=== PATIENT | female | born 1945 | race Caucasian/White ===

== ENCOUNTER → 2017-02-28 | Outpatient (CLI) | payer MEDICARE, SELFPAY | PROVIDERS: Visit Provider Surgery | DX: C50.911 Malignant neoplasm of unspecified site of right female breast (principal) ==

== ENCOUNTER 2018-01-27 09:50 | Outpatient (CLI) | payer MEDICARE, SELFPAY ==
[2018-01-27 10:29] VITALS: BP 128/69; PULSE 71; RESP 18; TEMP 36.7; O2SAT 97
[2018-01-27 10:45] VITALS: BP 141/78; PULSE 68; RESP 18; TEMP 36.6; O2SAT 96
== END 2018-01-27 10:45 | disposition home or self-care (01) ==
LOC: INF 10:04
PROVIDERS: Family Provider Nurse Practitioner; PCP Nurse Practitioner; Visit Provider Nurse Practitioner
DX: M81.0 Age-related osteoporosis without current pathological fracture (principal); C50.911 Malignant neoplasm of unspecified site of right female breast
CPT/HCPCS: 96372; J0897

== ENCOUNTER → 2018-03-24 08:22 | Outpatient (CLI) | payer MEDICARE, SELFPAY ==
--- NOTE | 2018-03-24 08:29 | MM_ITS ---
MM Dig screening mamm BI w/CAD CAD Screening COMPARISON: Digital mammograms 03/24/2017 and 03/21/2016 INDICATION: There is been previous lumpectomy right breast with follow-up radiation therapy. There is a history of breast cancer patient maternal grandmother and maternal aunts. TECHNIQUE: Standard CC and MLO images were obtained. R2 CAD reviewed. FINDINGS: The postlumpectomy scarring is again noted upper outer quadrant right breast with mild focal skin thickening consistent with previous radiation therapy. There is a surgical clip associated with the scar. There are few scattered benign-appearing calcifications in each breast. There is no new or suspicious lesion and there are no suspicious microcalcifications. IMPRESSION: Fibrofatty parenchyma with stable post lumpectomy scarring right breast BI-RADS Category: 2 Benign Finding(s) RECOMMENDED FOLLOW-UP: 1YR - 1 YEAR FOLLOW-UP (A letter has been sent to the patient regarding results of the study.)
== END ==
PROVIDERS: Family Provider Nurse Practitioner; PCP Nurse Practitioner; Visit Provider Surgery
DX: Z12.31 Encounter for screening mammogram for malignant neoplasm of breast (principal)
CPT/HCPCS: 77067

== ENCOUNTER → 2018-04-01 11:46 | Outpatient (CLI) | payer MEDICARE, SELFPAY ==
[2018-04-01 12:08] LABS: Basophils % 0.5 % (0.1-2.0); Eosinophils # 0.1 K/mm3 (0.0-0.4); Eosinophils % 2.4 % (0.1-12.0); Hematocrit 42.7 % (37.0-47.0); Hemoglobin 13.7 g/dL (12.2-16.2); Lymphocytes # 1.6 K/mm3 (0.7-4.5); Mean Corpuscular Hemoglobin 28.9 pg (27.0-31.2); Mean Corpuscular Volume 90.2 fl (81-99); Mean Platelet Volume 7.9 fl (7.4-10.4); Monocytes # 0.3 K/mm3 (0.1-1.0); Monocytes % 5.1 % (1.7-9.3); Neutrophils % 60.2 % (37.0-80.0); Platelet Count 266 K/mm3 (142-424); Red Blood Count 4.73 M/mm3 (4.20-5.40)
[2018-04-01 13:15] LABS: Alanine Aminotransferase 37 U/L (12-78); Albumin Level 3.8 gm/dL (3.4-5.0); Albumin/Globulin Ratio 1.4 (1.1-1.8); Alkaline Phosphatase 41 U/L (46-116); Anion Gap 13.1 mEq/L (5-15); Aspartate Amino Transferase 29 U/L (15-37); Bilirubin,Total 0.4 mg/dL (0.2-1.0); Blood Urea Nitrogen 16 mg/dL (7-18); Calcium 10.7 mg/dL (8.5-10.1); Carbon Dioxide 27 mmol/L (21.0-32.0); Chloride 110 mmol/L (98-107); Estimated Glomerular Filt Rate 55 ml/min (>60); GFR (African American) 66 ML/MIN (>60); Globulin 2.8 gm/dl (1.3-3.2); Glucose 89 mg/dL (74-106); Potassium 5.1 mmoL/L (3.5-5.1); Sodium 145 mmol/L (136-145); Total Protein,Serum 6.6 gm/dL (6.4-8.2)
== END ==
PROVIDERS: Visit Provider Nurse Practitioner
DX: C50.911 Malignant neoplasm of unspecified site of right female breast (principal); M81.0 Age-related osteoporosis without current pathological fracture
CPT/HCPCS: 36415; 80053; 85025

== ENCOUNTER → 2018-09-30 12:43 | Outpatient (CLI) | payer MEDICARE, SELFPAY ==
--- NOTE | 2018-09-30 12:46 | XR_ITS ---
XR DEXA axial skeleton HISTORY: ITS.REASON: breast cancer ORDERING PHYSICIAN: Maria Ines Smith PATIENT AGE: 73 years COMPARISON: 07/03/2017 FINDINGS: The BMD measured at the Right femoral neck is 0.614 g/cm squared with a T score of -3.1. This is considered Osteoporotic according to the World Health Organization criteria. Fracture risk is High. Treatment is advised. L1 L4 density has a T score of -0.3 and has increased by 12%. The main density of the hips has increased by 4%. IMPRESSION: Osteoporosis without fracture risk. Suggest treatment. Recommend follow-up exam in year
== END ==
PROVIDERS: PCP Family Medicine; Visit Provider Nurse Practitioner
DX: C50.919 Malignant neoplasm of unspecified site of unspecified female breast (principal); Z78.0 Asymptomatic menopausal state
CPT/HCPCS: 77080

== ENCOUNTER → 2018-10-07 12:23 | Outpatient (CLI) | payer MEDICARE, SELFPAY ==
[2018-10-07 12:32] VITALS: BMI 32.4
[2018-10-07 12:43] VITALS: BP 160/83; PULSE 74; RESP 18; TEMP 36.5; O2SAT 98
[2018-10-07 12:50] LABS: Basophils % 0.5 % (0.1-2.0); Eosinophils # 0.1 K/mm3 (0.0-0.4); Eosinophils % 1.7 % (0.1-12.0); Hematocrit 41.8 % (37.0-47.0); Hemoglobin 13.6 g/dL (12.2-16.2); Lymphocytes # 1.4 K/mm3 (0.7-4.5); Lymphocytes % 32.8 % (10-50); Mean Corpuscular HGB Conc 32.6 g/dL (31.8-35.4); Mean Corpuscular Hemoglobin 29.6 pg (27.0-31.2); Mean Corpuscular Volume 90.7 fl (81-99); Mean Platelet Volume 7.3 fl (7.4-10.4); Monocytes # 0.2 K/mm3 (0.1-1.0); Monocytes % 5.4 % (1.7-9.3); Neutrophils # 2.6 K/mm3 (1.8-7.8); Neutrophils % 59.6 % (37.0-80.0); Platelet Count 258 K/mm3 (142-424); Red Blood Count 4.61 M/mm3 (4.20-5.40); Red Cell Distribution Width 13.2 % (11.5-17.5); White Blood Count 4.4 K/mm3 (4.8-10.8)
[2018-10-07 13:08] LABS: Alanine Aminotransferase 26 U/L (12-78); Albumin Level 3.6 gm/dL (3.4-5.0); Albumin/Globulin Ratio 1.1 (1.1-1.8); Alkaline Phosphatase 52 U/L (46-116); Anion Gap 15.3 mEq/L (5-15); Aspartate Amino Transferase 18 U/L (15-37); Bilirubin,Total 0.4 mg/dL (0.2-1.0); Blood Urea Nitrogen 13 mg/dL (7-18); Calcium 10.2 mg/dL (8.5-10.1); Carbon Dioxide 25 mmol/L (21.0-32.0); Chloride 107 mmol/L (98-107); Creatinine Clearance Estimated 51 mL/min (50-200); Creatinine,Serum 1.18 mg/dL (0.55-1.02); Estimated Glomerular Filt Rate 45 ml/min (>60); GFR (African American) 54 ML/MIN (>60); Globulin 3.2 gm/dl (1.3-3.2); Glucose 100 mg/dL (74-106); Potassium 4.3 mmoL/L (3.5-5.1); Sodium 143 mmol/L (136-145); Total Protein,Serum 6.8 gm/dL (6.4-8.2)
== END ==
PROVIDERS: Visit Provider Nurse Practitioner
DX: C50.911 Malignant neoplasm of unspecified site of right female breast (principal); M81.0 Age-related osteoporosis without current pathological fracture
CPT/HCPCS: 80053; 85025; 96372; J0897

== ENCOUNTER → 2019-03-29 09:47 | Outpatient (CLI) | payer MEDICARE, SELFPAY ==
--- NOTE | 2019-03-29 09:48 | MM_ITS ---
MM Dig screening mamm BI w/CAD CAD Screening COMPARISON: Digital mammograms with CAD 03/24/2018 and 03/21/2016 INDICATION: There is been previous lumpectomy right breast with follow-up radiation therapy. There is a history of breast cancer patient maternal grandmother and maternal aunts TECHNIQUE: Standard CC and MLO images were obtained. R2 CAD reviewed. FINDINGS: The right breast is a small in the left breast and there is mild uniform skin thickening of the right breast. Again noted is the postlumpectomy site upper outer quadrant showing postlumpectomy scarring along with surgical clips. This area is stable. Moderate fiber glandular densities are seen in both breast. There are few benign-appearing microcalcifications in each breast. There is no new or suspicious lesion in either breast and there are no suspicious microcalcifications. IMPRESSION: Stable post lumpectomy changes right breast with no suspicious lesion seen BI-RADS Category: 2 Benign Finding(s) RECOMMENDED FOLLOW-UP: 1YR - 1 YEAR FOLLOW-UP (A letter has been sent to the patient regarding results of the study.)
== END ==
PROVIDERS: PCP Family Medicine; Visit Provider Nurse Practitioner
DX: Z12.31 Encounter for screening mammogram for malignant neoplasm of breast (principal)
CPT/HCPCS: 77067

== ENCOUNTER 2019-04-14 10:25 | Outpatient (CLI) | payer MEDICARE, SELFPAY ==
[2019-04-14 10:36] VITALS: BMI 32.2
[2019-04-14 10:45] VITALS: BP 141/75; PULSE 60; RESP 18; O2SAT 96
[2019-04-14 11:00] LABS: Basophils % 0.3 % (0.1-2.0); Eosinophils # 0.1 K/mm3 (0.0-0.4); Eosinophils % 2.9 % (0.1-12.0); Hematocrit 40.7 % (37.0-47.0); Hemoglobin 13.1 g/dL (12.2-16.2); Lymphocytes # 1.6 K/mm3 (0.7-4.5); Lymphocytes % 34.4 % (10-50); Mean Corpuscular HGB Conc 32.2 g/dL (31.8-35.4); Mean Corpuscular Hemoglobin 29.9 pg (27.0-31.2); Mean Corpuscular Volume 92.9 fl (81-99); Mean Platelet Volume 7.9 fl (7.4-10.4); Monocytes # 0.3 K/mm3 (0.1-1.0); Monocytes % 6.2 % (1.7-9.3); Neutrophils # 2.6 K/mm3 (1.8-7.8); Neutrophils % 56.1 % (37.0-80.0); Platelet Count 252 K/mm3 (142-424); Red Blood Count 4.37 M/mm3 (4.20-5.40); Red Cell Distribution Width 13.1 % (11.5-17.5); White Blood Count 4.5 K/mm3 (4.8-10.8)
[2019-04-14 11:11] LABS: Alanine Aminotransferase 28 U/L (12-78); Albumin Level 3.4 gm/dL (3.4-5.0); Albumin/Globulin Ratio 1.1 (1.1-1.8); Alkaline Phosphatase 41 U/L (46-116); Anion Gap 15.8 mEq/L (5-15); Aspartate Amino Transferase 25 U/L (15-37); Bilirubin,Total 0.4 mg/dL (0.2-1.0); Blood Urea Nitrogen 17 mg/dL (7-18); Calcium 9.3 mg/dL (8.5-10.1); Carbon Dioxide 25 mmol/L (21.0-32.0); Chloride 108 mmol/L (98-107); Creatinine Clearance Estimated 52 mL/min (50-200); Creatinine,Serum 1.16 mg/dL (0.55-1.02); Estimated Glomerular Filt Rate 46 ml/min (>60); GFR (African American) 56 ML/MIN (>60); Globulin 3.1 gm/dl (1.3-3.2); Glucose 103 mg/dL (74-106); Potassium 4.8 mmoL/L (3.5-5.1); Sodium 144 mmol/L (136-145); Total Protein,Serum 6.5 gm/dL (6.4-8.2)
== END 2019-04-14 10:55 | disposition home or self-care (01) ==
LOC: INF 10:28
PROVIDERS: Visit Provider Nurse Practitioner
DX: C50.911 Malignant neoplasm of unspecified site of right female breast (principal); M81.0 Age-related osteoporosis without current pathological fracture
CPT/HCPCS: 80053; 85025; 96372; J0897

== ENCOUNTER → 2019-10-11 13:36 | Outpatient (CLI) | payer MEDICARE, SELFPAY ==
--- NOTE | 2019-10-11 13:36 | XR_ITS ---
PROCEDURE: XR DEXA AXIAL SKELETON CLINICAL INDICATION: OSTEOPOROSIS COMPARISON: No exams were available for comparison FINDINGS: Lumbar spine (L1 through L4), BMD 0.981, T-score -0.6 Left hip (neck), BMD 0.529, T-score -2.9 Left hip (Total), BMD 0.638, T-score -2.5 IMPRESSION: Osteoporosis. It should also be noted there is false elevation of the bone density measurement in the mid and lower lumbar spine related to chronic intervertebral osteochondrosis. Dictated by: Jaspreet Jarrell 10/11/2019 18:45 Electronically signed by Jaspreet Jarrell in [place] 10/11/2019 18:45
== END ==
PROVIDERS: PCP Family Medicine; Visit Provider Nurse Practitioner
DX: M81.0 Age-related osteoporosis without current pathological fracture (principal)
CPT/HCPCS: 77080

== ENCOUNTER 2019-10-18 10:54 | Outpatient (CLI) | payer MEDICARE, SELFPAY ==
[2019-10-18 11:01] VITALS: BMI 33.4
[2019-10-18 11:36] LABS: Basophils % 0.4 % (0.1-2.0); Eosinophils # 0.1 K/mm3 (0.0-0.4); Eosinophils % 3.6 % (0.1-12.0); Hematocrit 38.7 % (37.0-47.0); Lymphocytes % 28.7 % (10-50); Mean Corpuscular Hemoglobin 28.5 pg (27.0-31.2); Mean Platelet Volume 7.6 fl (7.4-10.4); Monocytes # 0.2 K/mm3 (0.1-1.0); Monocytes % 5.6 % (1.7-9.3); Neutrophils # 2.2 K/mm3 (1.8-7.8); Neutrophils % 61.7 % (37.0-80.0); Platelet Count 269 K/mm3 (142-424); Red Blood Count 4.21 M/mm3 (4.20-5.40); Red Cell Distribution Width 13.7 % (11.5-17.5); White Blood Count 3.6 K/mm3 (4.8-10.8)
[2019-10-18 11:40] VITALS: BP 142/75; PULSE 71; RESP 18; O2SAT 97
[2019-10-18 11:42] LABS: Alanine Aminotransferase 22 U/L (12-78); Anion Gap 13.6 mEq/L (5-15); Aspartate Amino Transferase 20 U/L (15-37); Bilirubin,Total 0.3 mg/dL (0.2-1.0); Blood Urea Nitrogen 16 mg/dL (7-18); Calcium 9.2 mg/dL (8.5-10.1); Carbon Dioxide 25 mmol/L (21.0-32.0); Chloride 110 mmol/L (98-107); Creatinine Clearance Estimated 61 mL/min (50-200); Creatinine,Serum 0.99 mg/dL (0.55-1.02); Estimated Glomerular Filt Rate 55 ml/min (>60); GFR (African American) 67 ML/MIN (>60); Glucose 159 mg/dL (74-106); Potassium 4.6 mmoL/L (3.5-5.1); Sodium 144 mmol/L (136-145)
[2019-10-18 12:01] LABS: Alkaline Phosphatase 40 U/L (46-116)
== END 2019-10-18 12:03 | disposition home or self-care (01) ==
LOC: INF 10:54
PROVIDERS: Visit Provider Internal Medicine Medical Oncology
DX: C50.911 Malignant neoplasm of unspecified site of right female breast (principal); M81.0 Age-related osteoporosis without current pathological fracture
CPT/HCPCS: 80053; 85025; 96372; J0897

== ENCOUNTER 2019-12-28 09:00 | Outpatient (RCR) | payer MEDICARE, SELFPAY ==
--- NOTE | 2019-10-18 15:19 | HMH.PTOPWND ---
Rehab Outpt Wound Evaluation Rehab OP Wound Evaluation Start: 10/18/19 14:59 Freq: Status: Active Protocol: Document 10/18/19 15:12 PHOANGELA (Rec: 10/18/19 15:18 PHORNE [id number]) Electronically Signed By Christos Barnes, PT 10/18/19 15:12 Subjective/History History History Pt is 74 yowf who presents with increased right UE edema x 5 yrs S/P right breast cancer with lumpectomy and axillary LN disection. She has had good success with lymphedema treatment in the past and and reports this episode of increased edema began several mos ago. She reports only mild discomfort in the right UE and minimal intermittent numbness. She has PMH of HL, HTN, osteoporosis, CCY. Subjective Subjective She reports 1/10 pain in the right axillary region today and minimal tenderness to palpation. Lymphedema Eval Classification of Lymphedema Secondary Lymphedema Yes Stemmer's sign Stemmer's Sign no Stage of Lymphedema Lymphedema stages Stage II (Pitting edema, increased fibrosis w/ decreased pitting) Skin Changes Dry Skin Yes Skin Folds Yes Other Changes Yes Pain Scale Pain Scale (0-10) 1 Radiation Therapy Has received radiation therapy yes Chemo Therapy Has received chemo therapy yes Affected Extremities Areas Affected by Lymphedema/Edema Right Upper Extremity,Right Breast,Right Axilla Manual Lymphatic Drainage Treatment Area MLD Treatment Area Right Upper Extremity,Right Breast,Right Axilla Wound Problems/Impairments Impairments Problems/Impairmments Palpation Tenderness,Impaired Range of Motion,Impaired Lifting,Increased Edema, Lymphedema Present,Subjective C/O Pain,Impaired Self Care/ Self Management Prognosis Rehab Potential Good Clinical Impression Consistent with Diagnosis Yes Short Term Goals Number of Weeks 4 Decreased Palpation Tenderness Yes: to min Decrease Lymphedema Yes Decrease Subjective C/O Pain
--- NOTE | 2019-11-18 08:52 | HMH.RHREAS ---
Rehab Reassessment Rehab OP Re-assessment Start: 11/18/19 08:45 Freq: Status: Active Protocol: Document 11/18/19 08:45 GUILLERMINA (Rec: 11/18/19 08:52 GUILLERMINA [id number]) Electronically Signed By Christos Barnes, PT 11/18/19 08:45 Rehab Re-assessment Subjective Subjective Pt reports she feels better in the R UE and is feeling better in her clothes, not as tight. Objective Objective Notes Circumferential measurements: R UE total is -16.4 cm since initial eval. Assessment Progress Assessment Progressing as Expected Assessment Notes Less significant fibrotic edema throughout the upper R arm, less stiffness in the sub -axiallry edema ridge noted as well. She has also improved with Ther-ex, but is taking a 2 wk break while she adjusts to a new HTN medication. Patient goals met ST,2,3,4,5 Goals Not Met LT,2,3,4,5,6 Revised Goals none Plan Plan Continue per initial POC. Frequency of Therapy 2 x/wk Duration of therapy 8 wks Time and Billing Re-Eval Time 15 Re-Eval Billing Units 1 PHYSICIAN CERTIFICATION: I certify the specified therapy services for Loulou Luong are required, authorized, and reviewed every 30 days.
== END 2019-12-28 09:05 | disposition home or self-care (01) ==
LOC: PT 09:00
PROVIDERS: Visit Provider Internal Medicine Medical Oncology
DX: Z85.3 Personal history of malignant neoplasm of breast (principal)
CPT/HCPCS: 97110; 97140; 97162; 97164; 97760

== ENCOUNTER → 2020-04-03 08:19 | Outpatient (CLI) | payer MEDICARE, SELFPAY ==
--- NOTE | 2020-04-03 08:25 | MM_ITS ---
PROCEDURE: MM DIG SCREENING MAMM BI W/CAD Digital Breast Tomosynthesis Included CLINICAL INDICATION: SCREENING There is a history of lumpectomy right breast for malignancy. Patient is currently on tamoxifen. The right breast was difficult to position for the MLO view secondary to lymphedema in the right arm. COMPARISON: BONE3 BONE DENSITOMETRY(HIP:LT SPINE from 07/03/2017 [facility] MM Dig screening mamm BI w/CAD from 03/24/2018 DIG MAMM-SCREEN BRANDEN from 03/29/2019 TECHNIQUE: Standard CC and MLO images and 3D Tomosynthesis was obtained. R2 CAD reviewed. FINDINGS: There is moderate postlumpectomy scarring upper outer quadrant right breast. There is a surgical clip near the postsurgical scar upper outer quadrant right breast. There are couple of benign-appearing microcalcifications in each breast. There has been slight interval reduction in the lumpectomy scar right breast compared to the previous studies. The scarring in the right axillary region is stable unchanged. There are fatty replaced nodes left axilla. There is no new or suspicious lesion and no suspicious microcalcifications. IMPRESSION: Stable exam with no suspicious lesions seen BI-RAD Category: 2 Benign Finding(s) FOLLOW-UP: 1YR 1 Year Follow-up (A letter has been sent to the patient regarding results of the study.) Dictated by: Dr. Wayne Bruce MD 04/05/2020 10:[address] Wayne Bruce MD in [place] 04/05/2020 10:55
== END ==
PROVIDERS: PCP Family Medicine; Visit Provider Surgery
DX: Z12.31 Encounter for screening mammogram for malignant neoplasm of breast (principal)
CPT/HCPCS: 77063; 77067

== ENCOUNTER 2020-05-05 09:49 | Outpatient (CLI) | payer MEDICARE, SELFPAY ==
[2020-05-05 09:52] VITALS: BMI 33.4
[2020-05-05 10:01] VITALS: BP 142/85; PULSE 73; RESP 18; TEMP 36.7; O2SAT 98
[2020-05-05 10:22] LABS: Basophils % 0.3 % (0.1-2.0); Eosinophils # 0.1 K/mm3 (0.0-0.4); Eosinophils % 2.2 % (0.1-12.0); Hematocrit 39.1 % (37.0-47.0); Hemoglobin 13.4 g/dL (12.2-16.2); Lymphocytes # 1.5 K/mm3 (0.7-4.5); Lymphocytes % 25.3 % (10-50); Mean Corpuscular HGB Conc 34.2 g/dL (31.8-35.4); Mean Corpuscular Hemoglobin 31.2 pg (27.0-31.2); Mean Corpuscular Volume 91.2 fl (81-99); Mean Platelet Volume 7.8 fl (7.4-10.4); Monocytes # 0.3 K/mm3 (0.1-1.0); Monocytes % 4.2 % (1.7-9.3); Neutrophils # 4.1 K/mm3 (1.8-7.8); Neutrophils % 68.1 % (37.0-80.0); Platelet Count 280 K/mm3 (142-424); Red Blood Count 4.28 M/mm3 (4.20-5.40); Red Cell Distribution Width 13.2 % (11.5-17.5)
[2020-05-05 10:26] LABS: Chloride 106 mmol/L (98-107); Potassium 4.4 mmoL/L (3.5-5.1); Sodium 142 mmol/L (136-145)
[2020-05-05 10:29] LABS: Alanine Aminotransferase 19 U/L (12-78); Albumin/Globulin Ratio 1.5 (1.1-1.8); Alkaline Phosphatase 68 U/L (38-126); Anion Gap 14.4 mEq/L (5-15); Aspartate Amino Transferase 36 U/L (14-36); Bilirubin,Total 0.5 mg/dl (0.2-1.3); Blood Urea Nitrogen 16 mg/dl (7-17); Carbon Dioxide 26 mmol/L (22.0-30.0); Creatinine Clearance Estimated 56 mL/min (50-200); Estimated Glomerular Filt Rate 49 ml/min (>60); GFR (African American) 59 ML/MIN (>60); Globulin 2.7 g/dL (1.3-3.2); Total Protein,Serum 6.7 g/dl (6.3-8.2)
[2020-05-05 10:30] LABS: Calcium 10.1 mg/dl (8.4-10.2); Glucose 108 mg/dl (74-100)
== END 2020-05-05 10:30 | disposition home or self-care (01) ==
LOC: INF 09:49
PROVIDERS: Visit Provider Internal Medicine Medical Oncology
DX: C50.919 Malignant neoplasm of unspecified site of unspecified female breast (principal); M81.0 Age-related osteoporosis without current pathological fracture
CPT/HCPCS: 36415; 80053; 85025; 96372; J0897

== ENCOUNTER → 2020-06-07 10:45 | Outpatient (CLI) | payer MEDICARE, SELFPAY ==
--- NOTE | 2020-06-07 10:50 | XR_ITS ---
PROCEDURE: XR SHOULDER LT MIN 2V CLINICAL INDICATION: LT SHOULDER PAIN COMPARISON: No exams were available for comparison FINDINGS: There are severe osteoarthritic changes of the glenohumeral joint and moderate osteoarthritic change of the acromioclavicular joint. There is a lucency through the mid aspect of the scapular spine consistent with a nondisplaced fracture. IMPRESSION: Osteoarthritic changes with nondisplaced fracture through the mid aspect of the scapular spine Dictated by: Pramod Polo MD 06/07/2020 11:53 Pramod Polo MD in [place] 06/07/2020 11:53
== END ==
PROVIDERS: PCP Family Medicine; Visit Provider Nurse Practitioner
DX: M25.512 Pain in left shoulder (principal)
CPT/HCPCS: 73030

== ENCOUNTER → 2020-06-20 08:33 | Outpatient (CLI) | payer MEDICARE, SELFPAY ==
--- NOTE | 2020-06-20 08:35 | MR_ITS ---
PROCEDURE: MR SHOULDER LT WO CON CLINICAL INDICATION: SHOULDER PAIN, LEFT PT C/O LEFT SHOULDER PAIN WITH NO KNOWN INJURY. PT STATES HER MD SENT HER FOR AN X-RAY THAT SHOWED A FX. PRIOR X-RAY DONE 06/07/20. PT DOES HAVE HX OF OSTEOPOROSIS SECONDARY TO MED USE., History of breast cancer COMPARISON: NM BTBB NUC BONE SCAN-WHOLE BODY-TBB from 04/04/[address] CHEST W/ CONTRAST from 04/05/2016 CR XR SHOULDER LT MIN 2V from 06/07/2020 TECHNIQUE: Routine multiplanar multi echo sequences are performed without gadolinium enhancement. FINDINGS: There are hypertrophic changes of the acromioclavicular joint. There is thickening of the supraspinatus tendon distally consistent with tendinopathy/tendinosis with suspected partial tear of the distal and posterior aspect of the supraspinatus tendon. There is also increased T2 signal with thinning of the infraspinatus tendon distally consistent with tendinopathy/tendinosis with partial tear suspected. A full-thickness nor a complete tear is identified. The subscapularis and teres minor tendons are intact. Moderate osteoarthritic changes are present involving the glenohumeral joint. The glenoid labrum is diminished in keeping with the severe osteoarthritis. No obvious labral tear is are evident. The bicipital tendon is in place. There is a small shoulder joint effusion There is a soft tissue mass which appears to be epicentered in the supraspinatus muscle. The mass is incompletely imaged and measures at least 5.4 cm longitudinal, 3.7 cm cephalad caudad, and 3 cm in AP dimension. The mass extends into the body of the scapula with a pathologic fracture within the scapular spine. The mass is incompletely imaged. There is increased T2 signal involving the a chromium at its junction with the scapular spine consistent with neoplastic involvement. The lesion also appears to extend into the scapula at the subglenoid region. IMPRESSION: 1. Soft tissue mass of the supraspinatus muscle with also involvement of the scapula with pathologic fracture of the base of the scapular spine and base of the acromion consistent with neoplasm either primary or metastatic. Suggest chest CT for better lesion characterization and extent. Previous study suggest a history of breast cancer. Metastatic lesion is considered. 2. Tendinopathy/tendinosis of both supraspinatus and infraspinatus tendons with partial tears with severe osteoarthritis of the glenohumeral joint Dictated by: Pramod Polo MD 06/22/2020 08:49 Pramod Polo MD in [place] 06/22/2020 08:49
== END ==
PROVIDERS: PCP Family Medicine; Visit Provider Nurse Practitioner
DX: M25.512 Pain in left shoulder (principal)
CPT/HCPCS: 73221

== ENCOUNTER → 2020-07-27 08:09 | Outpatient (CLI) | payer MEDICARE, SELFPAY ==
[2020-07-27 08:43] LABS: Basophils % 0.3 % (0.1-2.0); Eosinophils # 0.2 K/mm3 (0.0-0.4); Eosinophils % 3.1 % (0.1-12.0); Hematocrit 40.6 % (37.0-47.0); Hemoglobin 12.9 g/dL (12.2-16.2); Lymphocytes # 1.5 K/mm3 (0.7-4.5); Lymphocytes % 27.6 % (10-50); Mean Corpuscular HGB Conc 31.8 g/dL (31.8-35.4); Mean Corpuscular Hemoglobin 29.6 pg (27.0-31.2); Mean Corpuscular Volume 92.9 fl (81-99); Mean Platelet Volume 7.3 fl (7.4-10.4); Monocytes # 0.3 K/mm3 (0.1-1.0); Monocytes % 4.8 % (1.7-9.3); Neutrophils # 3.6 K/mm3 (1.8-7.8); Neutrophils % 64.2 % (37.0-80.0); Platelet Count 292 K/mm3 (142-424); Red Blood Count 4.37 M/mm3 (4.20-5.40); Red Cell Distribution Width 13.5 % (11.5-17.5); White Blood Count 5.6 K/mm3 (4.8-10.8)
[2020-07-27 08:54] LABS: Prothrombin Time 10.9 seconds (9.4-11.8)
[2020-07-27 08:55] LABS: Activated Partial Thrombo Time 30.9 seconds (23.6-34.0); INR 0.98 (0.9-1.1)
--- NOTE | 2020-07-27 09:39 | CT_ITS ---
PROCEDURE: CT BIOPSY GUIDED NEEDLE CLINICAL HISTORY: LEFT SCAPULA MASS LEFT SCAPULAR SUPRACLAVICULAR AREA AMASS BIOSPY COMPARISON: No exams were available for comparison TECHNIQUE: Following obtaining informed consent and time-out procedure under aseptic conditions and local anesthesia with 1 percent buffered lidocaine, the left scapular mass was localized with standard CT technique. An 18 gauge introducer needle was inserted along the periphery of the mass. Through this needle a 19 gauge biopsy needle was then inserted. Four core biopsies were obtained followed by aspiration with the introducer needle. The patient tolerated the procedure well without evidence of immediate complication and left radiology suite in stable condition. The pathologist was present and did confirm the tissue. FINDINGS: Left scapular mass with pathologic fracture of the left scapula. The mass has soft tissue component with bony destruction. Pathology: Pending. IMPRESSION: Uneventful CT-guided biopsy of the left scapular mass with tissue confirmation by the pathologist. Dictated by: Pramod Polo MD 07/28/2020 15:03 Pramod Polo MD in [place] 07/28/2020 15:03
== END ==
PROVIDERS: PCP Family Medicine; Visit Provider Internal Medicine Medical Oncology
DX: R22.32 Localized swelling, mass and lump, left upper limb (principal); Z85.3 Personal history of malignant neoplasm of breast; Z51.81 Encounter for therapeutic drug level monitoring
CPT/HCPCS: 10009; 36415; 77012; 85025; 85610; 85730; 88172; 88173; 88305; 88342; 88360

== ENCOUNTER → 2020-08-03 15:39 | Outpatient (CLI) | payer MEDICARE, SELFPAY ==
[2020-08-03 16:11] LABS: Basophils % 0.8 % (0.1-2.0); Eosinophils # 0.2 K/mm3 (0.0-0.4); Eosinophils % 3.3 % (0.1-12.0); Hematocrit 41.2 % (37.0-47.0); Hemoglobin 12.8 g/dL (12.2-16.2); Lymphocytes # 1.6 K/mm3 (0.7-4.5); Lymphocytes % 32.9 % (10-50); Mean Corpuscular Hemoglobin 29.1 pg (27.0-31.2); Mean Corpuscular Volume 93.7 fl (81-99); Mean Platelet Volume 13.4 fl (7.4-10.4); Monocytes # 0.3 K/mm3 (0.1-1.0); Monocytes % 5.6 % (1.7-9.3); Neutrophils # 2.8 K/mm3 (1.8-7.8); Neutrophils % 57.3 % (37.0-80.0); Platelet Count 350 K/mm3 (142-424); Red Blood Count 4.39 M/mm3 (4.20-5.40); Red Cell Distribution Width 14.8 % (11.5-17.5); White Blood Count 4.8 K/mm3 (4.8-10.8)
[2020-08-03 17:05] LABS: Alanine Aminotransferase 23 U/L (12-78); Albumin Level 3.9 g/dl (3.5-5.0); Albumin/Globulin Ratio 1.6 (1.1-1.8); Alkaline Phosphatase 71 U/L (38-126); Anion Gap 12.2 mEq/L (5-15); Aspartate Amino Transferase 35 U/L (14-36); Bilirubin,Total 0.3 mg/dl (0.2-1.3); Blood Urea Nitrogen 15 mg/dl (7-17); Calcium 10.3 mg/dl (8.4-10.2); Carbon Dioxide 25 mmol/L (22.0-30.0); Chloride 109 mmol/L (98-107); Estimated Glomerular Filt Rate 54 ml/min (>60); GFR (African American) 66 ML/MIN (>60); Globulin 2.4 g/dL (1.3-3.2); Glucose 103 mg/dl (74-100); Potassium 4.2 mmoL/L (3.5-5.1); Sodium 142 mmol/L (136-145); Total Protein,Serum 6.3 g/dl (6.3-8.2)
[2020-08-03 17:22] LABS: T4 (Thyroxine) 9.4 ug/dl (5.53-11.0)
[2020-08-03 17:35] LABS: Thyroid Stimulating Hormone 2.87 uIU/mL (0.465-4.68)
== END ==
PROVIDERS: Visit Provider Internal Medicine Medical Oncology
DX: C50.911 Malignant neoplasm of unspecified site of right female breast (principal); Z79.899 Other long term (current) drug therapy
CPT/HCPCS: 36415; 80053; 84436; 84443; 85025

== ENCOUNTER → 2020-08-04 09:59 | Outpatient (CLI) | payer MEDICARE, SELFPAY ==
--- NOTE | 2020-08-04 | MR_ITS ---
PROCEDURE: MR HEAD/BRAIN WO/W CON CLINICAL INDICATION: HX BREAST CA, metastatic breast cancer PT STATES HX BREAST CA AND DENIES BRAIN RELATED SYMPTOMS. COMPARISON: No exams were available for comparison TECHNIQUE: Routine multiplanar multi echo sequences are performed without and with gadolinium enhancement. FINDINGS: No midline shift, mass effect, intracranial hemorrhage, or hydrocephalus is evident. The cerebellopontine angle, cerebellum, and brainstem have an unremarkable appearance. No enhancing lesions are identified. No evidence of acute infarction with no restricted diffusion apparent. The pituitary, optic chiasm, corpus callosum, and craniocervical junction have an unremarkable appearance. There are scattered T2 white matter hyperintensities which may be due to ischemic gliotic change from microvascular disease/normal aging process. There is some fluid signal in the right mastoid sinus. No paranasal sinus air-fluid levels. IMPRESSION: 1. No convincing evidence of intracranial metastatic disease. 2. Scattered T2 white matter hyperintensities suggesting ischemic gliotic change from microvascular disease. Dictated by: Pramod Polo MD 08/05/2020 10:26 Pramod Polo MD in [place] 08/05/2020 10:26
== END ==
PROVIDERS: PCP Family Medicine; Visit Provider Internal Medicine Medical Oncology
DX: C50.911 Malignant neoplasm of unspecified site of right female breast (principal)
CPT/HCPCS: 70553; A9576

== ENCOUNTER 2020-08-10 13:14 | Outpatient (CLI) | payer MEDICARE, SELFPAY ==
[2020-08-10 13:20] VITALS: BP 122/78; PULSE 68; RESP 20; TEMP 36.9; O2SAT 95
--- NOTE | 2020-08-10 13:20 | PC.NURSE ---
GAVE BOTH INJECTIONS IN RIGHT BUTTOCKS
== END 2020-08-10 13:50 | disposition home or self-care (01) ==
PROVIDERS: Visit Provider Internal Medicine Medical Oncology
DX: Z51.11 Encounter for antineoplastic chemotherapy (principal); C50.911 Malignant neoplasm of unspecified site of right female breast
CPT/HCPCS: 96402; J9395

== ENCOUNTER → 2020-08-23 13:21 | Outpatient (CLI) | payer MEDICARE, SELFPAY ==
[2020-08-23 14:12] LABS: Basophils % 0.4 % (0.1-2.0); Eosinophils # 0.1 K/mm3 (0.0-0.4); Eosinophils % 2.7 % (0.1-12.0); Hematocrit 38.3 % (37.0-47.0); Hemoglobin 12.1 g/dL (12.2-16.2); Lymphocytes # 1.7 K/mm3 (0.7-4.5); Lymphocytes % 49.7 % (10-50); Mean Corpuscular HGB Conc 31.5 g/dL (31.8-35.4); Mean Corpuscular Hemoglobin 29.1 pg (27.0-31.2); Mean Corpuscular Volume 92.3 fl (81-99); Mean Platelet Volume 7.2 fl (7.4-10.4); Monocytes # 0.1 K/mm3 (0.1-1.0); Neutrophils # 1.5 K/mm3 (1.8-7.8); Neutrophils % 45.1 % (37.0-80.0); Platelet Count 206 K/mm3 (142-424); Red Blood Count 4.15 M/mm3 (4.20-5.40); Red Cell Distribution Width 13.9 % (11.5-17.5); White Blood Count 3.4 K/mm3 (4.8-10.8)
[2020-08-23 14:34] LABS: Chloride 107 mmol/L (98-107); Potassium 4.6 mmoL/L (3.5-5.1); Sodium 142 mmol/L (136-145)
[2020-08-23 14:37] LABS: Alanine Aminotransferase 34 U/L (12-78); Albumin Level 4.3 g/dl (3.5-5.0); Alkaline Phosphatase 49 U/L (38-126); Anion Gap 15.6 mEq/L (5-15); Aspartate Amino Transferase 43 U/L (14-36); Bilirubin,Total 0.3 mg/dl (0.2-1.3); Blood Urea Nitrogen 19 mg/dl (7-17); Carbon Dioxide 24 mmol/L (22.0-30.0); Estimated Glomerular Filt Rate 44 ml/min (>60); GFR (African American) 53 ML/MIN (>60); Globulin 2.2 g/dL (1.3-3.2); Total Protein,Serum 6.5 g/dl (6.3-8.2)
[2020-08-23 14:38] LABS: Glucose 93 mg/dl (74-100)
[2020-08-23 14:55] LABS: T4 (Thyroxine) 12.2 ug/dl (5.53-11.0)
[2020-08-23 15:09] LABS: Thyroid Stimulating Hormone 4.31 uIU/mL (0.465-4.68)
== END ==
PROVIDERS: Visit Provider Internal Medicine Medical Oncology
DX: C50.911 Malignant neoplasm of unspecified site of right female breast (principal); Z79.899 Other long term (current) drug therapy
CPT/HCPCS: 36415; 80053; 84436; 84443; 85025

== ENCOUNTER 2020-08-24 10:17 | Outpatient (CLI) | payer MEDICARE, SELFPAY ==
[2020-08-24 10:34] VITALS: BP 129/79; PULSE 68; RESP 18; TEMP 36.3; O2SAT 98
== END 2020-08-24 10:34 | disposition home or self-care (01) ==
LOC: INF 10:17
PROVIDERS: Visit Provider Internal Medicine Medical Oncology
DX: Z51.11 Encounter for antineoplastic chemotherapy (principal); C50.911 Malignant neoplasm of unspecified site of right female breast; Z17.0 Estrogen receptor positive status [ER+]
CPT/HCPCS: 96402; J9395

== ENCOUNTER → 2020-09-06 11:16 | Outpatient (CLI) | payer MEDICARE, SELFPAY ==
[2020-09-06 12:12] LABS: Basophils % 1.1 % (0.1-2.0); Eosinophils % 1.2 % (0.1-12.0); Hematocrit 38.4 % (37.0-47.0); Hemoglobin 12.9 g/dL (12.2-16.2); Lymphocytes # 1.4 K/mm3 (0.7-4.5); Lymphocytes % 59.2 % (10-50); Mean Corpuscular HGB Conc 33.5 g/dL (31.8-35.4); Mean Corpuscular Hemoglobin 31.2 pg (27.0-31.2); Mean Corpuscular Volume 93.2 fl (81-99); Mean Platelet Volume 7.9 fl (7.4-10.4); Monocytes # 0.2 K/mm3 (0.1-1.0); Monocytes % 7.8 % (1.7-9.3); Neutrophils # 0.8 K/mm3 (1.8-7.8); Neutrophils % 30.7 % (37.0-80.0); Platelet Count 228 K/mm3 (142-424); Red Blood Count 4.12 M/mm3 (4.20-5.40); White Blood Count 2.4 K/mm3 (4.8-10.8)
[2020-09-06 12:32] LABS: MANUAL DIFFERENTIAL MANUAL DIFFERENTIAL (MANUAL DIFF)
[2020-09-06 13:53] LABS: Chloride 107 mmol/L (98-107); Potassium 4.6 mmoL/L (3.5-5.1); Sodium 141 mmol/L (136-145)
[2020-09-06 13:56] LABS: Alanine Aminotransferase 35 U/L (12-78); Albumin/Globulin Ratio 1.8 (1.1-1.8); Alkaline Phosphatase 47 U/L (38-126); Anion Gap 10.6 mEq/L (5-15); Aspartate Amino Transferase 35 U/L (14-36); Bilirubin,Total 0.5 mg/dl (0.2-1.3); Blood Urea Nitrogen 15 mg/dl (7-17); Calcium 10.1 mg/dl (8.4-10.2); Carbon Dioxide 28 mmol/L (22.0-30.0); Estimated Glomerular Filt Rate 49 ml/min (>60); GFR (African American) 59 ML/MIN (>60); Globulin 2.2 g/dL (1.3-3.2); Glucose 149 mg/dl (74-100); Total Protein,Serum 6.2 g/dl (6.3-8.2)
[2020-09-06 14:15] LABS: Lymphocytes % 63 % (10-50); Monocytes % 13 % (2-9); Neutrophils % 24 % (42-76); Platelet Estimate Normal; RBC Morphology Normal; Total Cells Counted 100
== END ==
PROVIDERS: Visit Provider Internal Medicine Medical Oncology
DX: C50.911 Malignant neoplasm of unspecified site of right female breast (principal)
CPT/HCPCS: 36415; 80053; 85007; 85025

== ENCOUNTER 2020-09-07 11:35 | Outpatient (CLI) | payer MEDICARE, SELFPAY ==
[2020-09-07 11:55] VITALS: BP 166/84; PULSE 73; RESP 18; TEMP 36.7; O2SAT 99
== END 2020-09-07 12:10 | disposition home or self-care (01) ==
LOC: INF 11:47
PROVIDERS: Visit Provider Internal Medicine Medical Oncology
DX: Z51.11 Encounter for antineoplastic chemotherapy (principal); C50.911 Malignant neoplasm of unspecified site of right female breast; Z17.0 Estrogen receptor positive status [ER+]
CPT/HCPCS: 96402; J9395

== ENCOUNTER 2020-09-20 11:02 | Outpatient (CLI) | payer MEDICARE, SELFPAY ==
[2020-09-20 11:03] VITALS: BMI 34.2
[2020-09-20 11:30] VITALS: BP 158/71; PULSE 70; RESP 18; TEMP 36.4; O2SAT 99
[2020-09-20 11:32] LABS: Chloride 107 mmol/L (98-107); Potassium 4.7 mmoL/L (3.5-5.1); Sodium 140 mmol/L (136-145)
[2020-09-20 11:33] LABS: Basophils # 0.1 K/mm3 (0-0.2); Basophils % 1.7 % (0.1-2.0); Eosinophils # 0.1 K/mm3 (0.0-0.4); Eosinophils % 1.9 % (0.1-12.0); Hematocrit 39.4 % (37.0-47.0); Hemoglobin 12.8 g/dL (12.2-16.2); Lymphocytes # 1.6 K/mm3 (0.7-4.5); Lymphocytes % 44.1 % (10-50); Mean Corpuscular HGB Conc 32.5 g/dL (31.8-35.4); Mean Corpuscular Hemoglobin 30.5 pg (27.0-31.2); Monocytes # 0.1 K/mm3 (0.1-1.0); Monocytes % 2.1 % (1.7-9.3); Neutrophils # 1.8 K/mm3 (1.8-7.8); Neutrophils % 50.3 % (37.0-80.0); Platelet Count 407 K/mm3 (142-424); Red Blood Count 4.19 M/mm3 (4.20-5.40); Red Cell Distribution Width 17.3 % (11.5-17.5); White Blood Count 3.6 K/mm3 (4.8-10.8)
[2020-09-20 11:34] LABS: Alanine Aminotransferase 23 U/L (12-78); Blood Urea Nitrogen 16 mg/dl (7-17); Creatinine Clearance Estimated 48 mL/min (50-200); Estimated Glomerular Filt Rate 40 ml/min (>60); GFR (African American) 48 ML/MIN (>60)
[2020-09-20 11:35] LABS: Albumin Level 4.3 g/dl (3.5-5.0); Albumin/Globulin Ratio 1.7 (1.1-1.8); Alkaline Phosphatase 49 U/L (38-126); Anion Gap 9.7 mEq/L (5-15); Aspartate Amino Transferase 32 U/L (14-36); Bilirubin,Total 0.5 mg/dl (0.2-1.3); Carbon Dioxide 28 mmol/L (22.0-30.0); Globulin 2.5 g/dL (1.3-3.2); Glucose 99 mg/dl (74-100); Total Protein,Serum 6.8 g/dl (6.3-8.2)
== END 2020-09-20 11:30 | disposition home or self-care (01) ==
LOC: INF 11:02
PROVIDERS: Visit Provider Internal Medicine Medical Oncology
DX: Z51.11 Encounter for antineoplastic chemotherapy (principal); C50.919 Malignant neoplasm of unspecified site of unspecified female breast; Z17.0 Estrogen receptor positive status [ER+]
CPT/HCPCS: 80053; 85025; 96402; J9395

== ENCOUNTER 2020-10-18 10:35 | Outpatient (CLI) | payer MEDICARE, SELFPAY ==
[2020-10-18 11:05] VITALS: BP 151/67; PULSE 71; RESP 18; TEMP 36.7; O2SAT 98
== END 2020-10-18 11:05 | disposition home or self-care (01) ==
LOC: INF 10:40
PROVIDERS: Visit Provider Internal Medicine Medical Oncology
DX: C50.911 Malignant neoplasm of unspecified site of right female breast (principal); Z51.11 Encounter for antineoplastic chemotherapy; Z17.0 Estrogen receptor positive status [ER+]
CPT/HCPCS: 96402; J9395

== ENCOUNTER → 2020-10-30 08:01 | Outpatient (CLI) | payer MEDICARE, SELFPAY ==
[2020-10-30 08:17] LABS: Eosinophils % 0.9 % (0.1-12.0); Hematocrit 37.9 % (37.0-47.0); Hemoglobin 12.5 g/dL (12.2-16.2); Lymphocytes # 1.3 K/mm3 (0.7-4.5); Lymphocytes % 47.4 % (10-50); Mean Corpuscular Hemoglobin 33.2 pg (27.0-31.2); Mean Corpuscular Volume 100.6 fl (81-99); Mean Platelet Volume 8.1 fl (7.4-10.4); Monocytes # 0.1 K/mm3 (0.1-1.0); Monocytes % 3.3 % (1.7-9.3); Neutrophils # 1.3 K/mm3 (1.8-7.8); Neutrophils % 47.4 % (37.0-80.0); Platelet Count 207 K/mm3 (142-424); Red Blood Count 3.77 M/mm3 (4.20-5.40); Red Cell Distribution Width 19.1 % (11.5-17.5); White Blood Count 2.7 K/mm3 (4.8-10.8)
[2020-10-30 08:33] LABS: Alanine Aminotransferase 26 U/L (12-78); Albumin Level 4.3 g/dl (3.5-5.0); Albumin/Globulin Ratio 1.5 (1.1-1.8); Alkaline Phosphatase 50 U/L (38-126); Anion Gap 13.2 mEq/L (5-15); Aspartate Amino Transferase 33 U/L (14-36); Bilirubin,Total 0.5 mg/dl (0.2-1.3); Blood Urea Nitrogen 19 mg/dl (7-17); Calcium 10.2 mg/dl (8.4-10.2); Carbon Dioxide 26 mmol/L (22.0-30.0); Chloride 104 mmol/L (98-107); Estimated Glomerular Filt Rate 40 ml/min (>60); GFR (African American) 48 ML/MIN (>60); Globulin 2.9 g/dL (1.3-3.2); Glucose 129 mg/dl (74-100); Potassium 4.2 mmoL/L (3.5-5.1); Sodium 139 mmol/L (136-145); Total Protein,Serum 7.2 g/dl (6.3-8.2)
--- NOTE | 2020-10-30 09:26 | CT_ITS ---
PROCEDURE: CT ABDOMEN PELVIS W CON CLINICAL INDICATION: Follow-up metastatic disease COMPARISON: CT ABDPELW CT ABD PELVIS W/ CONTRAST from 04/05/2016 CT,PT PET CT Skull Base to Midthigh from 07/13/2020 TECHNIQUE: IV Contrast: 75ML Isovue 370 Oral Contrast None Axial images obtained with sagittal and coronal reformats. All CT scans at the facility use one or more dose reduction, viz: automated exposure control, ma/kV adjustment per patient size (including targeted exams where dose is matched to indication, i.e. head), or iterative reconstruction technique. FINDINGS: There is a subtle 4 mm hypodensity in the right hepatic lobe laterally image 32 series 5 nonspecific too small to categorize. There is mild fatty liver replacement. There has been a prior cholecystectomy. The spleen, adrenal glands have an unremarkable appearance. There is a small hiatal hernia. A 5 mm nonobstructing stone is present in the lower pole of the right kidney. No ureteral calculi. No intestinal obstruction or free air. Unremarkable appendix. Colonic diverticulosis is noted in the sigmoid colon. No evidence of diverticulitis. Blastic lesions are present at T11 and L1. IMPRESSION: No convincing evidence of intra-abdominal metastasis. There is a 4 mm hypodensity of the right hepatic lobe which is nonspecific. Blastic foci of T11 and L1. Dictated by: Pramod Polo MD 10/31/2020 15:30 Pramod Polo MD in [place] 10/31/2020 15:30
--- NOTE | 2020-10-30 09:45 | CT_ITS ---
PROCEDURE: CT CHEST W CON CLINCAL INDICATION: Breast cancer, evaluate for metastatic disease COMPARISON: CT CHW CT CHEST W/ CONTRAST from 04/05/2016 CT,PT PET CT Skull Base to Midthigh from 07/13/[address] BIOPSY GUIDED NEEDLE from 07/27/2020 TECHNIQUE: IV Contrast: 75ml Isovue 370 Axial images obtained with sagittal and coronal reformats. All CT scans at the facility use one or more dose reduction, viz: automated exposure control, ma/kV adjustment per patient size (including targeted exams where dose is matched to indication, i.e. head), or iterative reconstruction technique. FINDINGS: HEART AND MEDIASTINAL STRUCTURES: No mediastinal or hilar mass or adenopathy is evident. There is a small hiatal hernia. LUNGS AND PLEURAL SPACES: Nodular pleural thickening in the right midlung laterally is once again noted but appears somewhat smaller compared to the PET CT of 07/13/2020. A 6 mm nodular opacity is present in the right lung base medially. There is some mild scarring in the right apex. 3 mm noncalcified nodules present in the left upper lobe unchanged. There is some nodular pleural based soft tissue thickening in the left upper hemithorax posteriorly. This area appears slightly more prominent measuring approximately 2 cm transverse. There is a 5 mm noncalcified nodule in the left upper lobe anteriorly slightly smaller previously measuring 7 mm. 5 mm nodules present along the left major fissure and is slightly smaller previously measuring nearly 8 mm. An additional 4 mm nodules present just lateral to this area slightly smaller. 5 mm nodules present in the lingula and may be slightly smaller. There is a pleural-based area of nodularity in the left lower lobe posteriorly slightly more prominent compared appeared to the previous exam. BONY STRUCTURES: Destructive lesion of the scapula is once again noted. The bony destruction appears somewhat less severe with some developing osteosclerosis possibly related to radiation treatment. Please correlate clinically. A loose body is present in the subscapular region. 5 cm soft tissue mass in the scapular areas not significantly changed. A sclerotic lesion is present at the T11 vertebral body not significantly changed. ADDITIONAL FINDINGS: Postsurgical changes of the right breast IMPRESSION: The pleural-based nodular lesions in the right upper lobe laterally have shown improvement as have multiple pulmonary nodules have shown improvement. Nodularity noted in the pleural region posteriorly on the left is slightly more prominent. Destructive lesion of the left scapula once again noted with some improvement in the bony lytic process with increase in sclerosis with no change in the soft tissue mass. Dictated by: Pramod Polo MD 10/31/2020 15:21 Pramod Polo MD in [place] 10/31/2020 15:21
== END ==
PROVIDERS: PCP Family Medicine; Visit Provider Internal Medicine Medical Oncology
DX: C50.911 Malignant neoplasm of unspecified site of right female breast (principal); Z17.0 Estrogen receptor positive status [ER+]; Z03.89 Encounter for observation for other suspected diseases and conditions ruled out
CPT/HCPCS: 36415; 71260; 74177; 80053; 85025; Q9967

== ENCOUNTER 2020-11-16 14:20 | Outpatient (CLI) | payer MEDICARE, SELFPAY ==
[2020-11-16 14:40] VITALS: BP 162/69; PULSE 77; RESP 18; TEMP 36
== END 2020-11-16 14:55 | disposition home or self-care (01) ==
LOC: INF 14:24
PROVIDERS: Visit Provider Internal Medicine Medical Oncology
DX: Z51.11 Encounter for antineoplastic chemotherapy (principal); C50.911 Malignant neoplasm of unspecified site of right female breast
CPT/HCPCS: 96402; J9395

== ENCOUNTER 2020-12-15 10:59 | Outpatient (CLI) | payer MEDICARE, SELFPAY ==
[2020-12-15 09:13] LABS: Basophils % 1.3 % (0.1-2.0); Hematocrit 37.8 % (37.0-47.0); Lymphocytes # 1.2 K/mm3 (0.7-4.5); Lymphocytes % 41.3 % (10-50); Mean Corpuscular HGB Conc 31.6 g/dL (31.8-35.4); Mean Corpuscular Hemoglobin 34.8 pg (27.0-31.2); Mean Corpuscular Volume 110.1 fl (81-99); Mean Platelet Volume 8.2 fl (7.4-10.4); Monocytes # 0.1 K/mm3 (0.1-1.0); Monocytes % 1.7 % (1.7-9.3); Neutrophils # 1.6 K/mm3 (1.8-7.8); Neutrophils % 54.7 % (37.0-80.0); Platelet Count 331 K/mm3 (142-424); Red Blood Count 3.44 M/mm3 (4.20-5.40); Red Cell Distribution Width 16.6 % (11.5-17.5); White Blood Count 2.9 K/mm3 (4.8-10.8)
[2020-12-15 10:14] LABS: Chloride 110 mmol/L (98-107); Potassium 4.2 mmoL/L (3.5-5.1); Sodium 142 mmol/L (136-145)
[2020-12-15 10:16] LABS: Alanine Aminotransferase 23 U/L (12-78); Aspartate Amino Transferase 30 U/L (14-36); Blood Urea Nitrogen 16 mg/dl (7-17); Estimated Glomerular Filt Rate 40 ml/min (>60); GFR (African American) 48 ML/MIN (>60)
[2020-12-15 10:17] LABS: Albumin Level 4.3 g/dl (3.5-5.0); Albumin/Globulin Ratio 1.8 (1.1-1.8); Alkaline Phosphatase 56 U/L (38-126); Anion Gap 12.2 mEq/L (5-15); Bilirubin,Total 0.6 mg/dl (0.2-1.3); Calcium 9.7 mg/dl (8.4-10.2); Carbon Dioxide 24 mmol/L (22.0-30.0); Globulin 2.4 g/dL (1.3-3.2); Glucose 121 mg/dl (74-100); Total Protein,Serum 6.7 g/dl (6.3-8.2)
[2020-12-15 11:08] VITALS: BP 124/70; PULSE 64; RESP 20; TEMP 36.7; O2SAT 98
== END 2020-12-15 11:42 | disposition home or self-care (01) ==
LOC: INF 10:59
PROVIDERS: Visit Provider Internal Medicine Medical Oncology
DX: Z51.11 Encounter for antineoplastic chemotherapy (principal); C50.911 Malignant neoplasm of unspecified site of right female breast; M81.0 Age-related osteoporosis without current pathological fracture
CPT/HCPCS: 36415; 80053; 85025; 96372; 96402; J0897; J9395

== ENCOUNTER 2021-01-12 10:58 | Outpatient (CLI) | payer MEDICARE, SELFPAY ==
[2021-01-12 10:08] LABS: Alanine Aminotransferase 18 U/L (12-78); Albumin/Globulin Ratio 1.8 (1.1-1.8); Alkaline Phosphatase 51 U/L (38-126); Anion Gap 12.5 mEq/L (5-15); Aspartate Amino Transferase 26 U/L (14-36); Bilirubin,Total 0.5 mg/dl (0.2-1.3); Blood Urea Nitrogen 14 mg/dl (7-17); Calcium 9.5 mg/dl (8.4-10.2); Carbon Dioxide 23 mmol/L (22.0-30.0); Chloride 111 mmol/L (98-107); Estimated Glomerular Filt Rate 49 ml/min (>60); GFR (African American) 59 ML/MIN (>60); Globulin 2.2 g/dL (1.3-3.2); Glucose 119 mg/dl (74-100); Potassium 4.5 mmoL/L (3.5-5.1); Sodium 142 mmol/L (136-145); Total Protein,Serum 6.2 g/dl (6.3-8.2)
[2021-01-12 10:13] LABS: Basophils % 0.8 % (0.1-2.0); Eosinophils % 1.3 % (0.1-12.0); Hematocrit 35.8 % (37.0-47.0); Hemoglobin 11.9 g/dL (12.2-16.2); Lymphocytes # 0.9 K/mm3 (0.7-4.5); Lymphocytes % 37.4 % (10-50); Mean Corpuscular HGB Conc 33.1 g/dL (31.8-35.4); Mean Corpuscular Hemoglobin 35.5 pg (27.0-31.2); Mean Corpuscular Volume 107.2 fl (81-99); Monocytes # 0.1 K/mm3 (0.1-1.0); Monocytes % 2.3 % (1.7-9.3); Neutrophils # 1.5 K/mm3 (1.8-7.8); Neutrophils % 58.2 % (37.0-80.0); Platelet Count 259 K/mm3 (142-424); Red Blood Count 3.34 M/mm3 (4.20-5.40); Red Cell Distribution Width 15.4 % (11.5-17.5); White Blood Count 2.5 K/mm3 (4.8-10.8)
[2021-01-12 11:09] VITALS: BP 144/80; PULSE 71; RESP 18; TEMP 36.2; O2SAT 98
== END 2021-01-12 11:32 | disposition home or self-care (01) ==
LOC: INF 10:58
PROVIDERS: Visit Provider Internal Medicine Medical Oncology
DX: Z51.11 Encounter for antineoplastic chemotherapy (principal); C50.919 Malignant neoplasm of unspecified site of unspecified female breast
CPT/HCPCS: 36415; 80053; 85025; 96402; J9395

== ENCOUNTER → 2021-01-31 13:30 | Outpatient (CLI) | payer MEDICARE, SELFPAY ==
[2021-01-31 14:27] LABS: Basophils % 1.7 % (0.1-2.0); Hematocrit 35.5 % (37.0-47.0); Hemoglobin 11.6 g/dL (12.2-16.2); Lymphocytes # 1.1 K/mm3 (0.7-4.5); Lymphocytes % 49.2 % (10-50); Mean Corpuscular HGB Conc 32.7 g/dL (31.8-35.4); Mean Corpuscular Hemoglobin 34.9 pg (27.0-31.2); Mean Corpuscular Volume 106.8 fl (81-99); Mean Platelet Volume 8.4 fl (7.4-10.4); Monocytes # 0.2 K/mm3 (0.1-1.0); Monocytes % 8.8 % (1.7-9.3); Neutrophils # 0.8 K/mm3 (1.8-7.8); Neutrophils % 39.3 % (37.0-80.0); Platelet Count 184 K/mm3 (142-424); Red Blood Count 3.32 M/mm3 (4.20-5.40); Red Cell Distribution Width 15.6 % (11.5-17.5); White Blood Count 2.1 K/mm3 (4.8-10.8)
[2021-01-31 16:36] LABS: Alanine Aminotransferase 21 U/L (12-78); Albumin Level 4.1 g/dl (3.5-5.0); Albumin/Globulin Ratio 1.9 (1.1-1.8); Alkaline Phosphatase 58 U/L (38-126); Anion Gap 14.5 mEq/L (5-15); Aspartate Amino Transferase 28 U/L (14-36); Bilirubin,Total 0.4 mg/dl (0.2-1.3); Blood Urea Nitrogen 14 mg/dl (7-17); Calcium 9.6 mg/dl (8.4-10.2); Carbon Dioxide 22 mmol/L (22.0-30.0); Chloride 111 mmol/L (98-107); Estimated Glomerular Filt Rate 54 ml/min (>60); GFR (African American) 66 ML/MIN (>60); Globulin 2.2 g/dL (1.3-3.2); Glucose 107 mg/dl (74-100); Potassium 4.5 mmoL/L (3.5-5.1); Sodium 143 mmol/L (136-145); Total Protein,Serum 6.3 g/dl (6.3-8.2)
== END ==
PROVIDERS: Visit Provider Internal Medicine Medical Oncology
DX: C50.911 Malignant neoplasm of unspecified site of right female breast (principal)
CPT/HCPCS: 36415; 80053; 85025

== ENCOUNTER → 2021-02-01 08:53 | Outpatient (CLI) | payer MEDICARE, SELFPAY ==
--- NOTE | 2021-02-01 08:58 | CT_ITS ---
PROCEDURE: CT CHEST W CON CLINCAL INDICATION: HX OF BREAST CA Follow up COMPARISON: CT CHW CT CHEST W/ CONTRAST from 04/05/[address] BIOPSY GUIDED NEEDLE from 07/27/[address] CHEST W CON from 10/30/2020 TECHNIQUE: IV Contrast: 75ml Isovue 370 Axial images obtained with sagittal and coronal reformats. All CT scans at the facility use one or more dose reduction, viz: automated exposure control, ma/kV adjustment per patient size (including targeted exams where dose is matched to indication, i.e. head), or iterative reconstruction technique. FINDINGS: HEART AND MEDIASTINAL STRUCTURES: No mediastinal or hilar mass or adenopathy. There is a question of a small thrombus within a superior segmental branch of the right lower lobe pulmonary artery. This however is questionable and is very small and is of questionable clinical significance. No other evidence of embolus. Follow-up may confirm. LUNGS AND PLEURAL SPACES: There are scattered areas of scarring. Pleural thickening is present in the right upper lobe laterally and appears slightly improved. Subpleural area of nodularity right lower lobe unchanged. Small nodular opacity of the lingula at 5 mm and may be slightly smaller. 5 mm nodule in the inferior lingula unchanged. Minimal atelectatic change left lower lobe. Pleural thickening noted in the left posterior hemithorax superiorly. BONY STRUCTURES: Destructive lesion of the left scapula once again noted with muscular infiltration. The soft tissue component appears somewhat smaller. Mixed sclerotic and lytic lesion involves nearly the entire scapula with some sparing of the medial border and inferior border not significantly changed. Sclerotic lesion of T11 is unchanged UPPER ABDOMEN: Unremarkable. ADDITIONAL FINDINGS: No other significant abnormalities. IMPRESSION: 1. There is some improvement in the pleural thickening in the right upper lobe laterally. Small lingular nodule appears slightly smaller. Other pleural and parenchymal nodules do not appear significantly changed.. 2. No change in the mixed lytic and sclerotic lesion of the scapula. The soft tissue component appears slightly smaller. 3. There is a small filling defect within the superior segmental branch of the right lower lobe pulmonary artery suggesting a tiny thrombus. This is equivocal. Follow-up may confirm stability. Dictated by: Pramod Polo MD 02/02/2021 15:43 Pramod Polo MD in [place] 02/02/2021 15:43
--- NOTE | 2021-02-01 08:58 | CT_ITS ---
PROCEDURE: CT ABDOMEN PELVIS W CON CLINICAL INDICATION: HX OF BREAST CA Follow up Prior on pacs COMPARISON: CT ABDPELW CT ABD PELVIS W/ CONTRAST from 04/05/2016 CT,PT PET CT Skull Base to Midthigh from 07/13/[address] CHEST W CON from 10/30/[address] ABDOMEN PELVIS W CON from 10/30/[address] CHEST W CON from 02/01/2021 TECHNIQUE: IV Contrast: 75ML Isovue 370 Oral Contrast None Axial images obtained with sagittal and coronal reformats. All CT scans at the facility use one or more dose reduction, viz: automated exposure control, ma/kV adjustment per patient size (including targeted exams where dose is matched to indication, i.e. head), or iterative reconstruction technique. FINDINGS: There are postsurgical changes of the right breast. Five mm hypodensity is present involving the right hepatic lobe laterally which is slightly more prominent but could be related to the slice orientation.. There has been a prior cholecystectomy. Spleen, adrenal glands, and pancreas have an unremarkable appearance. There is a 4 mm stone in the lower pole of the right kidney. The kidneys have an otherwise unremarkable appearance. No retroperitoneal or abdominal adenopathy. No evidence of appendicitis or diverticulitis. No intestinal obstruction or free air. Sclerotic lesions are present involving L1 and T12 IMPRESSION: 1. No change blastic lesions of T11 and L1. 2. Small hypodensity right hepatic lobe which appears slightly more prominent compared to the previous exam measuring approximately 5 mm. The difference however could be related to slice orientation artifact. Continued follow-up is suggested. Dictated by: Pramod Polo MD 02/02/2021 16:10 Pramod Polo MD in [facility] 02/02/2021 16:10
== END ==
PROVIDERS: PCP Family Medicine; Visit Provider Internal Medicine Medical Oncology
DX: C50.911 Malignant neoplasm of unspecified site of right female breast (principal); Z03.89 Encounter for observation for other suspected diseases and conditions ruled out; Z17.0 Estrogen receptor positive status [ER+]
CPT/HCPCS: 71260; 74177; Q9967

== ENCOUNTER 2021-02-08 11:04 | Outpatient (CLI) | payer MEDICARE, SELFPAY ==
[2021-02-08 11:16] VITALS: BP 143/76; PULSE 76; RESP 18; TEMP 36.3; O2SAT 98
== END 2021-02-08 11:16 | disposition home or self-care (01) ==
LOC: INF 11:04
PROVIDERS: Visit Provider Internal Medicine Medical Oncology
DX: Z51.11 Encounter for antineoplastic chemotherapy (principal); C50.911 Malignant neoplasm of unspecified site of right female breast; Z17.0 Estrogen receptor positive status [ER+]
CPT/HCPCS: 96402; J9395

== ENCOUNTER 2021-03-08 09:48 | Outpatient (CLI) | payer MEDICARE, SELFPAY ==
[2021-03-08 10:13] LABS: Chloride 109 mmol/L (98-107); Sodium 142 mmol/L (136-145)
[2021-03-08 10:15] LABS: Blood Urea Nitrogen 15 mg/dl (7-17); Eosinophils # 0.1 K/mm3 (0.0-0.4); Eosinophils % 2.8 % (0.1-12.0); Estimated Glomerular Filt Rate 49 ml/min (>60); GFR (African American) 59 ML/MIN (>60); Hematocrit 35.8 % (37.0-47.0); Lymphocytes # 0.9 K/mm3 (0.7-4.5); Lymphocytes % 37.4 % (10-50); Mean Corpuscular HGB Conc 33.5 g/dL (31.8-35.4); Mean Corpuscular Hemoglobin 35.9 pg (27.0-31.2); Mean Corpuscular Volume 107.3 fl (81-99); Mean Platelet Volume 8.4 fl (7.4-10.4); Monocytes # 0.1 K/mm3 (0.1-1.0); Monocytes % 2.6 % (1.7-9.3); Neutrophils # 1.3 K/mm3 (1.8-7.8); Neutrophils % 56.3 % (37.0-80.0); Platelet Count 271 K/mm3 (142-424); Red Blood Count 3.34 M/mm3 (4.20-5.40); Red Cell Distribution Width 14.5 % (11.5-17.5); White Blood Count 2.3 K/mm3 (4.8-10.8)
[2021-03-08 10:16] LABS: Alanine Aminotransferase 35 U/L (12-78); Albumin/Globulin Ratio 1.7 (1.1-1.8); Alkaline Phosphatase 51 U/L (38-126); Aspartate Amino Transferase 37 U/L (14-36); Bilirubin,Total 0.6 mg/dl (0.2-1.3); Calcium 9.6 mg/dl (8.4-10.2); Carbon Dioxide 23 mmol/L (22.0-30.0); Globulin 2.4 g/dL (1.3-3.2); Glucose 129 mg/dl (74-100); Total Protein,Serum 6.4 g/dl (6.3-8.2)
[2021-03-08 11:40] VITALS: BP 125/61; PULSE 68; RESP 18; O2SAT 97
== END 2021-03-08 11:55 | disposition home or self-care (01) ==
LOC: INF 09:48
PROVIDERS: Visit Provider Internal Medicine Medical Oncology
DX: Z51.11 Encounter for antineoplastic chemotherapy (principal); C50.911 Malignant neoplasm of unspecified site of right female breast
CPT/HCPCS: 36415; 80053; 85025; 96402; J9395

== ENCOUNTER → 2021-04-05 11:24 | Outpatient (CLI) | payer MEDICARE, SELFPAY ==
[2021-04-05 11:41] LABS: Basophils % 1.7 % (0.1-2.0); Eosinophils % 1.2 % (0.1-12.0); Hematocrit 36.5 % (37.0-47.0); Hemoglobin 11.6 g/dL (12.2-16.2); Lymphocytes % 43.2 % (10-50); Mean Corpuscular HGB Conc 31.8 g/dL (31.8-35.4); Mean Corpuscular Hemoglobin 34.7 pg (27.0-31.2); Mean Corpuscular Volume 109.3 fl (81-99); Mean Platelet Volume 7.1 fl (7.4-10.4); Monocytes # 0.1 K/mm3 (0.1-1.0); Monocytes % 2.2 % (1.7-9.3); Neutrophils # 1.2 K/mm3 (1.8-7.8); Neutrophils % 51.6 % (37.0-80.0); Platelet Count 313 K/mm3 (142-424); Red Blood Count 3.34 M/mm3 (4.20-5.40); Red Cell Distribution Width 14.5 % (11.5-17.5); White Blood Count 2.2 K/mm3 (4.8-10.8)
[2021-04-05 12:34] LABS: Carbon Dioxide 24 mmol/L (22.0-30.0)
[2021-04-05 12:47] LABS: Chloride 112 mmol/L (98-107)
[2021-04-05 12:48] LABS: Anion Gap 14.1 mEq/L (5-15); Potassium 5.1 mmoL/L (3.5-5.1); Sodium 145 mmol/L (136-145)
[2021-04-05 12:50] LABS: Alanine Aminotransferase 19 U/L (12-78); Aspartate Amino Transferase 28 U/L (14-36); Blood Urea Nitrogen 17 mg/dl (7-17); Estimated Glomerular Filt Rate 44 ml/min (>60); GFR (African American) 53 ML/MIN (>60)
[2021-04-05 12:51] LABS: Albumin Level 4.2 g/dl (3.5-5.0); Albumin/Globulin Ratio 1.9 (1.1-1.8); Alkaline Phosphatase 47 U/L (38-126); Bilirubin,Total 0.5 mg/dl (0.2-1.3); Calcium 9.6 mg/dl (8.4-10.2); Globulin 2.2 g/dL (1.3-3.2); Glucose 94 mg/dl (74-100); Total Protein,Serum 6.4 g/dl (6.3-8.2)
== END ==
PROVIDERS: Visit Provider Internal Medicine Medical Oncology
DX: C50.911 Malignant neoplasm of unspecified site of right female breast (principal); Z17.0 Estrogen receptor positive status [ER+]
CPT/HCPCS: 36415; 80053; 85025

== ENCOUNTER 2021-04-06 08:37 | Outpatient (CLI) | payer MEDICARE, SELFPAY ==
--- NOTE | 2021-04-06 08:41 | MM_ITS ---
PROCEDURE: MM DIG SCREENING MAMM BI W/CAD Digital Breast Tomosynthesis Included CLINICAL INDICATION: HX OF BREAST CANCER,SCREENING COMPARISON: [facility] MM Dig screening mamm BI w/CAD from 03/24/2018 MG DIG MAMM-SCREEN BRANDEN from 03/29/2019 MG MM DIG SCREENING MAMM BI W/CAD from 04/03/2020 TECHNIQUE: Standard CC and MLO images and 3D Tomosynthesis was obtained. R2 CAD reviewed. FINDINGS: Breast parenchyma is heterogeneously dense which may lower the sensitivity of mammography. Postop ectomy scar formation in the upper outer quadrant of the right breast again noted. No new dominant mass. No suspicious type microcalcifications. Scattered benign-appearing calcifications again noted bilaterally. IMPRESSION: Benign bilateral digital screening mammograms. BI-RAD Category: 2 Benign Finding FOLLOW-UP: 1 YR 1 Year Follow-up (A letter has been sent to the patient regarding results of the study.) Dictated by: Juan Antonio Romero MD 04/06/2021 12:45 Juan Antonio Romero MD in [facility] 04/06/2021 12:45
[2021-04-06 10:30] VITALS: BP 135/78; PULSE 61; RESP 18; TEMP 36.3; O2SAT 99
== END 2021-04-06 10:45 | disposition home or self-care (01) ==
PROVIDERS: PCP Family Medicine; Visit Provider Surgery
DX: Z12.31 Encounter for screening mammogram for malignant neoplasm of breast (principal); Z85.3 Personal history of malignant neoplasm of breast
CPT/HCPCS: 77063; 77067; 96402; J9395

== ENCOUNTER → 2021-04-25 12:17 | Outpatient (CLI) | payer MEDICARE, SELFPAY ==
[2021-04-25 12:50] LABS: Basophils % 0.9 % (0.1-2.0); Eosinophils % 1.8 % (0.1-12.0); Hematocrit 33.7 % (37.0-47.0); Hemoglobin 11.6 g/dL (12.2-16.2); Lymphocytes # 0.9 K/mm3 (0.7-4.5); Lymphocytes % 53.9 % (10-50); Mean Corpuscular HGB Conc 34.5 g/dL (31.8-35.4); Mean Corpuscular Hemoglobin 36.4 pg (27.0-31.2); Mean Corpuscular Volume 105.5 fl (81-99); Mean Platelet Volume 9.2 fl (7.4-10.4); Monocytes # 0.2 K/mm3 (0.1-1.0); Monocytes % 8.4 % (1.7-9.3); Neutrophils # 0.6 K/mm3 (1.8-7.8); Platelet Count 170 K/mm3 (142-424); Red Blood Count 3.19 M/mm3 (4.20-5.40); Red Cell Distribution Width 16.1 % (11.5-17.5)
[2021-04-25 12:57] LABS: MANUAL DIFFERENTIAL MANUAL DIFFERENTIAL (MANUAL DIFF)
[2021-04-25 13:37] LABS: Anion Gap 11.3 mEq/L (5-15); Blood Urea Nitrogen 13 mg/dl (7-17); Calcium 9.3 mg/dl (8.4-10.2); Carbon Dioxide 26 mmol/L (22.0-30.0); Chloride 110 mmol/L (98-107); Estimated Glomerular Filt Rate 54 ml/min (>60); GFR (African American) 66 ML/MIN (>60); Glucose 96 mg/dl (74-100); Potassium 4.3 mmoL/L (3.5-5.1); Sodium 143 mmol/L (136-145)
[2021-04-25 13:56] LABS: White Blood Count 1.9 K/mm3 (4.8-10.8)
[2021-04-25 14:18] LABS: Eosinophils % 2 % (0-3); Lymphocytes % 47 % (10-50); Monocytes % 7 % (2-9); Neutrophils % 41 % (42-76); Platelet Estimate Normal; Total Cells Counted 100
[2021-04-25 14:19] LABS: Anisocytosis 1+; Hypochromasia 1+; Macrocytosis 2+
== END ==
PROVIDERS: Visit Provider Internal Medicine Medical Oncology
DX: C50.911 Malignant neoplasm of unspecified site of right female breast (principal); Z17.0 Estrogen receptor positive status [ER+]
CPT/HCPCS: 36415; 80048; 85007; 85025

== ENCOUNTER → 2021-04-26 08:37 | Outpatient (CLI) | payer MEDICARE, SELFPAY ==
--- NOTE | 2021-04-26 08:40 | CT_ITS ---
PROCEDURE: CT CHEST W CON CLINCAL INDICATION: BREAST CA Follow-up breast cancer Currently receiving chemo injection/pill COMPARISON: CT CT CHEST W CON from 02/01/2021 TECHNIQUE: IV Contrast: 75ml Isovue 370 Axial images obtained with sagittal and coronal reformats. All CT scans at the facility use one or more dose reduction, viz: automated exposure control, ma/kV adjustment per patient size (including targeted exams where dose is matched to indication, i.e. head), or iterative reconstruction technique. FINDINGS: HEART AND MEDIASTINAL STRUCTURES: No mediastinal or hilar mass. No adenopathy. No evidence of aortic aneurysm or dissection. No obvious pulmonary embolus. LUNGS AND PLEURAL SPACES: Continued improvement in the pleural thickening in the right upper lobe. No new nodules apparent.. No change small lingular nodules. BONY STRUCTURES: Mixed lytic and blastic lesion of T11 once again noted not significantly changed. The mixed blastic and lytic lesion of the scapula on the left does not appear significantly changed. There is a calcific focus measuring 12 mm lateral to the base of the coracoid process and could represent an old fracture. UPPER ABDOMEN: Please see abdomen report ADDITIONAL FINDINGS: Postsurgical changes of the right breast with increased density in the surgical bed which may represent scarring and does not appear significantly changed IMPRESSION: Continued improvement in the pleural thickening in the right upper lung lobe laterally.. No change small lingular nodules. No change in the mixed lytic and sclerotic lesion of the scapula and in the lytic/sclerotic lesion of T11 Dictated by: Pramod Polo MD 04/27/2021 08:36 Pramod Polo MD in [facility] 04/27/2021 08:36
--- NOTE | 2021-04-26 08:40 | CT_ITS ---
PROCEDURE: CT ABDOMEN PELVIS W CON CLINICAL INDICATION: BREAST CA Follow-up breast cancer COMPARISON: CT CT ABDOMEN PELVIS W CON from 02/01/2021 TECHNIQUE: IV Contrast: 75ML Isovue 370 Oral Contrast None Axial images obtained with sagittal and coronal reformats. All CT scans at the facility use one or more dose reduction, viz: automated exposure control, ma/kV adjustment per patient size (including targeted exams where dose is matched to indication, i.e. head), or iterative reconstruction technique. FINDINGS: LOWER THORAX: Please see chest CT report from the same day ABDOMEN & PELVIS: Previously noted vague hypodensity in the right hepatic lobe unchanged to somewhat less apparent. No new hepatic lesions evident. Prior cholecystectomy. The spleen, adrenal glands, and pancreas have an unremarkable appearance. 4 mm stone lower pole right kidney. No hydronephrosis or hydroureter. No ureteral calculi. Unremarkable appendix. No intestinal obstruction or free air. There is colonic diverticulosis but no evidence of diverticulitis. No pelvic mass or abnormal fluid collection of the pelvis. No acute bony anomaly. Blastic changes are once again noted involving L2 superiorly and T12 not significantly changed. IMPRESSION: Overall stable CT appearance of the abdomen and pelvis. No change blastic lesions of T11 and L1. Small hypodensity of the right hepatic lobe is somewhat less apparent. No new lesions apparent. Dictated by: Pramod Polo MD 04/26/2021 15:31 Pramod Polo MD in [facility] 04/26/2021 15:31
== END ==
PROVIDERS: PCP Family Medicine; Visit Provider Internal Medicine Medical Oncology
DX: C50.911 Malignant neoplasm of unspecified site of right female breast (principal); Z17.0 Estrogen receptor positive status [ER+]
CPT/HCPCS: 71260; 74177; Q9967

== ENCOUNTER 2021-05-03 11:35 | Outpatient (CLI) | payer MEDICARE, SELFPAY ==
[2021-05-03 11:51] VITALS: BP 145/68; PULSE 68; RESP 20; TEMP 36.5; O2SAT 99
== END 2021-05-03 11:51 | disposition home or self-care (01) ==
LOC: INF 11:57
PROVIDERS: Visit Provider Internal Medicine Medical Oncology
DX: C50.911 Malignant neoplasm of unspecified site of right female breast (principal); Z17.0 Estrogen receptor positive status [ER+]
CPT/HCPCS: 96402; J9395

== ENCOUNTER → 2021-05-31 13:23 | Outpatient (CLI) | payer MEDICARE, SELFPAY ==
[2021-05-31 13:50] LABS: Basophils % 1.6 % (0.1-2.0); Eosinophils % 1.1 % (0.1-12.0); Hematocrit 37.2 % (37.0-47.0); Hemoglobin 12.5 g/dL (12.2-16.2); Lymphocytes # 1.1 K/mm3 (0.7-4.5); Lymphocytes % 41.3 % (10-50); Mean Corpuscular HGB Conc 33.6 g/dL (31.8-35.4); Mean Corpuscular Hemoglobin 35.5 pg (27.0-31.2); Mean Corpuscular Volume 105.9 fl (81-99); Mean Platelet Volume 8.7 fl (7.4-10.4); Monocytes # 0.1 K/mm3 (0.1-1.0); Monocytes % 2.5 % (1.7-9.3); Neutrophils # 1.5 K/mm3 (1.8-7.8); Neutrophils % 53.5 % (37.0-80.0); Platelet Count 293 K/mm3 (142-424); Red Blood Count 3.52 M/mm3 (4.20-5.40); Red Cell Distribution Width 15.2 % (11.5-17.5); White Blood Count 2.7 K/mm3 (4.8-10.8)
[2021-05-31 14:21] LABS: Anion Gap 14.2 mEq/L (5-15); Blood Urea Nitrogen 14 mg/dl (7-17); Calcium 9.7 mg/dl (8.4-10.2); Carbon Dioxide 25 mmol/L (22.0-30.0); Chloride 108 mmol/L (98-107); Estimated Glomerular Filt Rate 44 ml/min (>60); GFR (African American) 53 ML/MIN (>60); Glucose 99 mg/dl (74-100); Potassium 5.2 mmoL/L (3.5-5.1); Sodium 142 mmol/L (136-145)
[2021-05-31 14:58] LABS: Alanine Aminotransferase 18 U/L (12-78); Albumin Level 4.2 g/dl (3.5-5.0); Albumin/Globulin Ratio 1.9 (1.1-1.8); Alkaline Phosphatase 51 U/L (38-126); Aspartate Amino Transferase 26 U/L (14-36); Bilirubin,Total 0.6 mg/dl (0.2-1.3); Globulin 2.2 g/dL (1.3-3.2); Total Protein,Serum 6.4 g/dl (6.3-8.2)
== END ==
PROVIDERS: Visit Provider Internal Medicine Medical Oncology
DX: C50.911 Malignant neoplasm of unspecified site of right female breast (principal)
CPT/HCPCS: 36415; 80053; 85025

== ENCOUNTER 2021-06-01 10:26 | Outpatient (CLI) | payer MEDICARE, SELFPAY ==
[2021-06-01 10:55] VITALS: BP 129/70; PULSE 68; RESP 18; TEMP 36.9; O2SAT 97
== END 2021-06-01 11:10 | disposition home or self-care (01) ==
LOC: INF 10:26
PROVIDERS: Visit Provider Internal Medicine Medical Oncology
DX: C50.911 Malignant neoplasm of unspecified site of right female breast (principal); M81.0 Age-related osteoporosis without current pathological fracture
CPT/HCPCS: 96402; J9395

== ENCOUNTER → 2021-06-27 10:47 | Outpatient (CLI) | payer MEDICARE, SELFPAY ==
[2021-06-27 11:37] LABS: Basophils % 1.6 % (0.1-2.0); Eosinophils % 1.3 % (0.1-12.0); Hematocrit 36.8 % (37.0-47.0); Lymphocytes # 0.9 K/mm3 (0.7-4.5); Lymphocytes % 40.1 % (10-50); Mean Corpuscular HGB Conc 32.6 g/dL (31.8-35.4); Mean Corpuscular Hemoglobin 36.5 pg (27.0-31.2); Mean Corpuscular Volume 112.2 fl (81-99); Mean Platelet Volume 8.7 fl (7.4-10.4); Monocytes # 0.1 K/mm3 (0.1-1.0); Monocytes % 3.1 % (1.7-9.3); Neutrophils # 1.2 K/mm3 (1.8-7.8); Neutrophils % 53.9 % (37.0-80.0); Platelet Count 323 K/mm3 (142-424); Red Blood Count 3.28 M/mm3 (4.20-5.40); Red Cell Distribution Width 15.3 % (11.5-17.5); White Blood Count 2.3 K/mm3 (4.8-10.8)
[2021-06-27 16:43] LABS: Chloride 107 mmol/L (98-107); Sodium 141 mmol/L (136-145)
[2021-06-27 16:44] LABS: Potassium 4.5 mmoL/L (3.5-5.1)
[2021-06-27 16:46] LABS: Alanine Aminotransferase 20 U/L (12-78); Albumin Level 3.7 g/dl (3.5-5.0); Albumin/Globulin Ratio 1.7 (1.1-1.8); Alkaline Phosphatase 52 U/L (38-126); Anion Gap 13.5 mEq/L (5-15); Aspartate Amino Transferase 32 U/L (14-36); Bilirubin,Total 0.3 mg/dl (0.2-1.3); Blood Urea Nitrogen 15 mg/dl (7-17); Carbon Dioxide 25 mmol/L (22.0-30.0); Estimated Glomerular Filt Rate 48 ml/min (>60); GFR (African American) 59 ML/MIN (>60); Globulin 2.2 g/dL (1.3-3.2); Total Protein,Serum 5.9 g/dl (6.3-8.2)
[2021-06-27 16:47] LABS: Calcium 9.6 mg/dl (8.4-10.2); Glucose 100 mg/dl (74-100)
== END ==
PROVIDERS: Visit Provider Internal Medicine Medical Oncology
DX: C50.811 Malignant neoplasm of overlapping sites of right female breast (principal); Z17.0 Estrogen receptor positive status [ER+]
CPT/HCPCS: 36415; 80053; 85025

== ENCOUNTER 2021-06-28 10:28 | Outpatient (CLI) | payer MEDICARE, SELFPAY ==
[2021-06-28 10:40] VITALS: BP 153/80; PULSE 70; RESP 18; TEMP 36.4; O2SAT 98
== END 2021-06-28 11:00 | disposition home or self-care (01) ==
LOC: INF 10:30
PROVIDERS: PCP Family Medicine; Visit Provider Internal Medicine Medical Oncology
DX: Z51.11 Encounter for antineoplastic chemotherapy (principal); C50.911 Malignant neoplasm of unspecified site of right female breast; M81.0 Age-related osteoporosis without current pathological fracture
CPT/HCPCS: 96372; 96402; J0897; J9395

== ENCOUNTER → 2021-07-21 09:57 | Outpatient (CLI) | payer MEDICARE, SELFPAY ==
[2021-07-21 10:18] LABS: Basophils % 1.3 % (0.1-2.0); Eosinophils % 1.2 % (0.1-12.0); Hemoglobin 11.7 g/dL (12.2-16.2); Lymphocytes % 50.3 % (10-50); Mean Corpuscular HGB Conc 33.3 g/dL (31.8-35.4); Mean Corpuscular Hemoglobin 36.8 pg (27.0-31.2); Mean Corpuscular Volume 110.3 fl (81-99); Mean Platelet Volume 8.6 fl (7.4-10.4); Monocytes # 0.2 K/mm3 (0.1-1.0); Neutrophils # 0.8 K/mm3 (1.8-7.8); Neutrophils % 37.3 % (37.0-80.0); Platelet Count 237 K/mm3 (142-424); Red Blood Count 3.17 M/mm3 (4.20-5.40); Red Cell Distribution Width 15.8 % (11.5-17.5); White Blood Count 2.1 K/mm3 (4.8-10.8)
[2021-07-21 10:20] LABS: MANUAL DIFFERENTIAL MANUAL DIFFERENTIAL (MANUAL DIFF)
[2021-07-21 11:16] LABS: Chloride 111 mmol/L (98-107)
[2021-07-21 11:17] LABS: Potassium 4.5 mmoL/L (3.5-5.1); Sodium 142 mmol/L (136-145)
[2021-07-21 11:19] LABS: Alanine Aminotransferase 23 U/L (12-78); Aspartate Amino Transferase 30 U/L (14-36); Blood Urea Nitrogen 11 mg/dl (7-17); Estimated Glomerular Filt Rate 48 ml/min (>60); GFR (African American) 59 ML/MIN (>60)
[2021-07-21 11:20] LABS: Albumin Level 3.8 g/dl (3.5-5.0); Albumin/Globulin Ratio 1.7 (1.1-1.8); Alkaline Phosphatase 54 U/L (38-126); Anion Gap 11.5 mEq/L (5-15); Bilirubin,Total 0.3 mg/dl (0.2-1.3); Calcium 9.4 mg/dl (8.4-10.2); Carbon Dioxide 24 mmol/L (22.0-30.0); Globulin 2.2 g/dL (1.3-3.2); Glucose 124 mg/dl (74-100)
[2021-07-21 11:44] LABS: Eosinophils % 1 % (0-3); Lymphocytes % 60 % (10-50); Monocytes % 6 % (2-9); Neutrophils % 33 % (42-76); Platelet Estimate Normal; RBC Morphology Normal; Total Cells Counted 100
== END ==
PROVIDERS: Visit Provider Internal Medicine Medical Oncology
DX: C50.911 Malignant neoplasm of unspecified site of right female breast (principal)
CPT/HCPCS: 36415; 80053; 85007; 85025

== ENCOUNTER → 2021-07-23 08:41 | Outpatient (CLI) | payer MEDICARE, SELFPAY ==
--- NOTE | 2021-07-23 08:44 | CT_ITS ---
PROCEDURE: CT ABDOMEN PELVIS W CON CLINICAL INDICATION: BREAST CA COMPARISON: CT CT ABDOMEN PELVIS W CON from 02/01/[address] ABDOMEN PELVIS W CON from 04/26/[address] CHEST W CON from 07/23/2021 TECHNIQUE: IV Contrast: 75ML Isovue 370 Oral Contrast None Axial images obtained with sagittal and coronal reformats. All CT scans at the facility use one or more dose reduction, viz: automated exposure control, ma/kV adjustment per patient size (including targeted exams where dose is matched to indication, i.e. head), or iterative reconstruction technique. FINDINGS: The liver, spleen, adrenal glands, and pancreas have an unremarkable appearance. 5 mm stone is present in the lower portion of the right kidney. No renal mass. Left kidney has an unremarkable appearance. No ureteral calculi. Prior cholecystectomy. Previously noted hypodensity in the right hepatic lobe is not identified on today's exam. No intestinal obstruction or free air. There is a small hiatal hernia. Unremarkable appendix. Colonic diverticulosis. No evidence of diverticulitis. No pelvic mass or abnormal fluid collection. Blastic lesion of T11 and L1 unchanged. IMPRESSION: Stable CT appearance of the abdomen and pelvis. No change in the blastic lesions of T11 and L1 Previously noted hypodensity of the right hepatic lobe not identified on today's exam. Right nephrolithiasis Dictated by: Pramod Polo MD 07/24/2021 08:58 Pramod Polo MD in [facility] 07/24/2021 08:58
--- NOTE | 2021-07-23 08:44 | CT_ITS ---
PROCEDURE: CT CHEST W CON CLINCAL INDICATION: BREAST CA COMPARISON: CT CT CHEST W CON from 04/26/2021 TECHNIQUE: IV Contrast: 75ml Isovue 370 Axial images obtained with sagittal and coronal reformats. All CT scans at the facility use one or more dose reduction, viz: automated exposure control, ma/kV adjustment per patient size (including targeted exams where dose is matched to indication, i.e. head), or iterative reconstruction technique. FINDINGS: HEART AND MEDIASTINAL STRUCTURES: No mediastinal or hilar mass. Mild cardiomegaly. Coronary artery calcifications are present. There is mild prominence of the right pulmonary artery at 2.5 cm and minimal prominence of the left pulmonary artery at 2.2 cm. Main pulmonary artery measures approximately 1.9 cm. No central pulmonary embolus. LUNGS AND PLEURAL SPACES: Patchy area of ground-glass density noted in the right upper lobe posteriorly and in the right lower lobe superior segment. There remains some mild pleural thickening in the right lateral hemithorax overall not significantly changed. Small lingular nodule at approximately 4 mm not significantly changed. BONY STRUCTURES: Mixed lytic and blastic lesion of the scapula on the left does not appear significantly changed. Also the mixed lytic and blastic lesion of T11 is unchanged. No new lesions apparent. The previously described calcific density at the base of the coracoid process on the left is once again noted and may actually represent a loose body versus an old fracture. UPPER ABDOMEN: See abdomen report. ADDITIONAL FINDINGS: Postsurgical changes of the right breast. No axillary adenopathy.. IMPRESSION: 1. Patchy areas of infiltrate in the right upper and right lower lobe. 2. No change in the sclerotic lesion of the left scapula and T11. 3. Old fracture versus loose body at the lateral base of the left coracoid process. This measures 13 by 9 mm. 4. No change mild pleural thickening in the right lateral hemithorax Dictated by: Pramod Polo MD 07/24/2021 08:50 Pramod Polo MD in [facility] 07/24/2021 08:50
== END ==
PROVIDERS: PCP Family Medicine; Visit Provider Internal Medicine Medical Oncology
DX: C50.911 Malignant neoplasm of unspecified site of right female breast (principal); Z17.0 Estrogen receptor positive status [ER+]
CPT/HCPCS: 71260; 74177; Q9967

== ENCOUNTER 2021-07-26 09:56 | Outpatient (CLI) | payer MEDICARE, SELFPAY ==
[2021-07-26 10:20] VITALS: BP 155/67; PULSE 61; RESP 18; TEMP 36.5; O2SAT 97
== END 2021-07-26 10:35 | disposition home or self-care (01) ==
LOC: INF 09:58
PROVIDERS: PCP Family Medicine; Visit Provider Internal Medicine Medical Oncology
DX: Z51.11 Encounter for antineoplastic chemotherapy (principal); C50.911 Malignant neoplasm of unspecified site of right female breast; Z17.0 Estrogen receptor positive status [ER+]
CPT/HCPCS: 96402; J9395

== ENCOUNTER → 2021-08-22 13:50 | Outpatient (CLI) | payer MEDICARE, SELFPAY ==
[2021-08-22 14:15] LABS: Basophils % 1.9 % (0.1-2.0); Eosinophils % 1.9 % (0.1-12.0); Hematocrit 36.6 % (37.0-47.0); Lymphocytes # 0.9 K/mm3 (0.7-4.5); Lymphocytes % 41.6 % (10-50); Mean Corpuscular HGB Conc 32.8 g/dL (31.8-35.4); Mean Corpuscular Hemoglobin 36.4 pg (27.0-31.2); Mean Corpuscular Volume 110.7 fl (81-99); Mean Platelet Volume 7.5 fl (7.4-10.4); Monocytes % 1.3 % (1.7-9.3); Neutrophils # 1.2 K/mm3 (1.8-7.8); Neutrophils % 53.3 % (37.0-80.0); Platelet Count 280 K/mm3 (142-424); Red Blood Count 3.31 M/mm3 (4.20-5.40); Red Cell Distribution Width 14.8 % (11.5-17.5); White Blood Count 2.2 K/mm3 (4.8-10.8)
[2021-08-22 14:53] LABS: Chloride 109 mmol/L (98-107); Sodium 140 mmol/L (136-145)
[2021-08-22 14:54] LABS: Potassium 4.2 mmoL/L (3.5-5.1)
[2021-08-22 14:56] LABS: Alanine Aminotransferase 16 U/L (12-78); Albumin Level 3.6 g/dl (3.5-5.0); Albumin/Globulin Ratio 1.6 (1.1-1.8); Alkaline Phosphatase 51 U/L (38-126); Anion Gap 10.2 mEq/L (5-15); Aspartate Amino Transferase 23 U/L (14-36); Bilirubin,Total 0.4 mg/dl (0.2-1.3); Blood Urea Nitrogen 12 mg/dl (7-17); Carbon Dioxide 25 mmol/L (22.0-30.0); Estimated Glomerular Filt Rate 48 ml/min (>60); GFR (African American) 59 ML/MIN (>60); Globulin 2.2 g/dL (1.3-3.2); Total Protein,Serum 5.8 g/dl (6.3-8.2)
[2021-08-22 14:57] LABS: Calcium 9.3 mg/dl (8.4-10.2); Glucose 175 mg/dl (74-100)
== END ==
PROVIDERS: Visit Provider Internal Medicine Medical Oncology
DX: C50.911 Malignant neoplasm of unspecified site of right female breast (principal)
CPT/HCPCS: 36415; 80053; 85025

== ENCOUNTER 2021-08-23 11:08 | Outpatient (CLI) | payer MEDICARE, SELFPAY ==
[2021-08-23 11:32] VITALS: BP 142/78; PULSE 66; RESP 18; TEMP 36.1; O2SAT 97
== END 2021-08-23 11:32 | disposition home or self-care (01) ==
LOC: INF 11:08
PROVIDERS: PCP Family Medicine; Visit Provider Internal Medicine Medical Oncology
DX: C50.911 Malignant neoplasm of unspecified site of right female breast (principal)
CPT/HCPCS: 96402; J9395

== ENCOUNTER → 2021-09-19 13:40 | Outpatient (CLI) | payer MEDICARE, SELFPAY ==
[2021-09-19 14:31] LABS: Basophils # 0.1 K/mm3 (0-0.2); Basophils % 1.9 % (0.1-2.0); Eosinophils % 1.3 % (0.1-12.0); Hematocrit 36.6 % (37.0-47.0); Hemoglobin 12.6 g/dL (12.2-16.2); Lymphocytes # 1.2 K/mm3 (0.7-4.5); Lymphocytes % 48.5 % (10-50); Mean Corpuscular HGB Conc 34.5 g/dL (31.8-35.4); Mean Corpuscular Hemoglobin 36.8 pg (27.0-31.2); Mean Corpuscular Volume 106.4 fl (81-99); Mean Platelet Volume 8.9 fl (7.4-10.4); Monocytes # 0.1 K/mm3 (0.1-1.0); Monocytes % 3.1 % (1.7-9.3); Neutrophils # 1.1 K/mm3 (1.8-7.8); Neutrophils % 45.2 % (37.0-80.0); Platelet Count 313 K/mm3 (142-424); Red Blood Count 3.44 M/mm3 (4.20-5.40); Red Cell Distribution Width 14.8 % (11.5-17.5); White Blood Count 2.5 K/mm3 (4.8-10.8)
[2021-09-19 15:19] LABS: Alanine Aminotransferase 12 U/L (12-78); Albumin Level 4.2 g/dl (3.5-5.0); Albumin/Globulin Ratio 1.8 (1.1-1.8); Alkaline Phosphatase 40 U/L (38-126); Anion Gap 11.8 mEq/L (5-15); Aspartate Amino Transferase 29 U/L (14-36); Bilirubin,Total 0.3 mg/dl (0.2-1.3); Blood Urea Nitrogen 17 mg/dl (7-17); Calcium 10.2 mg/dl (8.4-10.2); Carbon Dioxide 25 mmol/L (22.0-30.0); Chloride 109 mmol/L (98-107); Estimated Glomerular Filt Rate 40 ml/min (>60); GFR (African American) 48 ML/MIN (>60); Globulin 2.4 g/dL (1.3-3.2); Glucose 90 mg/dl (74-100); Potassium 4.8 mmoL/L (3.5-5.1); Sodium 141 mmol/L (136-145); Total Protein,Serum 6.6 g/dl (6.3-8.2)
== END ==
PROVIDERS: Visit Provider Internal Medicine Medical Oncology
DX: C50.911 Malignant neoplasm of unspecified site of right female breast (principal)
CPT/HCPCS: 36415; 80053; 85025

== ENCOUNTER 2021-09-20 12:04 | Outpatient (CLI) | payer MEDICARE, SELFPAY ==
[2021-09-20 12:15] VITALS: BP 117/75; PULSE 93; RESP 18; TEMP 36.4; O2SAT 98
== END 2021-09-20 12:40 | disposition home or self-care (01) ==
LOC: INF 12:07
PROVIDERS: PCP Family Medicine; Visit Provider Internal Medicine Medical Oncology
DX: C50.919 Malignant neoplasm of unspecified site of unspecified female breast (principal)
CPT/HCPCS: 96402; J9395

== ENCOUNTER → 2021-10-05 15:01 | Outpatient (CLI) | payer MEDICARE, SELFPAY ==
[2021-10-05 15:30] LABS: Basophils % 1.2 % (0.1-2.0); Eosinophils % 1.5 % (0.1-12.0); Hematocrit 35.7 % (37.0-47.0); Hemoglobin 12.5 g/dL (12.2-16.2); Lymphocytes # 1.1 K/mm3 (0.7-4.5); Lymphocytes % 52.7 % (10-50); Mean Corpuscular HGB Conc 34.9 g/dL (31.8-35.4); Mean Corpuscular Hemoglobin 36.8 pg (27.0-31.2); Mean Corpuscular Volume 105.3 fl (81-99); Mean Platelet Volume 8.9 fl (7.4-10.4); Monocytes # 0.1 K/mm3 (0.1-1.0); Neutrophils # 0.9 K/mm3 (1.8-7.8); Neutrophils % 40.6 % (37.0-80.0); Platelet Count 155 K/mm3 (142-424); Red Blood Count 3.39 M/mm3 (4.20-5.40); White Blood Count 2.1 K/mm3 (4.8-10.8)
[2021-10-05 15:32] LABS: MANUAL DIFFERENTIAL MANUAL DIFFERENTIAL (MANUAL DIFF)
[2021-10-05 16:26] LABS: Alanine Aminotransferase 22 U/L (12-78); Albumin Level 4.2 g/dl (3.5-5.0); Albumin/Globulin Ratio 1.8 (1.1-1.8); Alkaline Phosphatase 42 U/L (38-126); Anion Gap 13.3 mEq/L (5-15); Aspartate Amino Transferase 31 U/L (14-36); Bilirubin,Total 0.3 mg/dl (0.2-1.3); Blood Urea Nitrogen 14 mg/dl (7-17); Calcium 9.9 mg/dl (8.4-10.2); Carbon Dioxide 26 mmol/L (22.0-30.0); Chloride 104 mmol/L (98-107); Estimated Glomerular Filt Rate 48 ml/min (>60); GFR (African American) 59 ML/MIN (>60); Globulin 2.4 g/dL (1.3-3.2); Glucose 98 mg/dl (74-100); Potassium 4.3 mmoL/L (3.5-5.1); Sodium 139 mmol/L (136-145); Total Protein,Serum 6.6 g/dl (6.3-8.2)
[2021-10-05 18:17] LABS: Eosinophils % 1 % (0-3); Lymphocytes % 55 % (10-50); Macrocytosis 1+; Monocytes % 5 % (2-9); Neutrophils % 39 % (42-76); Platelet Estimate Normal; Total Cells Counted 100
== END ==
PROVIDERS: Visit Provider Internal Medicine Medical Oncology
DX: C50.911 Malignant neoplasm of unspecified site of right female breast (principal); Z17.0 Estrogen receptor positive status [ER+]
CPT/HCPCS: 36415; 80053; 85007; 85025

== ENCOUNTER → 2021-10-08 08:44 | Outpatient (CLI) | payer MEDICARE, SELFPAY ==
--- NOTE | 2021-10-08 08:49 | CT_ITS ---
PROCEDURE: CT ABDOMEN PELVIS W CON CLINICAL INDICATION: BREAST CA COMPARISON: CT CT ABDOMEN PELVIS W CON from 07/23/2021 TECHNIQUE: IV Contrast: 75ML Isovue 370 Oral Contrast None Axial images obtained with sagittal and coronal reformats. All CT scans at the facility use one or more dose reduction, viz: automated exposure control, ma/kV adjustment per patient size (including targeted exams where dose is matched to indication, i.e. head), or iterative reconstruction technique. FINDINGS: LOWER THORAX: Please see chest CT report from the same day ABDOMEN & PELVIS: The liver, spleen, adrenal glands, pancreas, and left kidney has an unremarkable appearance. Nonobstructing 5 mm stone is present in the lower pole of the right kidney. No intestinal obstruction or free air. Unremarkable appendix. There are few colonic diverticula but no evidence of diverticulitis. No abdominal or pelvic mass. Blastic lesions are once again noted involving T11 and L1 which are not significantly changed. IMPRESSION: No change with no acute finding. Stable blastic lesions of T11 and L1 Dictated by: Pramod Polo MD 10/09/2021 14:08 Pramod Polo MD in [facility] 10/09/2021 14:08
--- NOTE | 2021-10-08 08:49 | CT_ITS ---
PROCEDURE: CT CHEST W CON CLINCAL INDICATION: BREAST CA Metastatic breast cancer COMPARISON: CT CT CHEST W CON from 07/23/2021 TECHNIQUE: IV Contrast: 75ml Isovue 370 Axial images obtained with sagittal and coronal reformats. All CT scans at the facility use one or more dose reduction, viz: automated exposure control, ma/kV adjustment per patient size (including targeted exams where dose is matched to indication, i.e. head), or iterative reconstruction technique. FINDINGS: HEART AND MEDIASTINAL STRUCTURES: No mediastinal or hilar mass or adenopathy. LUNGS AND PLEURAL SPACES: Scattered areas of scarring. No suspicious nodules.. Old granulomatous disease. No change in the small 4 mm lingular nodule. Pleural thickening in the right lateral hemithorax not significantly changed BONY STRUCTURES: Diffuse sclerotic lesion involvement of the left scapula once again noted not significantly changed. Fracture versus loose body noted involving the base of the coracoid process laterally. No change in the sclerotic lesion of the T11 vertebral body. No new lesions apparent. UPPER ABDOMEN: Please see abdomen CT performed on the same day ADDITIONAL FINDINGS: No other significant abnormalities. IMPRESSION: Stable appearance of the chest. No change in the sclerotic lesions of the left scapula and T11. Dictated by: Pramod Polo MD 10/09/2021 13:23 Pramod Polo MD in [facility] 10/09/2021 13:23
== END ==
PROVIDERS: PCP Family Medicine; Visit Provider Internal Medicine Medical Oncology
DX: C50.911 Malignant neoplasm of unspecified site of right female breast (principal)
CPT/HCPCS: 71260; 74177; Q9967

== ENCOUNTER 2021-10-25 11:27 | Outpatient (CLI) | payer MEDICARE, SELFPAY ==
[2021-10-25 11:52] VITALS: BP 158/75; PULSE 66; RESP 18; TEMP 36.2; O2SAT 98
== END 2021-10-25 11:52 | disposition home or self-care (01) ==
LOC: INF 11:28
PROVIDERS: PCP Family Medicine; Visit Provider Internal Medicine Medical Oncology
DX: C50.911 Malignant neoplasm of unspecified site of right female breast (principal)
CPT/HCPCS: 96402; J9395

== ENCOUNTER → 2021-11-21 14:56 | Outpatient (CLI) | payer MEDICARE, SELFPAY ==
[2021-11-21 16:14] LABS: Basophils % 1.4 % (0.1-2.0); Eosinophils # 0.1 K/mm3 (0.0-0.4); Eosinophils % 2.3 % (0.1-12.0); Hemoglobin 12.1 g/dL (12.2-16.2); Lymphocytes # 1.1 K/mm3 (0.7-4.5); Lymphocytes % 51.5 % (10-50); Mean Corpuscular HGB Conc 31.8 g/dL (31.8-35.4); Mean Corpuscular Hemoglobin 36.6 pg (27.0-31.2); Mean Corpuscular Volume 115.1 fl (81-99); Mean Platelet Volume 7.8 fl (7.4-10.4); Monocytes # 0.1 K/mm3 (0.1-1.0); Monocytes % 2.9 % (1.7-9.3); Neutrophils # 0.9 K/mm3 (1.8-7.8); Platelet Count 249 K/mm3 (142-424); White Blood Count 2.1 K/mm3 (4.8-10.8)
[2021-11-21 16:21] LABS: MANUAL DIFFERENTIAL MANUAL DIFFERENTIAL (MANUAL DIFF)
[2021-11-21 17:07] LABS: Alanine Aminotransferase 21 U/L (12-78); Albumin Level 4.2 g/dl (3.5-5.0); Albumin/Globulin Ratio 1.9 (1.1-1.8); Alkaline Phosphatase 40 U/L (38-126); Anion Gap 12.4 mEq/L (5-15); Aspartate Amino Transferase 32 U/L (14-36); Bilirubin,Total 0.5 mg/dl (0.2-1.3); Blood Urea Nitrogen 15 mg/dl (7-17); Calcium 9.7 mg/dl (8.4-10.2); Carbon Dioxide 24 mmol/L (22.0-30.0); Chloride 109 mmol/L (98-107); Estimated Glomerular Filt Rate 44 ml/min (>60); GFR (African American) 53 ML/MIN (>60); Globulin 2.2 g/dL (1.3-3.2); Glucose 84 mg/dl (74-100); Potassium 4.4 mmoL/L (3.5-5.1); Sodium 141 mmol/L (136-145); Total Protein,Serum 6.4 g/dl (6.3-8.2)
[2021-11-21 19:18] LABS: Eosinophils % 1 % (0-3); Lymphocytes % 51 % (10-50); Monocytes % 4 % (2-9); Neutrophils % 44 % (42-76); Platelet Estimate Normal; Total Cells Counted 100
[2021-11-21 19:19] LABS: Hypochromasia 1+; Macrocytosis 2+
== END ==
PROVIDERS: PCP Family Medicine; Visit Provider Internal Medicine Medical Oncology
DX: C50.911 Malignant neoplasm of unspecified site of right female breast (principal)
CPT/HCPCS: 36415; 80053; 85007; 85025

== ENCOUNTER 2021-11-29 15:21 | Outpatient (CLI) | payer MEDICARE, SELFPAY ==
[2021-11-29 15:30] VITALS: BP 142/72; PULSE 88; RESP 18; TEMP 36.4; O2SAT 98
== END 2021-11-29 15:48 | disposition home or self-care (01) ==
LOC: INF 15:23
PROVIDERS: PCP Family Medicine; Visit Provider Internal Medicine Medical Oncology
DX: Z85.3 Personal history of malignant neoplasm of breast (principal)
CPT/HCPCS: 96402; J9395

== ENCOUNTER → 2021-12-26 15:05 | Outpatient (CLI) | payer MEDICARE, SELFPAY ==
[2021-12-26 16:11] LABS: Basophils % 1.9 % (0.1-2.0); Eosinophils % 1.4 % (0.1-12.0); Hematocrit 37.7 % (37.0-47.0); Lymphocytes % 48.6 % (10-50); Mean Corpuscular HGB Conc 31.9 g/dL (31.8-35.4); Mean Corpuscular Hemoglobin 36.4 pg (27.0-31.2); Mean Corpuscular Volume 114.2 fl (81-99); Mean Platelet Volume 8.6 fl (7.4-10.4); Monocytes # 0.1 K/mm3 (0.1-1.0); Monocytes % 4.6 % (1.7-9.3); Neutrophils # 0.9 K/mm3 (1.8-7.8); Neutrophils % 43.5 % (37.0-80.0); Platelet Count 169 K/mm3 (142-424)
[2021-12-26 16:20] LABS: Alanine Aminotransferase 24 U/L (12-78); Albumin Level 4.3 g/dl (3.5-5.0); Albumin/Globulin Ratio 2.2 (1.1-1.8); Alkaline Phosphatase 39 U/L (38-126); Anion Gap 12.2 mEq/L (5-15); Aspartate Amino Transferase 26 U/L (14-36); Bilirubin,Total 0.3 mg/dl (0.2-1.3); Blood Urea Nitrogen 16 mg/dl (7-17); Calcium 9.5 mg/dl (8.4-10.2); Carbon Dioxide 25 mmol/L (22.0-30.0); Chloride 108 mmol/L (98-107); Estimated Glomerular Filt Rate 44 ml/min (>60); GFR (African American) 53 ML/MIN (>60); Glucose 101 mg/dl (74-100); Potassium 3.2 mmoL/L (3.5-5.1); Sodium 142 mmol/L (136-145); Total Protein,Serum 6.3 g/dl (6.3-8.2)
== END ==
PROVIDERS: Visit Provider Internal Medicine Medical Oncology
DX: C50.911 Malignant neoplasm of unspecified site of right female breast (principal)
CPT/HCPCS: 36415; 80053; 85025

== ENCOUNTER 2021-12-27 13:58 | Outpatient (CLI) | payer MEDICARE, SELFPAY ==
[2021-12-27 14:25] VITALS: BP 146/60; PULSE 66; RESP 20; TEMP 36.3; O2SAT 99
== END 2021-12-27 14:52 | disposition home or self-care (01) ==
LOC: INF 13:59
PROVIDERS: PCP Family Medicine; Visit Provider Internal Medicine Medical Oncology
DX: Z51.11 Encounter for antineoplastic chemotherapy (principal); C50.911 Malignant neoplasm of unspecified site of right female breast; Z17.0 Estrogen receptor positive status [ER+]; M81.0 Age-related osteoporosis without current pathological fracture
CPT/HCPCS: 96372; 96402; J0897; J9395

== ENCOUNTER 2022-01-24 13:10 | Outpatient (CLI) | payer MEDICARE, SELFPAY ==
[2022-01-24 13:16] VITALS: BMI 34.5
[2022-01-24 13:33] LABS: Basophils % 0.6 % (0.1-2.0); Eosinophils % 1.7 % (0.1-12.0); Hematocrit 32.6 % (37.0-47.0); Hemoglobin 11.5 g/dL (12.2-16.2); Lymphocytes # 1.2 K/mm3 (0.7-4.5); Lymphocytes % 58.1 % (10-50); Mean Corpuscular HGB Conc 35.3 g/dL (31.8-35.4); Mean Corpuscular Hemoglobin 37.1 pg (27.0-31.2); Mean Corpuscular Volume 105.1 fl (81-99); Mean Platelet Volume 8.1 fl (7.4-10.4); Monocytes # 0.1 K/mm3 (0.1-1.0); Monocytes % 3.5 % (1.7-9.3); Neutrophils # 0.8 K/mm3 (1.8-7.8); Neutrophils % 36.1 % (37.0-80.0); Platelet Count 136 K/mm3 (142-424); Red Blood Count 3.11 M/mm3 (4.20-5.40); Red Cell Distribution Width 14.8 % (11.5-17.5); White Blood Count 2.1 K/mm3 (4.8-10.8)
[2022-01-24 13:34] LABS: MANUAL DIFFERENTIAL MANUAL DIFFERENTIAL (MANUAL DIFF)
[2022-01-24 13:38] LABS: Chloride 109 mmol/L (98-107); Potassium 3.9 mmoL/L (3.5-5.1); Sodium 139 mmol/L (136-145)
[2022-01-24 13:41] LABS: Alanine Aminotransferase 24 U/L (12-78); Albumin Level 3.8 g/dl (3.5-5.0); Albumin/Globulin Ratio 1.7 (1.1-1.8); Alkaline Phosphatase 38 U/L (38-126); Anion Gap 10.9 mEq/L (5-15); Aspartate Amino Transferase 30 U/L (14-36); Bilirubin,Total 0.5 mg/dl (0.2-1.3); Blood Urea Nitrogen 19 mg/dl (7-17); Calcium 8.9 mg/dl (8.4-10.2); Carbon Dioxide 23 mmol/L (22.0-30.0); Creatinine Clearance Estimated 47 mL/min (50-200); Estimated Glomerular Filt Rate 40 ml/min (>60); GFR (African American) 48 ML/MIN (>60); Globulin 2.3 g/dL (1.3-3.2); Glucose 81 mg/dl (74-100); Total Protein,Serum 6.1 g/dl (6.3-8.2)
[2022-01-24 14:02] LABS: Lymphocytes % 56 % (10-50); Monocytes % 8 % (2-9); Neutrophils % 36 % (42-76); Total Cells Counted 25
[2022-01-24 14:03] LABS: Macrocytosis 1+; Platelet Estimate Normal
[2022-01-24 14:35] VITALS: BP 132/59; PULSE 63; RESP 16; TEMP 36.1; O2SAT 97
== END 2022-01-24 14:45 | disposition home or self-care (01) ==
LOC: INF 13:11
PROVIDERS: PCP Family Medicine; Visit Provider Internal Medicine Medical Oncology
DX: Z51.11 Encounter for antineoplastic chemotherapy (principal); C50.911 Malignant neoplasm of unspecified site of right female breast
CPT/HCPCS: 36415; 80053; 85007; 85025; 96402; J9395

== ENCOUNTER → 2022-02-11 12:16 | Outpatient (CLI) | payer MEDICARE, SELFPAY ==
[2022-02-11 13:03] LABS: Basophils % 1.7 % (0.1-2.0); Eosinophils # 0.1 K/mm3 (0.0-0.4); Eosinophils % 3.4 % (0.1-12.0); Hematocrit 35.6 % (37.0-47.0); Hemoglobin 11.9 g/dL (12.2-16.2); Lymphocytes # 0.6 K/mm3 (0.7-4.5); Lymphocytes % 36.9 % (10-50); Mean Corpuscular HGB Conc 33.5 g/dL (31.8-35.4); Mean Corpuscular Hemoglobin 36.3 pg (27.0-31.2); Mean Corpuscular Volume 108.3 fl (81-99); Mean Platelet Volume 7.1 fl (7.4-10.4); Monocytes # 0.1 K/mm3 (0.1-1.0); Platelet Count 278 K/mm3 (142-424); Red Blood Count 3.28 M/mm3 (4.20-5.40); Red Cell Distribution Width 14.4 % (11.5-17.5); White Blood Count 1.7 K/mm3 (4.8-10.8)
[2022-02-11 13:43] LABS: Chloride 110 mmol/L (98-107); Sodium 141 mmol/L (136-145)
[2022-02-11 13:44] LABS: Potassium 4.1 mmoL/L (3.5-5.1)
[2022-02-11 13:46] LABS: Alanine Aminotransferase 27 U/L (12-78); Albumin/Globulin Ratio 1.9 (1.1-1.8); Alkaline Phosphatase 44 U/L (38-126); Anion Gap 11.1 mEq/L (5-15); Aspartate Amino Transferase 35 U/L (14-36); Bilirubin,Total 0.4 mg/dl (0.2-1.3); Blood Urea Nitrogen 14 mg/dl (7-17); Carbon Dioxide 24 mmol/L (22.0-30.0); Estimated Glomerular Filt Rate 48 ml/min (>60); GFR (African American) 59 ML/MIN (>60); Globulin 2.1 g/dL (1.3-3.2); Total Protein,Serum 6.1 g/dl (6.3-8.2)
[2022-02-11 13:47] LABS: Glucose 100 mg/dl (74-100)
== END ==
PROVIDERS: PCP Family Medicine; Visit Provider Internal Medicine Medical Oncology
DX: C50.911 Malignant neoplasm of unspecified site of right female breast (principal)
CPT/HCPCS: 36415; 80053; 85025

== ENCOUNTER → 2022-02-14 07:46 | Outpatient (CLI) | payer MEDICARE, SELFPAY ==
--- NOTE | 2022-02-14 | CT_ITS ---
FINAL REPORT TECHNIQUE: Axial images were obtained from the lung bases through the pubic symphysis before and after the administration of intravenous contrast. Oral contrast was administered. This study was performed with techniques to keep radiation doses as low as reasonably achievable (ALARA). Individualized dose reduction techniques using automated exposure control or adjustment of mA and/or kV according to the patient's size were employed. CLINICAL HISTORY: BREAST CANCER COMPARISON: October 08, 2021 FINDINGS: Precontrast images demonstrate a nonobstructing stone in the lower pole the right kidney measuring 5 mm. Abdomen: There is a small sliding-type hiatal hernia. The liver parenchyma is homogeneous. There is mild hepatomegaly. The gallbladder is absent. The spleen, pancreas and adrenal glands are unremarkable. The kidneys enhance normally. There is no mass or adenopathy identified. There is no evidence of bowel obstruction. Pelvis: The uterus is present. There may be a 1.8 cm fibroid in the right myometrium. The appendix is normal. The urinary bladder is unremarkable. There is diverticulosis of the sigmoid colon. There is a sclerotic vertebrae at T12. There is a smaller focus in L2. IMPRESSION: Sclerotic vertebrae at T12 with smaller focus of sclerosis in L2, stable from prior. Could be due to metastasis or old trauma. Correlation with PET scan or bone scan may be of value. Nonobstructing lower pole right renal stone. Reviewed, Interpreted and Dictated by Gene Zhang MD Transcribed by Vignesh Kelley Authenticated by Gene Zhang MD on 02/14/2022 04:56:56 PM [facility]
--- NOTE | 2022-02-14 07:54 | CT_ITS ---
FINAL REPORT CLINICAL HISTORY: BREAST CANCER FINDINGS: Before and after the administration of intravenous contrast, axial images through the chest were performed by computed tomography. This study was performed with techniques to keep radiation doses as low as reasonably achievable, (ALARA). Individualized dose reduction techniques using automated exposure control or adjustment of mA and/or kV according to the patient's size were employed. There is no axillary adenopathy. There are calcified subcarinal and left hilar lymph nodes. There are surgical clips in the right axilla. There is a density in the posterior right breast measuring 2.5 x 1.7 cm. This favors post treatment change and is best seen on images 27-29 of series 8. The heart size is normal. There is no pericardial or pleural effusion. No suspicious infiltrate or nodule identified. There are prominent hypertrophic changes of degenerative disc disease in the midthoracic spine. IMPRESSION: Density in the posterior right breast favoring post treatment change. Reviewed, Interpreted and Dictated by Gene Zhang MD Transcribed by Vignesh Kelley Authenticated by Gene Zhang MD on 02/14/2022 01:27:[address] [facility]
== END ==
PROVIDERS: PCP Family Medicine; Visit Provider Internal Medicine Medical Oncology
DX: C50.911 Malignant neoplasm of unspecified site of right female breast (principal); Z03.89 Encounter for observation for other suspected diseases and conditions ruled out
CPT/HCPCS: 71270; 74178; Q9967

== ENCOUNTER → 2022-02-21 13:47 | Outpatient (CLI) | payer MEDICARE, SELFPAY ==
[2022-02-21 14:10] VITALS: BP 123/79; PULSE 63; RESP 18; O2SAT 99
== END ==
PROVIDERS: PCP Family Medicine; Visit Provider Internal Medicine Medical Oncology
DX: C50.911 Malignant neoplasm of unspecified site of right female breast (principal)
CPT/HCPCS: 96402; J9395

== ENCOUNTER 2022-02-28 16:00 | Outpatient (RCR) | payer MEDICARE, SELFPAY ==
--- NOTE | 2021-08-01 10:10 | HMH.PTOPWND ---
Rehab Outpt Wound Evaluation Rehab OP Wound Evaluation Start: 08/01/21 09:02 Freq: Status: Active Protocol: Document 08/01/21 10:02 GUILLERMINA (Rec: 08/01/21 10:10 GUILLERMINA [id number]) Electronically Signed By Christos Barnes, PT 08/01/21 10:02 Subjective/History History History Pt is 76 yowf who presents with worsening lymphedema of the R UE for several months, with hx of R UE lymphedema x 3 -4 yrs overall. She originally was diagnosed with R breast cancer in 2013 with R lumpectomy and ALN dissection with total of 12 LN removed. She underwent Lymphedema treatment at this clinic with good results previously, but has recently had further helth problems. 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 She is continuing to undergo treatment for these mets, but her condition has improved to this point. She reports no current c/o edema in the L UE. Subjective Subjective Currently no c/o pain, but she does reports intermittent sharp pain in the upper R arm and intermittent tingling/ numbness in the R hand. Palpation tenderness in the R axilla and upper arm at this time 1/4. 2+ pitting and fibrotic edema noted in the R forearm. Lymphedema Eval Classification of Lymphedema Secondary Lymphedema Yes Stemmer's sign Stemmer's Sign yes Stage of Lymphedema Lymphedema stages Stage II (Pitting edema, increased fibrosis w/ decreased pitting) Skin Changes Dry Skin Yes Skin Folds Yes Redness Yes Other Changes Yes Radiation Therapy Has received radiation therapy yes Chemo Therapy Has received chemo therapy yes Affected Extremities Areas Affected by Lymphedema/Edema Right Upper Extremity,Abdomen, Right Breast,Right Axilla Manual Lymphatic Drainage Treatm
--- NOTE | 2021-08-29 11:02 | HMH.RHREAS ---
Rehab Reassessment Rehab OP Re-assessment Start: 08/29/21 10:59 Freq: Status: Active Protocol: Document 08/29/21 10:59 GUILLERMINA (Rec: 08/29/21 11:02 GUILLERMINA [id number]) Electronically Signed By Christos Barnes, PT 08/29/21 10:59 Rehab Re-assessment Subjective Subjective Pt reports less c/o discomfort and she feels she is improving. Objective Objective Notes Circumferential measurements: R UE total is 262.1 cm. Less Fibrotic edema noted throughout R forearm. Assessment Progress Assessment Progressing as Expected Assessment Notes Pt has shown overall decrease in R UE edema during treatment . Improved ability to perform all ADLs with significant reduction in discomfort. Patient goals met ST,2,3,4 Goals Not Met LT,2,3,4,5,6 Revised Goals none Plan Plan Continue per initial POC. Frequency of Therapy 2 x/wk Duration of therapy 8 wks Time and Billing Re-Eval Time 15 Re-Eval Billing Units 0 PHYSICIAN CERTIFICATION: I certify the specified therapy services for Loulou Luong are required, authorized, and reviewed every 30 days.
--- NOTE | 2021-09-26 15:27 | HMH.RHREAS ---
Rehab Reassessment Rehab OP Re-assessment Start: 08/29/21 10:59 Freq: Status: Active Protocol: Document 09/26/21 15:25 GUILLERMINA (Rec: 09/26/21 15:27 PHOANGELA [id number]) Electronically Signed By Christos Barnes, PT 09/26/21 15:25 Rehab Re-assessment Subjective Subjective Pt reports no c/o pain in the R arm, but some soreness in the R upper trap. Objective Objective Notes Circumferential measurements: R UE -14.3 cm total since initial eval. Assessment Progress Assessment Progressing as Expected Assessment Notes Much softer tissue quality throughout the R UE with decreasing edema. Pt has new UE compression garment that she feels is more comfortable and compliance with compression has increased. Patient goals met ST,2,3,4 Goals Not Met LT,2,3,4,5,6 Revised Goals none Plan Plan Continue per initial POC. Frequency of Therapy 2 x/wk Duration of therapy 8 wks Time and Billing Re-Eval Time 15 Re-Eval Billing Units 0 PHYSICIAN CERTIFICATION: I certify the specified therapy services for Loulou Luong are required, authorized, and reviewed every 30 days.
--- NOTE | 2021-10-24 10:45 | HMH.RHREAS ---
Rehab Reassessment Rehab OP Re-assessment Start: 08/29/21 10:59 Freq: Status: Active Protocol: Document 10/24/21 10:35 GUILLERMINA (Rec: 10/24/21 10:45 GUILLERMINA [id number]) Electronically Signed By Christos Barnes, PT 10/24/21 10:35 Rehab Re-assessment Subjective Subjective Pt reports she has been sore along the lateral side of the R forearm over the past few days and feels she has more edema in the R UE. Objective Objective Notes R UE with increased palpable edema throughout, mildly fibrotic. 1+ pitting edema noted along the lateral R forearm and dorsal R hand. Stemmer's sign + on R hand this date. Assessment Progress Assessment Progressing as Expected Assessment Notes Continues to have fluctuating edema throughout the R UE. This is likely due to multiple factors with the pt recently having a cold, exacerbations of HTN, and increased salty foods over the holiday season. Pt has had a significant change in status with increased edema over the past 2-3 weeks. Will continue to perform MLD/CDT and increase compression wear as able. Patient goals met ST,2,3,4 Goals Not Met LT,2,3,4,5,6 Revised Goals none Plan Plan Continue per initial POC. Possible modifications to compression therapy as needed to reduce pitting. Frequency of Therapy 2 x/wk Duration of therapy 8 wks Time and Billing Re-Eval Time 15 Re-Eval Billing Units 1 PHYSICIAN CERTIFICATION: I certify the specified therapy services for Loulou Luong are required, authorized, and reviewed every 30 days.
--- NOTE | 2021-11-19 14:40 | HMH.RHREAS ---
Rehab Reassessment Rehab OP Re-assessment Start: 08/29/21 10:59 Freq: Status: Active Protocol: Document 11/19/21 14:36 GUILLERMINA (Rec: 11/19/21 14:40 GUILLERMINA [id number]) Electronically Signed By Christos Barnes, PT 11/19/21 14:36 Rehab Re-assessment Subjective Subjective Pt reports no soreness in the R UE this date. Objective Objective Notes R UE with palpable edema throughout, mildly fibrotic, mostly on posterior aspect of the R UE this date. Stemmer's sign + on R hand this date. Assessment Progress Assessment Progressing as Expected Assessment Notes Improved pitting edema in the R UE, continued fibrotic edema noted throughout the R UE. Significant difference in edema overall, R shld remains more fibrotic and stiff to palpation. Pt tolerating different compression sleeve well. Patient goals met ST,2,3,4 Goals Not Met LT,2,3,4,5,6 Revised Goals none Plan Plan Continue per initial POC. Possible modifications to compression therapy as needed to reduce pitting. Frequency of Therapy 2 x/wk Duration of therapy 8 wks Time and Billing Re-Eval Time 15 Re-Eval Billing Units 1 PHYSICIAN CERTIFICATION: I certify the specified therapy services for Loulou Luong are required, authorized, and reviewed every 30 days.
--- NOTE | 2022-01-15 15:23 | HMH.RHREAS ---
Rehab Reassessment Rehab OP Re-assessment Start: 08/29/21 10:59 Freq: Status: Active Protocol: Document 01/15/22 15:21 GUILLERMINA (Rec: 01/15/22 15:23 GUILLERMINA [id number]) Electronically Signed By Christos Barnes, PT 01/15/22 15:21 Rehab Re-assessment Subjective Subjective Pt with reports of less heaviness in R UE, but mild pain intermittently in R posterior forearm at night. Objective Objective Notes Circumferential measurements: R UE -7.9 cm since last reassessment. Assessment Progress Assessment Progressing as Expected Assessment Notes Continues to show moderate fibrotic edema in the R UE, worse in the forearm with minimal pitting noted posteriorly. She has less pain and tenderness overall. Steadily decreasing edema. Patient goals met ST,2,3,4 Goals Not Met LT,2,3,4,5,6 Revised Goals none Plan Plan Continue per initial POC. Possible modifications to compression therapy as needed to reduce pitting. Frequency of Therapy 2 x/wk Duration of therapy 8 wks Time and Billing Re-Eval Time 15 Re-Eval Billing Units 1 PHYSICIAN CERTIFICATION: I certify the specified therapy services for Loulou Luong are required, authorized, and reviewed every 30 days.
--- NOTE | 2022-02-13 13:59 | HMH.RHREAS ---
Rehab Reassessment Rehab OP Re-assessment Start: 08/29/21 10:59 Freq: Status: Active Protocol: Document 02/13/22 13:54 GUILLERMINA (Rec: 02/13/22 13:59 GUILLERMINA [id number]) Electronically Signed By Christos Barnes, PT 02/13/22 13:54 Rehab Re-assessment Subjective Subjective Pt reports R UE feels a little more heavy than it did previously. Objective Objective Notes R UE with increased circumferential measurements over the last 2-3 visits with unknown etiology. Pitting edema noted in medial forearm and medial upper arm slightly proximal to the elbow. Assessment Progress Assessment Slower Than Expected Assessment Notes Pt had been showing steady decrease in overall R UE limb volume, but has now shown increased edema recently. Significant change in pitting edema ntoed as well. No increased pain noted. Patient goals met ST,2,3,4 Goals Not Met LT,2,3,4,5,6 Revised Goals none Plan Plan Continue per initial POC. May benefit from Lymphoscintigraphy to map lymphatic flow out of the R UE . Frequency of Therapy 2 x/wk Duration of therapy 8 wks Time and Billing Re-Eval Time 14 Re-Eval Billing Units 1 PHYSICIAN CERTIFICATION: I certify the specified therapy services for Loulou Luong are required, authorized, and reviewed every 30 days.
== END 2022-02-28 16:05 | disposition home or self-care (01) ==
LOC: PT 16:00
PROVIDERS: PCP Family Medicine; Visit Provider Internal Medicine Medical Oncology
DX: I89.0 Lymphedema, not elsewhere classified (principal); C50.911 Malignant neoplasm of unspecified site of right female breast
CPT/HCPCS: 97110; 97140; 97162; 97164

== ENCOUNTER → 2022-03-27 14:12 | Outpatient (CLI) | payer MEDICARE, SELFPAY ==
[2022-03-27 15:07] LABS: Basophils # 0.1 K/mm3 (0-0.2); Basophils % 2.6 % (0.1-2.0); Eosinophils % 0.9 % (0.1-12.0); Hemoglobin 12.8 g/dL (12.2-16.2); Lymphocytes # 1.3 K/mm3 (0.7-4.5); Lymphocytes % 49.5 % (10-50); Mean Corpuscular HGB Conc 33.7 g/dL (31.8-35.4); Mean Corpuscular Hemoglobin 37.6 pg (27.0-31.2); Mean Corpuscular Volume 111.6 fl (81-99); Mean Platelet Volume 8.3 fl (7.4-10.4); Monocytes # 0.3 K/mm3 (0.1-1.0); Monocytes % 12.1 % (1.7-9.3); Neutrophils # 0.9 K/mm3 (1.8-7.8); Neutrophils % 34.9 % (37.0-80.0); Platelet Count 197 K/mm3 (142-424); Red Blood Count 3.41 M/mm3 (4.20-5.40); Red Cell Distribution Width 15.6 % (11.5-17.5); White Blood Count 2.6 K/mm3 (4.8-10.8)
[2022-03-27 15:28] LABS: Chloride 107 mmol/L (98-107); Potassium 4.4 mmoL/L (3.5-5.1); Sodium 139 mmol/L (136-145)
[2022-03-27 15:30] LABS: Alanine Aminotransferase 30 U/L (12-78); Aspartate Amino Transferase 37 U/L (14-36); Blood Urea Nitrogen 14 mg/dl (7-17); Estimated Glomerular Filt Rate 54 ml/min (>60); GFR (African American) 65 ML/MIN (>60)
[2022-03-27 15:31] LABS: Albumin Level 4.3 g/dl (3.5-5.0); Alkaline Phosphatase 50 U/L (38-126); Anion Gap 12.4 mEq/L (5-15); Bilirubin,Total 0.4 mg/dl (0.2-1.3); Calcium 10.3 mg/dl (8.4-10.2); Carbon Dioxide 24 mmol/L (22.0-30.0); Globulin 2.2 g/dL (1.3-3.2); Glucose 109 mg/dl (74-100); Total Protein,Serum 6.5 g/dl (6.3-8.2)
== END ==
PROVIDERS: PCP Family Medicine; Visit Provider Internal Medicine Medical Oncology
DX: C50.911 Malignant neoplasm of unspecified site of right female breast (principal); Z17.0 Estrogen receptor positive status [ER+]
CPT/HCPCS: 36415; 80053; 85025

== ENCOUNTER 2022-03-28 13:26 | Outpatient (CLI) | payer MEDICARE, SELFPAY ==
[2022-03-28 13:40] VITALS: BP 149/74; PULSE 68; RESP 18; TEMP 36.7; O2SAT 98
== END 2022-03-28 13:50 | disposition home or self-care (01) ==
LOC: INF 13:27
PROVIDERS: PCP Family Medicine; Visit Provider Internal Medicine Medical Oncology
DX: C50.911 Malignant neoplasm of unspecified site of right female breast
CPT/HCPCS: 96402; J9395

== ENCOUNTER → 2022-04-08 10:36 | Outpatient (CLI) | payer MEDICARE, SELFPAY ==
--- NOTE | 2022-04-08 10:37 | MM_ITS ---
PROCEDURE INFORMATION: Exam: MG Bilateral Screening 3D Mammography Exam date and time: 04/08/2022 10:51 AM Age: 76 years old Clinical indication: Screening examination. Personal history of right breast cancer the the the the the the TECHNIQUE: Imaging protocol: Bilateral Screening tomosynthesis and 2D mammography including computer-aided detection (CAD) when performed. COMPARISON: 1. MG MM DIG SCREENING MAMM BI W/CAD 04/06/2021 8:52 AM 2. MG MM DIG SCREENING MAMM BI W/CAD 04/03/2020 8:35 AM FINDINGS: MAMMOGRAPHY: Breast composition: There are scattered areas of fibroglandular density. Mass: None. Architectural distortion: Stable post operative architectural distortion in the right lateral breast due to prior lumpectomy for carcinoma. Calcifications: No suspicious calcifications. Asymmetric density: None. Skin thickening: None. Axillary adenopathy: None. IMPRESSION: No mammographic evidence of malignancy. Annual screening is recommended unless otherwise clinically indicated. ASSESSMENT: BI-RADS Category 2: Benign
== END ==
PROVIDERS: PCP Family Medicine; Visit Provider Surgery
DX: Z12.31 Encounter for screening mammogram for malignant neoplasm of breast (principal)
CPT/HCPCS: 77063; 77067

== ENCOUNTER → 2022-04-24 12:29 | Outpatient (CLI) | payer MEDICARE, SELFPAY ==
[2022-04-24 13:01] LABS: Basophils # 0.1 K/mm3 (0-0.2); Basophils % 2.4 % (0.1-2.0); Hematocrit 36.8 % (37.0-47.0); Hemoglobin 11.4 g/dL (12.2-16.2); Lymphocytes # 0.9 K/mm3 (0.7-4.5); Lymphocytes % 46.8 % (10-50); Mean Corpuscular HGB Conc 30.9 g/dL (31.8-35.4); Mean Corpuscular Hemoglobin 35.1 pg (27.0-31.2); Mean Corpuscular Volume 113.6 fl (81-99); Mean Platelet Volume 9.1 fl (7.4-10.4); Monocytes # 0.2 K/mm3 (0.1-1.0); Monocytes % 9.8 % (1.7-9.3); Neutrophils # 0.8 K/mm3 (1.8-7.8); Platelet Count 167 K/mm3 (142-424); Red Blood Count 3.24 M/mm3 (4.20-5.40); Red Cell Distribution Width 15.2 % (11.5-17.5); White Blood Count 1.9 K/mm3 (4.8-10.8)
[2022-04-24 14:55] LABS: Alanine Aminotransferase 25 U/L (12-78); Albumin Level 3.6 g/dl (3.5-5.0); Albumin/Globulin Ratio 1.6 (1.1-1.8); Alkaline Phosphatase 54 U/L (38-126); Anion Gap 10.2 mEq/L (5-15); Aspartate Amino Transferase 31 U/L (14-36); Blood Urea Nitrogen 13 mg/dl (7-17); Calcium 9.2 mg/dl (8.4-10.2); Carbon Dioxide 27 mmol/L (22.0-30.0); Chloride 106 mmol/L (98-107); Estimated Glomerular Filt Rate 54 ml/min (>60); GFR (African American) 65 ML/MIN (>60); Globulin 2.2 g/dL (1.3-3.2); Glucose 94 mg/dl (74-100); Potassium 4.2 mmoL/L (3.5-5.1); Sodium 139 mmol/L (136-145); Total Protein,Serum 5.8 g/dl (6.3-8.2)
[2022-04-24 15:01] LABS: Bilirubin,Total 0.1 mg/dl (0.2-1.3)
== END ==
PROVIDERS: PCP Family Medicine; Visit Provider Internal Medicine Medical Oncology
DX: C50.911 Malignant neoplasm of unspecified site of right female breast (principal)
CPT/HCPCS: 36415; 80053; 85025

== ENCOUNTER 2022-04-25 14:54 | Outpatient (CLI) | payer MEDICARE, SELFPAY ==
[2022-04-25 15:26] VITALS: BP 123/70; PULSE 69; RESP 18; TEMP 36.7; O2SAT 98
== END 2022-04-25 15:39 | disposition home or self-care (01) ==
PROVIDERS: PCP Family Medicine; Visit Provider Internal Medicine Medical Oncology
DX: Z51.11 Encounter for antineoplastic chemotherapy (principal); C50.911 Malignant neoplasm of unspecified site of right female breast
CPT/HCPCS: 96402; J9395

== ENCOUNTER 2022-05-27 08:27 | Outpatient (CLI) | payer MEDICARE, SELFPAY ==
[2022-05-27 08:36] VITALS: BMI 32.2
[2022-05-27 08:50] LABS: Basophils % 0.5 % (0.1-2.0); Eosinophils % 0.9 % (0.1-12.0); Hematocrit 36.1 % (37.0-47.0); Hemoglobin 11.6 g/dL (12.2-16.2); Lymphocytes # 0.7 K/mm3 (0.7-4.5); Mean Corpuscular HGB Conc 32.1 g/dL (31.8-35.4); Mean Corpuscular Hemoglobin 36.5 pg (27.0-31.2); Mean Corpuscular Volume 113.7 fl (81-99); Mean Platelet Volume 9.2 fl (7.4-10.4); Monocytes # 0.1 K/mm3 (0.1-1.0); Monocytes % 9.3 % (1.7-9.3); Neutrophils # 0.6 K/mm3 (1.8-7.8); Neutrophils % 41.2 % (37.0-80.0); Platelet Count 143 K/mm3 (142-424); Red Blood Count 3.17 M/mm3 (4.20-5.40); Red Cell Distribution Width 15.2 % (11.5-17.5); White Blood Count 1.4 K/mm3 (4.8-10.8)
[2022-05-27 09:00] LABS: Alanine Aminotransferase 29 U/L (12-78); Albumin Level 3.8 g/dl (3.5-5.0); Albumin/Globulin Ratio 1.7 (1.1-1.8); Alkaline Phosphatase 56 U/L (38-126); Anion Gap 9.7 mEq/L (5-15); Aspartate Amino Transferase 32 U/L (14-36); Blood Urea Nitrogen 11 mg/dl (7-17); Calcium 9.2 mg/dl (8.4-10.2); Carbon Dioxide 27 mmol/L (22.0-30.0); Chloride 108 mmol/L (98-107); Creatinine Clearance Estimated 51 mL/min (50-200); Estimated Glomerular Filt Rate 48 ml/min (>60); GFR (African American) 58 ML/MIN (>60); Globulin 2.3 g/dL (1.3-3.2); Glucose 113 mg/dl (74-100); Potassium 3.7 mmoL/L (3.5-5.1); Sodium 141 mmol/L (136-145); Total Protein,Serum 6.1 g/dl (6.3-8.2)
[2022-05-27 09:02] LABS: Bilirubin,Total 0.1 mg/dl (0.2-1.3)
--- NOTE | 2022-05-27 09:04 | CT_ITS ---
FINAL REPORT TECHNIQUE: After the administration of intravenous contrast, axial images were obtained through the abdomen and pelvis by computed tomography. This study was performed with technique to keep radiation doses as low as reasonably achievable, (ALARA). Individualized dose reduction techniques using automated exposure control or adjustment of the MA and/or KV according to the patient's size were employed. CLINICAL HISTORY: BREAST CANCER COMPARISON: 02/14/2022 FINDINGS: Abdomen: Patient is status post cholecystectomy. There is mild biliary ductal dilatation which is likely due to post cholecystectomy change. The liver is normal in size and attenuation. The spleen is unremarkable. The adrenals are normal. The pancreas is unremarkable. The kidneys enhance appropriately. Again seen is a small, nonobstructing right renal stone. The aorta is normal in caliber. The moderate vascular calcifications are noted. There is a small hiatal hernia. There is no free fluid or adenopathy. Pelvis: The appendix is normal. The urinary bladder is unremarkable. There is no free fluid or adenopathy. There is a stable sclerotic focus in the L1 vertebral body. IMPRESSION: No acute intra-abdominal process. Reviewed, Interpreted and Dictated by Lane Momin III, MD Transcribed by Nayana Cesar Authenticated and [facility]
--- NOTE | 2022-05-27 09:04 | CT_ITS ---
FINAL REPORT CLINICAL HISTORY: BREAST CANCER COMPARISON: 02/14/2022 FINDINGS: Axial CT images of the chest were obtained with contrast. Coronal reformatted images were also obtained. This study was performed with techniques to keep radiation doses as low as reasonably achievable, (ALARA). Individualized dose reduction techniques using automated exposure control or adjustment of mA and/or KV according to the patient's size were employed. There is no evidence of mediastinal or hilar mass or adenopathy. There are postoperative changes to the right breast and axilla. Focus of soft tissue in the right breast measuring 2.6 cm is stable and favored to represent post treatment change. There is a calcified granuloma in the left lower lobe. A 4 mm lingular nodule is stable. There is mild pulmonary scarring. On lung window images, no new pulmonary mass or dominant pulmonary nodule is identified. No localized pulmonary inflammatory process is identified. Stable sclerotic masses are seen involving the left scapula, T11 and left humeral head. IMPRESSION: No mass or localized inflammatory process. No new pulmonary mass or nodule. Reviewed, Interpreted and Dictated by Lane Momin III, MD Transcribed by Nayana Cesar Authenticated and [facility]
== END 2022-05-27 08:42 | disposition home or self-care (01) ==
PROVIDERS: PCP Family Medicine; Visit Provider Internal Medicine Medical Oncology
DX: C50.911 Malignant neoplasm of unspecified site of right female breast (principal); Z03.89 Encounter for observation for other suspected diseases and conditions ruled out
CPT/HCPCS: 71260; 74177; 80053; 85025; Q9967

== ENCOUNTER 2022-05-30 13:35 | Outpatient (CLI) | payer MEDICARE, SELFPAY ==
[2022-05-30 13:47] VITALS: BP 141/74; PULSE 66; RESP 20; TEMP 36.6; O2SAT 98
== END 2022-05-30 13:47 | disposition home or self-care (01) ==
LOC: INF 13:36
PROVIDERS: PCP Family Medicine; Visit Provider Internal Medicine Medical Oncology
DX: C50.911 Malignant neoplasm of unspecified site of right female breast (principal)
CPT/HCPCS: 96402; J9395

== ENCOUNTER 2022-07-04 12:06 | Outpatient (CLI) | payer MEDICARE, SELFPAY ==
[2022-07-04 12:11] VITALS: BMI 34.3
[2022-07-04 12:29] LABS: Basophils % 1.2 % (0.1-2.0); Eosinophils % 1.5 % (0.1-12.0); Hematocrit 35.8 % (37.0-47.0); Hemoglobin 11.9 g/dL (12.2-16.2); Lymphocytes # 0.9 K/mm3 (0.7-4.5); Lymphocytes % 43.6 % (10-50); Mean Corpuscular HGB Conc 33.1 g/dL (31.8-35.4); Mean Corpuscular Volume 108.7 fl (81-99); Mean Platelet Volume 8.9 fl (7.4-10.4); Monocytes # 0.1 K/mm3 (0.1-1.0); Monocytes % 4.4 % (1.7-9.3); Neutrophils % 49.3 % (37.0-80.0); Platelet Count 169 K/mm3 (142-424); Red Blood Count 3.29 M/mm3 (4.20-5.40); Red Cell Distribution Width 15.6 % (11.5-17.5); White Blood Count 2.1 K/mm3 (4.8-10.8)
[2022-07-04 12:39] LABS: Chloride 109 mmol/L (98-107); Potassium 3.8 mmoL/L (3.5-5.1); Sodium 141 mmol/L (136-145)
[2022-07-04 12:42] LABS: Alanine Aminotransferase 28 U/L (12-78); Albumin Level 4.1 g/dl (3.5-5.0); Albumin/Globulin Ratio 1.6 (1.1-1.8); Alkaline Phosphatase 62 U/L (38-126); Anion Gap 9.8 mEq/L (5-15); Aspartate Amino Transferase 42 U/L (14-36); Bilirubin,Total 0.2 mg/dl (0.2-1.3); Blood Urea Nitrogen 11 mg/dl (7-17); Carbon Dioxide 26 mmol/L (22.0-30.0); Creatinine Clearance Estimated 60 mL/min (50-200); Estimated Glomerular Filt Rate 54 ml/min (>60); GFR (African American) 65 ML/MIN (>60); Globulin 2.5 g/dL (1.3-3.2); Total Protein,Serum 6.6 g/dl (6.3-8.2)
[2022-07-04 12:43] LABS: Calcium 8.9 mg/dl (8.4-10.2); Glucose 102 mg/dl (74-100)
--- NOTE | 2022-07-04 13:45 | PC.NURSE ---
1215-BLOOD DRAWN FROM LEFT AC USING BUTTERFLY NEEDLE TO CHECK LABS PRIOR TO DR POTTER APPT. PT TO RETURN AFTER APPT FOR FASLODEX AND PROLIA INJECTIONS.
[2022-07-04 13:50] VITALS: BP 145/75; PULSE 75; RESP 18; TEMP 36.3; O2SAT 98
[2022-07-04 14:00] VITALS: BP 143/73; PULSE 81; RESP 18; O2SAT 98
== END 2022-07-04 14:00 | disposition home or self-care (01) ==
LOC: INF 12:07
PROVIDERS: PCP Family Medicine; Visit Provider Internal Medicine Medical Oncology
DX: Z51.11 Encounter for antineoplastic chemotherapy (principal); C50.911 Malignant neoplasm of unspecified site of right female breast; Z17.0 Estrogen receptor positive status [ER+]; M81.0 Age-related osteoporosis without current pathological fracture
CPT/HCPCS: 80053; 85025; 96372; 96402; J0897; J9395

== ENCOUNTER 2022-08-01 12:16 | Outpatient (CLI) | payer MEDICARE, SELFPAY ==
[2022-08-01 12:23] VITALS: BMI 34.2
--- NOTE | 2022-08-01 12:39 | PC.NURSE ---
1235-BLOOD DRAWN FROM LEFT AC USING BUTTERFLY NEEDLE TO CHECK LABS PRIOR TO DR POTTER APPT.
[2022-08-01 12:42] LABS: Basophils % 1.8 % (0.1-2.0); Eosinophils % 1.7 % (0.1-12.0); Hematocrit 35.1 % (37.0-47.0); Hemoglobin 11.8 g/dL (12.2-16.2); Lymphocytes # 0.6 K/mm3 (0.7-4.5); Lymphocytes % 40.9 % (10-50); Mean Corpuscular HGB Conc 33.6 g/dL (31.8-35.4); Mean Corpuscular Hemoglobin 36.3 pg (27.0-31.2); Mean Corpuscular Volume 108.2 fl (81-99); Monocytes # 0.1 K/mm3 (0.1-1.0); Monocytes % 3.5 % (1.7-9.3); Neutrophils # 0.8 K/mm3 (1.8-7.8); Platelet Count 148 K/mm3 (142-424); Red Blood Count 3.24 M/mm3 (4.20-5.40); Red Cell Distribution Width 16.1 % (11.5-17.5); White Blood Count 1.5 K/mm3 (4.8-10.8)
[2022-08-01 12:50] LABS: Blood Urea Nitrogen 11 mg/dl (7-17); Creatinine Clearance Estimated 55 mL/min (50-200); Estimated Glomerular Filt Rate 48 ml/min (>60); GFR (African American) 58 ML/MIN (>60)
[2022-08-01 12:51] LABS: Alanine Aminotransferase 32 U/L (12-78); Alkaline Phosphatase 57 U/L (38-126); Aspartate Amino Transferase 41 U/L (14-36); Bilirubin,Total < 0.1 mg/dl (0.2-1.3); Carbon Dioxide 26 mmol/L (22.0-30.0); Chloride 108 mmol/L (98-107); Sodium 142 mmol/L (136-145)
[2022-08-01 12:54] LABS: Albumin Level 3.9 g/dl (3.5-5.0); Albumin/Globulin Ratio 1.7 (1.1-1.8); Calcium 8.8 mg/dl (8.4-10.2); Globulin 2.3 g/dL (1.3-3.2); Glucose 175 mg/dl (74-100); Total Protein,Serum 6.2 g/dl (6.3-8.2)
[2022-08-01 13:30] VITALS: BP 140/68; PULSE 68; RESP 18; TEMP 36.7; O2SAT 97
== END 2022-08-01 13:50 | disposition home or self-care (01) ==
LOC: INF 12:17
PROVIDERS: PCP Family Medicine; Visit Provider Internal Medicine Medical Oncology
DX: Z51.11 Encounter for antineoplastic chemotherapy (principal); C50.911 Malignant neoplasm of unspecified site of right female breast
CPT/HCPCS: 36415; 80053; 85025; 96372; 96402; J9395

== ENCOUNTER 2022-08-20 09:24 | Outpatient (CLI) | payer MEDICARE, SELFPAY ==
[2022-08-20 09:30] VITALS: BMI 33.5
--- NOTE | 2022-08-20 09:43 | CT_ITS ---
FINAL REPORT TECHNIQUE: Axial images through the chest was performed with and without contrast. Sagittal and coronal reformatted images were obtained and reviewed. This study was performed with techniques to keep radiation doses as low as reasonably achievable (ALARA). Individualized dose reduction techniques using automated exposure control or adjustment of mA and/or kV according to the patient's size were employed. CLINICAL HISTORY: HX OF BREAST CANCER COMPARISON: 05/27/2022 FINDINGS: There is no mediastinal or hilar mass. There is a small hiatal hernia. Postoperative changes are seen in the right axilla. There is a stable focus of soft tissue in the superolateral right breast, favor post treatment change. There is a calcified granuloma in the left lower lobe. There is a sclerotic mass in the left scapula and T11 vertebral body consistent with sclerotic bony metastatic disease. IMPRESSION: Findings consistent with bony metastatic disease. No change from previous. Reviewed, Interpreted and Dictated by Lane Momin III, MD Transcribed by Ju Lopez Authenticated and [facility]
--- NOTE | 2022-08-20 09:43 | CT_ITS ---
FINAL REPORT TECHNIQUE: Pre-and postcontrast axial CT images of the abdomen and pelvis were obtained. Coronal reformatted images were also obtained and reviewed.This study was performed with techniques to keep radiation doses as low as reasonably achievable (ALARA). Individualized dose reduction techniques using automated exposure control or adjustment of mA and/or kV according to the patient''''s size were employed. CLINICAL HISTORY: HX BREAST CANCER COMPARISON: 05/27/2022 FINDINGS: CT OF THE ABDOMEN AND PELVIS WITH AND WITHOUT CONTRAST Abdomen:The heart is normal in size. The liver is normal. The patient is status post cholecystectomy. The spleen is unremarkable. No adrenal mass is present. The pancreas has an unremarkable appearance. There is a small nonobstructing stone in the lower pole of the right kidney, stable. There is no hydronephrosis. There is moderate vascular calcification. The aorta is normal in caliber. There is no free fluid or adenopathy. Pelvis: The appendix normal. The urinary bladder is unremarkable. No inflammatory process is seen. There is no evidence of mass or adenopathy. There is no evidence of bowel obstruction. There is a stable sclerotic area in the L1 vertebral body consistent with bony metastatic disease. IMPRESSION: No evidence of acute intra-abdominal process. Stable bony metastatic disease. Reviewed, Interpreted and Dictated by Lane Momin III, MD Transcribed by Ju Lopez Authenticated and . [facility]
[2022-08-20 09:45] LABS: Basophils % 1.4 % (0.1-2.0); Eosinophils % 2.4 % (0.1-12.0); Hematocrit 34.9 % (37.0-47.0); Lymphocytes # 0.6 K/mm3 (0.7-4.5); Mean Corpuscular HGB Conc 34.3 g/dL (31.8-35.4); Mean Corpuscular Hemoglobin 36.5 pg (27.0-31.2); Mean Corpuscular Volume 106.4 fl (81-99); Monocytes # 0.1 K/mm3 (0.1-1.0); Monocytes % 4.2 % (1.7-9.3); Neutrophils # 1.1 K/mm3 (1.8-7.8); Platelet Count 209 K/mm3 (142-424); Red Blood Count 3.28 M/mm3 (4.20-5.40); Red Cell Distribution Width 15.9 % (11.5-17.5); White Blood Count 1.8 K/mm3 (4.8-10.8)
[2022-08-20 09:56] LABS: Alanine Aminotransferase 35 U/L (12-78); Albumin Level 4.2 g/dl (3.5-5.0); Albumin/Globulin Ratio 1.7 (1.1-1.8); Alkaline Phosphatase 58 U/L (38-126); Aspartate Amino Transferase 54 U/L (14-36); Bilirubin,Total 0.4 mg/dl (0.2-1.3); Blood Urea Nitrogen 9 mg/dl (7-17); Carbon Dioxide 26 mmol/L (22.0-30.0); Chloride 104 mmol/L (98-107); Creatinine Clearance Estimated 54 mL/min (50-200); Estimated Glomerular Filt Rate 48 ml/min (>60); GFR (African American) 58 ML/MIN (>60); Globulin 2.5 g/dL (1.3-3.2); Glucose 106 mg/dl (74-100); Sodium 140 mmol/L (136-145); Total Protein,Serum 6.7 g/dl (6.3-8.2)
[2022-08-20 09:59] LABS: Anion Gap 14.1 mEq/L (5-15); Potassium 4.1 mmoL/L (3.5-5.1)
== END 2022-08-20 09:45 | disposition home or self-care (01) ==
LOC: RAD 09:25 → INF 09:27
PROVIDERS: PCP Family Medicine; Visit Provider Internal Medicine Medical Oncology
DX: C50.911 Malignant neoplasm of unspecified site of right female breast (principal); Z03.89 Encounter for observation for other suspected diseases and conditions ruled out
CPT/HCPCS: 36415; 71270; 74178; 80053; 85025; Q9967

== ENCOUNTER → 2022-08-20 10:27 | Outpatient (POV) | payer MEDICARE, SELFPAY | PROVIDERS: Visit Provider Dermatology | DX: Z00.00 Encounter for general adult medical examination without abnormal findings (principal) ==

== ENCOUNTER 2022-08-26 10:55 | Outpatient (CLI) | payer MEDICARE, SELFPAY ==
[2022-08-26 12:18] VITALS: BP 141/67; PULSE 71; RESP 18; TEMP 36.4; O2SAT 100
== END 2022-08-26 12:50 | disposition home or self-care (01) ==
LOC: INF 10:57
PROVIDERS: PCP Family Medicine; Visit Provider Internal Medicine Medical Oncology
DX: C50.911 Malignant neoplasm of unspecified site of right female breast (principal); Z17.0 Estrogen receptor positive status [ER+]
CPT/HCPCS: 96372; 96402; J9395

== ENCOUNTER → 2022-09-24 13:31 | Outpatient (POV) | payer MEDICARE, SELFPAY | PROVIDERS: Visit Provider Dermatology | DX: Z00.00 Encounter for general adult medical examination without abnormal findings (principal) ==

== ENCOUNTER 2022-10-03 13:23 | Outpatient (CLI) | payer MEDICARE, SELFPAY ==
[2022-10-03 13:31] VITALS: BMI 33.7
--- NOTE | 2022-10-03 13:34 | PC.NURSE ---
1334-collected labs via peripheral stick;pt to oncology appointment and to return for treatment
[2022-10-03 13:47] LABS: Chloride 108 mmol/L (98-107)
[2022-10-03 13:48] LABS: Potassium 3.9 mmoL/L (3.5-5.1); Sodium 140 mmol/L (136-145)
[2022-10-03 13:50] LABS: Alanine Aminotransferase 25 U/L (12-78); Alkaline Phosphatase 54 U/L (38-126); Aspartate Amino Transferase 32 U/L (14-36); Blood Urea Nitrogen 13 mg/dl (7-17); Creatinine Clearance Estimated 49 mL/min (50-200); Estimated Glomerular Filt Rate 44 ml/min (>60); GFR (African American) 53 ML/MIN (>60)
[2022-10-03 13:51] LABS: Albumin Level 3.7 g/dl (3.5-5.0); Albumin/Globulin Ratio 1.7 (1.1-1.8); Anion Gap 10.9 mEq/L (5-15); Calcium 9.2 mg/dl (8.4-10.2); Carbon Dioxide 25 mmol/L (22.0-30.0); Globulin 2.2 g/dL (1.3-3.2); Glucose 95 mg/dl (74-100); Total Protein,Serum 5.9 g/dl (6.3-8.2)
[2022-10-03 13:53] LABS: Bilirubin,Total 0.1 mg/dl (0.2-1.3)
[2022-10-03 14:10] LABS: Basophils % 1.5 % (0.1-2.0); Eosinophils % 1.4 % (0.1-12.0); Hemoglobin 11.5 g/dL (12.2-16.2); Mean Corpuscular HGB Conc 33.8 g/dL (31.8-35.4); Mean Corpuscular Hemoglobin 36.2 pg (27.0-31.2); Mean Corpuscular Volume 106.9 fl (81-99); Mean Platelet Volume 8.6 fl (7.4-10.4); Monocytes # 0.2 K/mm3 (0.1-1.0); Monocytes % 10.4 % (1.7-9.3); Neutrophils # 0.9 K/mm3 (1.8-7.8); Neutrophils % 41.7 % (37.0-80.0); Platelet Count 185 K/mm3 (142-424); Red Blood Count 3.18 M/mm3 (4.20-5.40); Red Cell Distribution Width 16.3 % (11.5-17.5); White Blood Count 2.2 K/mm3 (4.8-10.8)
[2022-10-03 14:41] VITALS: BP 160/63; PULSE 67; RESP 18; TEMP 36.4; O2SAT 97
== END 2022-10-03 14:41 | disposition home or self-care (01) ==
PROVIDERS: PCP Family Medicine; Visit Provider Internal Medicine Medical Oncology
DX: C50.911 Malignant neoplasm of unspecified site of right female breast (principal); Z17.0 Estrogen receptor positive status [ER+]
CPT/HCPCS: 80053; 85025; 96372; 96402; J9395

== ENCOUNTER 2022-11-01 12:32 | Outpatient (CLI) | payer MEDICARE, SELFPAY ==
[2022-11-01 12:38] VITALS: BMI 34.5
--- NOTE | 2022-11-01 12:42 | PC.NURSE ---
1247-collected labs via peripheral stick; pt to oncology appointment; will return for injection
[2022-11-01 12:54] LABS: Basophils % 1.6 % (0.1-2.0); Eosinophils % 0.8 % (0.1-12.0); Hematocrit 36.2 % (37.0-47.0); Hemoglobin 11.7 g/dL (12.2-16.2); Lymphocytes # 1.1 K/mm3 (0.7-4.5); Lymphocytes % 41.6 % (10-50); Mean Corpuscular HGB Conc 32.3 g/dL (31.8-35.4); Mean Corpuscular Hemoglobin 37.2 pg (27.0-31.2); Mean Platelet Volume 8.3 fl (7.4-10.4); Monocytes # 0.2 K/mm3 (0.1-1.0); Monocytes % 6.3 % (1.7-9.3); Neutrophils # 1.3 K/mm3 (1.8-7.8); Neutrophils % 49.6 % (37.0-80.0); Platelet Count 216 K/mm3 (142-424); Red Blood Count 3.15 M/mm3 (4.20-5.40); Red Cell Distribution Width 15.6 % (11.5-17.5); White Blood Count 2.6 K/mm3 (4.8-10.8)
[2022-11-01 13:09] LABS: Alanine Aminotransferase 23 U/L (12-78); Albumin Level 3.9 g/dl (3.5-5.0); Albumin/Globulin Ratio 1.7 (1.1-1.8); Alkaline Phosphatase 48 U/L (38-126); Aspartate Amino Transferase 29 U/L (14-36); Bilirubin,Total 0.4 mg/dl (0.2-1.3); Blood Urea Nitrogen 15 mg/dl (7-17); Calcium 8.9 mg/dl (8.4-10.2); Carbon Dioxide 27 mmol/L (22.0-30.0); Chloride 108 mmol/L (98-107); Creatinine Clearance Estimated 47 mL/min (50-200); Estimated Glomerular Filt Rate 40 ml/min (>60); GFR (African American) 48 ML/MIN (>60); Globulin 2.3 g/dL (1.3-3.2); Glucose 88 mg/dl (74-100); Sodium 140 mmol/L (136-145); Total Protein,Serum 6.2 g/dl (6.3-8.2)
[2022-11-01 13:51] VITALS: BP 134/64; PULSE 68; RESP 18; O2SAT 99
== END 2022-11-01 13:51 | disposition home or self-care (01) ==
LOC: INF 12:34
PROVIDERS: PCP Family Medicine; Visit Provider Internal Medicine Medical Oncology
DX: Z51.11 Encounter for antineoplastic chemotherapy (principal); C50.911 Malignant neoplasm of unspecified site of right female breast; Z17.0 Estrogen receptor positive status [ER+]
CPT/HCPCS: 80053; 85025; 96372; 96402; J9395

== ENCOUNTER 2022-11-18 07:20 | Outpatient (CLI) | payer MEDICARE, SELFPAY ==
[2022-11-18 08:11] VITALS: BMI 34.2
--- NOTE | 2022-11-18 08:16 | CT_ITS ---
FINAL REPORT TECHNIQUE: After the administration of intravenous contrast, axial images through the chest were performed by computed tomography.This study was performed with techniques to keep radiation doses as low as reasonably achievable, (ALARA). Individualized dose reduction techniques using automated exposure control or adjustment of mA and/or kV according to the patient''s size were employed. CLINICAL HISTORY: BREAST CANCER COMPARISON: August 2022 FINDINGS: There are postoperative changes in the right breast and right axillary region. There is no axillary adenopathy. There is no hilar or mediastinal adenopathy. The heart size is normal. There is no pericardial or pleural effusion. Images through the lungs demonstrate mild scarring. There are nonspecific patchy ground-glass opacities that may represent edema or alveolitis. There are sclerotic masses in the left scapula and T11, stable from prior. There is significant degenerative change in the shoulders and spine. IMPRESSION: Bony metastatic disease, stable. Nonspecific patchy ground-glass opacities may represent edema or alveolitis. Reviewed, Interpreted and Dictated by Lane Momin III, MD Transcribed by Vignesh Kelley Authenticated and [facility]
--- NOTE | 2022-11-18 08:16 | CT_ITS ---
FINAL REPORT CLINICAL HISTORY: BREAST CANCER COMPARISON: August 2022 FINDINGS: CT OF THE ABDOMEN AND PELVIS WITH CONTRAST Axial CT images of the abdomen and pelvis were obtained after the administration of oral and iv contrast. Coronal reformatted images were also obtained and reviewed.This study was performed with techniques to keep radiation doses as low as reasonably achievable (ALARA). Individualized dose reduction techniques using automated exposure control or adjustment of mA and/or kV according to the patient's size were employed. Abdomen: The heart is normal in size. The liver has an unremarkable appearance, without evidence of mass or biliary ductal dilatation. There is evidence of cholecystectomy. The spleen is unremarkable. No adrenal mass is present. The pancreas has an unremarkable appearance. There is a 3 mm nonobstructing stone in the lower pole the right kidney. The aorta is normal in caliber. There is no free fluid or adenopathy. Pelvis: The appendix is normal. The urinary bladder is unremarkable. No inflammatory process is seen. There is a stable sclerotic focus in L1. There is diverticulosis of the sigmoid colon. There is no evidence of bowel obstruction. IMPRESSION: Bony metastatic disease, stable. Nonobstructing lower pole right renal stone. Reviewed, Interpreted and Dictated by Lane Momin III, MD Transcribed by Vignesh Kelley Authenticated and [facility]
[2022-11-18 08:20] LABS: Basophils % 1.4 % (0.1-2.0); Eosinophils % 1.8 % (0.1-12.0); Hematocrit 33.4 % (37.0-47.0); Hemoglobin 11.4 g/dL (12.2-16.2); Lymphocytes # 0.6 K/mm3 (0.7-4.5); Mean Corpuscular HGB Conc 34.2 g/dL (31.8-35.4); Mean Corpuscular Hemoglobin 37.2 pg (27.0-31.2); Mean Corpuscular Volume 108.9 fl (81-99); Mean Platelet Volume 8.8 fl (7.4-10.4); Monocytes % 2.3 % (1.7-9.3); Neutrophils # 0.9 K/mm3 (1.8-7.8); Neutrophils % 56.5 % (37.0-80.0); Platelet Count 124 K/mm3 (142-424); Red Blood Count 3.07 M/mm3 (4.20-5.40); Red Cell Distribution Width 15.3 % (11.5-17.5); White Blood Count 1.6 K/mm3 (4.8-10.8)
[2022-11-18 08:22] LABS: Chloride 109 mmol/L (98-107); Sodium 140 mmol/L (136-145)
[2022-11-18 08:25] LABS: Alanine Aminotransferase 23 U/L (12-78); Albumin Level 3.9 g/dl (3.5-5.0); Albumin/Globulin Ratio 1.6 (1.1-1.8); Alkaline Phosphatase 51 U/L (38-126); Aspartate Amino Transferase 28 U/L (14-36); Bilirubin,Total 0.4 mg/dl (0.2-1.3); Blood Urea Nitrogen 14 mg/dl (7-17); Carbon Dioxide 26 mmol/L (22.0-30.0); Creatinine Clearance Estimated 43 mL/min (50-200); Estimated Glomerular Filt Rate 37 ml/min (>60); GFR (African American) 44 ML/MIN (>60); Globulin 2.5 g/dL (1.3-3.2); Total Protein,Serum 6.4 g/dl (6.3-8.2)
[2022-11-18 08:26] LABS: Glucose 113 mg/dl (74-100)
== END 2022-11-18 08:10 | disposition home or self-care (01) ==
LOC: INF 07:23
PROVIDERS: PCP Family Medicine; Visit Provider Internal Medicine Medical Oncology
DX: C50.911 Malignant neoplasm of unspecified site of right female breast (principal); Z17.0 Estrogen receptor positive status [ER+]; Z03.89 Encounter for observation for other suspected diseases and conditions ruled out
CPT/HCPCS: 36415; 71260; 74177; 80053; 85025; Q9967

== ENCOUNTER 2022-11-28 13:12 | Outpatient (CLI) | payer MEDICARE, SELFPAY ==
[2022-11-28 13:35] VITALS: BP 144/74; PULSE 83; RESP 18; TEMP 36.7; O2SAT 97
== END 2022-11-28 13:35 | disposition home or self-care (01) ==
LOC: INF 13:13
PROVIDERS: PCP Family Medicine; Visit Provider Internal Medicine Medical Oncology
DX: C50.911 Malignant neoplasm of unspecified site of right female breast (principal); Z17.0 Estrogen receptor positive status [ER+]
CPT/HCPCS: 96372; 96402; J9395

== ENCOUNTER 2022-12-26 12:15 | Outpatient (CLI) | payer MEDICARE, SELFPAY ==
[2022-12-26 12:20] VITALS: BMI 34.5
[2022-12-26 12:43] LABS: Chloride 105 mmol/L (98-107)
[2022-12-26 12:44] LABS: Sodium 139 mmol/L (136-145)
[2022-12-26 12:46] LABS: Alanine Aminotransferase 26 U/L (12-78); Aspartate Amino Transferase 33 U/L (14-36); Basophils % 1.4 % (0.1-2.0); Blood Urea Nitrogen 15 mg/dl (7-17); Creatinine Clearance Estimated 51 mL/min (50-200); Eosinophils % 1.6 % (0.1-12.0); Estimated Glomerular Filt Rate 44 ml/min (>60); GFR (African American) 53 ML/MIN (>60); Hematocrit 34.3 % (37.0-47.0); Hemoglobin 11.5 g/dL (12.2-16.2); Lymphocytes # 1.1 K/mm3 (0.7-4.5); Lymphocytes % 50.4 % (10-50); Mean Corpuscular HGB Conc 33.5 g/dL (31.8-35.4); Mean Corpuscular Hemoglobin 35.8 pg (27.0-31.2); Mean Corpuscular Volume 106.6 fl (81-99); Mean Platelet Volume 8.6 fl (7.4-10.4); Monocytes # 0.1 K/mm3 (0.1-1.0); Monocytes % 4.4 % (1.7-9.3); Neutrophils # 0.9 K/mm3 (1.8-7.8); Neutrophils % 42.2 % (37.0-80.0); Platelet Count 163 K/mm3 (142-424); Red Blood Count 3.22 M/mm3 (4.20-5.40); Red Cell Distribution Width 15.2 % (11.5-17.5); White Blood Count 2.2 K/mm3 (4.8-10.8)
[2022-12-26 12:47] LABS: Albumin/Globulin Ratio 1.7 (1.1-1.8); Alkaline Phosphatase 50 U/L (38-126); Bilirubin,Total 0.4 mg/dl (0.2-1.3); Calcium 9.2 mg/dl (8.4-10.2); Carbon Dioxide 28 mmol/L (22.0-30.0); Globulin 2.3 g/dL (1.3-3.2); Glucose 94 mg/dl (74-100); Total Protein,Serum 6.3 g/dl (6.3-8.2)
[2022-12-26 12:50] LABS: MANUAL DIFFERENTIAL MANUAL DIFFERENTIAL (MANUAL DIFF)
[2022-12-26 13:30] VITALS: BP 129/58; PULSE 65; RESP 18; TEMP 36.4; O2SAT 99
[2022-12-26 13:41] LABS: Lymphocytes % 50 % (10-50); Macrocytosis 2+; Monocytes % 4 % (2-9); Neutrophils % 46 % (42-76); Total Cells Counted 50
[2022-12-26 13:42] LABS: Platelet Estimate Normal
== END 2022-12-26 13:56 | disposition home or self-care (01) ==
LOC: INF 12:16
PROVIDERS: PCP Family Medicine; Visit Provider Internal Medicine Medical Oncology
DX: C50.911 Malignant neoplasm of unspecified site of right female breast (principal); Z51.11 Encounter for antineoplastic chemotherapy; Z17.0 Estrogen receptor positive status [ER+]
CPT/HCPCS: 80053; 85007; 85025; 96372; 96402; J9395

== ENCOUNTER 2023-01-02 12:41 | Outpatient (CLI) | payer MEDICARE, SELFPAY ==
[2023-01-02 12:54] VITALS: BP 142/70; PULSE 68; RESP 18; TEMP 36.1; O2SAT 99
== END 2023-01-02 13:01 | disposition home or self-care (01) ==
LOC: INF 12:42
PROVIDERS: PCP Family Medicine; Visit Provider Internal Medicine Medical Oncology
DX: C50.911 Malignant neoplasm of unspecified site of right female breast (principal); Z17.0 Estrogen receptor positive status [ER+]; M81.0 Age-related osteoporosis without current pathological fracture
CPT/HCPCS: 96372; J0897

== ENCOUNTER 2023-01-30 13:54 | Outpatient (CLI) | payer MEDICARE, SELFPAY ==
[2023-01-30 13:35] VITALS: BP 142/74; PULSE 63; RESP 18; O2SAT 98
[2023-01-30 13:59] VITALS: BMI 34.3
[2023-01-30 14:23] LABS: Basophils % 0.7 % (0.1-2.0); Hematocrit 34.9 % (37.0-47.0); Hemoglobin 11.6 g/dL (12.2-16.2); Lymphocytes # 1.1 K/mm3 (0.7-4.5); Lymphocytes % 48.9 % (10-50); Mean Corpuscular HGB Conc 33.1 g/dL (31.8-35.4); Mean Corpuscular Hemoglobin 35.6 pg (27.0-31.2); Mean Corpuscular Volume 107.4 fl (81-99); Mean Platelet Volume 8.9 fl (7.4-10.4); Monocytes # 0.2 K/mm3 (0.1-1.0); Monocytes % 8.6 % (1.7-9.3); Neutrophils # 0.9 K/mm3 (1.8-7.8); Neutrophils % 40.8 % (37.0-80.0); Platelet Count 175 K/mm3 (142-424); Red Blood Count 3.25 M/mm3 (4.20-5.40); White Blood Count 2.3 K/mm3 (4.8-10.8)
[2023-01-30 14:33] LABS: Chloride 106 mmol/L (98-107); Sodium 139 mmol/L (136-145)
[2023-01-30 14:36] LABS: Alanine Aminotransferase 25 U/L (12-78); Albumin Level 3.9 g/dl (3.5-5.0); Albumin/Globulin Ratio 1.6 (1.1-1.8); Alkaline Phosphatase 55 U/L (38-126); Aspartate Amino Transferase 34 U/L (14-36); Bilirubin,Total 0.4 mg/dl (0.2-1.3); Blood Urea Nitrogen 13 mg/dl (7-17); Carbon Dioxide 26 mmol/L (22.0-30.0); Creatinine Clearance Estimated 43 mL/min (50-200); Estimated Glomerular Filt Rate 37 ml/min (>60); GFR (African American) 44 ML/MIN (>60); Globulin 2.4 g/dL (1.3-3.2); Total Protein,Serum 6.3 g/dl (6.3-8.2)
[2023-01-30 14:37] LABS: Glucose 98 mg/dl (74-100)
--- NOTE | 2023-01-30 15:07 | PC.NURSE ---
1410- cbc and cmp drawn via butterfly needle in left AC. pt tolerated well. pt to oncology appt and will return for treatment afterwards.
== END 2023-01-30 15:49 | disposition home or self-care (01) ==
LOC: INF 13:55
PROVIDERS: PCP Family Medicine; Visit Provider Internal Medicine Medical Oncology
DX: C50.911 Malignant neoplasm of unspecified site of right female breast (principal)
CPT/HCPCS: 80053; 85025; 96372; J9395

== ENCOUNTER 2023-02-27 09:57 | Outpatient (CLI) | payer MEDICARE, SELFPAY ==
[2023-02-27 10:06] VITALS: BMI 34.3
[2023-02-27 10:22] LABS: Basophils % 0.6 % (0.1-2.0); Eosinophils % 0.8 % (0.1-12.0); Hematocrit 31.8 % (37.0-47.0); Hemoglobin 10.7 g/dL (12.2-16.2); Lymphocytes # 0.6 K/mm3 (0.7-4.5); Lymphocytes % 37.5 % (10-50); Mean Corpuscular HGB Conc 33.5 g/dL (31.8-35.4); Mean Corpuscular Hemoglobin 35.6 pg (27.0-31.2); Mean Corpuscular Volume 106.3 fl (81-99); Mean Platelet Volume 9.1 fl (7.4-10.4); Monocytes # 0.2 K/mm3 (0.1-1.0); Monocytes % 9.7 % (1.7-9.3); Neutrophils # 0.9 K/mm3 (1.8-7.8); Neutrophils % 51.4 % (37.0-80.0); Platelet Count 171 K/mm3 (142-424); Red Blood Count 2.99 M/mm3 (4.20-5.40); Red Cell Distribution Width 16.7 % (11.5-17.5); White Blood Count 1.7 K/mm3 (4.8-10.8)
[2023-02-27 10:26] LABS: Chloride 102 mmol/L (98-107); Potassium 3.8 mmoL/L (3.5-5.1); Sodium 139 mmol/L (136-145)
[2023-02-27 10:28] LABS: Alanine Aminotransferase 29 U/L (12-78); Aspartate Amino Transferase 40 U/L (14-36); Blood Urea Nitrogen 12 mg/dl (7-17); Creatinine Clearance Estimated 46 mL/min (50-200); Estimated Glomerular Filt Rate 40 ml/min (>60); GFR (African American) 48 ML/MIN (>60)
[2023-02-27 10:29] LABS: Albumin Level 3.6 g/dl (3.5-5.0); Albumin/Globulin Ratio 1.6 (1.1-1.8); Alkaline Phosphatase 48 U/L (38-126); Anion Gap 15.8 mEq/L (5-15); Bilirubin,Total 0.5 mg/dl (0.2-1.3); Calcium 8.8 mg/dl (8.4-10.2); Carbon Dioxide 25 mmol/L (22.0-30.0); Globulin 2.3 g/dL (1.3-3.2); Glucose 153 mg/dl (74-100); Total Protein,Serum 5.9 g/dl (6.3-8.2)
[2023-02-27 12:15] VITALS: BP 135/74; PULSE 78; RESP 18; TEMP 36.9; O2SAT 98
== END 2023-02-27 12:10 | disposition home or self-care (01) ==
LOC: INF 09:59
PROVIDERS: PCP Family Medicine; Visit Provider Internal Medicine Medical Oncology
DX: C50.911 Malignant neoplasm of unspecified site of right female breast (principal); C79.51 Secondary malignant neoplasm of bone; Z17.0 Estrogen receptor positive status [ER+]
CPT/HCPCS: 80053; 85025; 96372; 96402; J9395

== ENCOUNTER 2023-03-24 08:16 | Outpatient (CLI) | payer MEDICARE, SELFPAY ==
--- NOTE | 2023-03-24 08:20 | PC.NURSE ---
0820-started left ac 22g iv;obtained blood return;collected labs;flushed with ns;pt to rad for ct scan
--- NOTE | 2023-03-24 08:26 | CT_ITS ---
FINAL REPORT TECHNIQUE: Pre and postcontrast axial imaging of the chest was obtained. Reformatted images were also obtained and reviewed. This study was performed with techniques to keep radiation doses as low as reasonably achievable (ALARA). Individualized dose reduction techniques using automated exposure control or adjustment of mA and/or kV according to the patient's size were employed. CLINICAL HISTORY: BREAST CANCER COMPARISON: 11/18/2022 FINDINGS: Surgical clips are seen of right axillary node dissection and within the right breast. Soft tissue adjacent to the clips is stable. There is no mediastinal, hilar or axillary lymphadenopathy. There is no pleural or pericardial effusion. There are changes of granulomatous disease. Previously seen ground-glass opacities have resolved. There is a 3 mm, subpleural right middle lobe pulmonary nodule which is stable. Bone metastasis are again seen which are unchanged. IMPRESSION: Stable bone metastasis. Resolution of previously seen ground-glass opacities. No new mass or nodule. Reviewed, Interpreted and Dictated by Deborah Dhaliwal MD Transcribed by Nayana Cesar Authenticated and . [facility]
--- NOTE | 2023-03-24 08:26 | CT_ITS ---
FINAL REPORT TECHNIQUE: Pre-and postcontrast axial imaging of the abdomen and pelvis was obtained.This study was performed with techniques to keep radiation doses as low as reasonably achievable, (ALARA). Individualized dose reduction technique using automated exposure control or adjustment of mA and/or kV according to the patient's size were employed. CLINICAL HISTORY: BREAST CANCER FINDINGS: There are 2, small hypodense lesions in the right hepatic lobe seen on axial image 24 which were not well seen on prior exam. Both measure less than 1 cm and are difficult to characterize. The gallbladder is absent. The spleen, adrenal glands, and pancreas are unremarkable. There is no hydronephrosis or solid renal mass. On precontrast imaging, no renal stones are identified. There is a small hiatal hernia. Abdominal GI tract is otherwise unremarkable. There is no small bowel obstruction. There is no lymphadenopathy or ascites. There is diverticulosis without evidence of diverticulitis. Otherwise, the pelvic organs and pelvic portions of the GI tract, including the appendix, are within normal limits. There is no lymphadenopathy or ascites. Sclerotic bone lesion in the L2 vertebral body is stable. No new bony metastatic disease is seen. IMPRESSION: Two small liver lesions measuring less than 1 cm which can not be further characterized, etiology unclear. These are too small for sensitivity with PET. Recommend follow-up. Stable sclerotic bone metastasis. Reviewed, Interpreted and Dictated by Deborah Dhaliwal MD Transcribed by Nayana Cesar Authenticated and [facility]
[2023-03-24 08:35] VITALS: BMI 34.3
[2023-03-24 08:45] LABS: Chloride 104 mmol/L (98-107); Potassium 3.6 mmoL/L (3.5-5.1); Sodium 140 mmol/L (136-145)
[2023-03-24 08:48] LABS: Alanine Aminotransferase 31 U/L (12-78); Albumin/Globulin Ratio 1.7 (1.1-1.8); Alkaline Phosphatase 47 U/L (38-126); Anion Gap 12.6 mEq/L (5-15); Aspartate Amino Transferase 36 U/L (14-36); Bilirubin,Total 0.3 mg/dl (0.2-1.3); Blood Urea Nitrogen 12 mg/dl (7-17); Carbon Dioxide 27 mmol/L (22.0-30.0); Creatinine Clearance Estimated 60 mL/min (50-200); Estimated Glomerular Filt Rate 54 ml/min (>60); GFR (African American) 65 ML/MIN (>60); Globulin 2.4 g/dL (1.3-3.2); Total Protein,Serum 6.4 g/dl (6.3-8.2)
[2023-03-24 08:49] LABS: Calcium 9.3 mg/dl (8.4-10.2); Glucose 109 mg/dl (74-100)
[2023-03-24 09:04] LABS: Basophils % 0.8 % (0.1-2.0); Eosinophils % 1.5 % (0.1-12.0); Hematocrit 36.2 % (37.0-47.0); Hemoglobin 11.7 g/dL (12.2-16.2); Lymphocytes # 0.7 K/mm3 (0.7-4.5); Lymphocytes % 37.9 % (10-50); Mean Corpuscular HGB Conc 32.3 g/dL (31.8-35.4); Mean Corpuscular Hemoglobin 34.2 pg (27.0-31.2); Mean Corpuscular Volume 106.1 fl (81-99); Mean Platelet Volume 8.5 fl (7.4-10.4); Monocytes # 0.2 K/mm3 (0.1-1.0); Monocytes % 10.7 % (1.7-9.3); Neutrophils # 0.9 K/mm3 (1.8-7.8); Platelet Count 161 K/mm3 (142-424); Red Blood Count 3.41 M/mm3 (4.20-5.40); Red Cell Distribution Width 16.7 % (11.5-17.5); White Blood Count 1.9 K/mm3 (4.8-10.8)
== END 2023-03-24 08:25 | disposition home or self-care (01) ==
PROVIDERS: PCP Family Medicine; Visit Provider Internal Medicine Medical Oncology
DX: C50.911 Malignant neoplasm of unspecified site of right female breast (principal); Z03.89 Encounter for observation for other suspected diseases and conditions ruled out
CPT/HCPCS: 36415; 71270; 74178; 80053; 85025; Q9967

== ENCOUNTER 2023-03-27 13:09 | Outpatient (CLI) | payer MEDICARE, SELFPAY ==
[2023-03-27 14:16] VITALS: BP 160/77; PULSE 90; RESP 18; TEMP 36.6; O2SAT 98
--- NOTE | 2023-03-27 14:17 | PC.NURSE ---
1417-after injections pt had a moment of feeling faint; rn sat pt back down in chair, got a cool rag, and some water to drink. pt states that she has not had much food to eat today;will monitor pt before discharge.
[2023-03-27 14:33] VITALS: BP 155/80; PULSE 88; RESP 18; O2SAT 97
--- NOTE | 2023-03-27 14:33 | PC.NURSE ---
1433-pt states she feels much better and is ready to d/c home with spouse;pt pushed out in wheelchair to personal vehicle.
== END 2023-03-27 14:33 | disposition home or self-care (01) ==
LOC: INF 13:10
PROVIDERS: PCP Family Medicine; Visit Provider Internal Medicine Medical Oncology
DX: C50.911 Malignant neoplasm of unspecified site of right female breast (principal)
CPT/HCPCS: 96372; 96402; J9395

== ENCOUNTER → 2023-04-10 09:42 | Outpatient (CLI) | payer MEDICARE, SELFPAY ==
--- NOTE | 2023-04-10 09:43 | MM_ITS ---
PROCEDURE INFORMATION: Exam: MG Bilateral Screening 3D Mammography Exam date and time: 04/10/2023 9:37 AM Age: 77 years old Clinical indication: Screening. Personal history right breast cancer, status post right lumpectomy and radiation therapy. TECHNIQUE: Imaging protocol: Bilateral Screening tomosynthesis and 2D mammography including computer-aided detection (CAD) when performed. COMPARISON: 1. MG MM DIG SCREENING MAMM BI W/CAD 04/08/2022 10:51 AM 2. MG MM DIG SCREENING MAMM BI W/CAD 04/06/2021 8:52 AM 3. MG MM DIG SCREENING MAMM BI W/CAD 04/03/2020 8:35 AM 4. MG DIG MAMM-SCREEN BRANDEN 03/29/2019 10:03 AM FINDINGS: MAMMOGRAPHY: Breast composition: There are scattered areas of fibroglandular density. Mass: None. Architectural distortion: Stable postoperative architectural distortion and deformity in the right upper outer breast status post lumpectomy. Calcifications: No suspicious calcifications. Asymmetric density: None. Skin thickening: Stable right skin thickening. Axillary adenopathy: None. IMPRESSION: No mammographic evidence of malignancy. Annual screening is recommended unless otherwise clinically indicated. ASSESSMENT: BI-RADS Category 2: Benign
== END ==
PROVIDERS: PCP Surgery; Visit Provider Surgery
DX: Z12.31 Encounter for screening mammogram for malignant neoplasm of breast (principal)
CPT/HCPCS: 77063; 77067

== ENCOUNTER 2023-04-24 12:08 | Outpatient (CLI) | payer MEDICARE, SELFPAY ==
[2023-04-24 12:13] VITALS: BMI 32.2
[2023-04-24 12:31] LABS: Chloride 105 mmol/L (98-107); Sodium 140 mmol/L (136-145)
[2023-04-24 12:33] LABS: Alanine Aminotransferase 30 U/L (12-78); Aspartate Amino Transferase 35 U/L (14-36); Blood Urea Nitrogen 13 mg/dl (7-17); Creatinine Clearance Estimated 47 mL/min (50-200); Estimated Glomerular Filt Rate 44 ml/min (>60); GFR (African American) 53 ML/MIN (>60)
[2023-04-24 12:34] LABS: Albumin Level 3.7 g/dl (3.5-5.0); Albumin/Globulin Ratio 1.5 (1.1-1.8); Alkaline Phosphatase 52 U/L (38-126); Bilirubin,Total 0.3 mg/dl (0.2-1.3); Calcium 9.4 mg/dl (8.4-10.2); Carbon Dioxide 28 mmol/L (22.0-30.0); Globulin 2.5 g/dL (1.3-3.2); Glucose 111 mg/dl (74-100); Total Protein,Serum 6.2 g/dl (6.3-8.2)
[2023-04-24 12:37] LABS: Basophils % 1.1 % (0.1-2.0); Eosinophils % 2.1 % (0.1-12.0); Hematocrit 32.9 % (37.0-47.0); Hemoglobin 10.9 g/dL (12.2-16.2); Lymphocytes # 0.9 K/mm3 (0.7-4.5); Lymphocytes % 42.6 % (10-50); Mean Corpuscular Hemoglobin 35.3 pg (27.0-31.2); Mean Corpuscular Volume 106.9 fl (81-99); Mean Platelet Volume 8.8 fl (7.4-10.4); Monocytes # 0.2 K/mm3 (0.1-1.0); Monocytes % 8.5 % (1.7-9.3); Neutrophils # 0.9 K/mm3 (1.8-7.8); Neutrophils % 45.7 % (37.0-80.0); Platelet Count 169 K/mm3 (142-424); Red Blood Count 3.07 M/mm3 (4.20-5.40)
[2023-04-24 14:04] VITALS: BP 155/66; PULSE 65; RESP 18; TEMP 36.7; O2SAT 98
== END 2023-04-24 14:04 | disposition home or self-care (01) ==
LOC: INF 12:09
PROVIDERS: PCP Family Medicine; Visit Provider Internal Medicine Medical Oncology
DX: C50.911 Malignant neoplasm of unspecified site of right female breast (principal)
CPT/HCPCS: 80053; 85025; 96372; 96402; J9395

== ENCOUNTER → 2023-05-27 08:03 | Outpatient (CLI) | payer MEDICARE, SELFPAY ==
[2023-05-27 08:08] VITALS: BMI 31.6
[2023-05-27 08:21] LABS: Basophils % 1.1 % (0.1-2.0); Eosinophils # 0.1 K/mm3 (0.0-0.4); Eosinophils % 2.8 % (0.1-12.0); Hematocrit 33.3 % (37.0-47.0); Hemoglobin 11.1 g/dL (12.2-16.2); Lymphocytes # 0.7 K/mm3 (0.7-4.5); Lymphocytes % 30.2 % (10-50); Mean Corpuscular HGB Conc 33.2 g/dL (31.8-35.4); Mean Corpuscular Hemoglobin 36.1 pg (27.0-31.2); Mean Corpuscular Volume 108.6 fl (81-99); Mean Platelet Volume 8.3 fl (7.4-10.4); Monocytes # 0.1 K/mm3 (0.1-1.0); Monocytes % 2.6 % (1.7-9.3); Neutrophils # 1.4 K/mm3 (1.8-7.8); Neutrophils % 63.3 % (37.0-80.0); Platelet Count 266 K/mm3 (142-424); Red Blood Count 3.06 M/mm3 (4.20-5.40); Red Cell Distribution Width 15.3 % (11.5-17.5); White Blood Count 2.2 K/mm3 (4.8-10.8)
[2023-05-27 08:29] LABS: Alanine Aminotransferase 34 U/L (12-78); Albumin/Globulin Ratio 1.6 (1.1-1.8); Alkaline Phosphatase 45 U/L (38-126); Anion Gap 14.1 mEq/L (5-15); Aspartate Amino Transferase 42 U/L (14-36); Bilirubin,Total 0.4 mg/dl (0.2-1.3); Blood Urea Nitrogen 10 mg/dl (7-17); Calcium 9.1 mg/dl (8.4-10.2); Carbon Dioxide 22 mmol/L (22.0-30.0); Chloride 110 mmol/L (98-107); Creatinine Clearance Estimated 46 mL/min (50-200); Estimated Glomerular Filt Rate 44 ml/min (>60); GFR (African American) 53 ML/MIN (>60); Globulin 2.5 g/dL (1.3-3.2); Glucose 108 mg/dl (74-100); Potassium 4.1 mmoL/L (3.5-5.1); Sodium 142 mmol/L (136-145); Total Protein,Serum 6.5 g/dl (6.3-8.2)
--- NOTE | 2023-05-27 08:46 | CT_ITS ---
FINAL REPORT TECHNIQUE: After the administration of oral and intravenous contrast, axial images were obtained through the abdomen and pelvis by computed tomography. The study was performed with techniques to keep radiation dose as low as reasonably achievable, (ALARA). Individual dose reduction techniques using automated exposure control or adjustment of mA and/or kV according to the patient's size were employed. CLINICAL HISTORY: BREAST CANCER COMPARISON: 03/24/2023 FINDINGS: Abdomen: The small low-attenuation foci seen in the liver on prior exam are not seen on today's exam. The patient is status post cholecystectomy. The spleen is unremarkable. The adrenals are normal. The pancreas is unremarkable. There is a less than 3 mm nonobstructing right renal stone. Moderate vascular calcification is identified. The aorta is normal in caliber. There is no free fluid or adenopathy. Pelvis: The appendix is normal. There is sigmoid diverticulosis without evidence of diverticulitis. There is stranding of the gluteal subcutaneous tissues, likely inflammatory. The urinary bladder is unremarkable. There is no free fluid or adenopathy. There is stable T11 and L2 sclerotic metastases. IMPRESSION: Low-attenuation foci seen in liver on prior exam not seen on today's exam. Stable sclerotic metastasis. Stranding of the gluteal subcutaneous tissues, likely postinflammatory. Reviewed, Interpreted and Dictated by Lane Momin III, MD Transcribed by Ju Lopez Authenticated and [facility]
--- NOTE | 2023-05-27 08:46 | CT_ITS ---
FINAL REPORT CLINICAL HISTORY: BREAST CANCER COMPARISON: 03/24/2023 FINDINGS: Axial CT images of the chest were obtained with contrast. Coronal reformatted images were also obtained. This study was performed with techniques to keep radiation doses as low as reasonably achievable, (ALARA). Individualized dose reduction techniques using automated exposure control or adjustment of mA and/or KV according to the patient's size were employed. There is no evidence of mediastinal or hilar mass or adenopathy. No axillary mass or adenopathy is identified. There is mild pulmonary scarring. There are several less than 5 mm pulmonary nodules, stable since previous. Left scapula and T11 bony metastases are stable. There are postoperative changes in the right breast and right axilla. IMPRESSION: Stable bony metastases. Pulmonary nodules, stable since previous. Reviewed, Interpreted and Dictated by Lane Momin III, MD Transcribed by Ju Lopez Authenticated and [facility]
== END ==
LOC: RAD 08:03
PROVIDERS: PCP Family Medicine; Visit Provider Internal Medicine Medical Oncology
DX: C50.411 Malignant neoplasm of upper-outer quadrant of right female breast (principal); C79.51 Secondary malignant neoplasm of bone
CPT/HCPCS: 36415; 71260; 74177; 80053; 85025; Q9967

== ENCOUNTER 2023-05-30 10:57 | Outpatient (CLI) | payer MEDICARE, SELFPAY ==
[2023-05-30 11:30] VITALS: BP 157/91; PULSE 77; RESP 16; TEMP 36.1; O2SAT 100
== END 2023-05-30 11:45 | disposition home or self-care (01) ==
LOC: INF 10:57
PROVIDERS: PCP Family Medicine; Visit Provider Internal Medicine Medical Oncology
DX: C50.911 Malignant neoplasm of unspecified site of right female breast (principal); Z17.0 Estrogen receptor positive status [ER+]; E53.8 Deficiency of other specified B group vitamins
CPT/HCPCS: 96372; 96402; J9395

== ENCOUNTER 2023-06-26 12:47 | Outpatient (CLI) | payer MEDICARE, SELFPAY ==
[2023-06-26 12:51] VITALS: BMI 34.3
[2023-06-26 13:06] LABS: Basophils % 1.1 % (0.1-2.0); Eosinophils % 1.4 % (0.1-12.0); Hematocrit 35.3 % (37.0-47.0); Hemoglobin 11.8 g/dL (12.2-16.2); Lymphocytes % 42.7 % (10-50); Mean Corpuscular HGB Conc 33.3 g/dL (31.8-35.4); Mean Corpuscular Hemoglobin 36.1 pg (27.0-31.2); Mean Corpuscular Volume 108.2 fl (81-99); Mean Platelet Volume 8.5 fl (7.4-10.4); Monocytes # 0.1 K/mm3 (0.1-1.0); Monocytes % 3.8 % (1.7-9.3); Neutrophils # 1.2 K/mm3 (1.8-7.8); Platelet Count 252 K/mm3 (142-424); Red Blood Count 3.26 M/mm3 (4.20-5.40); Red Cell Distribution Width 15.1 % (11.5-17.5); White Blood Count 2.3 K/mm3 (4.8-10.8)
--- NOTE | 2023-06-26 13:10 | PC.NURSE ---
1250-pt presents to outpt infusion to have blood drawn for labs as ordered per . venipuncture performed per Gemma Garza RN using a butterfly access needle to pts lt ac. Blood obtained and specimens sent to lab for analysis. Once needle was withdrawn, site secured using 2x2 gauze and coban. pt ambulated with spouse to specialty clinic to see oncologist. pt to return after the appt for injection.
[2023-06-26 13:11] LABS: Chloride 108 mmol/L (98-107); Potassium 4.1 mmoL/L (3.5-5.1); Sodium 142 mmol/L (136-145)
[2023-06-26 13:14] LABS: Alanine Aminotransferase 32 U/L (12-78); Albumin Level 3.9 g/dl (3.5-5.0); Albumin/Globulin Ratio 1.5 (1.1-1.8); Alkaline Phosphatase 57 U/L (38-126); Anion Gap 13.1 mEq/L (5-15); Aspartate Amino Transferase 36 U/L (14-36); Bilirubin,Total 0.4 mg/dl (0.2-1.3); Blood Urea Nitrogen 16 mg/dl (7-17); Carbon Dioxide 25 mmol/L (22.0-30.0); Creatinine Clearance Estimated 42 mL/min (50-200); Estimated Glomerular Filt Rate 36 ml/min (>60); GFR (African American) 44 ML/MIN (>60); Globulin 2.6 g/dL (1.3-3.2); Total Protein,Serum 6.5 g/dl (6.3-8.2)
[2023-06-26 13:15] LABS: Calcium 10.1 mg/dl (8.4-10.2); Glucose 128 mg/dl (74-100)
[2023-06-26 14:15] VITALS: BP 178/82; PULSE 90; RESP 16; TEMP 36.7; O2SAT 95
== END 2023-06-26 14:30 | disposition home or self-care (01) ==
LOC: INF 12:48
PROVIDERS: PCP Family Medicine; Visit Provider Internal Medicine Medical Oncology
DX: C50.911 Malignant neoplasm of unspecified site of right female breast (principal); C79.51 Secondary malignant neoplasm of bone; Z17.0 Estrogen receptor positive status [ER+]; E53.8 Deficiency of other specified B group vitamins; D64.9 Anemia, unspecified
CPT/HCPCS: 36415; 80053; 85025; 96372; 96402; J9395

== ENCOUNTER 2023-07-24 13:38 | Outpatient (CLI) | payer MEDICARE, SELFPAY ==
[2023-07-24 13:49] VITALS: BMI 34.2
--- NOTE | 2023-07-24 14:00 | PC.NURSE ---
Pt presents today for md appt, labs and medication. Venipuncture performed to pt's lt ac using a butterfly needle, blood obtained for labs. Needle withdrawn and site secured with 2x2 gauze and coban. Specimen sent to lab for analysis. Pt ambulated to spec clinic for md appt and will return for medication.
[2023-07-24 14:12] LABS: Alanine Aminotransferase 33 U/L (12-78); Albumin Level 3.8 g/dl (3.5-5.0); Albumin/Globulin Ratio 1.4 (1.1-1.8); Alkaline Phosphatase 55 U/L (38-126); Anion Gap 10.2 mEq/L (5-15); Aspartate Amino Transferase 40 U/L (14-36); Bilirubin,Total 0.3 mg/dl (0.2-1.3); Blood Urea Nitrogen 13 mg/dl (7-17); Calcium 9.4 mg/dl (8.4-10.2); Carbon Dioxide 27 mmol/L (22.0-30.0); Chloride 109 mmol/L (98-107); Creatinine Clearance Estimated 49 mL/min (50-200); Estimated Glomerular Filt Rate 44 ml/min (>60); GFR (African American) 53 ML/MIN (>60); Globulin 2.7 g/dL (1.3-3.2); Glucose 116 mg/dl (74-100); Potassium 4.2 mmoL/L (3.5-5.1); Sodium 142 mmol/L (136-145); Total Protein,Serum 6.5 g/dl (6.3-8.2)
[2023-07-24 14:14] LABS: Basophils % 1.1 % (0.1-2.0); Eosinophils % 2.1 % (0.1-12.0); Hematocrit 35.5 % (37.0-47.0); Hemoglobin 11.6 g/dL (12.2-16.2); Lymphocytes # 0.7 K/mm3 (0.7-4.5); Lymphocytes % 37.8 % (10-50); Mean Corpuscular HGB Conc 32.5 g/dL (31.8-35.4); Mean Corpuscular Hemoglobin 35.4 pg (27.0-31.2); Mean Corpuscular Volume 108.8 fl (81-99); Monocytes # 0.1 K/mm3 (0.1-1.0); Monocytes % 5.7 % (1.7-9.3); Neutrophils % 53.4 % (37.0-80.0); Platelet Count 241 K/mm3 (142-424); Red Blood Count 3.26 M/mm3 (4.20-5.40); White Blood Count 1.8 K/mm3 (4.8-10.8)
[2023-07-24 14:50] VITALS: BP 132/74; PULSE 68; RESP 18; TEMP 36.8; O2SAT 97
[2023-07-24 14:55] VITALS: BP 133/70; PULSE 79; O2SAT 97
== END 2023-07-24 15:00 | disposition home or self-care (01) ==
LOC: INF 13:39
PROVIDERS: PCP Family Medicine; Visit Provider Internal Medicine Medical Oncology
DX: C50.911 Malignant neoplasm of unspecified site of right female breast (principal); D72.819 Decreased white blood cell count, unspecified
CPT/HCPCS: 36415; 80053; 85025; 96372; 96402; J9395

== ENCOUNTER 2023-08-18 08:09 | Outpatient (CLI) | payer MEDICARE, SELFPAY ==
[2023-08-18 08:19] VITALS: BMI 34.3
--- NOTE | 2023-08-18 08:28 | CT_ITS ---
FINAL REPORT TECHNIQUE: Axial CT images of the abdomen and pelvis were obtained before and after the administration of IV contrast. Oral contrast was administered.This study was performed with techniques to keep radiation doses as low as reasonably achievable (ALARA). Individualized dose reduction techniques using automated exposure control or adjustment of mA and/or kV according to the patient''s size were employed. CLINICAL HISTORY: f/u hx of breast ca FINDINGS: Abdomen: The heart is normal in size. Patient is status postcholecystectomy. . The spleen is unremarkable. No adrenal masses present. The pancreas has an unremarkable appearance. The kidneys enhance normally. The aorta is normal in caliber. There is no free fluid or adenopathy. No mass or abnormal fluid collection is seen. Precontrast images demonstrate a 3.5 x 2.4 cm mass in the medial liver, not well visualized on prior exam. There is a 4 mm stone in the lower pole the right kidney. Pelvis: The appendix is not well visualized. The urinary bladder is unremarkable. No inflammatory process is seen. There is no evidence of mass or adenopathy. There is no evidence of bowel obstruction. Stable bony metastasis are seen in T11 and L2 vertebral bodies. IMPRESSION: Mass in the medial liver, not well visualized on prior exam due to contrast, consistent with liver metastasis. Stable bony metastasis. Reviewed, Interpreted and Dictated by Lane Momin III, MD Transcribed by Nayana Cesar Authenticated and [facility]
--- NOTE | 2023-08-18 08:28 | CT_ITS ---
FINAL REPORT TECHNIQUE: Axial imaging of the chest was obtained with and without contrast. Reformatted images were also obtained and reviewed. This study was performed with techniques to keep radiation doses as low as reasonably achievable (ALARA). Individualized dose reduction techniques using automated exposure control or adjustment of mA and/or kV according to the patient's size were employed. CLINICAL HISTORY: f/u hx of BREAST CANCER COMPARISON: 05/27/2023 FINDINGS: There is a 10 mm left hilar lymph node which previously measured 8 mm. There is no axillary or mediastinal lymphadenopathy. There is a small subsegmental, right lower lobe pulmonary embolism which is chronic and improved from prior exam. There are stable, less than 5 mm pulmonary nodules. There is a 3 mm nodule in the lateral right middle lobe on image 176. Other smaller nodules are visually stable. No new mass or nodule is identified. Note is made of a calcified granuloma in the left lower lobe. Stable soft tissue opacity is seen in the lateral right breast, favor postoperative change. There is no pleural or pericardial effusion. No pneumothorax. There are stable T11 and left scapular bony metastasis. IMPRESSION: Improved, chronic subsegmental right lower lobe pulmonary embolism. Stable pulmonary nodules. Stable bony metastatic disease. Reviewed, Interpreted and Dictated by Lane Momin III, MD Transcribed by Nayana Cesar Authenticated and [facility]
[2023-08-18 08:34] LABS: Basophils % 1.6 % (0.1-2.0); Eosinophils % 1.4 % (0.1-12.0); Hematocrit 34.8 % (37.0-47.0); Lymphocytes # 0.7 K/mm3 (0.7-4.5); Lymphocytes % 33.1 % (10-50); Mean Corpuscular HGB Conc 34.5 g/dL (31.8-35.4); Mean Corpuscular Hemoglobin 37.4 pg (27.0-31.2); Mean Corpuscular Volume 108.4 fl (81-99); Mean Platelet Volume 8.4 fl (7.4-10.4); Monocytes # 0.1 K/mm3 (0.1-1.0); Monocytes % 2.7 % (1.7-9.3); Neutrophils # 1.2 K/mm3 (1.8-7.8); Neutrophils % 61.2 % (37.0-80.0); Platelet Count 236 K/mm3 (142-424); Red Blood Count 3.21 M/mm3 (4.20-5.40); Red Cell Distribution Width 14.9 % (11.5-17.5)
[2023-08-18 08:43] LABS: Chloride 108 mmol/L (98-107); Potassium 3.6 mmoL/L (3.5-5.1); Sodium 139 mmol/L (136-145)
[2023-08-18 08:46] LABS: Alanine Aminotransferase 34 U/L (12-78); Albumin Level 4.1 g/dl (3.5-5.0); Albumin/Globulin Ratio 1.6 (1.1-1.8); Alkaline Phosphatase 56 U/L (38-126); Anion Gap 10.6 mEq/L (5-15); Aspartate Amino Transferase 46 U/L (14-36); Bilirubin,Total 0.3 mg/dl (0.2-1.3); Blood Urea Nitrogen 11 mg/dl (7-17); Carbon Dioxide 24 mmol/L (22.0-30.0); Creatinine Clearance Estimated 49 mL/min (50-200); Estimated Glomerular Filt Rate 44 ml/min (>60); GFR (African American) 53 ML/MIN (>60); Globulin 2.5 g/dL (1.3-3.2); Total Protein,Serum 6.6 g/dl (6.3-8.2)
[2023-08-18 08:47] LABS: Calcium 9.1 mg/dl (8.4-10.2); Glucose 124 mg/dl (74-100)
== END 2023-08-18 08:30 | disposition home or self-care (01) ==
LOC: RAD 08:10
PROVIDERS: PCP Family Medicine; Visit Provider Internal Medicine Medical Oncology
DX: C50.411 Malignant neoplasm of upper-outer quadrant of right female breast (principal)
CPT/HCPCS: 36415; 71270; 74178; 80053; 85025; Q9967

== ENCOUNTER 2023-08-21 13:51 | Outpatient (CLI) | payer MEDICARE, SELFPAY ==
[2023-08-21 15:35] VITALS: BP 168/72; PULSE 66; RESP 16; TEMP 37.2; O2SAT 98
== END 2023-08-21 15:40 | disposition home or self-care (01) ==
LOC: INF 13:52
PROVIDERS: PCP Family Medicine; Visit Provider Internal Medicine Medical Oncology
DX: C50.911 Malignant neoplasm of unspecified site of right female breast (principal)
CPT/HCPCS: 96372; J0897

== ENCOUNTER 2023-09-09 12:46 | Outpatient (CLI) | payer MEDICARE, SELFPAY ==
[2023-09-09 12:50] VITALS: BMI 34.5
[2023-09-09 13:11] LABS: Basophils % 1.1 % (0.1-2.0); Eosinophils % 0.8 % (0.1-12.0); Hematocrit 32.8 % (37.0-47.0); Hemoglobin 11.4 g/dL (12.2-16.2); Lymphocytes # 0.8 K/mm3 (0.7-4.5); Lymphocytes % 46.8 % (10-50); Mean Corpuscular HGB Conc 34.8 g/dL (31.8-35.4); Mean Corpuscular Hemoglobin 38.1 pg (27.0-31.2); Mean Corpuscular Volume 109.4 fl (81-99); Mean Platelet Volume 9.7 fl (7.4-10.4); Monocytes # 0.2 K/mm3 (0.1-1.0); Monocytes % 11.6 % (1.7-9.3); Neutrophils # 0.6 K/mm3 (1.8-7.8); Neutrophils % 39.6 % (37.0-80.0); Platelet Count 147 K/mm3 (142-424); Red Cell Distribution Width 15.6 % (11.5-17.5); White Blood Count 1.6 K/mm3 (4.8-10.8)
[2023-09-09 13:16] LABS: Chloride 107 mmol/L (98-107); Potassium 3.9 mmoL/L (3.5-5.1); Sodium 139 mmol/L (136-145)
[2023-09-09 13:18] LABS: Blood Urea Nitrogen 13 mg/dl (7-17); Creatinine Clearance Estimated 50 mL/min (50-200); Estimated Glomerular Filt Rate 44 ml/min (>60); GFR (African American) 53 ML/MIN (>60)
[2023-09-09 13:19] LABS: Alanine Aminotransferase 34 U/L (12-78); Albumin/Globulin Ratio 1.7 (1.1-1.8); Alkaline Phosphatase 54 U/L (38-126); Anion Gap 10.9 mEq/L (5-15); Aspartate Amino Transferase 43 U/L (14-36); Bilirubin,Total 0.2 mg/dl (0.2-1.3); Calcium 8.9 mg/dl (8.4-10.2); Carbon Dioxide 25 mmol/L (22.0-30.0); Globulin 2.4 g/dL (1.3-3.2); Glucose 107 mg/dl (74-100); Total Protein,Serum 6.4 g/dl (6.3-8.2)
[2023-09-09 14:22] VITALS: BP 141/80; PULSE 72; RESP 18; TEMP 36.9; O2SAT 99
== END 2023-09-09 13:05 | disposition home or self-care (01) ==
LOC: INF 12:47
PROVIDERS: PCP Family Medicine; Visit Provider Internal Medicine Medical Oncology
DX: C50.911 Malignant neoplasm of unspecified site of right female breast (principal); D72.819 Decreased white blood cell count, unspecified
CPT/HCPCS: 36415; 80053; 85025; 96372

== ENCOUNTER 2023-09-16 13:00 | Outpatient (CLI) | payer MEDICARE, SELFPAY ==
[2023-09-16 13:11] VITALS: BMI 34.9
[2023-09-16 13:27] LABS: Basophils % 0.9 % (0.1-2.0); Eosinophils % 1.1 % (0.1-12.0); Hematocrit 34.4 % (37.0-47.0); Hemoglobin 11.3 g/dL (12.2-16.2); Lymphocytes # 0.7 K/mm3 (0.7-4.5); Lymphocytes % 35.6 % (10-50); Mean Corpuscular Hemoglobin 36.4 pg (27.0-31.2); Mean Corpuscular Volume 110.4 fl (81-99); Mean Platelet Volume 8.7 fl (7.4-10.4); Monocytes # 0.2 K/mm3 (0.1-1.0); Monocytes % 7.9 % (1.7-9.3); Neutrophils % 54.5 % (37.0-80.0); Platelet Count 231 K/mm3 (142-424); Red Blood Count 3.11 M/mm3 (4.20-5.40); Red Cell Distribution Width 15.3 % (11.5-17.5); White Blood Count 1.9 K/mm3 (4.8-10.8)
--- NOTE | 2023-09-16 13:27 | PC.NURSE ---
09/16/23 1315 Pt presents today for a 1 week f/u on her labs. Venipuncture performed using butterfly access needle to pt's lt ac x 1 stick, blood drawn for labs. Specimen sent to lab for analysis. Site secured once needle was withdrawn using 2x2 gauze and coban. Pt ok to d/c today and will return to md for next appt. MD to contact pt with results and any further orders, if needed.
== END 2023-09-16 13:15 | disposition home or self-care (01) ==
LOC: INF 13:02
PROVIDERS: PCP Family Medicine; Visit Provider Internal Medicine Medical Oncology
DX: C50.911 Malignant neoplasm of unspecified site of right female breast (principal); Z17.0 Estrogen receptor positive status [ER+]
CPT/HCPCS: 36415; 85025

== ENCOUNTER 2023-10-09 12:26 | Outpatient (CLI) | payer MEDICARE, SELFPAY ==
[2023-10-09 12:37] VITALS: BMI 34.9
[2023-10-09 12:50] VITALS: BP 132/77; PULSE 80; RESP 18; TEMP 36.9; O2SAT 97
[2023-10-09] MEDS: VITAMIN B-12 1,000 MCG 1ML VIAL 1000 MCG (12:50)
[2023-10-09 12:52] LABS: Basophils % 1.1 % (0.1-2.0); Eosinophils % 1.7 % (0.1-12.0); Hematocrit 32.5 % (37.0-47.0); Hemoglobin 11.4 g/dL (12.2-16.2); Lymphocytes # 0.7 K/mm3 (0.7-4.5); Lymphocytes % 50.2 % (10-50); Mean Corpuscular HGB Conc 34.9 g/dL (31.8-35.4); Mean Corpuscular Hemoglobin 37.1 pg (27.0-31.2); Mean Corpuscular Volume 106.2 fl (81-99); Mean Platelet Volume 9.5 fl (7.4-10.4); Monocytes # 0.1 K/mm3 (0.1-1.0); Monocytes % 4.7 % (1.7-9.3); Neutrophils # 0.6 K/mm3 (1.8-7.8); Neutrophils % 42.3 % (37.0-80.0); Platelet Count 122 K/mm3 (142-424); Red Blood Count 3.06 M/mm3 (4.20-5.40); Red Cell Distribution Width 14.9 % (11.5-17.5); White Blood Count 1.3 K/mm3 (4.8-10.8)
[2023-10-09 13:02] LABS: Alanine Aminotransferase 33 U/L (12-78); Albumin/Globulin Ratio 1.7 (1.1-1.8); Alkaline Phosphatase 48 U/L (38-126); Anion Gap 9.9 mEq/L (5-15); Aspartate Amino Transferase 44 U/L (14-36); Bilirubin,Total 0.4 mg/dl (0.2-1.3); Blood Urea Nitrogen 15 mg/dl (7-17); Calcium 9.1 mg/dl (8.4-10.2); Carbon Dioxide 23 mmol/L (22.0-30.0); Chloride 108 mmol/L (98-107); Creatinine Clearance Estimated 55 mL/min (50-200); Estimated Glomerular Filt Rate 48 ml/min (>60); GFR (African American) 58 ML/MIN (>60); Globulin 2.4 g/dL (1.3-3.2); Glucose 123 mg/dl (74-100); Potassium 3.9 mmoL/L (3.5-5.1); Sodium 137 mmol/L (136-145); Total Protein,Serum 6.4 g/dl (6.3-8.2)
[2023-10-09 13:10] LABS: MANUAL DIFFERENTIAL MANUAL DIFFERENTIAL (MANUAL DIFF)
[2023-10-09 13:46] LABS: Lymphocytes % 64 % (10-50); Macrocytosis 2+; Monocytes % 4 % (2-9); Neutrophils % 32 % (42-76); Platelet Estimate Slight Decrease; Total Cells Counted 25
--- NOTE | 2023-10-09 14:30 | PC.NURSE ---
10/09/2023 1242 pt presents prior to md appt today to have blood drawn for labs and to receive her monthly b12 inj. Venipuncture performed per Tabby Rahman RN x 1 stick using butterfly access needle and blood drawn for labs. Specimen sent to lab for analysis. Site secured with 2x2 gauze and coban once needle was withdrawn.
== END 2023-10-09 12:55 | disposition home or self-care (01) ==
LOC: INF 12:28
PROVIDERS: PCP Family Medicine; Visit Provider Internal Medicine Medical Oncology
DX: C50.911 Malignant neoplasm of unspecified site of right female breast (principal); Z17.0 Estrogen receptor positive status [ER+]
CPT/HCPCS: 36415; 80053; 85007; 85025; 96372

== ENCOUNTER 2023-10-15 08:11 | Outpatient (CLI) | payer MEDICARE, SELFPAY ==
[2023-10-15 08:18] VITALS: BMI 34.7
[2023-10-15 08:37] LABS: Basophils % 0.4 % (0.1-2.0); Eosinophils % 1.8 % (0.1-12.0); Hematocrit 33.3 % (37.0-47.0); Hemoglobin 11.3 g/dL (12.2-16.2); Lymphocytes # 0.6 K/mm3 (0.7-4.5); Lymphocytes % 44.6 % (10-50); Mean Corpuscular HGB Conc 33.9 g/dL (31.8-35.4); Mean Corpuscular Hemoglobin 36.4 pg (27.0-31.2); Mean Corpuscular Volume 107.3 fl (81-99); Mean Platelet Volume 8.8 fl (7.4-10.4); Monocytes # 0.2 K/mm3 (0.1-1.0); Monocytes % 10.6 % (1.7-9.3); Neutrophils # 0.6 K/mm3 (1.8-7.8); Neutrophils % 42.6 % (37.0-80.0); Platelet Count 156 K/mm3 (142-424); Red Cell Distribution Width 15.2 % (11.5-17.5); White Blood Count 1.4 K/mm3 (4.8-10.8)
--- NOTE | 2023-10-15 10:13 | PC.NURSE ---
0825 - BLOOD DRAWN WITH BUTTERFLY NEEDLE FROM LEFT AC TO CHECK CBC AT THIS TIME.
== END 2023-10-15 08:35 | disposition home or self-care (01) ==
LOC: INF 08:13
PROVIDERS: PCP Family Medicine; Visit Provider Internal Medicine Medical Oncology
DX: C50.911 Malignant neoplasm of unspecified site of right female breast (principal); Z45.2 Encounter for adjustment and management of vascular access device
CPT/HCPCS: 36415; 85025

== ENCOUNTER 2023-10-21 08:38 | Outpatient (CLI) | payer MEDICARE, SELFPAY ==
--- NOTE | 2023-10-21 08:55 | PC.NURSE ---
0855-collected labs via venipuncture stick in left ac with butterfly needle;md to call pt with results;pt to d/c home.
[2023-10-21 09:04] LABS: Basophils % 1.4 % (0.1-2.0); Eosinophils % 0.5 % (0.1-12.0); Hematocrit 34.5 % (37.0-47.0); Hemoglobin 11.4 g/dL (12.2-16.2); Lymphocytes # 0.7 K/mm3 (0.7-4.5); Lymphocytes % 36.8 % (10-50); Mean Corpuscular HGB Conc 33.1 g/dL (31.8-35.4); Mean Corpuscular Hemoglobin 35.3 pg (27.0-31.2); Mean Corpuscular Volume 106.8 fl (81-99); Mean Platelet Volume 8.3 fl (7.4-10.4); Monocytes # 0.2 K/mm3 (0.1-1.0); Monocytes % 9.3 % (1.7-9.3); Platelet Count 215 K/mm3 (142-424); Red Blood Count 3.23 M/mm3 (4.20-5.40)
== END 2023-10-21 08:56 | disposition home or self-care (01) ==
LOC: INF 08:40
PROVIDERS: Internal Medicine Medical Oncology; PCP Family Medicine; Visit Provider Family Medicine
DX: C50.911 Malignant neoplasm of unspecified site of right female breast (principal); Z17.0 Estrogen receptor positive status [ER+]; Z45.2 Encounter for adjustment and management of vascular access device
CPT/HCPCS: 36415; 85025

== ENCOUNTER 2023-10-28 07:51 | Outpatient (CLI) | payer MEDICARE, SELFPAY ==
[2023-10-28 08:10] VITALS: BMI 34.7
--- NOTE | 2023-10-28 08:26 | PC.NURSE ---
0811- cbc drawn per MD order via butterfly needle in left ac. needle removed and coban applied. pt tolerated well.
[2023-10-28 08:36] LABS: Basophils % 0.9 % (0.1-2.0); Eosinophils # 0.1 K/mm3 (0.0-0.4); Eosinophils % 2.5 % (0.1-12.0); Hematocrit 36.9 % (37.0-47.0); Hemoglobin 12.4 g/dL (12.2-16.2); Lymphocytes # 0.9 K/mm3 (0.7-4.5); Lymphocytes % 29.9 % (10-50); Mean Corpuscular HGB Conc 33.4 g/dL (31.8-35.4); Mean Corpuscular Hemoglobin 35.6 pg (27.0-31.2); Mean Corpuscular Volume 106.6 fl (81-99); Mean Platelet Volume 7.9 fl (7.4-10.4); Monocytes # 0.3 K/mm3 (0.1-1.0); Monocytes % 9.3 % (1.7-9.3); Neutrophils # 1.6 K/mm3 (1.8-7.8); Neutrophils % 57.4 % (37.0-80.0); Platelet Count 237 K/mm3 (142-424); Red Blood Count 3.47 M/mm3 (4.20-5.40); Red Cell Distribution Width 14.4 % (11.5-17.5); White Blood Count 2.9 K/mm3 (4.8-10.8)
== END 2023-10-28 08:15 | disposition home or self-care (01) ==
LOC: INF 07:52
PROVIDERS: PCP Family Medicine; Visit Provider Internal Medicine Medical Oncology
DX: C50.911 Malignant neoplasm of unspecified site of right female breast (principal)
CPT/HCPCS: 36415; 85025

== ENCOUNTER 2023-11-27 07:32 | Outpatient (CLI) | payer MEDICARE, SELFPAY ==
[2023-11-27 08:09] VITALS: BMI 34.7
[2023-11-27 08:25] LABS: Basophils % 0.1 % (0.1-2.0); Eosinophils % 1.8 % (0.1-12.0); Hematocrit 33.3 % (37.0-47.0); Hemoglobin 11.3 g/dL (12.2-16.2); Lymphocytes # 0.8 K/mm3 (0.7-4.5); Lymphocytes % 50.5 % (10-50); Mean Corpuscular Hemoglobin 34.2 pg (27.0-31.2); Mean Corpuscular Volume 100.8 fl (81-99); Mean Platelet Volume 7.4 fl (7.4-10.4); Monocytes # 0.1 K/mm3 (0.1-1.0); Monocytes % 7.3 % (1.7-9.3); Neutrophils # 0.6 K/mm3 (1.8-7.8); Neutrophils % 40.3 % (37.0-80.0); Platelet Count 150 K/mm3 (142-424); White Blood Count 1.6 K/mm3 (4.8-10.8)
--- NOTE | 2023-11-27 08:25 | CT_ITS ---
FINAL REPORT CLINICAL HISTORY: BREAST CANCER COMPARISON: 08/18/2023 FINDINGS: Axial CT images of the chest were obtained with contrast. Coronal and sagittal reformatted images were also obtained. This study was performed with techniques to keep radiation doses as low as reasonably achievable, (ALARA). Individualized dose reduction techniques using automated exposure control or adjustment of mA and/or KV according to the patient's size were employed. The anterior left hilar node has significantly enlarged, and is now 17 mm (was 10 mm). There are several borderline in size left axillary nodes, also stable. There has been interval resolution of the right lower lobe subsegmental emboli since the prior exam. There is a 3 mm lateral right middle lobe nodule, seen on image #41, stable. A calcified granuloma is once again noted in the left lower lobe. No localized pulmonary inflammatory process is identified. There are postoperative changes in the lateral right breast, stable. The previously seen metastases involving the left scapula and T11 vertebral bodies remained stable. A small hiatal hernia is once again identified. There is degenerative change in the lower cervical spine, also stable. IMPRESSION: Anterior left hilar node has enlarged significantly, from 10 to 17 mm in size, since July 2023. There has been interval resolution of the right lower lobe subsegmental emboli since the prior exam. The remainder of the examination is stable since the prior CT. Reviewed, Interpreted and Dictated by Lane Momin III, MD Transcribed by Laurel Hawkins Authenticated and . [facility]
--- NOTE | 2023-11-27 08:25 | CT_ITS ---
FINAL REPORT CLINICAL HISTORY: BREAST CANCER COMPARISON: 08/18/2023 FINDINGS: CT OF THE ABDOMEN AND PELVIS WITH CONTRAST Axial CT images of the abdomen and pelvis were obtained after the administration of oral and iv contrast. Coronal and sagittal reformatted images were also obtained and reviewed.This study was performed with techniques to keep radiation doses as low as reasonably achievable (ALARA). Individualized dose reduction techniques using automated exposure control or adjustment of mA and/or kV according to the patient's size were employed. Abdomen: The lung bases are clear. The heart is normal in size. There is a right hepatic mass the mid portion of the right hepatic lobe, larger than noted on the prior examination. On today's exam this mass measures 45 x 40 mm in size, was previously 35 x 24 mm, so significantly enlarged. The gallbladder has been surgically removed. No biliary ductal dilatation is present. The spleen is unremarkable. No adrenal mass is present. The pancreas has an unremarkable appearance. The kidneys are normal, without evidence of mass or hydronephrosis. The aorta is normal in caliber. There is no free fluid or adenopathy. No mass or abnormal fluid collection is seen. Pelvis: The appendix is not well-visualized. The urinary bladder is unremarkable. There is stranding in the gluteal subcutaneous soft tissues, likely inflammatory. Metastases are once again seen in the T11 and L2 vertebral bodies, and are stable when compared to the prior exam. There is no evidence of bowel obstruction. IMPRESSION: Right hepatic lobe mass has significantly enlarged since the prior CT of 08/18/2023, consistent with an enlarging metastasis. Otherwise stable CT of the abdomen and pelvis when compared to the prior exam. Reviewed, Interpreted and Dictated by Lane Momin III, MD Transcribed by Laurel Hawkins Authenticated and . [facility]
[2023-11-27 08:41] LABS: Chloride 109 mmol/L (98-107); Potassium 3.8 mmoL/L (3.5-5.1); Sodium 138 mmol/L (136-145)
[2023-11-27 08:44] LABS: Alanine Aminotransferase 37 U/L (12-78); Albumin Level 3.6 g/dl (3.5-5.0); Albumin/Globulin Ratio 1.5 (1.1-1.8); Alkaline Phosphatase 75 U/L (38-126); Anion Gap 6.8 mEq/L (5-15); Aspartate Amino Transferase 42 U/L (14-36); Bilirubin,Total 0.4 mg/dl (0.2-1.3); Blood Urea Nitrogen 12 mg/dl (7-17); Carbon Dioxide 26 mmol/L (22.0-30.0); Creatinine Clearance Estimated 55 mL/min (50-200); Estimated Glomerular Filt Rate 48 ml/min (>60); GFR (African American) 58 ML/MIN (>60); Globulin 2.4 g/dL (1.3-3.2)
[2023-11-27 08:45] LABS: Calcium 8.8 mg/dl (8.4-10.2); Glucose 117 mg/dl (74-100)
[2023-11-27 08:48] LABS: MANUAL DIFFERENTIAL MANUAL DIFFERENTIAL (MANUAL DIFF)
[2023-11-27] MEDS: SODIUM CHLORIDE 0.9% 10ML SYR (RAD ONLY) 10 ML IV (09:30)
[2023-11-27] MEDS: IOPAMIDOL-370 (76%);100ML BOTTLE 75 ML IV (09:30)
[2023-11-27] MEDS: BARIUM SULFATE(READI-CAT2);450ML BOTTLE 450 ML PO (09:30)
[2023-11-27 10:16] LABS: Lymphocytes % 52 % (10-50); Monocytes % 4 % (2-9); Neutrophils % 44 % (42-76); Total Cells Counted 25
[2023-11-27 10:17] LABS: Macrocytosis 1+
[2023-11-27 10:18] LABS: Platelet Estimate Normal
== END 2023-11-27 23:59 ==
PROVIDERS: PCP Family Medicine; Visit Provider Internal Medicine Medical Oncology
DX: C50.911 Malignant neoplasm of unspecified site of right female breast (principal); Z17.0 Estrogen receptor positive status [ER+]
CPT/HCPCS: 36415; 71260; 74177; 80053; 85007; 85025; Q9967

== ENCOUNTER 2023-12-04 10:04 | Outpatient (CLI) | payer MEDICARE, SELFPAY ==
[2023-12-04 10:08] VITALS: BMI 34.3
[2023-12-04] MEDS: VITAMIN B-12 1,000 MCG 1ML VIAL 1000 MCG IM (10:20)
[2023-12-04 10:41] LABS: Basophils % 0.5 % (0.1-2.0); Eosinophils % 0.9 % (0.1-12.0); Hematocrit 37.3 % (37.0-47.0); Hemoglobin 12.4 g/dL (12.2-16.2); Lymphocytes # 0.7 K/mm3 (0.7-4.5); Lymphocytes % 31.2 % (10-50); Mean Corpuscular HGB Conc 33.4 g/dL (31.8-35.4); Mean Corpuscular Hemoglobin 34.2 pg (27.0-31.2); Mean Corpuscular Volume 102.5 fl (81-99); Mean Platelet Volume 8.2 fl (7.4-10.4); Monocytes # 0.1 K/mm3 (0.1-1.0); Monocytes % 3.7 % (1.7-9.3); Neutrophils # 1.5 K/mm3 (1.8-7.8); Neutrophils % 63.8 % (37.0-80.0); Platelet Count 236 K/mm3 (142-424); Red Blood Count 3.64 M/mm3 (4.20-5.40); Red Cell Distribution Width 15.2 % (11.5-17.5); White Blood Count 2.4 K/mm3 (4.8-10.8)
[2023-12-04 10:55] LABS: Alanine Aminotransferase 42 U/L (12-78); Albumin Level 3.9 g/dl (3.5-5.0); Albumin/Globulin Ratio 1.6 (1.1-1.8); Alkaline Phosphatase 68 U/L (38-126); Anion Gap 8.7 mEq/L (5-15); Aspartate Amino Transferase 51 U/L (14-36); Bilirubin,Total 0.4 mg/dl (0.2-1.3); Blood Urea Nitrogen 10 mg/dl (7-17); Calcium 9.7 mg/dl (8.4-10.2); Carbon Dioxide 27 mmol/L (22.0-30.0); Chloride 109 mmol/L (98-107); Creatinine Clearance Estimated 49 mL/min (50-200); Estimated Glomerular Filt Rate 44 ml/min (>60); GFR (African American) 53 ML/MIN (>60); Globulin 2.4 g/dL (1.3-3.2); Glucose 156 mg/dl (74-100); Potassium 3.7 mmoL/L (3.5-5.1); Sodium 141 mmol/L (136-145); Total Protein,Serum 6.3 g/dl (6.3-8.2)
--- NOTE | 2023-12-04 13:40 | PC.NURSE ---
1032- cbc, cmp, and [id number] drawn per MD order via butterfly needle in left ac. needle removed and coban applied. pt tolerated well.
== END 2023-12-04 10:40 | disposition home or self-care (01) ==
LOC: INF 10:05
PROVIDERS: PCP Family Medicine; Visit Provider Internal Medicine Medical Oncology
DX: C50.411 Malignant neoplasm of upper-outer quadrant of right female breast (principal); Z17.0 Estrogen receptor positive status [ER+]; E53.8 Deficiency of other specified B group vitamins
CPT/HCPCS: 36415; 80053; 85025; 96372

== ENCOUNTER 2023-12-05 08:56 | Outpatient (CLI) | payer MEDICARE, SELFPAY ==
--- NOTE | 2023-12-05 09:16 | NM_ITS ---
FINAL REPORT CLINICAL HISTORY: BREAST CANCER 2014 metastatic ca [address] chest/abd/pelvis on pacs from 11-27-23 COMPARISON: CT chest abdomen and pelvis 11/27/2023 FINDINGS: WHOLE BODY BONE SCAN PROCEDURE: The patient was injected with 26.1 mCi of technetium 99M MDP. Images were obtained after a three-hour delay. Increased tracer activity in the left scapula and T11 vertebral body corresponding to sclerotic areas on recent CT of the chest consistent with bony metastatic disease. Mild increased tracer activity in the right shoulder, knees, ankles, and feet favored to be degenerative change No other abnormal radiotracer activity identified. IMPRESSION: Increased tracer activity left scapula and T11 corresponding to bony metastatic disease as seen on CT scan. Other increased tracer activity favored to be degenerative change. Reviewed, Interpreted and Dictated by Lane Momin III, MD Transcribed by Portia Felton Authenticated and . [facility]
[2023-12-05] MEDS: SODIUM CHLORIDE 0.9% 10ML SYR (RAD ONLY) 10 ML IV (10:24)
[2023-12-05] MEDS: ISOTOPE MDP (BONE);1 DOSE VIAL IV (10:24)
== END 2023-12-05 23:59 ==
PROVIDERS: PCP Family Medicine; Visit Provider Internal Medicine Medical Oncology
DX: C50.911 Malignant neoplasm of unspecified site of right female breast (principal); Z17.0 Estrogen receptor positive status [ER+]
CPT/HCPCS: 78306; A9503

== ENCOUNTER 2023-12-25 14:08 | Outpatient (CLI) | payer MEDICARE, SELFPAY ==
[2023-12-25 14:11] VITALS: BMI 34.6
[2023-12-25 14:15] VITALS: BP 171/74; PULSE 65; RESP 17; TEMP 36.2; O2SAT 96
[2023-12-25] MEDS: VITAMIN B-12 1,000 MCG 1ML VIAL 1000 MCG (14:15)
[2023-12-25 14:39] LABS: Basophils # 0.1 K/mm3 (0-0.2); Basophils % 1.2 % (0.1-2.0); Eosinophils # 0.1 K/mm3 (0.0-0.4); Eosinophils % 2.5 % (0.1-12.0); Hematocrit 40.1 % (37.0-47.0); Hemoglobin 12.9 g/dL (12.2-16.2); Lymphocytes # 1.5 K/mm3 (0.7-4.5); Lymphocytes % 36.2 % (10-50); Mean Corpuscular HGB Conc 32.2 g/dL (31.8-35.4); Mean Corpuscular Volume 105.6 fl (81-99); Mean Platelet Volume 8.3 fl (7.4-10.4); Monocytes # 0.5 K/mm3 (0.1-1.0); Monocytes % 11.4 % (1.7-9.3); Neutrophils % 48.7 % (37.0-80.0); Platelet Count 272 K/mm3 (142-424); Red Cell Distribution Width 14.9 % (11.5-17.5); White Blood Count 4.1 K/mm3 (4.8-10.8)
[2023-12-25 14:43] LABS: Chloride 108 mmol/L (98-107); Sodium 139 mmol/L (136-145)
[2023-12-25 14:44] LABS: Potassium 4.2 mmoL/L (3.5-5.1)
[2023-12-25 14:46] LABS: Alanine Aminotransferase 54 U/L (12-78); Alkaline Phosphatase 94 U/L (38-126); Aspartate Amino Transferase 65 U/L (14-36); Bilirubin,Total 0.4 mg/dl (0.2-1.3); Blood Urea Nitrogen 13 mg/dl (7-17); Creatinine Clearance Estimated 54 mL/min (50-200); Estimated Glomerular Filt Rate 48 ml/min (>60); GFR (African American) 58 ML/MIN (>60)
[2023-12-25 14:47] LABS: Albumin Level 3.9 g/dl (3.5-5.0); Albumin/Globulin Ratio 1.6 (1.1-1.8); Anion Gap 6.2 mEq/L (5-15); Calcium 9.7 mg/dl (8.4-10.2); Carbon Dioxide 29 mmol/L (22.0-30.0); Globulin 2.5 g/dL (1.3-3.2); Glucose 97 mg/dl (74-100); Total Protein,Serum 6.4 g/dl (6.3-8.2)
== END 2023-12-25 14:30 | disposition home or self-care (01) ==
LOC: INF 14:09
PROVIDERS: Visit Provider Internal Medicine Medical Oncology
DX: C50.911 Malignant neoplasm of unspecified site of right female breast (principal); Z17.1 Estrogen receptor negative status [ER-]; R53.83 Other fatigue
CPT/HCPCS: 36415; 80053; 85025; 96372

== ENCOUNTER 2024-01-15 13:37 | Outpatient (CLI) | payer MEDICARE, SELFPAY ==
[2024-01-15 13:44] VITALS: BMI 34.5
[2024-01-15] MEDS: FULVESTRANT 250 MG/5 ML 500 MG IM (13:51)
[2024-01-15 13:55] VITALS: BP 154/72; PULSE 72; RESP 18; TEMP 36.8; O2SAT 99
[2024-01-15 14:56] LABS: Hemoglobin A1C 6.3 % (4.0-6.0)
== END 2024-01-15 14:10 | disposition home or self-care (01) ==
LOC: INF 13:37
PROVIDERS: PCP Family Medicine; Visit Provider Internal Medicine Medical Oncology
DX: Z79.899 Other long term (current) drug therapy (principal); C50.911 Malignant neoplasm of unspecified site of right female breast; Z17.0 Estrogen receptor positive status [ER+]
CPT/HCPCS: 36415; 83036; 96402; J9395

== ENCOUNTER 2024-01-23 12:45 | Outpatient (CLI) | payer MEDICARE, SELFPAY ==
[2024-01-23 12:50] VITALS: BMI 34.5
[2024-01-23 13:15] LABS: Basophils # 0.1 K/mm3 (0-0.2); Basophils % 1.3 % (0.1-2.0); Eosinophils # 0.3 K/mm3 (0.0-0.4); Eosinophils % 6.4 % (0.1-12.0); Hematocrit 43.4 % (37.0-47.0); Hemoglobin 13.8 g/dL (12.2-16.2); Lymphocytes # 1.1 K/mm3 (0.7-4.5); Lymphocytes % 23.8 % (10-50); Mean Corpuscular HGB Conc 31.8 g/dL (31.8-35.4); Mean Corpuscular Hemoglobin 32.7 pg (27.0-31.2); Mean Corpuscular Volume 102.8 fl (81-99); Mean Platelet Volume 8.2 fl (7.4-10.4); Monocytes # 0.3 K/mm3 (0.1-1.0); Monocytes % 5.4 % (1.7-9.3); Neutrophils # 2.9 K/mm3 (1.8-7.8); Neutrophils % 63.2 % (37.0-80.0); Platelet Count 204 K/mm3 (142-424); Red Blood Count 4.22 M/mm3 (4.20-5.40); Red Cell Distribution Width 14.1 % (11.5-17.5); White Blood Count 4.6 K/mm3 (4.8-10.8)
[2024-01-23 13:19] LABS: Alanine Aminotransferase 47 U/L (12-78); Albumin Level 3.9 g/dl (3.5-5.0); Albumin/Globulin Ratio 1.6 (1.1-1.8); Alkaline Phosphatase 74 U/L (38-126); Anion Gap 8.8 mEq/L (5-15); Aspartate Amino Transferase 46 U/L (14-36); Bilirubin,Total 0.4 mg/dl (0.2-1.3); Blood Urea Nitrogen 14 mg/dl (7-17); Calcium 9.5 mg/dl (8.4-10.2); Carbon Dioxide 24 mmol/L (22.0-30.0); Chloride 111 mmol/L (98-107); Creatinine Clearance Estimated 50 mL/min (50-200); Estimated Glomerular Filt Rate 44 ml/min (>60); GFR (African American) 53 ML/MIN (>60); Globulin 2.5 g/dL (1.3-3.2); Glucose 109 mg/dl (74-100); Potassium 3.8 mmoL/L (3.5-5.1); Sodium 140 mmol/L (136-145); Total Protein,Serum 6.4 g/dl (6.3-8.2)
== END 2024-01-23 13:10 | disposition home or self-care (01) ==
LOC: INF 12:46
PROVIDERS: PCP Family Medicine; Visit Provider Internal Medicine Medical Oncology
DX: C50.911 Malignant neoplasm of unspecified site of right female breast (principal); C79.51 Secondary malignant neoplasm of bone; Z17.0 Estrogen receptor positive status [ER+]
CPT/HCPCS: 36415; 80053; 85025

== ENCOUNTER 2024-02-12 13:26 | Outpatient (CLI) | payer MEDICARE, SELFPAY ==
[2024-02-12 13:36] VITALS: BMI 34.5
--- NOTE | 2024-02-12 13:40 | PC.NURSE ---
1340-collected labs via venipuncture stick in left ac with butterfly needle;pt to oncology appointment.
[2024-02-12 13:54] LABS: Chloride 109 mmol/L (98-107); Potassium 3.1 mmoL/L (3.5-5.1); Sodium 139 mmol/L (136-145)
[2024-02-12 13:56] LABS: Alanine Aminotransferase 75 U/L (12-78); Alkaline Phosphatase 123 U/L (38-126); Aspartate Amino Transferase 49 U/L (14-36); Bilirubin,Total 0.8 mg/dl (0.2-1.3); Blood Urea Nitrogen 9 mg/dl (7-17); Creatinine Clearance Estimated 60 mL/min (50-200); Estimated Glomerular Filt Rate 54 ml/min (>60); GFR (African American) 65 ML/MIN (>60)
[2024-02-12 13:57] LABS: Albumin/Globulin Ratio 1.2 (1.1-1.8); Anion Gap 7.1 mEq/L (5-15); Calcium 9.3 mg/dl (8.4-10.2); Carbon Dioxide 26 mmol/L (22.0-30.0); Globulin 2.5 g/dL (1.3-3.2); Glucose 119 mg/dl (74-100); Total Protein,Serum 5.5 g/dl (6.3-8.2)
[2024-02-12 14:04] LABS: Basophils % 0.8 % (0.1-2.0); Eosinophils # 0.2 K/mm3 (0.0-0.4); Eosinophils % 5.7 % (0.1-12.0); Hematocrit 36.6 % (37.0-47.0); Hemoglobin 12.3 g/dL (12.2-16.2); Lymphocytes # 1.1 K/mm3 (0.7-4.5); Lymphocytes % 27.3 % (10-50); Mean Corpuscular HGB Conc 33.5 g/dL (31.8-35.4); Mean Corpuscular Hemoglobin 31.9 pg (27.0-31.2); Mean Corpuscular Volume 95.1 fl (81-99); Mean Platelet Volume 8.8 fl (7.4-10.4); Monocytes # 0.3 K/mm3 (0.1-1.0); Monocytes % 7.8 % (1.7-9.3); Neutrophils # 2.3 K/mm3 (1.8-7.8); Neutrophils % 58.5 % (37.0-80.0); Platelet Count 213 K/mm3 (142-424); Red Blood Count 3.85 M/mm3 (4.20-5.40); Red Cell Distribution Width 14.7 % (11.5-17.5)
--- NOTE | 2024-02-12 14:40 | PC.NURSE ---
1440-pt d/c home without treatment;pt md order.
== END 2024-02-12 14:40 | disposition home or self-care (01) ==
LOC: INF 13:27
PROVIDERS: PCP Family Medicine; Visit Provider Internal Medicine Medical Oncology
DX: C50.919 Malignant neoplasm of unspecified site of unspecified female breast (principal)
CPT/HCPCS: 36415; 80053; 85025

== ENCOUNTER 2024-02-17 10:49 | Outpatient (CLI) | payer MEDICARE, SELFPAY ==
--- NOTE | 2024-02-17 10:59 | CT_ITS ---
FINAL REPORT TECHNIQUE: After the administration of intravenous contrast, axial images through the chest were performed by computed tomography.This study was performed with techniques to keep radiation doses as low as reasonably achievable, (ALARA). Individualized dose reduction techniques using automated exposure control or adjustment of mA and/or kV according to the patient''s size were employed. CLINICAL HISTORY: hx breast cancer COMPARISON: 11/27/2023 FINDINGS: There is a left perihilar node measuring 12 x 7 mm, previously measured 17 x 12 mm. No new enlarged lymph nodes are identified. There are no suspicious pulmonary nodules. There are no pleural effusions. There are postoperative changes in the right breast with a spiculated mass-like density measuring 21 mm, previously 25 mm, compatible with postoperative change. There is a small hiatal hernia. IMPRESSION: Decreased in size left perihilar lymph node compatible with treatment response. No evidence of new metastatic disease. Reviewed, Interpreted and Dictated by Sumeet Stewart MD Transcribed by Portia Felton Authenticated and [facility]
--- NOTE | 2024-02-17 10:59 | CT_ITS ---
FINAL REPORT TECHNIQUE: After the administration of oral and intravenous contrast, axial images were obtained through the abdomen and pelvis by computed tomography. The study was performed with techniques to keep radiation dose as low as reasonably achievable, (ALARA). Individual dose reduction techniques using automated exposure control or adjustment of mA and/or kV according to the patient's size were employed. CLINICAL HISTORY: BREAST CANCER COMPARISON: 11/27/2023 FINDINGS: Abdomen: There is an ill-defined mass in the central right hepatic lobe measuring 25 x 23 mm, previously measured 45 x 40 mm. There is a posterior right liver lesion measuring 7 mm, previously measured 12 mm. No new liver lesions evident. Remaining solid organs are unremarkable. No bowel obstruction is present. There is no free air. No fluid collection is seen. Pelvis: The appendix is normal. There is mild sigmoid diverticulosis. The uterus and ovaries are unremarkable. There is no free fluid. There is redemonstration of blastic appearance of the T11 and L2 vertebral bodies. No new sclerotic lesions evident. IMPRESSION: Improved liver metastases. Stable thoracolumbar and bony metastases. Reviewed, Interpreted and Dictated by Sumeet Stewart MD Transcribed by Portia Felton Authenticated and [facility]
[2024-02-17] MEDS: SODIUM CHLORIDE 0.9% 10ML SYR (RAD ONLY) 10 ML IV (11:11)
[2024-02-17] MEDS: IOPAMIDOL-370 (76%);100ML BOTTLE 75 ML IV (11:11)
== END 2024-02-17 23:59 | disposition home or self-care (01) ==
LOC: RAD 10:50
PROVIDERS: PCP Family Medicine; Visit Provider Internal Medicine Medical Oncology
DX: C50.919 Malignant neoplasm of unspecified site of unspecified female breast (principal); Z17.0 Estrogen receptor positive status [ER+]
CPT/HCPCS: 71260; 74177; Q9967

== ENCOUNTER 2024-03-18 09:55 | Outpatient (CLI) | payer MEDICARE, SELFPAY ==
[2024-03-18 09:59] VITALS: BMI 33.0
--- NOTE | 2024-03-18 10:02 | PC.NURSE ---
1002-collected labs via venipuncture stick in left ac;pt to d/c home md to review labs.
[2024-03-18 10:12] LABS: Basophils % 0.7 % (0.1-2.0); Eosinophils # 0.2 K/mm3 (0.0-0.4); Eosinophils % 3.6 % (0.1-12.0); Hematocrit 39.6 % (37.0-47.0); Lymphocytes # 1.7 K/mm3 (0.7-4.5); Lymphocytes % 38.5 % (10-50); Mean Corpuscular HGB Conc 32.7 g/dL (31.8-35.4); Mean Corpuscular Hemoglobin 31.3 pg (27.0-31.2); Mean Corpuscular Volume 95.9 fl (81-99); Mean Platelet Volume 8.9 fl (7.4-10.4); Monocytes # 0.2 K/mm3 (0.1-1.0); Monocytes % 4.6 % (1.7-9.3); Neutrophils # 2.4 K/mm3 (1.8-7.8); Neutrophils % 52.6 % (37.0-80.0); Platelet Count 218 K/mm3 (142-424); Red Blood Count 4.13 M/mm3 (4.20-5.40); Red Cell Distribution Width 14.3 % (11.5-17.5); White Blood Count 4.5 K/mm3 (4.8-10.8)
[2024-03-18 10:16] LABS: Chloride 109 mmol/L (98-107); Potassium 4.2 mmoL/L (3.5-5.1); Sodium 142 mmol/L (136-145)
[2024-03-18 10:19] LABS: Alanine Aminotransferase 26 U/L (12-78); Albumin Level 3.8 g/dl (3.5-5.0); Albumin/Globulin Ratio 1.5 (1.1-1.8); Alkaline Phosphatase 53 U/L (38-126); Anion Gap 12.2 mEq/L (5-15); Aspartate Amino Transferase 35 U/L (14-36); Bilirubin,Total 0.5 mg/dl (0.2-1.3); Blood Urea Nitrogen 9 mg/dl (7-17); Carbon Dioxide 25 mmol/L (22.0-30.0); Creatinine Clearance Estimated 52 mL/min (50-200); Estimated Glomerular Filt Rate 48 ml/min (>60); GFR (African American) 58 ML/MIN (>60); Globulin 2.5 g/dL (1.3-3.2); Glucose 130 mg/dl (74-100); Total Protein,Serum 6.3 g/dl (6.3-8.2)
== END 2024-03-18 10:05 | disposition home or self-care (01) ==
LOC: INF 09:56
PROVIDERS: PCP Family Medicine; Visit Provider Internal Medicine Medical Oncology
DX: C50.911 Malignant neoplasm of unspecified site of right female breast (principal); Z79.899 Other long term (current) drug therapy
CPT/HCPCS: 36415; 80053; 85025

== ENCOUNTER 2024-04-01 10:06 | Outpatient (CLI) | payer MEDICARE, SELFPAY ==
[2024-04-01 10:12] VITALS: BMI 32.2
[2024-04-01 10:28] LABS: Basophils % 0.8 % (0.1-2.0); Eosinophils # 0.1 K/mm3 (0.0-0.4); Eosinophils % 2.9 % (0.1-12.0); Hematocrit 39.5 % (37.0-47.0); Lymphocytes # 1.4 K/mm3 (0.7-4.5); Lymphocytes % 32.6 % (10-50); Mean Corpuscular Hemoglobin 31.3 pg (27.0-31.2); Mean Corpuscular Volume 94.9 fl (81-99); Mean Platelet Volume 8.3 fl (7.4-10.4); Monocytes # 0.3 K/mm3 (0.1-1.0); Monocytes % 5.9 % (1.7-9.3); Neutrophils # 2.5 K/mm3 (1.8-7.8); Neutrophils % 57.8 % (37.0-80.0); Platelet Count 185 K/mm3 (142-424); Red Blood Count 4.16 M/mm3 (4.20-5.40); Red Cell Distribution Width 14.2 % (11.5-17.5); White Blood Count 4.3 K/mm3 (4.8-10.8)
[2024-04-01 10:36] LABS: Chloride 109 mmol/L (98-107); Potassium 3.9 mmoL/L (3.5-5.1); Sodium 141 mmol/L (136-145)
[2024-04-01 10:39] LABS: Alanine Aminotransferase 28 U/L (12-78); Albumin Level 3.9 g/dl (3.5-5.0); Albumin/Globulin Ratio 1.6 (1.1-1.8); Alkaline Phosphatase 55 U/L (38-126); Anion Gap 10.9 mEq/L (5-15); Aspartate Amino Transferase 35 U/L (14-36); Bilirubin,Total 0.4 mg/dl (0.2-1.3); Blood Urea Nitrogen 10 mg/dl (7-17); Carbon Dioxide 25 mmol/L (22.0-30.0); Creatinine Clearance Estimated 51 mL/min (50-200); Estimated Glomerular Filt Rate 48 ml/min (>60); GFR (African American) 58 ML/MIN (>60); Globulin 2.5 g/dL (1.3-3.2); Glucose 114 mg/dl (74-100); Total Protein,Serum 6.4 g/dl (6.3-8.2)
[2024-04-01 10:40] LABS: Calcium 9.8 mg/dl (8.4-10.2)
--- NOTE | 2024-04-01 10:47 | PC.NURSE ---
1020 CBC/CMP obtained via venipuncture to L AC with butterfly needle x1 stick. Patient tolerated well. Patient has appointment with Dr. Gutierrez this am at 1030.
[2024-04-01] MEDS: VITAMIN B-12 1,000 MCG 1ML VIAL 1000 MCG (11:39)
[2024-04-01 11:40] VITALS: BP 153/74; PULSE 60; RESP 18; TEMP 36.5; O2SAT 99
== END 2024-04-01 12:04 | disposition home or self-care (01) ==
LOC: INF 10:07
PROVIDERS: PCP Family Medicine; Visit Provider Internal Medicine Medical Oncology
DX: C50.919 Malignant neoplasm of unspecified site of unspecified female breast (principal); Z79.899 Other long term (current) drug therapy
CPT/HCPCS: 36415; 80053; 85025; 96372; J3420

== ENCOUNTER 2024-04-12 09:44 | Outpatient (CLI) | payer MEDICARE, SELFPAY ==
--- NOTE | 2024-04-12 09:45 | MM_ITS ---
PROCEDURE INFORMATION: Exam: MG Bilateral Screening 3D Mammography Exam date and time: 04/12/2024 9:38 AM Age: 78 years old Clinical indication: Screening examination; H/o RT breast cancer history, with lumpectomy TECHNIQUE: Imaging protocol: Bilateral Screening tomosynthesis and 2D mammography including computer-aided detection (CAD) when performed. COMPARISON: 1. MG MM DIG SCREENING MAMM BI W/CAD 04/10/2023 9:37 AM 2. MG MM DIG SCREENING MAMM BI W/CAD 04/08/2022 10:51 AM FINDINGS: MAMMOGRAPHY: Breast composition: There are scattered areas of fibroglandular density. Mass: None. Architectural distortion: Stable post operative architectural distortion in the right upper-outer quadrant due to prior lumpectomy for carcinoma. Calcifications: No suspicious calcifications. Asymmetric density: None. Skin thickening: None. Axillary adenopathy: None. IMPRESSION: No mammographic evidence of malignancy. Annual screening is recommended unless otherwise clinically indicated. ASSESSMENT: BI-RADS Category 2: Benign.
== END 2024-04-12 23:59 | disposition home or self-care (01) ==
LOC: RAD 09:45
PROVIDERS: PCP Family Medicine; Visit Provider Surgery
DX: Z12.31 Encounter for screening mammogram for malignant neoplasm of breast (principal)
CPT/HCPCS: 77063; 77067

== ENCOUNTER 2024-05-06 10:09 | Outpatient (CLI) | payer MEDICARE, SELFPAY ==
[2024-05-06 10:14] VITALS: BMI 32.2
[2024-05-06 10:15] VITALS: BP 154/87; PULSE 82; RESP 18; O2SAT 97
[2024-05-06] MEDS: VITAMIN B-12 1,000 MCG 1ML VIAL 1000 MCG IM (10:20)
[2024-05-06 10:30] LABS: Basophils % 0.8 % (0.1-2.0); Eosinophils # 0.2 K/mm3 (0.0-0.4); Eosinophils % 2.7 % (0.1-12.0); Hematocrit 39.2 % (37.0-47.0); Hemoglobin 12.9 g/dL (12.2-16.2); Lymphocytes # 1.6 K/mm3 (0.7-4.5); Lymphocytes % 29.2 % (10-50); Mean Corpuscular Hemoglobin 31.1 pg (27.0-31.2); Mean Corpuscular Volume 94.2 fl (81-99); Mean Platelet Volume 8.2 fl (7.4-10.4); Monocytes # 0.3 K/mm3 (0.1-1.0); Monocytes % 4.6 % (1.7-9.3); Neutrophils # 3.4 K/mm3 (1.8-7.8); Neutrophils % 62.6 % (37.0-80.0); Platelet Count 211 K/mm3 (142-424); Red Blood Count 4.16 M/mm3 (4.20-5.40); Red Cell Distribution Width 14.1 % (11.5-17.5); White Blood Count 5.5 K/mm3 (4.8-10.8)
[2024-05-06 10:31] LABS: Chloride 109 mmol/L (98-107); Sodium 139 mmol/L (136-145)
[2024-05-06 10:33] LABS: Blood Urea Nitrogen 13 mg/dl (7-17); Creatinine Clearance Estimated 46 mL/min (50-200); Estimated Glomerular Filt Rate 44 ml/min (>60); GFR (African American) 53 ML/MIN (>60)
[2024-05-06 10:34] LABS: Alanine Aminotransferase 24 U/L (12-78); Albumin Level 3.7 g/dl (3.5-5.0); Albumin/Globulin Ratio 1.5 (1.1-1.8); Alkaline Phosphatase 58 U/L (38-126); Aspartate Amino Transferase 33 U/L (14-36); Bilirubin,Total 0.4 mg/dl (0.2-1.3); Calcium 9.9 mg/dl (8.4-10.2); Carbon Dioxide 27 mmol/L (22.0-30.0); Globulin 2.4 g/dL (1.3-3.2); Glucose 122 mg/dl (74-100); Total Protein,Serum 6.1 g/dl (6.3-8.2)
== END 2024-05-06 10:25 | disposition home or self-care (01) ==
LOC: INF 10:10
PROVIDERS: PCP Family Medicine; Visit Provider Internal Medicine Medical Oncology
DX: C50.919 Malignant neoplasm of unspecified site of unspecified female breast (principal)
CPT/HCPCS: 36415; 80053; 85025; 96372; J3420

== ENCOUNTER 2024-05-24 08:31 | Outpatient (CLI) | payer MEDICARE, SELFPAY ==
--- NOTE | 2024-05-24 08:39 | CT_ITS ---
FINAL REPORT CLINICAL HISTORY: hx breast cancer COMPARISON: 02/17/2024 FINDINGS: CT OF THE ABDOMEN AND PELVIS WITH CONTRAST Axial CT images of the abdomen and pelvis were obtained after the administration of oral and iv contrast. Coronal reformatted images were also obtained and reviewed.This study was performed with techniques to keep radiation doses as low as reasonably achievable (ALARA). Individualized dose reduction techniques using automated exposure control or adjustment of mA and/or kV according to the patient's size were employed. Abdomen: Mass in the central liver measures 37 x 36 mm and was 25 x 23 mm. Mass in the posterior medial liver dome measures 17 mm and was 7 mm. There are several new hepatic masses consistent with new hepatic metastases. Mass in the medial segment of the left hepatic lobe measures 16 mm. The spleen is unremarkable. No adrenal mass is present. The pancreas has an unremarkable appearance. The kidneys are normal, without evidence of mass or hydronephrosis. The aorta is normal in caliber. There is no free fluid or adenopathy. Pelvis: The appendix is normal. There are multiple sigmoid diverticula. The urinary bladder is unremarkable. There is no evidence of bowel obstruction. Stranding in the gluteus subcutaneous tissues is likely inflammatory change. There are stable sclerotic areas in the T11 and L2 vertebra consistent with bony metastatic disease. IMPRESSION: Worsening hepatic metastatic disease. Stable bony metastatic disease. Reviewed, Interpreted and Dictated by Lane Momin III, MD Transcribed by Portia Felton Authenticated and [facility]
--- NOTE | 2024-05-24 08:40 | CT_ITS ---
FINAL REPORT CLINICAL HISTORY: BREAST CANCER COMPARISON: 02/17/2024 FINDINGS: Axial CT images of the chest were obtained with contrast. Coronal reformatted images were also obtained. This study was performed with techniques to keep radiation doses as low as reasonably achievable, (ALARA). Individualized dose reduction techniques using automated exposure control or adjustment of mA and/or KV according to the patient's size were employed. Anterior left hilar node measures 9 x 7 mm and previously measured 12 x 7 mm. There is no new mass or adenopathy. There are several borderline left axillary nodes measuring up to 11 mm and previously measured up to 5 mm. These are reactive or neoplastic. There are postoperative changes in the superolateral right mediastinum and right axilla. There is a persistent spiculated soft tissue opacity in the superolateral right breast measuring 3 cm and stable. This is favored to represent posttreatment change. On lung window images, no pulmonary mass or dominant pulmonary nodule is identified. There is a calcified granuloma in the superior segment of the left lower lobe. Mild scarring is noted. Sclerotic masses in the left scapula and T11 vertebra are consistent with bony metastatic disease which has not significantly changed. Calcifications in the anterior left shoulder may represent loose bodies. IMPRESSION: Left axillary nodes increased in size, reactive or neoplastic. Recommend CT or PET/CT. Other findings as described are not significantly changed from prior. Reviewed, Interpreted and Dictated by Lane Momin III, MD Transcribed by Portia Felton Authenticated and [facility]
[2024-05-24] MEDS: IOPAMIDOL-370 (76%);100ML BOTTLE 75 ML IV (09:23)
[2024-05-24] MEDS: SODIUM CHLORIDE 0.9% 10ML SYR (RAD ONLY) 10 ML IV (09:23)
== END 2024-05-24 23:59 | disposition home or self-care (01) ==
LOC: RAD 08:31
PROVIDERS: PCP Family Medicine; Visit Provider Internal Medicine Medical Oncology
DX: C50.911 Malignant neoplasm of unspecified site of right female breast (principal); Z17.0 Estrogen receptor positive status [ER+]
CPT/HCPCS: 71260; 74177; Q9967

== ENCOUNTER 2024-06-03 09:56 | Outpatient (CLI) | payer MEDICARE, SELFPAY ==
[2024-06-03 10:11] VITALS: BMI 33.2
[2024-06-03 10:19] VITALS: BP 160/92; PULSE 81; RESP 17; O2SAT 99
[2024-06-03] MEDS: VITAMIN B-12 1,000 MCG 1ML VIAL 1000 MCG IM (10:19)
[2024-06-03 10:31] LABS: Basophils % 0.6 % (0.1-2.0); Eosinophils # 0.1 K/mm3 (0.0-0.4); Eosinophils % 3.1 % (0.1-12.0); Hematocrit 39.3 % (37.0-47.0); Hemoglobin 12.4 g/dL (12.2-16.2); Lymphocytes # 1.2 K/mm3 (0.7-4.5); Lymphocytes % 25.4 % (10-50); Mean Corpuscular HGB Conc 31.6 g/dL (31.8-35.4); Mean Corpuscular Hemoglobin 30.1 pg (27.0-31.2); Mean Corpuscular Volume 95.3 fl (81-99); Mean Platelet Volume 8.5 fl (7.4-10.4); Monocytes # 0.2 K/mm3 (0.1-1.0); Monocytes % 5.3 % (1.7-9.3); Neutrophils % 65.6 % (37.0-80.0); Platelet Count 224 K/mm3 (142-424); Red Blood Count 4.12 M/mm3 (4.20-5.40); Red Cell Distribution Width 14.2 % (11.5-17.5); White Blood Count 4.6 K/mm3 (4.8-10.8)
[2024-06-03 10:36] LABS: Albumin Level 3.7 g/dl (3.5-5.0); Chloride 109 mmol/L (98-107); Potassium 4.1 mmoL/L (3.5-5.1); Sodium 139 mmol/L (136-145)
[2024-06-03 10:38] LABS: Alanine Aminotransferase 28 U/L (12-78); Albumin/Globulin Ratio 1.5 (1.1-1.8); Alkaline Phosphatase 72 U/L (38-126); Anion Gap 8.1 mEq/L (5-15); Aspartate Amino Transferase 39 U/L (14-36); Bilirubin,Total 0.5 mg/dl (0.2-1.3); Blood Urea Nitrogen 14 mg/dl (7-17); Carbon Dioxide 26 mmol/L (22.0-30.0); Creatinine Clearance Estimated 47 mL/min (50-200); Estimated Glomerular Filt Rate 43 ml/min (>60); GFR (African American) 53 ML/MIN (>60); Globulin 2.4 g/dL (1.3-3.2); Total Protein,Serum 6.1 g/dl (6.3-8.2)
[2024-06-03 10:39] LABS: Calcium 9.5 mg/dl (8.4-10.2); Cholesterol 179 mg/dl (140-200); Glucose 140 mg/dl (74-100); HDL Cholesterol 60 mg/dl (40-60); Triglycerides 187 mg/dl (30-150); VLDL Cholesterol 37 mg/dL (0-40)
[2024-06-03 10:50] LABS: Direct LDL Cholesterol 74.94 mg/dL (100-129)
== END 2024-06-03 10:30 | disposition home or self-care (01) ==
LOC: INF 09:57
PROVIDERS: PCP Family Medicine; Visit Provider Internal Medicine Medical Oncology
DX: C50.919 Malignant neoplasm of unspecified site of unspecified female breast (principal); Z79.899 Other long term (current) drug therapy
CPT/HCPCS: 36415; 80053; 80061; 85025; 96372; J3420

== ENCOUNTER 2024-06-10 18:36 | Outpatient (CLI) | payer MEDICARE, SELFPAY ==
--- NOTE | 2024-06-10 18:38 | MR_ITS ---
PROCEDURE INFORMATION: Exam: MR Left Upper Extremity Joint Without and With Contrast; Shoulder Exam date and time: 06/10/2024 7:15 PM Age: 79 years old Clinical indication: Pain; Shoulder; Left; Patient HX: Lrom x 1 month. PT has breast cancer , currently on chemo pills; Additional info: Left shoulder pain / breast cancer TECHNIQUE: Imaging protocol: Magnetic resonance imaging of the left upper extremity without and with contrast. Exam focused on the shoulder. Contrast material: PROHACNCE; Contrast volume: 15 ml; Contrast route: IV; COMPARISON: MR SHOULDER LT WO CON 06/20/2020 8:59 AM FINDINGS: Bones/joints: Severe osteoarthritic changes in the left glenohumeral joint with joint space narrowing, subarticular sclerosis, chondral denudement, and inferior spurring. Small volume joint effusion, with a few chronic ossific bodies in the subcoracoid recess measuring 10 mm and 14 mm respectively. No glenohumeral dislocation. Moderate left AC joint osteoarthritic hypertrophy. Glenoid labrum: Extensive degenerative labral tear. Supraspinatus tendon: Supraspinatus tendon demonstrates distal tendinosis without high-grade tear. Infraspinatus tendon: Infraspinatus tendon is intact but demonstrates mild distal tendinopathy. Subscapularis tendon: Subscapularis tendon intact. Teres minor tendon: Teres minor intact. Tendon of biceps brachii: Biceps long head tendon is intact and well-positioned. Soft tissues: There is extensive left scapular mixed sclerosis with T2 hyperintense and T1 hypointense elements which likely largely represents treated metastasis given the similarity to MRI 06/20/2020, however a dominant mass in the scapular spine compressing or infiltrating the adjacent supraspinatus and infraspinatus musculature and demonstrating transscapular extension to infiltrate the subscapularis musculature is significantly increased in size from comparison CT 02/17/2024 measuring 5.7 x 4.1 x 5.2 cm, concerning for recurrent metastatic progression. Mild left axillary vinay enlargement. IMPRESSION: 1. Large mass centered in the scapular spine with adjacent muscular infiltration, concerning for recurrent metastatic progression, significantly increased in size from CT 02/17/2024. 2. Underlying changes of chronic treated metastasis in the left scapula. 3. Severe osteoarthritic changes in the left glenohumeral joint with extensive degenerative labral tear and chondral denudement. 4. Mild tendinosis in the distal supraspinatus and infraspinatus tendons with no high-grade cuff tear. 5. Mildly enlarged left axillary nodes. 6. Chronic large intra-articular ossifications in the subcoracoid recess unchanged, with small shoulder joint effusion.
[2024-06-10] MEDS: GADOTERIDOL INJ 20ML SYRINGE 15 ML IV (20:10)
[2024-06-10] MEDS: SODIUM CHLORIDE 0.9% 10ML SYR (RAD ONLY) 10 ML IV (20:10)
== END 2024-06-10 23:59 | disposition home or self-care (01) ==
LOC: RAD 18:36
PROVIDERS: PCP Family Medicine; Visit Provider Internal Medicine Medical Oncology
DX: C50.919 Malignant neoplasm of unspecified site of unspecified female breast (principal); C79.51 Secondary malignant neoplasm of bone
CPT/HCPCS: 73223; A9576

== ENCOUNTER 2024-06-24 10:01 | Outpatient (CLI) | payer MEDICARE, SELFPAY ==
--- OUTSIDE RECORDS SUMMARY | 2024-06-24 10:03 | XMS_ITS ---
Author Organization [facility] No information ASSESSMENT No information CHIEF COMPLAINT No information Medications Date Medication Dosage Dosageunit Startdate Active Dispense Refills Ndccode Isprescription Srcstatus 11/19 00:00 :00 Bystolic 10 MG Tablet 11/17/2019 00:00:00 0 30 Tablet 11 [id number] 030 Discontinu ed 11/19 00:00 :00 Cyanocobala min 1000 MCG/ML Solution null 1 [id number] 901 Taking 11/19 00:00 :00 Faslodex 250 MG/5ML Solution null 0 10 [id number] 010 Discontinu ed 11/19 00:00 :00 Gemfibrozil 600 MG Tablet null 1 180 Tablet 3 [id number] 105 P Not Taking 11/19 00:00 :00 Ibrance 125 MG Tablet null 1 21 [id number] 803 Taking 11/19 00:00 :00 Letrozole 2.5 MG Tablet null 1 [id number] 056 Taking 11/19 00:00 :00 Nebivolol HCl 10 MG Tablet null 1 30 Tablet 11 [id number] 004 P Refill 11/19 00:00 :00 Nebivolol HCl 10 MG Tablet null 1 [id number] 004 Taking 02/24 00:00 :00 Pravastatin Sodium 40 MG Tablet null 1 90 3 [id number] 105 P Refill 11/19 00:00 :00 Pravastatin Sodium 40 MG Tablet null 1 90 3 [id number] 105 P Taking 11/19 00:00 :00 Prolia 60 MG/ML Solution Prefilled Syringe 05/31/2020 00:00:00 1 [id number] 001 Taking 11/19 00:00 :00 Tamoxifen Citrate 20 MG Tablet null 1 [id number] 201 Not Taking 11/19 00:00 :00 Triamcinolo ne Acetonide 0.1 % Cream 03/21/2022 00:00:00 0 1 0 [id number] 415 P Discontinu ed 11/19 00:00 :00 Vitamin B6 50 MG Tablet null 1 30 [id number] 17 Taking 11/19 00:00 :00 Vitamin D (Ergocalcif matt) 1.25 MG (51032 UT) Capsule 11/27/2021 00:00:00 0 12 1 [id number] 601 P Discontinu ed OBJECTIVE DATA No information PHYSICAL EXAMINATION No information TREATMENT PLAN No information PROBLEMS No information RESULTS No information REVIEW OF SYSTEMS No information SUBJECTIVE DATA No information VITAL SIGNS No information
[2024-06-24 10:08] VITALS: BMI 31.2
[2024-06-24 10:17] VITALS: BP 150/62; PULSE 63; RESP 16; TEMP 36.4; O2SAT 98
[2024-06-24] MEDS: VITAMIN B-12 1,000 MCG 1ML VIAL 1000 MCG IM (10:17)
[2024-06-24 10:32] LABS: Basophils # 0.1 K/mm3 (0-0.2); Basophils % 0.9 % (0.1-2.0); Eosinophils # 0.5 K/mm3 (0.0-0.4); Eosinophils % 10.3 % (0.1-12.0); Hemoglobin 12.6 g/dL (12.2-16.2); Lymphocytes # 1.1 K/mm3 (0.7-4.5); Lymphocytes % 20.9 % (10-50); Mean Corpuscular HGB Conc 31.6 g/dL (31.8-35.4); Mean Corpuscular Volume 94.8 fl (81-99); Mean Platelet Volume 8.8 fl (7.4-10.4); Monocytes # 0.2 K/mm3 (0.1-1.0); Monocytes % 4.7 % (1.7-9.3); Neutrophils # 3.3 K/mm3 (1.8-7.8); Neutrophils % 63.1 % (37.0-80.0); Platelet Count 254 K/mm3 (142-424); Red Blood Count 4.22 M/mm3 (4.20-5.40); Red Cell Distribution Width 14.3 % (11.5-17.5); White Blood Count 5.2 K/mm3 (4.8-10.8)
[2024-06-24 11:05] LABS: Albumin Level 3.5 g/dl (3.5-5.0); Chloride 110 mmol/L (98-107); Potassium 4.1 mmoL/L (3.5-5.1); Sodium 137 mmol/L (136-145)
[2024-06-24 11:08] LABS: Alanine Aminotransferase 70 U/L (12-78); Albumin/Globulin Ratio 1.5 (1.1-1.8); Alkaline Phosphatase 126 U/L (38-126); Anion Gap 6.1 mEq/L (5-15); Aspartate Amino Transferase 62 U/L (14-36); Bilirubin,Total 0.5 mg/dl (0.2-1.3); Blood Urea Nitrogen 12 mg/dl (7-17); Calcium 9.3 mg/dl (8.4-10.2); Carbon Dioxide 25 mmol/L (22.0-30.0); Creatinine Clearance Estimated 44 mL/min (50-200); Estimated Glomerular Filt Rate 43 ml/min (>60); GFR (African American) 53 ML/MIN (>60); Globulin 2.4 g/dL (1.3-3.2); Glucose 188 mg/dl (74-100); Total Protein,Serum 5.9 g/dl (6.3-8.2)
== END 2024-06-24 10:22 | disposition home or self-care (01) ==
LOC: INF 10:02
PROVIDERS: PCP Family Medicine; Visit Provider Internal Medicine Medical Oncology
DX: C50.919 Malignant neoplasm of unspecified site of unspecified female breast (principal)
CPT/HCPCS: 36415; 80053; 85025; 96372; J3420

== ENCOUNTER 2024-07-07 09:41 | Outpatient (CLI) | payer MEDICARE, SELFPAY ==
[2024-07-07 10:08] VITALS: BMI 32.8
--- NOTE | 2024-07-07 10:10 | PC.NURSE ---
1010-collected labs via venipuncture stick in left ac with butterfly needle;pt to oncology appt.
[2024-07-07 10:30] LABS: Basophils % 0.4 % (0.1-2.0); Eosinophils # 0.3 K/mm3 (0.0-0.4); Eosinophils % 8.3 % (0.1-12.0); Hematocrit 38.7 % (37.0-47.0); Hemoglobin 12.4 g/dL (12.2-16.2); Lymphocytes # 1.2 K/mm3 (0.7-4.5); Lymphocytes % 28.9 % (10-50); Mean Corpuscular HGB Conc 31.9 g/dL (31.8-35.4); Mean Corpuscular Hemoglobin 30.6 pg (27.0-31.2); Mean Corpuscular Volume 95.8 fl (81-99); Mean Platelet Volume 7.8 fl (7.4-10.4); Monocytes # 0.3 K/mm3 (0.1-1.0); Monocytes % 6.5 % (1.7-9.3); Neutrophils # 2.3 K/mm3 (1.8-7.8); Neutrophils % 55.8 % (37.0-80.0); Platelet Count 192 K/mm3 (142-424); Red Blood Count 4.04 M/mm3 (4.20-5.40); Red Cell Distribution Width 14.3 % (11.5-17.5); White Blood Count 4.1 K/mm3 (4.8-10.8)
[2024-07-07 10:42] LABS: Albumin Level 3.7 g/dl (3.5-5.0); Chloride 110 mmol/L (98-107); Potassium 4.1 mmoL/L (3.5-5.1); Sodium 139 mmol/L (136-145)
[2024-07-07 10:44] LABS: Blood Urea Nitrogen 12 mg/dl (7-17); Creatinine Clearance Estimated 46 mL/min (50-200); Estimated Glomerular Filt Rate 43 ml/min (>60); GFR (African American) 53 ML/MIN (>60)
[2024-07-07 10:45] LABS: Alanine Aminotransferase 80 U/L (12-78); Albumin/Globulin Ratio 1.6 (1.1-1.8); Alkaline Phosphatase 112 U/L (38-126); Anion Gap 7.1 mEq/L (5-15); Aspartate Amino Transferase 50 U/L (14-36); Bilirubin,Total 0.6 mg/dl (0.2-1.3); Calcium 9.5 mg/dl (8.4-10.2); Carbon Dioxide 26 mmol/L (22.0-30.0); Globulin 2.3 g/dL (1.3-3.2); Glucose 151 mg/dl (74-100)
== END 2024-07-07 10:10 | disposition home or self-care (01) ==
LOC: INF 09:43
PROVIDERS: PCP Family Medicine; Visit Provider Internal Medicine Medical Oncology
DX: C50.919 Malignant neoplasm of unspecified site of unspecified female breast (principal)
CPT/HCPCS: 36415; 80053; 85025

== ENCOUNTER 2024-08-12 09:36 | Outpatient (CLI) | payer MEDICARE, SELFPAY ==
[2024-08-12 09:43] VITALS: BMI 32.4
[2024-08-12] MEDS: VITAMIN B-12 1,000 MCG 1ML VIAL 1000 MCG IM (09:45)
[2024-08-12 09:50] VITALS: BP 182/77; PULSE 64; RESP 18; O2SAT 97
[2024-08-12 10:01] LABS: Basophils % 0.4 % (0.1-2.0); Eosinophils # 0.3 K/mm3 (0.0-0.4); Eosinophils % 7.5 % (0.1-12.0); Hematocrit 38.1 % (37.0-47.0); Hemoglobin 12.8 g/dL (12.2-16.2); Lymphocytes # 0.9 K/mm3 (0.7-4.5); Lymphocytes % 25.2 % (10-50); Mean Corpuscular HGB Conc 33.5 g/dL (31.8-35.4); Mean Corpuscular Hemoglobin 30.6 pg (27.0-31.2); Mean Corpuscular Volume 91.4 fl (81-99); Mean Platelet Volume 8.5 fl (7.4-10.4); Monocytes # 0.3 K/mm3 (0.1-1.0); Monocytes % 8.1 % (1.7-9.3); Neutrophils # 2.2 K/mm3 (1.8-7.8); Neutrophils % 58.8 % (37.0-80.0); Platelet Count 173 K/mm3 (142-424); Red Blood Count 4.17 M/mm3 (4.20-5.40); Red Cell Distribution Width 14.4 % (11.5-17.5); White Blood Count 3.7 K/mm3 (4.8-10.8)
[2024-08-12 10:04] LABS: Albumin Level 3.8 g/dl (3.5-5.0); Chloride 107 mmol/L (98-107); Sodium 138 mmol/L (136-145)
[2024-08-12 10:07] LABS: Alanine Aminotransferase 48 U/L (12-78); Aspartate Amino Transferase 42 U/L (14-36); Blood Urea Nitrogen 11 mg/dl (7-17); Carbon Dioxide 25 mmol/L (22.0-30.0); Creatinine Clearance Estimated 46 mL/min (50-200); Estimated Glomerular Filt Rate 43 ml/min (>60); GFR (African American) 53 ML/MIN (>60)
[2024-08-12 10:08] LABS: Albumin/Globulin Ratio 1.7 (1.1-1.8); Alkaline Phosphatase 83 U/L (38-126); Bilirubin,Total 0.4 mg/dl (0.2-1.3); Calcium 9.4 mg/dl (8.4-10.2); Globulin 2.3 g/dL (1.3-3.2); Glucose 222 mg/dl (74-100); Total Protein,Serum 6.1 g/dl (6.3-8.2)
== END 2024-08-12 09:50 | disposition home or self-care (01) ==
LOC: INF 09:38
PROVIDERS: PCP Family Medicine; Visit Provider Internal Medicine Medical Oncology
DX: C50.919 Malignant neoplasm of unspecified site of unspecified female breast (principal)
CPT/HCPCS: 36415; 80053; 85025; 96372; J3420

== ENCOUNTER 2024-08-13 09:48 | Outpatient (CLI) | payer MEDICARE, SELFPAY ==
[2024-08-13 09:53] VITALS: BMI 32.2
--- NOTE | 2024-08-13 09:55 | PC.NURSE ---
0955-collected labs via venipuncture stick in left ac with butterfly needle; to call pt with results.
[2024-08-13 10:17] LABS: Glucose,Fasting 195 mg/dl (74-100)
[2024-08-13 11:17] LABS: Hemoglobin A1C 7.2 % (4.0-6.0)
== END 2024-08-13 09:58 | disposition home or self-care (01) ==
LOC: INF 09:49
PROVIDERS: PCP Family Medicine; Visit Provider Internal Medicine Medical Oncology
DX: Z79.899 Other long term (current) drug therapy (principal)
CPT/HCPCS: 36415; 82947; 83036

== ENCOUNTER 2024-08-17 12:50 | Outpatient (CLI) | payer MEDICARE, SELFPAY ==
[2024-08-17 13:07] VITALS: BP 152/76; PULSE 63; RESP 18; TEMP 36.6; O2SAT 98
[2024-08-17] MEDS: DENOSUMAB 120MG/1.7ML VIAL 120 MG SUBCUT (13:07)
== END 2024-08-17 13:20 | disposition home or self-care (01) ==
LOC: INF 12:51
PROVIDERS: PCP Family Medicine; Visit Provider Internal Medicine Medical Oncology
DX: C50.019 Malignant neoplasm of nipple and areola, unspecified female breast (principal)
CPT/HCPCS: 96372; J0897

== ENCOUNTER 2024-09-02 09:19 | Outpatient (CLI) | payer MEDICARE, SELFPAY ==
--- NOTE | 2024-09-02 09:21 | CT_ITS ---
FINAL REPORT CLINICAL HISTORY: .BREAST CANCER COMPARISON: 05/24/2024 FINDINGS: CT OF THE ABDOMEN AND PELVIS WITH CONTRAST Axial CT images of the abdomen and pelvis were obtained after the administration of oral and iv contrast. Coronal reformatted images were also obtained and reviewed.This study was performed with techniques to keep radiation doses as low as reasonably achievable (ALARA). Individualized dose reduction techniques using automated exposure control or adjustment of mA and/or kV according to the patient's size were employed. Abdomen: Again noted are multiple hepatic masses consistent with hepatic metastatic disease. The central liver mass now measures 33 x 32 mm and previously measured 37 x 36 mm. The mass in the posterior medial liver dome at the same level now measures 10 mm and previously measured 16 mm. Several other hepatic masses are also somewhat improved. The spleen is unremarkable. No adrenal mass is present. The pancreas has an unremarkable appearance. The kidneys are normal, without evidence of mass or hydronephrosis. The aorta is normal in caliber. There is no free fluid or adenopathy. No mass or abnormal fluid collection is seen. Pelvis: The appendix is not well-visualized. There are multiple sigmoid diverticula noted. The urinary bladder is unremarkable. Stranding in the gluteus subcutaneous tissues is likely inflammatory. There is no evidence of mass or adenopathy. There is no evidence of bowel obstruction. Sclerotic metastases in the T11 and L1 vertebral bodies are visually stable. IMPRESSION: Improved hepatic metastatic disease. Stable bony metastatic disease. Reviewed, Interpreted and Dictated by Lane Momin III, MD Transcribed by Portia Felton Authenticated and [facility]
--- NOTE | 2024-09-02 09:40 | CT_ITS ---
FINAL REPORT CLINICAL HISTORY: .BREAST CANCER COMPARISON: 05/24/2024 FINDINGS: Axial CT images of the chest were obtained with contrast. Coronal reformatted images were also obtained. This study was performed with techniques to keep radiation doses as low as reasonably achievable, (ALARA). Individualized dose reduction techniques using automated exposure control or adjustment of mA and/or KV according to the patient's size were employed. There are postoperative changes in the right breast which are stable. There is no evidence of new mediastinal or hilar mass or adenopathy. There has been interval improvement in the left axillary adenopathy which was of uncertain significance. On lung window images, there is a calcified granuloma in the left lower lobe. There are no new mass or nodules identified. Increased sclerosis in the left scapula may represent healing metastasis. There is no significant change of the T11 sclerotic metastasis. Possible loose bodies are seen in both shoulders. IMPRESSION: Improved left axillary adenopathy. Increased sclerosis left scapula may represent healing. Stable T11 metastasis. Reviewed, Interpreted and Dictated by Lane Momin III, MD Transcribed by Portia Felton Authenticated and [facility]
[2024-09-02] MEDS: SODIUM CHLORIDE 0.9% 10ML SYR (RAD ONLY) 10 ML IV (10:06)
[2024-09-02] MEDS: BARIUM SULFATE(READI-CAT2);450ML BOTTLE 450 ML PO (10:06)
[2024-09-02] MEDS: IOPAMIDOL-370 (76%);100ML BOTTLE 75 ML IV (10:06)
== END 2024-09-02 23:59 | disposition home or self-care (01) ==
LOC: RAD 09:21
PROVIDERS: PCP Family Medicine; Visit Provider Internal Medicine Medical Oncology
DX: C50.911 Malignant neoplasm of unspecified site of right female breast (principal); C79.51 Secondary malignant neoplasm of bone; Z17.0 Estrogen receptor positive status [ER+]
CPT/HCPCS: 71260; 74177; Q9967

== ENCOUNTER 2024-09-09 12:33 | Outpatient (CLI) | payer MEDICARE, SELFPAY ==
[2024-09-09 12:40] VITALS: BMI 32.2
[2024-09-09] MEDS: VITAMIN B-12 1,000 MCG 1ML VIAL 1000 MCG (12:53)
[2024-09-09 12:55] VITALS: BP 191/77; PULSE 76; RESP 18; O2SAT 98
[2024-09-09 12:57] LABS: Basophils % 0.5 % (0.1-2.0); Eosinophils # 0.2 K/mm3 (0.0-0.4); Eosinophils % 4.8 % (0.1-12.0); Hematocrit 37.4 % (37.0-47.0); Hemoglobin 12.9 g/dL (12.2-16.2); Lymphocytes # 1.3 K/mm3 (0.7-4.5); Lymphocytes % 26.1 % (10-50); Mean Corpuscular HGB Conc 34.5 g/dL (31.8-35.4); Mean Corpuscular Hemoglobin 31.1 pg (27.0-31.2); Mean Corpuscular Volume 90.2 fl (81-99); Mean Platelet Volume 7.9 fl (7.4-10.4); Monocytes # 0.3 K/mm3 (0.1-1.0); Monocytes % 5.1 % (1.7-9.3); Neutrophils # 3.1 K/mm3 (1.8-7.8); Neutrophils % 63.5 % (37.0-80.0); Platelet Count 218 K/mm3 (142-424); Red Blood Count 4.14 M/mm3 (4.20-5.40); Red Cell Distribution Width 14.4 % (11.5-17.5); White Blood Count 4.8 K/mm3 (4.8-10.8)
[2024-09-09 13:04] LABS: Albumin Level 3.9 g/dl (3.5-5.0); Chloride 109 mmol/L (98-107); Sodium 139 mmol/L (136-145)
[2024-09-09 13:06] LABS: Blood Urea Nitrogen 17 mg/dl (7-17); Creatinine Clearance Estimated 50 mL/min (50-200); Estimated Glomerular Filt Rate 48 ml/min (>60); GFR (African American) 58 ML/MIN (>60)
[2024-09-09 13:07] LABS: Alanine Aminotransferase 25 U/L (12-78); Albumin/Globulin Ratio 1.6 (1.1-1.8); Alkaline Phosphatase 71 U/L (38-126); Aspartate Amino Transferase 30 U/L (14-36); Bilirubin,Total 0.5 mg/dl (0.2-1.3); Calcium 9.1 mg/dl (8.4-10.2); Carbon Dioxide 22 mmol/L (22.0-30.0); Globulin 2.4 g/dL (1.3-3.2); Glucose 215 mg/dl (74-100); Total Protein,Serum 6.3 g/dl (6.3-8.2)
== END 2024-09-09 12:55 | disposition home or self-care (01) ==
LOC: INF 12:35
PROVIDERS: PCP Family Medicine; Visit Provider Internal Medicine Medical Oncology
DX: C50.919 Malignant neoplasm of unspecified site of unspecified female breast (principal)
CPT/HCPCS: 36415; 80053; 85025; 96372; J3420

== ENCOUNTER 2024-10-07 10:33 | Outpatient (CLI) | payer MEDICARE, SELFPAY ==
[2024-10-07 10:50] VITALS: BP 137/72; PULSE 76; RESP 18; TEMP 36.8; O2SAT 98
[2024-10-07] MEDS: VITAMIN B-12 1,000 MCG 1ML VIAL 1000 MCG IM (10:50)
[2024-10-07 11:01] LABS: Albumin Level 3.7 g/dl (3.5-5.0); Chloride 110 mmol/L (98-107); Potassium 4.2 mmoL/L (3.5-5.1); Sodium 135 mmol/L (136-145)
[2024-10-07 11:03] LABS: Blood Urea Nitrogen 13 mg/dl (7-17); Estimated Glomerular Filt Rate 43 ml/min (>60); GFR (African American) 53 ML/MIN (>60)
[2024-10-07 11:04] LABS: Alanine Aminotransferase 27 U/L (12-78); Albumin/Globulin Ratio 1.7 (1.1-1.8); Alkaline Phosphatase 60 U/L (38-126); Anion Gap 6.2 mEq/L (5-15); Aspartate Amino Transferase 39 U/L (14-36); Bilirubin,Total 0.4 mg/dl (0.2-1.3); Carbon Dioxide 23 mmol/L (22.0-30.0); Globulin 2.2 g/dL (1.3-3.2); Glucose 208 mg/dl (74-100); Total Protein,Serum 5.9 g/dl (6.3-8.2)
[2024-10-07 11:42] LABS: Hemoglobin 12.1 g/dL (12.2-16.2); Red Blood Count 4.03 M/mm3 (4.20-5.40); White Blood Count 5.7 K/mm3 (4.8-10.8)
[2024-10-07 11:43] LABS: Eosinophils % 4.6 % (0.1-12.0); Hematocrit 36.1 % (37.0-47.0); Mean Corpuscular HGB Conc 33.5 g/dL (31.8-35.4); Mean Corpuscular Volume 89.6 fl (81-99); Mean Platelet Volume 9.3 fl (7.4-10.4); Monocytes % 7.3 % (1.7-9.3); Neutrophils % 59.3 % (37.0-80.0); Platelet Count 194 K/mm3 (142-424); Red Cell Distribution Width 13.3 % (11.5-17.5)
[2024-10-07 11:44] LABS: Basophils % 0.4 % (0.1-2.0); Eosinophils # 0.3 K/mm3 (0.0-0.4); Lymphocytes # 1.6 K/mm3 (0.7-4.5); Monocytes # 0.4 K/mm3 (0.1-1.0); Neutrophils # 3.4 K/mm3 (1.8-7.8)
== END 2024-10-07 10:55 | disposition home or self-care (01) ==
LOC: INF 10:34
PROVIDERS: PCP Family Medicine; Visit Provider Internal Medicine Medical Oncology
DX: C50.919 Malignant neoplasm of unspecified site of unspecified female breast (principal); C79.51 Secondary malignant neoplasm of bone
CPT/HCPCS: 80053; 85025; 96372; J3420

== ENCOUNTER 2024-11-04 09:53 | Outpatient (CLI) | payer MEDICARE, SELFPAY ==
[2024-11-04] MEDS: VITAMIN B-12 1,000 MCG 1ML VIAL 1000 MCG (10:10)
[2024-11-04 10:14] VITALS: BP 180/75; PULSE 80; RESP 18; O2SAT 97
[2024-11-04 11:22] LABS: Albumin Level 3.8 g/dl (3.5-5.0); Chloride 107 mmol/L (98-107); Potassium 4.2 mmoL/L (3.5-5.1); Sodium 136 mmol/L (136-145)
[2024-11-04 11:25] LABS: Alanine Aminotransferase 30 U/L (12-78); Albumin/Globulin Ratio 1.7 (1.1-1.8); Alkaline Phosphatase 56 U/L (38-126); Anion Gap 11.2 mEq/L (5-15); Aspartate Amino Transferase 39 U/L (14-36); Bilirubin,Total 0.4 mg/dl (0.2-1.3); Blood Urea Nitrogen 17 mg/dl (7-17); Carbon Dioxide 22 mmol/L (22.0-30.0); Estimated Glomerular Filt Rate 43 ml/min (>60); GFR (African American) 53 ML/MIN (>60); Globulin 2.3 g/dL (1.3-3.2); Total Protein,Serum 6.1 g/dl (6.3-8.2)
[2024-11-04 11:26] LABS: Calcium 9.4 mg/dl (8.4-10.2); Glucose 176 mg/dl (74-100)
[2024-11-04 11:32] LABS: Basophils % 0.5 % (0.1-2.0); Eosinophils # 0.3 K/mm3 (0.0-0.4); Eosinophils % 4.7 % (0.1-12.0); Hematocrit 37.1 % (37.0-47.0); Hemoglobin 12.4 g/dL (12.2-16.2); Lymphocytes # 1.5 K/mm3 (0.7-4.5); Lymphocytes % 26.4 % (10-50); Mean Corpuscular HGB Conc 33.4 g/dL (31.8-35.4); Mean Corpuscular Hemoglobin 30.3 pg (27.0-31.2); Mean Corpuscular Volume 90.7 fl (81-99); Mean Platelet Volume 9.7 fl (7.4-10.4); Monocytes # 0.5 K/mm3 (0.1-1.0); Monocytes % 8.3 % (1.7-9.3); Neutrophils # 3.3 K/mm3 (1.8-7.8); Neutrophils % 59.7 % (37.0-80.0); Platelet Count 202 K/mm3 (142-424); Red Blood Count 4.09 M/mm3 (4.20-5.40); Red Cell Distribution Width 13.3 % (11.5-17.5); White Blood Count 5.5 K/mm3 (4.8-10.8)
== END 2024-11-04 10:14 | disposition home or self-care (01) ==
LOC: INF 09:57
PROVIDERS: PCP Family Medicine; Visit Provider Internal Medicine Medical Oncology
DX: C50.919 Malignant neoplasm of unspecified site of unspecified female breast (principal); C79.51 Secondary malignant neoplasm of bone
CPT/HCPCS: 36415; 80053; 85025; 96372; J3420

== ENCOUNTER 2024-11-18 11:45 | Outpatient (CLI) | payer MEDICARE, SELFPAY ==
[2024-11-18] MEDS: DENOSUMAB 120MG/1.7ML VIAL 120 MG SUBCUT (11:58)
[2024-11-18 12:01] VITALS: BP 187/91; PULSE 66; RESP 18; TEMP 36.8; O2SAT 100
== END 2024-11-18 12:01 | disposition home or self-care (01) ==
LOC: INF 11:46
PROVIDERS: PCP Family Medicine; Visit Provider Internal Medicine Medical Oncology
DX: M81.0 Age-related osteoporosis without current pathological fracture (principal)
CPT/HCPCS: 96372; J0897

== ENCOUNTER 2024-12-07 09:23 | Outpatient (CLI) | payer MEDICARE, SELFPAY ==
--- NOTE | 2024-12-07 09:33 | CT_ITS ---
FINAL REPORT TECHNIQUE: Axial CT images of the chest were obtained with contrast. Coronal reformatted images were also obtained. This study was performed with techniques to keep radiation doses as low as reasonably achievable, (ALARA). Individualized dose reduction techniques using automated exposure control or adjustment of mA and/or KV according to the patient's size were employed. CLINICAL HISTORY: breast cancer COMPARISON: 09/02/2024 FINDINGS: There are changes from right axillary lymph node dissection and right breast surgery. There is no mediastinal, hilar, or axillary lymphadenopathy. There is no pleural or pericardial effusion. There is evidence of prior granulomatous disease. There are no suspicious nodules or masses. There is no consolidation. The sclerotic lesion of the left scapula is not significantly changed from the prior exam. The sclerotic lesion of T11 is unchanged. IMPRESSION: Stable sclerotic lesions involving the left scapula and the T11 vertebral body. No new abnormalities. Reviewed, Interpreted and Dictated by Deborah Dhaliwal MD Transcribed by Stacie Valle Authenticated and [facility]
--- NOTE | 2024-12-07 09:33 | CT_ITS ---
FINAL REPORT TECHNIQUE: Axial CT images of the abdomen and pelvis were obtained after the administration of oral and IV contrast. Coronal reformatted images were also obtained and reviewed. This study was performed with techniques to keep radiation doses as low as reasonably achievable (ALARA). Individualized dose reduction techniques using automated exposure control or adjustment of mA and/or kV according to the patient's size were employed. CLINICAL HISTORY: breast cancer COMPARISON: 09/02/2024 FINDINGS: There are multiple hypointense lesions in the liver. A lesion at the dome of the right lobe measures 11 mm, was 7 mm. A lesion in the anterior right lobe on image 22 measures 66 mm, was 57 mm. The other hepatic lesions also appear to have increased in size. The gallbladder is surgically absent. The spleen, adrenal glands, and pancreas are without acute abnormality. There is no hydronephrosis or solid renal mass. Abdominal GI tract feels a stable small hiatal hernia. There is no evidence of small bowel obstruction. There is no abdominal lymphadenopathy or ascites. The uterus and ovaries are unremarkable for age. The pelvic portions of the GI tract, including the appendix, are without acute abnormality. There is no pelvic lymphadenopathy or ascites. The sclerotic lesion in the right T12 pedicle and in the right aspect of the L1 vertebral body are stable. There are no new bone lesions. IMPRESSION: Progression of hepatic metastases. Stable sclerotic bone metastases. Reviewed, Interpreted and Dictated by Deborah Dhaliwal MD Transcribed by Stacie Valle Authenticated and [facility]
[2024-12-07 09:42] LABS: Basophils % 0.5 % (0.1-2.0); Eosinophils # 0.4 K/mm3 (0.0-0.4); Hematocrit 38.7 % (37.0-47.0); Lymphocytes # 1.1 K/mm3 (0.7-4.5); Lymphocytes % 18.3 % (10-50); Mean Corpuscular HGB Conc 33.6 g/dL (31.8-35.4); Mean Corpuscular Hemoglobin 30.1 pg (27.0-31.2); Mean Corpuscular Volume 89.6 fl (81-99); Mean Platelet Volume 9.4 fl (7.4-10.4); Monocytes # 0.4 K/mm3 (0.1-1.0); Monocytes % 7.7 % (1.7-9.3); Neutrophils # 3.8 K/mm3 (1.8-7.8); Neutrophils % 66.3 % (37.0-80.0); Platelet Count 206 K/mm3 (142-424); Red Blood Count 4.32 M/mm3 (4.20-5.40); Red Cell Distribution Width 13.5 % (11.5-17.5); White Blood Count 5.7 K/mm3 (4.8-10.8)
[2024-12-07 09:53] LABS: Albumin Level 4.1 g/dl (3.5-5.0); Chloride 106 mmol/L (98-107); Sodium 139 mmol/L (136-145)
[2024-12-07 09:54] LABS: Potassium 3.9 mmoL/L (3.5-5.1)
[2024-12-07 09:56] LABS: Alanine Aminotransferase 32 U/L (12-78); Alkaline Phosphatase 58 U/L (38-126); Anion Gap 10.9 mEq/L (5-15); Aspartate Amino Transferase 36 U/L (14-36); Bilirubin,Total 0.4 mg/dl (0.2-1.3); Blood Urea Nitrogen 11 mg/dl (7-17); Carbon Dioxide 26 mmol/L (22.0-30.0); Estimated Glomerular Filt Rate 40 ml/min (>60); GFR (African American) 48 ML/MIN (>60)
[2024-12-07 09:57] LABS: Albumin/Globulin Ratio 1.6 (1.1-1.8); Calcium 9.5 mg/dl (8.4-10.2); Globulin 2.5 g/dL (1.3-3.2); Glucose 95 mg/dl (74-100); Total Protein,Serum 6.6 g/dl (6.3-8.2)
[2024-12-07] MEDS: IOPAMIDOL-370 (76%);100ML BOTTLE 75 ML IV (10:10)
[2024-12-07] MEDS: BARIUM SULFATE(READI-CAT2);450ML BOTTLE 450 ML PO (10:10)
[2024-12-07] MEDS: SODIUM CHLORIDE 0.9% 10ML SYR (RAD ONLY) 10 ML IV (10:10)
[2024-12-08 13:14] LABS: Hemoglobin (Hgb) Solubility Negative (Negative)
== END 2024-12-07 09:30 | disposition home or self-care (01) ==
LOC: INF 09:24
PROVIDERS: PCP Family Medicine; Visit Provider Internal Medicine Medical Oncology
DX: C50.919 Malignant neoplasm of unspecified site of unspecified female breast (principal); C79.51 Secondary malignant neoplasm of bone
CPT/HCPCS: 36415; 71260; 74177; 80053; 85025; 85660; Q9967

== ENCOUNTER 2024-12-29 12:39 | Outpatient (CLI) | payer MEDICARE, SELFPAY ==
[2024-12-29 13:00] LABS: Basophils % 0.4 % (0.1-2.0); Eosinophils # 0.3 K/mm3 (0.0-0.4); Eosinophils % 5.4 % (0.1-12.0); Hematocrit 36.2 % (37.0-47.0); Hemoglobin 12.4 g/dL (12.2-16.2); Lymphocytes # 1.7 K/mm3 (0.7-4.5); Lymphocytes % 34.3 % (10-50); Mean Corpuscular HGB Conc 34.3 g/dL (31.8-35.4); Mean Corpuscular Hemoglobin 30.6 pg (27.0-31.2); Mean Corpuscular Volume 89.4 fl (81-99); Mean Platelet Volume 9.1 fl (7.4-10.4); Monocytes # 0.4 K/mm3 (0.1-1.0); Monocytes % 8.1 % (1.7-9.3); Neutrophils # 2.6 K/mm3 (1.8-7.8); Neutrophils % 51.6 % (37.0-80.0); Platelet Count 199 K/mm3 (142-424); Red Blood Count 4.05 M/mm3 (4.20-5.40); Red Cell Distribution Width 13.4 % (11.5-17.5)
[2024-12-29 13:07] LABS: Albumin Level 4.2 g/dl (3.5-5.0); Chloride 109 mmol/L (98-107); Potassium 4.1 mmoL/L (3.5-5.1); Sodium 138 mmol/L (136-145)
[2024-12-29 13:10] LABS: Alanine Aminotransferase 37 U/L (12-78); Albumin/Globulin Ratio 2.1 (1.1-1.8); Alkaline Phosphatase 54 U/L (38-126); Anion Gap 9.1 mEq/L (5-15); Aspartate Amino Transferase 55 U/L (14-36); Bilirubin,Total 0.5 mg/dl (0.2-1.3); Blood Urea Nitrogen 13 mg/dl (7-17); Carbon Dioxide 24 mmol/L (22.0-30.0); Estimated Glomerular Filt Rate 48 ml/min (>60); GFR (African American) 58 ML/MIN (>60); Glucose 135 mg/dl (74-100); Total Protein,Serum 6.2 g/dl (6.3-8.2)
== END 2024-12-29 12:48 | disposition home or self-care (01) ==
LOC: INF 12:40
PROVIDERS: PCP Family Medicine; Visit Provider Internal Medicine Medical Oncology
DX: C50.919 Malignant neoplasm of unspecified site of unspecified female breast (principal); C79.51 Secondary malignant neoplasm of bone
CPT/HCPCS: 36415; 80053; 85025

== ENCOUNTER 2025-01-06 10:36 | Outpatient (CLI) | payer MEDICARE, SELFPAY ==
--- NOTE | 2025-01-06 10:40 | PC.NURSE ---
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
[2025-01-06 11:00] LABS: Basophils % 0.7 % (0.1-2.0); Eosinophils # 0.3 K/mm3 (0.0-0.4); Eosinophils % 5.8 % (0.1-12.0); Hematocrit 34.3 % (37.0-47.0); Hemoglobin 11.8 g/dL (12.2-16.2); Lymphocytes % 23.2 % (10-50); Mean Corpuscular HGB Conc 34.4 g/dL (31.8-35.4); Mean Corpuscular Hemoglobin 30.8 pg (27.0-31.2); Mean Corpuscular Volume 89.6 fl (81-99); Mean Platelet Volume 8.9 fl (7.4-10.4); Monocytes # 0.4 K/mm3 (0.1-1.0); Neutrophils # 2.6 K/mm3 (1.8-7.8); Neutrophils % 60.1 % (37.0-80.0); Platelet Count 225 K/mm3 (142-424); Red Blood Count 3.83 M/mm3 (4.20-5.40); White Blood Count 4.3 K/mm3 (4.8-10.8)
[2025-01-06 11:12] LABS: Alanine Aminotransferase 28 U/L (12-78); Albumin/Globulin Ratio 1.9 (1.1-1.8); Alkaline Phosphatase 49 U/L (38-126); Anion Gap 8.8 mEq/L (5-15); Aspartate Amino Transferase 34 U/L (14-36); Bilirubin,Total 0.5 mg/dl (0.2-1.3); Blood Urea Nitrogen 10 mg/dl (7-17); Calcium 9.2 mg/dl (8.4-10.2); Carbon Dioxide 22 mmol/L (22.0-30.0); Chloride 110 mmol/L (98-107); Estimated Glomerular Filt Rate 48 ml/min (>60); GFR (African American) 58 ML/MIN (>60); Globulin 2.1 g/dL (1.3-3.2); Glucose 146 mg/dl (74-100); Potassium 3.8 mmoL/L (3.5-5.1); Sodium 137 mmol/L (136-145); Total Protein,Serum 6.1 g/dl (6.3-8.2)
== END 2025-01-06 10:45 | disposition home or self-care (01) ==
LOC: INF 10:36
PROVIDERS: PCP Family Medicine; Visit Provider Internal Medicine Medical Oncology
DX: C50.919 Malignant neoplasm of unspecified site of unspecified female breast (principal); C79.51 Secondary malignant neoplasm of bone
CPT/HCPCS: 36415; 80053; 85025

== ENCOUNTER 2025-01-27 10:30 | Outpatient (CLI) | payer MEDICARE, SELFPAY ==
[2025-01-27 11:05] LABS: Basophils % 0.5 % (0.1-2.0); Eosinophils # 0.2 K/mm3 (0.0-0.4); Eosinophils % 4.5 % (0.1-12.0); Hemoglobin 11.3 g/dL (12.2-16.2); Lymphocytes # 0.8 K/mm3 (0.7-4.5); Lymphocytes % 21.8 % (10-50); Mean Corpuscular HGB Conc 34.2 g/dL (31.8-35.4); Mean Corpuscular Hemoglobin 31.8 pg (27.0-31.2); Monocytes # 0.4 K/mm3 (0.1-1.0); Monocytes % 11.4 % (1.7-9.3); Neutrophils # 2.3 K/mm3 (1.8-7.8); Neutrophils % 61.3 % (37.0-80.0); Nucleated Red Blood Cells # 0 10^3/uL; Nucleated Red Blood Cells % 0 %; Platelet Count 159 K/mm3 (142-424); Red Blood Count 3.55 M/mm3 (4.20-5.40); Red Cell Distribution Width 18.8 % (11.5-17.5); Red Cell Distribution Width-SD 57.5 fL; White Blood Count 3.8 K/mm3 (4.8-10.8)
[2025-01-27 11:06] VITALS: BP 143/79; PULSE 66; RESP 16; TEMP 36.8; O2SAT 99
[2025-01-27] MEDS: VITAMIN B-12 1,000 MCG 1ML VIAL 1000 MCG IM (11:06)
[2025-01-27 11:19] LABS: Alanine Aminotransferase 27 U/L (12-78); Albumin Level 3.7 g/dl (3.5-5.0); Albumin/Globulin Ratio 1.5 (1.1-1.8); Alkaline Phosphatase 63 U/L (38-126); Aspartate Amino Transferase 35 U/L (14-36); Bilirubin,Total 0.9 mg/dl (0.2-1.3); Blood Urea Nitrogen 12 mg/dl (7-17); Calcium 8.9 mg/dl (8.4-10.2); Carbon Dioxide 21 mmol/L (22.0-30.0); Chloride 109 mmol/L (98-107); Estimated Glomerular Filt Rate 48 ml/min (>60); GFR (African American) 58 ML/MIN (>60); Globulin 2.4 g/dL (1.3-3.2); Glucose 95 mg/dl (74-100); Sodium 139 mmol/L (136-145); Total Protein,Serum 6.1 g/dl (6.3-8.2)
--- OUTSIDE RECORDS SUMMARY | 2025-01-27 23:11 | XMS_ITS ---
Laboratory report Created on: December 10, 2024 MADISON HERRERA : 1945 Sex: Female Author Organization Unknown PROBLEMS Problems List Code Description RESULTS Laboratory Orders Date Order Code Test 2024-12-07 [id number] HGB SOLUBILITY Laboratory Results Date LOINC Test Value Unit Reference Range Interpre tation 2024-12-07 6864-3 HEMOGLOBIN (HGB) SOLUBILITY N NEGATIVE
--- OUTSIDE RECORDS SUMMARY | 2025-01-27 23:11 | XMS_ITS ---
Author Organization Unknown Allergies, Adverse Reactions and Alerts Date IsAllergic OnsetDate Allergen Reaction Type Severity Arthur rgyCode Legacyallergictoid ReactionCode ReactionCodeSystemID 12/02 00:00 :00 1 tegraderm 12/02 00:00 :00 1 Phenergan [id number] 12/02 00:00 :00 1 Codeine Phosphate 12/02 00:00 :00 1 Penicilli n G Benzathin e [id number] 11/15 00:00 :00 1 tegraderm 11/15 00:00 :00 1 Phenergan [id number] 11/15 00:00 :00 1 Codeine Phosphate 11/15 00:00 :00 1 Penicilli n G Benzathin e [id number]
== END 2025-01-27 23:59 | disposition home or self-care (01) ==
LOC: INF 10:31
PROVIDERS: PCP Family Medicine; Visit Provider Internal Medicine Medical Oncology
DX: C50.919 Malignant neoplasm of unspecified site of unspecified female breast (principal); C79.51 Secondary malignant neoplasm of bone
CPT/HCPCS: 36415; 80053; 85025; 96372; J3420

== ENCOUNTER 2025-02-17 10:00 | Outpatient (CLI) | payer MEDICARE, SELFPAY ==
[2025-02-17] MEDS: VITAMIN B-12 1,000 MCG 1ML VIAL 1000 MCG (10:09)
[2025-02-17 10:20] VITALS: BP 136/81; PULSE 68; RESP 18; O2SAT 100
[2025-02-17 10:21] LABS: Basophils % 0.2 % (0.1-2.0); Eosinophils # 0.1 Kmm3 (0.0-0.4); Eosinophils % 2.8 % (0.1-12.0); Hematocrit 30.9 % (37.0-47.0); Hemoglobin 10.8 g/dL (12.2-16.2); Lymphocytes # 0.6 K/mm3 (0.7-4.5); Lymphocytes % 13.2 % (10-50); Mean Corpuscular Hemoglobin 33.3 pg (27.0-31.2); Mean Corpuscular Volume 95.4 fl (81-99); Mean Platelet Volume 9.5 fl (7.4-10.4); Monocytes # 0.5 K/mm3 (0.1-1.0); Monocytes % 10.2 % (1.7-9.3); Neutrophils # 3.4 K/mm3 (1.8-7.8); Nucleated Red Blood Cells # 0 10^3/uL; Nucleated Red Blood Cells % 0 %; Platelet Count 165 K/mm3 (142-424); Red Blood Count 3.24 M/mm3 (4.20-5.40); Red Cell Distribution Width 19.6 % (11.5-17.5); Red Cell Distribution Width-SD 66.8 fL; White Blood Count 4.6 K/mm3 (4.8-10.8)
[2025-02-17 10:28] LABS: Albumin Level 3.4 g/dl (3.5-5.0); Chloride 112 mmol/L (98-107); Potassium 3.8 mmoL/L (3.5-5.1); Sodium 138 mmol/L (136-145)
[2025-02-17 10:31] LABS: Alanine Aminotransferase 26 U/L (12-78); Albumin/Globulin Ratio 1.4 (1.1-1.8); Alkaline Phosphatase 61 U/L (38-126); Anion Gap 10.8 mEq/L (5-15); Aspartate Amino Transferase 36 U/L (14-36); Bilirubin,Total 0.7 mg/dl (0.2-1.3); Blood Urea Nitrogen 11 mg/dl (7-17); Calcium 8.6 mg/dl (8.4-10.2); Carbon Dioxide 19 mmol/L (22.0-30.0); Estimated Glomerular Filt Rate 54 ml/min (>60); GFR (African American) 65 ML/MIN (>60); Globulin 2.4 g/dL (1.3-3.2); Glucose 131 mg/dl (74-100); Total Protein,Serum 5.8 g/dl (6.3-8.2)
== END 2025-02-17 10:20 | disposition home or self-care (01) ==
LOC: INF 10:01
PROVIDERS: PCP Family Medicine; Visit Provider Internal Medicine Medical Oncology
DX: C50.919 Malignant neoplasm of unspecified site of unspecified female breast (principal); C79.51 Secondary malignant neoplasm of bone
CPT/HCPCS: 36415; 80053; 85025; 96372; J3420

== ENCOUNTER 2025-02-24 14:15 | Outpatient (CLI) | payer MEDICARE, SELFPAY ==
--- NOTE | 2025-02-24 14:30 | CT_ITS ---
FINAL REPORT TECHNIQUE: After the administration of oral and intravenous contrast, axial images were obtained through the abdomen and pelvis by computed tomography. The study was performed with techniques to keep radiation dose as low as reasonably achievable, (ALARA). Individual dose reduction techniques using automated exposure control or adjustment of mA and/or kV according to the patient's size were employed. CLINICAL HISTORY: HX breast cancer FINDINGS: Abdomen: Again seen in our hepatic metastases. A lesion in the right hepatic lobe measures 6.8 x 5.1 cm as compared to 6.5 x 4.2 cm previously. A lesion in the medial left hepatic lobe measures 2.4 cm, essentially stable from 2.5 cm previously. The gallbladder is absent. The spleen is unremarkable. The adrenals are normal. The pancreas is unremarkable. The kidneys enhance appropriately. The aorta is normal in caliber. There is no free fluid or adenopathy. Pelvis: The appendix is not identified. The uterus and ovaries are unremarkable. The urinary bladder is unremarkable. There is no free fluid or adenopathy. There are stable sclerotic bone lesions. IMPRESSION: Increase in size of the largest liver lesion. Otherwise stable hepatic and osseous metastatic disease. Reviewed, Interpreted and Dictated by Deborah Dhaliwal MD Transcribed by DANTE Gallardo Authenticated and [facility]
--- NOTE | 2025-02-24 14:30 | CT_ITS ---
FINAL REPORT TECHNIQUE: Thin section axial images were obtained from the thoracic inlet through the upper abdomen after intravenous contrast injection. Reconstruction images were obtained from the axial data. Exam was performed using dose reduction technique. CLINICAL HISTORY: HX breast cancer FINDINGS: There are right axillary surgical clips. There are postoperative changes of the right breast. A soft tissue nodule adjacent to clips in the right breast appears stable from the prior study measuring 24 mm as compared to 26 mm previously. There are stable, small left axillary lymph nodes. There is no pleural or pericardial effusion. The lungs are clear. There are stable sclerotic bone lesions consistent with metastatic disease. IMPRESSION: Stable exam without new abnormality. Reviewed, Interpreted and Dictated by Deborah Dhaliwal MD Transcribed by DANTE Gallardo Authenticated and [facility]
[2025-02-24] MEDS: SODIUM CHLORIDE 0.9% 10ML SYR (RAD ONLY) 10 ML IV (14:48)
[2025-02-24] MEDS: IOPAMIDOL-370 (76%);100ML BOTTLE 75 ML IV (14:48)
== END 2025-02-24 23:59 | disposition home or self-care (01) ==
LOC: RAD 14:15
PROVIDERS: PCP Family Medicine; Visit Provider Internal Medicine Medical Oncology
DX: C50.911 Malignant neoplasm of unspecified site of right female breast (principal); C79.51 Secondary malignant neoplasm of bone
CPT/HCPCS: 71260; 74177; Q9967

== ENCOUNTER 2025-03-03 09:58 | Outpatient (CLI) | payer MEDICARE, SELFPAY ==
[2025-03-03 10:15] VITALS: BP 145/89; PULSE 78; RESP 18; TEMP 36.7; O2SAT 96
[2025-03-03] MEDS: DENOSUMAB 120MG/1.7ML VIAL 120 MG SUBCUT (10:15)
[2025-03-03 10:18] LABS: Basophils % 0.6 % (0.1-2.0); Eosinophils # 0.1 Kmm3 (0.0-0.4); Eosinophils % 2.6 % (0.1-12.0); Hemoglobin 11.2 g/dL (12.2-16.2); Immature Granulocytes # 0.02 10^3uL; Immature Granulocytes % 0.4 %; Lymphocytes # 0.7 K/mm3 (0.7-4.5); Lymphocytes % 14.7 % (10-50); Mean Corpuscular HGB Conc 32.9 g/dL (31.8-35.4); Mean Corpuscular Volume 100.3 fl (81-99); Mean Platelet Volume 9.7 fl (7.4-10.4); Monocytes # 0.3 K/mm3 (0.1-1.0); Monocytes % 6.8 % (1.7-9.3); Neutrophils # 3.5 K/mm3 (1.8-7.8); Neutrophils % 74.9 % (37.0-80.0); Nucleated Red Blood Cells # 0 10^3/uL; Nucleated Red Blood Cells % 0 %; Platelet Count 153 K/mm3 (142-424); Red Blood Count 3.39 M/mm3 (4.20-5.40); Red Cell Distribution Width 19.6 % (11.5-17.5); Red Cell Distribution Width-SD 71.7 fL; White Blood Count 4.7 K/mm3 (4.8-10.8)
[2025-03-03 10:35] LABS: Albumin Level 3.3 g/dl (3.5-5.0); Chloride 111 mmol/L (98-107); Potassium 4.1 mmoL/L (3.5-5.1)
[2025-03-03 10:36] LABS: Sodium 138 mmol/L (136-145)
[2025-03-03 10:38] LABS: Alanine Aminotransferase 26 U/L (12-78); Albumin/Globulin Ratio 1.4 (1.1-1.8); Alkaline Phosphatase 67 U/L (38-126); Anion Gap 7.1 mEq/L (5-15); Aspartate Amino Transferase 34 U/L (14-36); Bilirubin,Total 0.6 mg/dl (0.2-1.3); Blood Urea Nitrogen 9 mg/dl (7-17); Calcium 9.1 mg/dl (8.4-10.2); Carbon Dioxide 24 mmol/L (22.0-30.0); Estimated Glomerular Filt Rate 54 ml/min (>60); GFR (African American) 65 ML/MIN (>60); Globulin 2.3 g/dL (1.3-3.2); Glucose 153 mg/dl (74-100); Total Protein,Serum 5.6 g/dl (6.3-8.2)
== END 2025-03-03 10:30 | disposition home or self-care (01) ==
LOC: INF 09:59
PROVIDERS: PCP Family Medicine; Visit Provider Internal Medicine Medical Oncology
DX: C50.919 Malignant neoplasm of unspecified site of unspecified female breast (principal); C79.51 Secondary malignant neoplasm of bone
CPT/HCPCS: 36415; 80053; 85025; 96372; J0897

== ENCOUNTER 2025-03-04 10:52 | Outpatient (CLI) | payer MEDICARE, SELFPAY ==
[2025-03-04 11:59] VITALS: BMI 32.2
--- NOTE | 2025-03-04 12:02 | ECG_ITS ---
APPROVED REPORT Exam: Resting ECG HR:62 bpm ECG Measurements Heart Rate 62 AXES IN 161 P 36 QRSd 81 QRS -16 QT 386 T 28 QTc 391 Conclusion SINUS RHYTHM LOW QRS VOLTAGE IN PRECORDIAL LEADS [QRS DEFLECTION < 1.0 mV IN CHEST LEADS] PATTERN CONSISTENT WITH PULMONARY DISEASE NONSPECIFIC T-WAVE ABNORMALITY ABNORMAL ECG UNCONFIRMED REPORT Electronically signed by : Jones Banerjee MD 03/08/2025 08:09:15
== END 2025-03-04 23:59 | disposition home or self-care (01) ==
LOC: PREOP 10:53
PROVIDERS: PCP Family Medicine; Visit Provider Surgery
DX: Z01.810 Encounter for preprocedural cardiovascular examination (principal); J98.4 Other disorders of lung; R94.31 Abnormal electrocardiogram [ECG] [EKG]
CPT/HCPCS: 93005

== ENCOUNTER 2025-03-08 06:56 | Day surgery (SDC) | payer MEDICARE, SELFPAY ==
[2025-03-04 12:00] VITALS: BMI 32.2
[2025-03-08] VITALS (11 sets, daily range): BP systolic 137–166; BP diastolic 69–89; PULSE 69–93; RESP 14–18; TEMP 36.1–38; O2SAT 93–98
--- NOTE | 2025-03-08 | XR_ITS ---
FINAL REPORT CLINICAL HISTORY: PORT A CATH mGy 15.65 Fluoro time 0:49 FINDINGS: FLUOROSCOPY Two spot images were obtained for Port-A-Cath using 0.49 fluoroscopy time. 15.65 mGy was utilized. IMPRESSION: Fluoroscopy as above Reviewed, Interpreted and Dictated by Sumeet Stewart MD Transcribed by Ju Lopez Authenticated and [facility]
[2025-03-08] MEDS: 0.9 % SODIUM CHLORIDE 1000ML 1,000 ML 25 ML IV (07:00)
--- NOTE | 2025-03-08 07:44 | P.PNANES_ITS ---
[facility] Disclaimer: The information contained in this section may have been updated after the patient was seen, as this information can be updated by other users. Medical History Lymphedema Rosacea History of hypertension Osteoporosis Hyperlipidemia Cancer Surgical History H/O dilation and curettage H/O tubal ligation Hx of cholecystectomy H/O breast biopsy History of lumpectomy of right breast Family History Other No significant family history Social History (Updated 03/08/25 @ 07:28 by Annia Mccoy RN) Smoking Status: Never smoker alcohol intake: never substance use type: denies use current occupational status: retired Travel in the last 8 weeks?: None household members: spouse housing: house Have you lived/traveled outside US in past 30 days?: No Contact w/someone who lives/traveled outside US past 30 days?: No Exposure to someone with infectious disease in past 14 days?: No Do you have a fever (greater than 100.4 F or 38 C)?: No Have you tested positive for COVID-19?: No Exposed to someone with COVID-19 in past 14 days?: No Do you have a sore throat?: No Do you have a cough?: No Do you have any weakness?: No Are you experiencing any nausea/vomitting?: No Do you have any diarrhea?: No Are you experiencing any unusual bleeding?: No Do you have any muscle aches/pain?: No Do you have any abdominal pain?: No Are you experiencing loss of taste or smell?: No [facility] Anesthesia Checklist Patient Identification Patient Identification: Arm Band and Verbal (Name & ) Structural Data Admitted From: Home Planned Operative Procedure/s: Port-a-cath placement Consent for Planned Operative Procedure(s) Verified: Yes Verified Documents: Surgical Consent NPO Status Verified Time NPO: 00:00 Chart Verification Results Verified: ECG Additional verifications Anesthesia Reactions: No Hx Blood Transfusions: No Blood Transfusion Reaction: No Airway Assessment Mallampati Score:: Class II C-Spine Mobility Assessed: Yes TMJ Mobility Assessed: Yes Dentition: Edentulous Neurological Assessment Level of Consciousness: Awake, Alert and Appropriate Hx Seizures: No Numbness or tingling in extremities: No Anesthesia Plan Anesthesia Risk discussed: Yes Anesthesia Plan: Verified ASA Class: II Anesthesia Type: General
[2025-03-08] MEDS: CLINDAMYCIN PHOSPHATE/D5W 900 MG/50 ML PIGGYBACK 100 MG IV (08:15)
[2025-03-08] MEDS: SODIUM CHLORIDE 0.9% 20ML VIAL 40 ML IV ×2 (08:45→08:56)
[2025-03-08] MEDS: LIDOCAINE 1% 20ML MDV 20 ML (08:45)
--- NOTE | 2025-03-08 09:23 | XR_ITS ---
FINAL REPORT TECHNIQUE: Single view chest CLINICAL HISTORY: port placement FINDINGS: A single view of the chest was obtained. There is a left jugular port with the tip in the SVC. The heart and mediastinum are within normal limits. The lungs are clear. There is no pneumothorax. Severe arthritic changes are seen of the shoulders bilaterally. IMPRESSION: No acute cardiopulmonary process. Left jugular port with the tip in the SVC. No pneumothorax. Reviewed, Interpreted and Dictated by Sumeet Stewart MD Transcribed by Nayana Cesar Authenticated and [facility]
--- NOTE | 2025-03-08 09:23 | EXP.OP.NOTE ---
Date of procedure: 03/08/25 Pre-op Diagnosis:: Metastatic breast cancer Post-op Diagnosis:: Same Procedure performed:: Port-A-Cath placement Surgeon:: David Pugh MD Anesthesia: local and LMA Estimated blood loss (mL): 15 Operative findings:: Left internal jugular vein accessed after unsuccessful attempts at subclavian access Operative note:: After informed consent was obtained the patient was taken to the operating room and placed in the supine position. General anesthesia was induced and her left neck and chest were prepped and draped in a sterile fashion. After infiltration with local anesthetic a large bore needle was utilized to access the left internal jugular vein after multiple subclavian attempts were unsuccessful. Utilizing a modified Seldinger technique, the port catheter was placed in position and confirmed with fluoroscopy. Placement was notably more proximal than typical as the catheter flushed but did not draw when the catheter tip was in the normal position . After infiltration with local anesthetic a transverse incision was made in the left upper chest. The catheter was tunneled in the subcutaneous tissue from the internal jugular exit site to the pocket . The catheter was cut to appropriate length and secured to the port hub. The port hub was then secured to the fascia utilizing interrupted Prolene suture. The wound was thoroughly irrigated. The deep subcutaneous tissue was reapproximated with interrupted Vicryl. Skin was then closed with 4-0 Monocryl in a subcuticular fashion. The port was flushed with heparinized saline without difficulty. Dressings were applied and the patient was transferred to recovery in stable condition Condition: stable Disposition: PACU Specimens:: none Complications:: No immediate. Chest x-ray pending.
--- NOTE | 2025-03-08 09:31 | P.PNANES_ITS ---
[facility] Anesthesia Record Part I Anesthesia Record I Intake, IV Amount: 600 Hydration: Adequate Estimated blood loss (mL): 0 Urine output (mL): 0 Blood Products used (#): none Blood Pressure: 137/71 SaO2: 96 Pulse Rate: 81 Airway Patency: Patent Respiratory Rate: 14 Temperature: 97.2 F Patient is:: Drowsy and Stable Stable to PACU at:: 09:28
[2025-03-08] MEDS: ACETAMINOPHEN 500MG TAB 500 MG PO (10:35)
[2025-03-09 07:35] LABS: POC Glucose,Bedside 122 (70-110)
--- NOTE | 2025-03-10 08:40 | EXP.ANES.II ---
[facility] Anesthesia Record Part II Anesthesia Record Part II Discharge Time: 09:58 Destination: [facility] PACU nurse assessment reviewed?: Yes Patient Condition:: Good Anesthesia Complications:: None Swallowing reflex intact?: Yes Airway Patency: Patent Cyanosis?: No Blood Pressure: 155/94 SaO2: 98 Respiratory Rate: 18 Pulse Rate: 85 Temperature: 97.4 F Mental Status: Alert & Oriented Pain level:: 0 Nausea and/or vomitting:: None Intake, IV Amount: 1,500 Hydration: Adequate
[2025-03-10 08:41] VITALS: BP 155/94; PULSE 85; RESP 18; TEMP 36.3; O2SAT 98
== END 2025-03-08 10:50 | disposition home or self-care (01) ==
PROVIDERS: PCP Family Medicine; Visit Provider Surgery
PROC: (CPT 36561; principal; 2025-03-08 08:15)
DX: C50.911 Malignant neoplasm of unspecified site of right female breast (principal)
CPT/HCPCS: 36561; 77001; 71045; 76000; 82962; C1788; J0736; J1100; J1642; J2405; J3010; J7030

== ENCOUNTER 2025-03-15 12:52 | Outpatient (CLI) | payer MEDICARE, SELFPAY ==
[2025-03-15] MEDS: PROCHLORPERAZINE 10MG TABLET 10 MG PO (13:15)
[2025-03-15] MEDS: VINORELBINE TARTRATE IV (13:52)
[2025-03-15] MEDS: SODIUM CHLORIDE 0.9% IV (13:52)
[2025-03-15] MEDS: SODIUM CHLORIDE 0.9% 50ML BAG 50 ML IV (13:52)
[2025-03-15 14:00] VITALS: BP 142/74; PULSE 70; RESP 18; TEMP 36.7; O2SAT 100
[2025-03-15 14:12] VITALS: BP 157/92; PULSE 68
[2025-03-15] MEDS: SODIUM CHLORIDE 0.9% 10ML FLUSH SYRINGE 10 ML IV (14:15)
== END 2025-03-15 14:57 | disposition home or self-care (01) ==
LOC: INF 12:53
PROVIDERS: PCP Family Medicine; Visit Provider Internal Medicine Medical Oncology
DX: Z51.11 Encounter for antineoplastic chemotherapy (principal); C50.919 Malignant neoplasm of unspecified site of unspecified female breast
CPT/HCPCS: 96409; J1642; J9390; Q0164

== ENCOUNTER 2025-03-22 12:51 | Outpatient (CLI) | payer MEDICARE, SELFPAY ==
[2025-03-22 12:55] VITALS: BMI 34.5
[2025-03-22 13:11] LABS: Basophils # 0.1 K/mm3 (0-0.2); Basophils % 1.6 % (0.1-2.0); Eosinophils # 0.1 Kmm3 (0.0-0.4); Eosinophils % 1.9 % (0.1-12.0); Hematocrit 34.3 % (37.0-47.0); Hemoglobin 11.6 g/dL (12.2-16.2); Immature Granulocytes # 0.08 10^3uL; Immature Granulocytes % 2.6 %; Lymphocytes % 30.8 % (10-50); Mean Corpuscular HGB Conc 33.8 g/dL (31.8-35.4); Mean Corpuscular Hemoglobin 32.8 pg (27.0-31.2); Mean Corpuscular Volume 96.9 fl (81-99); Mean Platelet Volume 9.9 fl (7.4-10.4); Monocytes # 0.2 K/mm3 (0.1-1.0); Monocytes % 4.9 % (1.7-9.3); Neutrophils # 1.8 K/mm3 (1.8-7.8); Neutrophils % 58.2 % (37.0-80.0); Nucleated Red Blood Cells # 0 10^3/uL; Nucleated Red Blood Cells % 0 %; Platelet Count 191 K/mm3 (142-424); Red Blood Count 3.54 M/mm3 (4.20-5.40); Red Cell Distribution Width 14.4 % (11.5-17.5); Red Cell Distribution Width-SD 51.9 fL; White Blood Count 3.1 K/mm3 (4.8-10.8)
[2025-03-22 13:28] LABS: Alanine Aminotransferase 37 U/L (12-78); Albumin Level 3.8 g/dl (3.5-5.0); Albumin/Globulin Ratio 1.7 (1.1-1.8); Alkaline Phosphatase 92 U/L (38-126); Anion Gap 10.1 mEq/L (5-15); Aspartate Amino Transferase 50 U/L (14-36); Bilirubin,Total 0.7 mg/dl (0.2-1.3); Blood Urea Nitrogen 10 mg/dl (7-17); Calcium 9.5 mg/dl (8.4-10.2); Carbon Dioxide 24 mmol/L (22.0-30.0); Chloride 109 mmol/L (98-107); Creatinine Clearance Estimated 59 mL/min (50-200); Estimated Glomerular Filt Rate 61 ml/min (>60); GFR (African American) 73 ML/MIN (>60); Globulin 2.3 g/dL (1.3-3.2); Glucose 115 mg/dl (74-100); Potassium 4.1 mmoL/L (3.5-5.1); Sodium 139 mmol/L (136-145); Total Protein,Serum 6.1 g/dl (6.3-8.2)
[2025-03-22] MEDS: PROCHLORPERAZINE 10MG TABLET 10 MG PO (13:37)
[2025-03-22] MEDS: VINORELBINE TARTRATE IV (14:03)
[2025-03-22] MEDS: SODIUM CHLORIDE 0.9% IV (14:03)
[2025-03-22] MEDS: SODIUM CHLORIDE 0.9% 50ML BAG 50 ML IV (14:04)
[2025-03-22 14:10] VITALS: BP 139/82; PULSE 71; RESP 18; TEMP 36.6; O2SAT 100
[2025-03-22 14:25] VITALS: BP 150/79; PULSE 75
[2025-03-22] MEDS: SODIUM CHLORIDE 0.9% 10ML FLUSH SYRINGE 10 ML IV (14:30)
== END 2025-03-22 14:30 | disposition home or self-care (01) ==
LOC: INF 12:52
PROVIDERS: PCP Family Medicine; Visit Provider Internal Medicine Medical Oncology
DX: Z51.11 Encounter for antineoplastic chemotherapy (principal); C50.919 Malignant neoplasm of unspecified site of unspecified female breast
CPT/HCPCS: 80053; 85025; 96409; J1642; J9390; Q0164

== ENCOUNTER 2025-03-29 12:48 | Outpatient (CLI) | payer MEDICARE, SELFPAY ==
[2025-03-29 12:52] VITALS: BMI 27.8
--- OUTSIDE RECORDS SUMMARY | 2025-03-29 12:52 | XMS_ITS | Encounter Summary ---
Author Organization Healthcare Address [address] [place] [address] Care Team Providers Care Specialty Finishing Utility Person Name Role Phone Unavailable Primary Care Provider Unavailabl e Encounter Details Date Type Department Care Team (Late st Contact Info) Description 07/04/2014 Abstract [facility] [id number] [place] [address] Krysta Marrufo, RN [facility] Social History Tobacco Use Types Packs/Day Years Used Date Smoking Tobacco: Never Assessed Comments Unknown Sex and Gender Information Value Date Recorded Sex Assigned at Not on file Legal Sex Female 6:42 PM EDT Gender Identity Not on file Sexual Orientation Not on file documented as of this encounter Plan of Treatment Not on file documented as of this encounter Visit Diagnoses Not on filedocumented in this encounter
--- OUTSIDE RECORDS SUMMARY | 2025-03-29 12:52 | XMS_ITS | Clinical Summary ---
Author Organization Healthcare Address [address] [place] [address] Care Team Providers Care Spark Plug Tester Name Role Phone Unavailable Primary Care Provider Unavailabl e Social History Tobacco Use Types Packs/Day Years Used Date Smoking Tobacco: Never Assessed Comments Unknown Sex and Gender Information Value Date Recorded Sex Assigned at Not on file Legal Sex Female 6:42 PM EDT Gender Identity Not on file Sexual Orientation Not on file Plan of Treatment Not on file
[2025-03-29 13:09] LABS: Basophils % 0.7 % (0.1-2.0); Eosinophils % 1.5 % (0.1-12.0); Hematocrit 32.9 % (37.0-47.0); Hemoglobin 11.1 g/dL (12.2-16.2); Immature Granulocytes # 0 10^3uL; Immature Granulocytes % 0 %; Lymphocytes % 72.1 % (10-50); Mean Corpuscular HGB Conc 33.7 g/dL (31.8-35.4); Mean Corpuscular Hemoglobin 32.2 pg (27.0-31.2); Mean Corpuscular Volume 95.4 fl (81-99); Mean Platelet Volume 10.5 fl (7.4-10.4); Monocytes # 0.1 K/mm3 (0.1-1.0); Monocytes % 5.1 % (1.7-9.3); Neutrophils # 0.3 K/mm3 (1.8-7.8); Neutrophils % 20.6 % (37.0-80.0); Nucleated Red Blood Cells # 0 10^3/uL; Nucleated Red Blood Cells % 0 %; Platelet Count 178 K/mm3 (142-424); Red Blood Count 3.45 M/mm3 (4.20-5.40); Red Cell Distribution Width 13.8 % (11.5-17.5); Red Cell Distribution Width-SD 48.1 fL
[2025-03-29 13:13] LABS: White Blood Count 1.4 K/mm3 (4.8-10.8)
[2025-03-29 13:15] LABS: MANUAL DIFFERENTIAL MANUAL DIFFERENTIAL (MANUAL DIFF)
[2025-03-29 13:20] VITALS: BP 96/64; PULSE 93; RESP 20; TEMP 36.8; O2SAT 99
[2025-03-29 13:23] LABS: Alanine Aminotransferase 28 U/L (12-78); Albumin Level 3.8 g/dl (3.5-5.0); Albumin/Globulin Ratio 1.7 (1.1-1.8); Alkaline Phosphatase 89 U/L (38-126); Anion Gap 9.7 mEq/L (5-15); Aspartate Amino Transferase 33 U/L (14-36); Bilirubin,Total 0.5 mg/dl (0.2-1.3); Blood Urea Nitrogen 13 mg/dl (7-17); Carbon Dioxide 23 mmol/L (22.0-30.0); Chloride 105 mmol/L (98-107); Creatinine Clearance Estimated 55 mL/min (50-200); Estimated Glomerular Filt Rate 54 ml/min (>60); GFR (African American) 65 ML/MIN (>60); Globulin 2.3 g/dL (1.3-3.2); Glucose 132 mg/dl (74-100); Potassium 3.7 mmoL/L (3.5-5.1); Sodium 134 mmol/L (136-145); Total Protein,Serum 6.1 g/dl (6.3-8.2)
[2025-03-29] MEDS: SODIUM CHLORIDE 0.9% 10ML FLUSH SYRINGE 10 ML IV (13:40)
[2025-03-29 14:57] LABS: Lymphocytes % 70 % (10-50); Monocytes % 6 % (2-9); Neutrophils % 24 % (42-76); Platelet Estimate Normal; RBC Morphology Normal; Total Cells Counted 50
== END 2025-03-29 13:40 | disposition home or self-care (01) ==
LOC: INF 12:50
PROVIDERS: PCP Family Medicine; Visit Provider Internal Medicine Medical Oncology
DX: C50.919 Malignant neoplasm of unspecified site of unspecified female breast (principal)
CPT/HCPCS: 36591; 80053; 85007; 85025; 85027; J1642

== ENCOUNTER 2025-04-05 09:32 | Outpatient (CLI) | payer MEDICARE, SELFPAY ==
--- OUTSIDE RECORDS SUMMARY | 2025-04-05 09:36 | XMS_ITS | Encounter Summary ---
Author Organization Healthcare Address [address] [place] [address] Care Team Providers Care Dictionary Editor Name Role Phone Unavailable Primary Care Provider Unavailabl e Encounter Details Date Type Department Care Team (Late st Contact Info) Description 07/04/2014 [facility] [id number] [place] [address] Krysta Marrufo, RN [facility] Social [...]
--- OUTSIDE RECORDS SUMMARY | 2025-04-05 09:36 | XMS_ITS | Clinical Summary ---
Author Organization Healthcare Address [address] [place] [address] Care Team Providers Care Land Development Manager Name Role Phone Unavailable Primary Care Provider [...]
[2025-04-05 09:43] VITALS: BMI 27.8
[2025-04-05 09:48] LABS: Basophils % 0.4 % (0.1-2.0); Eosinophils % 0.4 % (0.1-12.0); Hematocrit 33.6 % (37.0-47.0); Hemoglobin 11.1 g/dL (12.2-16.2); Immature Granulocytes # 0.01 10^3uL; Immature Granulocytes % 0.4 %; Lymphocytes # 1.1 K/mm3 (0.7-4.5); Lymphocytes % 44.4 % (10-50); Mean Corpuscular Hemoglobin 31.9 pg (27.0-31.2); Mean Corpuscular Volume 96.6 fl (81-99); Mean Platelet Volume 9.6 fl (7.4-10.4); Monocytes # 0.6 K/mm3 (0.1-1.0); Monocytes % 23.4 % (1.7-9.3); Neutrophils # 0.8 K/mm3 (1.8-7.8); Nucleated Red Blood Cells # 0 10^3/uL; Nucleated Red Blood Cells % 0 %; Platelet Count 202 K/mm3 (142-424); Red Blood Count 3.48 M/mm3 (4.20-5.40); Red Cell Distribution Width-SD 49.3 fL; White Blood Count 2.5 K/mm3 (4.8-10.8)
[2025-04-05 09:50] LABS: MANUAL DIFFERENTIAL MANUAL DIFFERENTIAL (MANUAL DIFF)
[2025-04-05 10:01] LABS: Albumin Level 3.6 g/dl (3.5-5.0); Chloride 107 mmol/L (98-107); Sodium 137 mmol/L (136-145)
[2025-04-05 10:02] LABS: Potassium 3.7 mmoL/L (3.5-5.1)
[2025-04-05 10:04] LABS: Alanine Aminotransferase 42 U/L (12-78); Albumin/Globulin Ratio 1.6 (1.1-1.8); Alkaline Phosphatase 93 U/L (38-126); Anion Gap 8.7 mEq/L (5-15); Aspartate Amino Transferase 51 U/L (14-36); Bilirubin,Total 0.5 mg/dl (0.2-1.3); Blood Urea Nitrogen 10 mg/dl (7-17); Carbon Dioxide 25 mmol/L (22.0-30.0); Creatinine Clearance Estimated 50 mL/min (50-200); Estimated Glomerular Filt Rate 48 ml/min (>60); GFR (African American) 58 ML/MIN (>60); Globulin 2.3 g/dL (1.3-3.2); Total Protein,Serum 5.9 g/dl (6.3-8.2)
[2025-04-05 10:05] LABS: Calcium 9.6 mg/dl (8.4-10.2); Glucose 125 mg/dl (74-100)
[2025-04-05 10:30] LABS: Eosinophils % 3 % (0-3); Lymphocytes % 29 % (10-50); Monocytes % 27 % (2-9); Neutrophils % 39 % (42-76); Total Cells Counted 100
[2025-04-05 10:31] LABS: Platelet Estimate Normal; RBC Morphology Normal
[2025-04-05] MEDS: SODIUM CHLORIDE 0.9% 10ML FLUSH SYRINGE 10 ML IV (10:46)
== END 2025-04-05 10:41 | disposition home or self-care (01) ==
LOC: INF 09:34
PROVIDERS: PCP Family Medicine; Visit Provider Internal Medicine Medical Oncology
DX: C50.919 Malignant neoplasm of unspecified site of unspecified female breast (principal)
CPT/HCPCS: 36591; 80053; 85007; 85025; 85027; J1642

== ENCOUNTER 2025-04-12 12:47 | Outpatient (CLI) | payer MEDICARE, SELFPAY ==
--- OUTSIDE RECORDS SUMMARY | 2025-04-12 12:51 | XMS_ITS | Clinical Summary ---
Author Organization Healthcare Address [address] [place] [address] Care Team Providers Care Pre Sales Systems Engineer Name Role Phone Unavailable Primary Care Provider [...]
--- OUTSIDE RECORDS SUMMARY | 2025-04-12 12:51 | XMS_ITS | Encounter Summary ---
Author Organization Healthcare Address [address] [place] [address] Care Team Providers Care Solid Waste Analyst Name Role Phone Unavailable Primary Care Provider Unavailabl e Encounter Details Date Type Department Care Team (Late st Contact Info) Description 07/04/2014 [facility] [id number] [place] [address] Krysta Marrufo, RN [facility] Social [...]
[2025-04-12 12:52] VITALS: BMI 34.5
[2025-04-12 13:22] LABS: Albumin Level 3.4 g/dl (3.5-5.0); Basophils % 0.6 % (0.1-2.0); Chloride 105 mmol/L (98-107); Eosinophils % 0.4 % (0.1-12.0); Hematocrit 32.5 % (37.0-47.0); Hemoglobin 10.4 g/dL (12.2-16.2); Immature Granulocytes # 0.02 10^3uL; Immature Granulocytes % 0.4 %; Lymphocytes # 0.9 K/mm3 (0.7-4.5); Lymphocytes % 19.2 % (10-50); Mean Corpuscular Hemoglobin 31.4 pg (27.0-31.2); Mean Corpuscular Volume 98.2 fl (81-99); Mean Platelet Volume 9.8 fl (7.4-10.4); Monocytes # 0.5 K/mm3 (0.1-1.0); Monocytes % 10.9 % (1.7-9.3); Neutrophils # 3.2 K/mm3 (1.8-7.8); Neutrophils % 68.5 % (37.0-80.0); Nucleated Red Blood Cells # 0 10^3/uL; Nucleated Red Blood Cells % 0 %; Platelet Count 214 K/mm3 (142-424); Red Blood Count 3.31 M/mm3 (4.20-5.40); Red Cell Distribution Width 13.9 % (11.5-17.5); Red Cell Distribution Width-SD 50.2 fL; Sodium 138 mmol/L (136-145); White Blood Count 4.7 K/mm3 (4.8-10.8)
[2025-04-12 13:24] LABS: Alanine Aminotransferase 68 U/L (12-78); Aspartate Amino Transferase 81 U/L (14-36); Blood Urea Nitrogen 8 mg/dl (7-17); Creatinine Clearance Estimated 59 mL/min (50-200); Estimated Glomerular Filt Rate 61 ml/min (>60); GFR (African American) 73 ML/MIN (>60)
[2025-04-12 13:25] LABS: Albumin/Globulin Ratio 1.3 (1.1-1.8); Alkaline Phosphatase 135 U/L (38-126); Bilirubin,Total 0.4 mg/dl (0.2-1.3); Calcium 9.1 mg/dl (8.4-10.2); Carbon Dioxide 25 mmol/L (22.0-30.0); Globulin 2.7 g/dL (1.3-3.2); Glucose 114 mg/dl (74-100); Total Protein,Serum 6.1 g/dl (6.3-8.2)
[2025-04-12] MEDS: PROCHLORPERAZINE 10MG TABLET 10 MG PO (13:32)
[2025-04-12] MEDS: SODIUM CHLORIDE 0.9% IV (13:57)
[2025-04-12] MEDS: VINORELBINE TARTRATE IV (13:57)
[2025-04-12 14:10] VITALS: BP 136/69; PULSE 79; RESP 18; TEMP 36.7; O2SAT 98
[2025-04-12 14:26] VITALS: BP 149/75; PULSE 76
[2025-04-12] MEDS: SODIUM CHLORIDE 0.9% 10ML FLUSH SYRINGE 10 ML IV (14:57)
[2025-04-12] MEDS: 0.9 % SODIUM CHLORIDE 50 ML 25 ML IV (14:57)
== END 2025-04-12 14:30 | disposition home or self-care (01) ==
LOC: INF 12:48
PROVIDERS: PCP Family Medicine; Visit Provider Internal Medicine Medical Oncology
DX: Z51.11 Encounter for antineoplastic chemotherapy (principal); C50.919 Malignant neoplasm of unspecified site of unspecified female breast
CPT/HCPCS: 80053; 85025; 96409; J1642; J9390; Q0164

== ENCOUNTER 2025-04-26 12:41 | Outpatient (CLI) | payer MEDICARE, SELFPAY ==
--- OUTSIDE RECORDS SUMMARY | 2025-04-26 12:43 | XMS_ITS | Encounter Summary ---
Author Organization Healthcare Address [address] [place] [address] Care Team Providers Care Clipping Marker Name Role Phone Unavailable Primary Care Provider Unavailabl e Encounter Details Date Type Department Care Team (Late st Contact Info) Description 07/04/2014 [facility] [id number] [place] [address] Krysta Marrufo, RN [facility] Social [...]
--- OUTSIDE RECORDS SUMMARY | 2025-04-26 12:43 | XMS_ITS | Clinical Summary ---
Author Organization Healthcare Address [address] [place] [address] Care Team Providers Care Boat Joiner Name Role Phone Unavailable Primary Care Provider [...]
[2025-04-26 12:59] LABS: Hematocrit 33.9 % (37.0-47.0); Hemoglobin 10.8 g/dL (12.2-16.2); Immature Granulocytes % 0.5 %; Mean Corpuscular HGB Conc 31.9 g/dL (31.8-35.4); Mean Corpuscular Hemoglobin 31.1 pg (27.0-31.2); Mean Corpuscular Volume 97.7 fl (81-99); Nucleated Red Blood Cells % 0 %; Platelet Count 227 K/mm3 (142-424); Red Blood Count 3.47 M/mm3 (4.20-5.40); Red Cell Distribution Width-SD 49.2 fL; White Blood Count 2.2 K/mm3 (4.8-10.8)
[2025-04-26 13:10] LABS: Alanine Aminotransferase 70 U/L (12-78); Albumin Level 3.7 g/dl (3.5-5.0); Albumin/Globulin Ratio 1.6 (1.1-1.8); Alkaline Phosphatase 156 U/L (38-126); Anion Gap 15.0 mEq/L (5-15); Aspartate Amino Transferase 90 U/L (14-36); Bilirubin,Total 0.5 mg/dl (0.2-1.3); Blood Urea Nitrogen 9 mg/dl (7-17); Calcium 9.7 mg/dl (8.4-10.2); Carbon Dioxide 24 mmol/L (22.0-30.0); Chloride 103 mmol/L (98-107); Creatinine,Serum 1.00 mg/dl (0.52-1.04); Estimated Glomerular Filt Rate 54 ml/min (>60); GFR (African American) 65 ML/MIN (>60); Globulin 2.3 g/dL (1.3-3.2); Glucose 155 mg/dl (74-100); Potassium 4.0 mmoL/L (3.5-5.1); Sodium 138 mmol/L (136-145); Total Protein,Serum 6.0 g/dl (6.3-8.2)
[2025-04-26 13:25] LABS: Total Cells Counted 100
[2025-04-26 13:27] LABS: Hypochromasia 2+
[2025-04-26] MEDS: SODIUM CHLORIDE 0.9% 10ML FLUSH SYRINGE 10 ML IV (13:42)
== END 2025-04-26 14:00 | disposition home or self-care (01) ==
LOC: INF 12:42
PROVIDERS: PCP Family Medicine; Visit Provider Internal Medicine Medical Oncology
DX: C50.919 Malignant neoplasm of unspecified site of unspecified female breast (principal)
CPT/HCPCS: 36591; 80053; 85007; 85025; 85027; J1642

== ENCOUNTER 2025-05-03 12:42 | Outpatient (CLI) | payer MEDICARE, SELFPAY ==
[2025-05-03 12:46] VITALS: BMI 30.8
--- OUTSIDE RECORDS SUMMARY | 2025-05-03 12:46 | XMS_ITS | Clinical Summary ---
Author Organization Healthcare Address [address] [place] [address] Care Team Providers Care Performance Manager Name Role Phone Unavailable Primary Care [...]
--- OUTSIDE RECORDS SUMMARY | 2025-05-03 12:46 | XMS_ITS | Encounter Summary ---
Author Organization Healthcare Address [address] [place] [address] Care Team Providers Care Utility Appraiser Name Role Phone Unavailable Primary Care Provider Unavailabl e Encounter Details Date Type Department Care Team (Late st Contact Info) Description 07/04/2014 [facility] [id number] [place] [address] Krysta Marrufo, RN [facility] Social [...]
[2025-05-03 13:03] LABS: Hematocrit 34.8 % (37.0-47.0); Hemoglobin 11.4 g/dL (12.2-16.2); Immature Granulocytes % 0.3 %; Mean Corpuscular HGB Conc 32.8 g/dL (31.8-35.4); Mean Corpuscular Hemoglobin 31.3 pg (27.0-31.2); Mean Corpuscular Volume 95.6 fl (81-99); Nucleated Red Blood Cells % 0 %; Platelet Count 261 K/mm3 (142-424); Red Blood Count 3.64 M/mm3 (4.20-5.40); Red Cell Distribution Width-SD 49.1 fL; White Blood Count 6.2 K/mm3 (4.8-10.8)
[2025-05-03 13:13] LABS: Alanine Aminotransferase 64 U/L (12-78); Albumin Level 3.9 g/dl (3.5-5.0); Albumin/Globulin Ratio 1.5 (1.1-1.8); Alkaline Phosphatase 204 U/L (38-126); Anion Gap 16.1 mEq/L (5-15); Aspartate Amino Transferase 89 U/L (14-36); Bilirubin,Total 0.7 mg/dl (0.2-1.3); Blood Urea Nitrogen 8 mg/dl (7-17); Calcium 9.8 mg/dl (8.4-10.2); Carbon Dioxide 22 mmol/L (22.0-30.0); Chloride 105 mmol/L (98-107); Creatinine Clearance Estimated 52 mL/min (50-200); Creatinine,Serum 0.90 mg/dl (0.52-1.04); Estimated Glomerular Filt Rate 61 ml/min (>60); GFR (African American) 73 ML/MIN (>60); Globulin 2.6 g/dL (1.3-3.2); Glucose 110 mg/dl (74-100); Potassium 4.1 mmoL/L (3.5-5.1); Sodium 139 mmol/L (136-145); Total Protein,Serum 6.5 g/dl (6.3-8.2)
[2025-05-03] MEDS: PROCHLORPERAZINE 10MG TABLET 10 MG PO (13:25)
[2025-05-03] MEDS: SODIUM CHLORIDE 0.9% IV (13:55)
[2025-05-03] MEDS: VINORELBINE TARTRATE IV (13:55)
[2025-05-03 14:05] VITALS: BP 161/82; PULSE 93; RESP 18; O2SAT 99
[2025-05-03 14:15] VITALS: BP 157/85; PULSE 86; RESP 18; O2SAT 99
[2025-05-03] MEDS: SODIUM CHLORIDE 0.9% 10ML FLUSH SYRINGE 10 ML IV (14:18)
== END 2025-05-03 14:20 | disposition home or self-care (01) ==
LOC: INF 12:44
PROVIDERS: PCP Family Medicine; Visit Provider Internal Medicine Medical Oncology
DX: Z51.11 Encounter for antineoplastic chemotherapy (principal); C50.919 Malignant neoplasm of unspecified site of unspecified female breast
CPT/HCPCS: 80053; 85025; 96409; J1642; J9390; Q0164

== ENCOUNTER 2025-05-23 10:42 | Emergency (ER) | payer MEDICARE, SELFPAY ==
[2025-05-23] VITALS (9 sets, daily range): BP systolic 128–159; BP diastolic 74–91; PULSE 91–111; RESP 13–15; TEMP 36.5–36.6; O2SAT 96–98; BMI 28.3
--- OUTSIDE RECORDS SUMMARY | 2025-05-23 10:50 | XMS_ITS | Clinical Summary ---
Author Organization Healthcare Address [address] [place] [address] Care Team Providers Care Fish Cutter Name Role Phone Unavailable Primary Care Provider [...]
--- OUTSIDE RECORDS SUMMARY | 2025-05-23 10:50 | XMS_ITS | Encounter Summary ---
Author Organization Healthcare Address [address] [place] [address] Care Team Providers Care Outreach Professional Name Role Phone Unavailable Primary Care Provider Unavailabl e Encounter Details Date Type Department Care Team (Late st Contact Info) Description 07/04/2014 [facility] [id number] [place] [address] Krysta Marrufo, RN [facility] Social [...]
--- NOTE | 2025-05-23 10:55 | PC.NURSE ---
FSBS reported Critically low at this time.
[2025-05-23] MEDS: DEXTROSE 15GM PACKET 15 GM PO (10:58)
--- NOTE | 2025-05-23 11:01 | CT_ITS ---
FINAL REPORT TECHNIQUE: After the administration of oral and intravenous contrast, axial images were obtained through the abdomen and pelvis by computed tomography. The study was performed with techniques to keep radiation dose as low as reasonably achievable, (ALARA). Individual dose reduction techniques using automated exposure control or adjustment of mA and/or kV according to the patient's size were employed. CLINICAL HISTORY: hx of liver mets, AMS, dysarthria COMPARISON: 02/24/2025 FINDINGS: CT ABDOMEN AND PELVIS: Hepatic metastases are again noted in this patient with a known history of breast cancer. The lesion in the medial right lobe of the liver remains present, with margins of the lesion difficult to visualize. The other lesions remain present as well. There is increased intrahepatic biliary ductal dilatation, concerning for either invasion or compression of the bile ducts. The spleen, pancreas, adrenals and kidneys appear unremarkable. No significant adenopathy or free fluid is noted in the abdomen. In the pelvis, there is fluid in the endometrial cavity, abnormal for the patient's advanced age. This is of uncertain significance. Bony metastases are again noted in the thoracolumbar spine, with lesions most pronounced in the T12 and L2 levels. IMPRESSION: There appears to be a slight increase in intrahepatic biliary ductal dilatation when compared to the prior exam of 02/24/2025. This may be secondary to either invasion or compression of the bile ducts. Otherwise, no significant change since the prior CT of the abdomen and pelvis. Reviewed, Interpreted and Dictated by Gene Zhang MD Transcribed by Laurel Hawkins Authenticated and [facility]
--- NOTE | 2025-05-23 11:01 | CT_ITS ---
FINAL REPORT TECHNIQUE: Routine axial images were obtained from the lung apices to below the diaphragm following IV contrast administration. Individualized dose reduction techniques using automated exposure control or adjustment of the mA and/or kV according to the patient size were employed. CLINICAL HISTORY: hx of breast CA, lymph node mets COMPARISON: 02/24/2025 FINDINGS: CT CHEST: A left Port-A-Cath is present with its tip in the superior vena cava. There is a soft tissue density in the lateral right breast, also seen on the prior CT, with adjacent calcification. This mass measures 3 cm in diameter, slightly larger than seen on the prior CT of 02/24/2025. Stable small left axillary lymph nodes are noted. There are extensive sclerotic lesions in the left scapula, with bony fragments anterior to the glenohumeral joint, that may represent intra or articular loose bodies. No new pulmonary parenchymal abnormalities are noted. No pleural or pericardial effusions are seen. IMPRESSION: Soft tissue density is present in the lateral right breast, and appears slightly larger than seen on the prior CT of 02/24/2025. No new or acute cardiopulmonary abnormalities are identified. Reviewed, Interpreted and Dictated by Gene Zhang MD Transcribed by Laurel Hawkins Authenticated and [facility]
--- NOTE | 2025-05-23 11:03 | CT_ITS ---
FINAL REPORT TECHNIQUE: multiple axial CT images were performed from the foramen magnum to the vertex without enhancement. This study was performed with techniques to keep radiation doses as low as reasonably achievable (ALARA). Individualized dose reduction techniques using automated exposure control or adjustment of mA and/or kV according to the patient's size were employed. CLINICAL HISTORY: AMS/dysarthria COMPARISON: None FINDINGS: The ventricles are mildly enlarged. There is mild to moderate diffuse atrophy. There is periventricular white matter change likely related to small vessel disease. There is no evidence of hemorrhage. No masses are identified. No extra-axial fluid is seen. There is mild to moderate mucoperiosteal thickening present in the maxillary and ethmoid sinuses. IMPRESSION: Atrophy and chronic changes without acute process. Reviewed, Interpreted and Dictated by Gene Zhang MD Transcribed by Laurel Hawkins Authenticated and [facility]
--- NOTE | 2025-05-23 11:03 | CT_ITS ---
FINAL REPORT TECHNIQUE: thin section axial CT with and without IV contrast supplemented with multiplanar 3-D reconstruction of the head. This study was performed with techniques to keep radiation doses as low as reasonably achievable, (ALARA)individualized dose reduction techniques using automated exposure control or adjustment of mA and/or kV according to the patient's size were employed. CLINICAL HISTORY: AMS/dysarthria COMPARISON: None FINDINGS: HEAD CT: Mild to moderate global atrophy is present. There is no evidence of hemorrhage. No masses are identified. No extra-axial fluid is seen. The sinuses are normal. CTA: The cranial circulation is unremarkable. There is no significant stenosis, aneurysm or occlusion. IMPRESSION: No acute process. Reviewed, Interpreted and Dictated by Gene Zhang MD Transcribed by Laurel Hawkins Authenticated and [facility]
--- NOTE | 2025-05-23 11:03 | CT_ITS ---
FINAL REPORT TECHNIQUE: NASCET technique utilized for stenosis evaluation. CLINICAL HISTORY: AMS/dysarthria COMPARISON: None FINDINGS: RIGHT CAROTID: No significant stenosis is seen of the cervical common or internal carotid artery. LEFT CAROTID: No significant stenosis seen of the cervical common or internal carotid artery. VERTEBRALS: The vertebral arteries are patent, with a dominant right vertebral artery. No significant stenosis is present. IMPRESSION: No significant arterial abnormality. Reviewed, Interpreted and Dictated by Gene Zhang MD Transcribed by Laurel Hawkins Authenticated and [facility]
--- NOTE | 2025-05-23 11:05 | [facility].EDGENADL ---
Discharge Plan Disposition Patient Disposition: Home, Self-Care Condition: Good Prescriptions Prescriptions: No Action glimepiride 4 mg tablet 4 mg PO DAILY Bystolic 10 mg tablet 10 mg PO DAILY cyanocobalamin (vitamin B-12) 1,000 mcg/mL solution 1,000 mcg SQ QMONTH Qty: 10 0RF pravastatin 40 mg tablet 40 mg PO DAILY Qty: 90 4RF prochlorperazine maleate [Compazine] 10 mg tablet 10 mg PO Q6H PRN (Reason: nausea and vomiting) Qty: 30 1RF Rx Instructions: take one tablet as needed every 6 hrs for n/v Xgeva 120 mg/1.7 mL (70 mg/mL) Solution 120 mg SQ MONTHLY pyridoxine (vitamin B6) 100 MG tablet 100 mg PO DAILY Referrals Follow up/Referrals: Kandi Kothari MD [Primary Care Provider, Medical] - See instructions Davon Gutierrez MD [Staff Physician, Oncology] - See instructions Activity Restrictions/Add. Instructions Additional Instructions/Restrictions: Please follow-up with your PCP and hematology oncologist in the upcoming days, please return to the emergency department with any worsening signs or symptoms, please continue take all your medication as prescribed, please utilize good intake with solids and fluids especially when taking your diabetes medications. Clinical Impressions Clinical Impression: Malignant neoplasm of breast metastatic to bone, Metastasis to liver, Hypoglycemic episode in patient with diabetes mellitus Instructions Patient Instructions: DI for Hypoglycemia Print Language Print Language: Mongolian Discharge ED Provider: Jair Calixto General Adult HPI <DANTE Diallo - Last Filed: 05/23/25 14:03> General Chief complaint: Neuro Symptoms/Deficit Stated complaint: Lethargic, slurring words Time Seen by Provider: 05/23/25 10:45 Mode of Arrival: Wheelchair Source of Information: Patient and Relative Description of Symptoms (Recalled from ER Triage Doc. by RN): Pt presents to the ED with weakness and slurred speech. pt states that she just doesn't feel right and is concerned she may have had a stroke. pt's reports that her last known normal was last night around 21:30 when they went to bed. pts at bedside states that he got up at 09:00 and went to check on the pt when she was just laying there looking at him. Pt's reports that the pt's speech was slurred and he wasn't able to make out what she was saying to him. pt's daughter at bedside reports that when she got to the house the pt was having trouble forming her words and was very tired and weak. pt hx of metastatic breast cancer and takes IV chemo every other week. 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 NIH 1. History of Present Illness HPI narrative: 80-year-old female presents to the emergency department with altered mental status/generalized weakness and dysarthria that was noticed around 9 AM today according to the . Upon my assessment of the patient, patient tells me that she felt like she just did not feel right , when she woke up this morning around 9 AM. Patient's states that he went to the room to wake her up and she was sitting there with her eyes wide open , patient's states that he had to arouse her, and she was mumbling her words . Patient's states that she went to bed around 9 PM at her normal state of health, the last known well was 9 PM last night. However, upon my evaluation, patient has some very minimal dysarthria, both and daughter state that the patient symptomatology has improved. Patient endorses lethargy/fatigue, denies any fever chills chest pain shortness of breath nausea vomiting constipation diarrhea no urinary type symptomatology, no abdominal pain, no lightheadedness no dizziness, no numbness or tingling, no upper or lower extremity weakness, GCS of 15, NIH of 1 at the bedside. Other past medical history significant for metastatic breast lesion, with extension into the lymph nodes on her right arm, as well as liver metastasis, follows with hematology oncology as outpatient for this, on chemotherapy infusion via port every other week. Other past medical history is consistent with T2DM, vitamin B12 deficiency, hyperlipidemia,Of note patient's breast cancer was hormone receptor positive HER2 negative, status post right lumpectomy, with ongoing chemotherapy, history of hypertension, osteoporosis, rosacea. Unsure of substance use/abuse status, initial triage vitals notable for tachycardia otherwise unremarkable. Please note that above description of symptoms, in this electronic medical record under categorization of recalled from ER triage doctor by RN are reflective of an initial nursing assessment, however, is not reflective of my full history and physical exam that was personally taken and clarified. Consequentially, this preceding description of symptoms, which may include the patient's categorized chief complaint in the EMR, do not reflect my personal clinical impression, and the ultimate description of history of present illness and patient stated complaints should be deferred to this section of the note. Unless stated otherwise or congruent with this section of the note, additional signs, symptoms, or incongruence should be interpreted as inaccurate with my clinical impression. Related Data Home Medications ?Medication ?Instructions ?Recorded ?Confirmed pyridoxine (vitamin B6) 100 mg 100 mg PO DAILY Supplement 01/27/18 04/05/25 tablet nebivolol 10 mg tablet (Bystolic) 10 mg PO DAILY BP 07/20/20 04/05/25 glimepiride 4 mg tablet 4 mg PO DAILY 11/04/24 04/05/25 denosumab 120 mg/1.7 mL (70 mg/mL) 120 mg SQ MONTHLY 03/04/25 04/05/25 subcutaneous solution (Xgeva) Previous Rx's ?Medication ?Instructions ?Recorded pravastatin 40 mg tablet 40 mg PO DAILY Cholesterol #90 tabs 02/26/24 cyanocobalamin (vitamin B-12) 1,000 mcg SQ QMONTH #10 mL 03/03/25 1,000 mcg/mL injection solution prochlorperazine maleate 10 mg 10 mg PO Q6H PRN nausea and 03/10/25 tablet (Compazine) vomiting #30 tabs Allergies Allergy/AdvReac Type Severity Reaction Status Date / Time Penicillins (PENICILLINS) Allergy Intermediate I-RASH Verified 04/05/25 09:49 codeine (CODEINE) Allergy Unknown NA-NAUSEA/VOMITING, Verified 04/05/25 09:49 FLOATING promethazine (PROMETHAZINE) Allergy Unknown NA-NAUSEA/VOMITING, Verified 04/05/25 09:49 WORSENS SILVER (FROM TEGADERM AG Allergy Severe S-BLISTERING Uncoded 04/05/25 09:49 MESH) WELTS [facility] <DANTE Diallo - Last Filed: 05/23/25 14:03> [facility] Disclaimer: The information contained in this section may have been updated after the patient was seen, as this information can be updated by other users. Medical History Lymphedema Rosacea History of hypertension Osteoporosis Hyperlipidemia Cancer Surgical History H/O dilation and curettage H/O tubal ligation Hx of cholecystectomy H/O breast biopsy History of lumpectomy of right breast Family History Other No significant family history Social History Smoking Status: Never smoker alcohol intake: never substance use type: denies use current occupational status: retired Travel in the last 8 weeks?: None household members: spouse housing: house Have you lived/traveled outside US in past 30 days?: No Contact w/someone who lives/traveled outside US past 30 days?: No Exposure to someone with infectious disease in past 14 days?: No Do you have a fever (greater than 100.4 F or 38 C)?: No Have you tested positive for COVID-19?: No Exposed to someone with COVID-19 in past 14 days?: No Do you have a sore throat?: No Do you have a cough?: No Do you have any weakness?: No Do you have any diarrhea?: No Are you experiencing any unusual bleeding?: No Do you have any muscle aches/pain?: No Do you have any abdominal pain?: No Are you experiencing loss of taste or smell?: No Other Medical History Have you received the Flu Vaccine for this season: No Have you received the Pneumonia Vaccine: Yes <DANTE Diallo - Last Filed: 05/23/25 14:03> ROS Obtained: Yes All systems reviewed & no additional complaints except as documented Physical Exam <DANTE Diallo - Last Filed: 05/23/25 14:03> General General appearance: alert and in no apparent distress Head Head exam: atraumatic and normocephalic Eye Eye exam: Present PERRL and EOMI ENT ENT exam: Present mucous membranes moist Neck Neck exam: Present normal inspection Chest Chest inspection: Present normal inspection and symmetric chest wall rise Respiratory Respiratory exam: Present normal lung sounds bilaterally; Absent respiratory distress or wheezes Cardiovascular Cardiovascular exam: Present regular rate and normal rhythm Abdominal Exam Abdominal exam: Present soft; Absent tenderness, guarding, rebound or rigidity Extremities Exam Extremities exam: Present normal inspection Neurological Exam Neurological exam: Present alert, oriented X3 and other (5 out of 5 strength in the bilateral lower and upper extremities, no gross sensation deficit, GCS of 15, minimal dysarthria noted at the bedside, nasolabial fold is symmetric, no aphasia, no facial droop, no pronator drift in the bilateral lower and upper extremities) Psychiatric Psychiatric exam: Present normal affect Skin Skin exam: Present warm and dry Medical Decision Making <DANTE Diallo - Last Filed: 05/23/25 14:03> Medical Records Medical records reviewed: Yes I reviewed the patient's medical records. Screening: Per USPSTF and CDC recommendations, given the prevalence of disease in our region, it is our hospital?s policy to screen for HIV and viral Hepatitis for all patients aged 18 and over and those with ongoing risk factors. Yazan Inquiry Pt receiving controlled substance: No Yazan was queried for this patient: No Vital Signs: 05/23/25 10:54 05/23/25 11:00 05/23/25 11:02 Temperature 97.7 F 97.7 F Temperature Source Oral Oral Pulse Rate 102 H 111 H Pulse Rate [Right] 111 H Respiratory Rate 13 13 Blood Pressure 159/91 H 159/91 H Blood Pressure [Right Arm] 159/91 H Blood Pressure Mean 112 Blood Pressure Mean [Right Arm] 113 Blood Pressure Source Automatic Cuff Blood Pressure Source [Right Arm] Automatic Cuff Blood Pressure Position Supine Blood Pressure Position [Right Arm] Supine 02 Sat by Pulse Oximetry 97 97 97 Oxygen Delivery Method Room Air Room Air 05/23/25 11:06 05/23/25 11:30 05/23/25 12:30 Temperature Temperature Source Pulse Rate 91 H 105 H Pulse Rate [Right] Respiratory Rate Blood Pressure 146/84 H 132/74 Blood Pressure [Right Arm] Blood Pressure Mean 109 101 Blood Pressure Mean [Right Arm] Blood Pressure Source Blood Pressure Source [Right Arm] Blood Pressure Position Blood Pressure Position [Right Arm] 02 Sat by Pulse Oximetry 97 98 96 Oxygen Delivery Method Room Air 05/23/25 13:00 05/23/25 13:30 Temperature Temperature Source Pulse Rate 97 H 91 H Pulse Rate [Right] Respiratory Rate Blood Pressure 132/78 128/77 Blood Pressure [Right Arm] Blood Pressure Mean 109 94 Blood Pressure Mean [Right Arm] Blood Pressure Source Blood Pressure Source [Right Arm] Blood Pressure Position Blood Pressure Position [Right Arm] 02 Sat by Pulse Oximetry 98 96 Oxygen Delivery Method Lab Data Lab results reviewed: Yes I reviewed the patient's lab results. Lab Results 05/23/25 11:23: WBC 4.6 L, RBC 3.85 L, Hgb 12.0 L, Hct 35.7 L, MCV 92.7, MCH 31.2, MCHC 33.6, RDW 13.7, Plt Count 228, MPV 10.2, Neut % (Auto) 77.2, Lymph % (Auto) 10.5, [place] % (Auto) 11.9 H, Eos % (Auto) 0.2, Baso % (Auto) 0.0 L, Neut # (Auto) 3.5, Lymph # (Auto) 0.5 L, [place] # (Auto) 0.5, Eos # (Auto) 0.0, Baso # (Auto) 0.0, Total Counted 100, Neutrophils % (Manual) 83 H, Lymphocytes % (Manual) 14, Monocytes % (Manual) 3, Platelet Estimate Normal, Giant Platelets 1+, Polychromasia 1+, Ovalocytes 1+, PT 11.4, INR 1.03, Sodium 134 L, Potassium 3.9, Chloride 106, Carbon Dioxide 22, Anion Gap 9.9, BUN 9, Creatinine 0.70, Estimated Creat Clear 47, Estimated GFR 81, Est GFR ( Amer) 98, Glucose 75, Calcium 9.6, Magnesium 2.2, Total Bilirubin 0.5, AST 81 H, ALT 48, Alkaline Phosphatase 297 H, Troponin I < 0.01, NT-Pro-B Natriuret Pep 216, Total Protein 6.6, Albumin 3.2 L, Globulin 3.4 H, Albumin/Globulin Ratio 0.9 L, Plasma/Serum Alcohol < 10, HCV Ab MAYUR w/Rflx PCR Qn Negative, HIV Ag/Ab Combo Qual Negative 05/23/25 11:23 05/23/25 11:23 Orders (Tests/Meds): ED MEDICATIONS Discontinued Medications Generic Name Dose Route Start Last Admin Trade Name Freq PRN Reason Stop Dose Admin Iopamidol 160 ml 05/23/25 12:09 05/23/25 12:11 Iopamidol-370 (76%);100ml Bottle IV 05/23/25 12:10 160 ml ONCE ONE Administration Sodium Chloride 10 ml 05/23/25 12:09 05/23/25 12:10 Sodium Chloride 0.9% 10ml Syr (Rad Only) IV 05/23/25 12:10 10 ml ONCE ONE Administration Sodium Chloride 50 ml 05/23/25 12:09 05/23/25 12:10 0.9 % Sodium Chloride 50 Ml Vial IV 05/23/25 12:10 50 ml ONCE ONE Administration ORDERS Category Date Time Status CT abdomen pelvis w con Stat Cat Scan 05/23/25 11:[address] angio head Stat Cat Scan 05/23/25 11:[address] angio neck Stat Cat Scan 05/23/25 11:[address] chest w con Stat Cat Scan 05/23/25 11:[address] head/brain wo con Stat Cat Scan 05/23/25 11:03 Completed Ammonia Stat Lab 05/23/25 11:01 Ordered Complete Blood Count Auto Diff Stat Lab 05/23/25 11:23 Completed Comprehensive Metabolic Panel Stat Lab 05/23/25 11:23 Completed Drug Screen,Urine Stat Lab 05/23/25 11:04 Ordered Ethanol [Ethyl Alcohol] Stat Lab 05/23/25 11:23 Completed HIV Combo Stat Lab 05/23/25 11:23 Completed Hepatitis C Ab Qual. W/ RFX Stat Lab 05/23/25 11:23 Completed Lactic Acid Stat Lab 05/23/25 11:01 Ordered Magnesium Stat Lab 05/23/25 11:23 Completed NT Pro Brain Natriuretic Pep. Stat Lab 05/23/25 11:23 Completed PT INR [Prothrombin Time INR] Stat Lab 05/23/25 11:23 Completed Troponin I Q3H Lab 05/23/25 14:15 Ordered Troponin I Q3H Lab 05/23/25 17:15 Ordered Troponin I Stat Lab 05/23/25 11:23 Completed Urinalysis and Microscopic Stat Lab 05/23/25 11:01 Ordered Medical Decision Narrative: 80-year-old female presents the emergency department with altered mental status, dysarthria and weakness, differential diagnose include but not limited to, intracranial metastasis, electrolyte abnormality, cardiac arrhythmia, hypoglycemia, TIA/CVA, panic encephalopathy, uremic cephalopathy, metabolic cephalopathy, encephalopathy among others. Of note the bedside, patient POC glucose upon bedside monitor was undetectably low, thus will start glucose gel/p.o. glucose at the bedside. Discussed this patient's case with the attending physician Dr. Calixto Will obtain basic laboratory studies, ammonia level, UDS, urinalysis, lactic acid, ethyl alcohol level, magnesium level, proBNP, PT/INR, troponin, EKG, POC glucose, will obtain CT of the head without contrast, CT angiogram studies of the head and neck, with and without contrast, CT chest with contrast and CT abdomen pelvis with contrast for further evaluation/characterization. Of note repeat POC glucose after oral glucose gel, was 63, will give additional p.o. glucose/p.o. intake. Leukopenia at 4.6, hemoglobin and hematocrit appear to be within baseline, otherwise unremarkable CBC. Ethyl alcohol level within normal limits CMP is notable for mild hyponatremia 134, glucose on CMP is 75, AST is mildly evaded at 81, ALP is elevated 297, otherwise unremarkable Coags within normal limits Initial troponin is within normal limits at less than 0.01, proBNP within normal range. Notified by nursing staff that patient's most recent POC glucose was 143 after p.o. intake with glucose gel, orange juice and p.o. solids. I reviewed the patient's CT head without contrast along the corresponding radiologic reports, atrophy and chronic changes without acute process, I reviewed the patient's CTA head and neck along with the corresponding radiologic reports, there is no acute process, no significant arterial abnormality I reviewed the patient's CT chest with contrast, CT abdomen pelvis with contrast along with corresponding radiologic reports, and the chest there is a soft tissue density present in the lateral right breast and appears to be slightly larger than seen on prior CT on February 2025, no new acute cardiopulmonary abnormalities are identified. In the abdomen, there appears to be a slight increase in intrahepatic biliary ductal dilatation with. Prior exam in February 2025, this may be secondary to either invasion or compression of the bile duct, otherwise no significant change since prior CT the abdomen pelvis. Reexamination of the patient at approximately 1:55 PM, patient is resting comfortably in bed, answers all questions appropriately, GCS of 15, NIH of 0, minimal dysarthria that was present previously is completely resolved, patient states she feels much better , family member (daughter) at the bedside agrees that the patient is back to her neurological baseline. I did offer further testing for possible TIA/CVA, patient denied at this time, patient that she has follow-up with her hematology oncologist provider tomorrow for chemotherapy, I advised her to keep this appointment. Shared decision making was utilized. I do believe this was more of an episode of hypoglycemia, as patient had hypoglycemia upon arrival to the emergency department, at the hide of her symptomatology, patient was given oral glucose, and glucose gel, with complete resolution of her symptomatology. POC glucose was 143-144, patient also is pending ammonia and lactic acid level, however I do not think this will knife changer, patient does have follow-up with her hematology oncology tomorrow, would like to follow-up on these laboratory studies and not stay for full values. Shared decision-making was utilized once again. I do think it is appropriate as patient is at her neurological baseline, no other acute symptomatology. Patient was given strict ED return precautions. Patient and family voiced understanding and agreement with current treatment plan/discharge plan. She will follow-up with PCP and other providers as directed. I discussed all results with the patient and with the bedside. <Jair Calixto MD - Last Filed: 05/23/25 14:04> Vital Signs: 05/23/25 10:54 05/23/25 11:00 05/23/25 11:02 Temperature 97.7 F 97.7 F Temperature Source Oral Oral Pulse Rate 102 H 111 H Pulse Rate [Right] 111 H Respiratory Rate 13 13 Blood Pressure 159/91 H 159/91 H Blood Pressure [Right Arm] 159/91 H Blood Pressure Mean 112 Blood Pressure Mean [Right Arm] 113 Blood Pressure Source Automatic Cuff Blood Pressure Source [Right Arm] Automatic Cuff Blood Pressure Position Supine Blood Pressure Position [Right Arm] Supine 02 Sat by Pulse Oximetry 97 97 97 Oxygen Delivery Method Room Air Room Air 05/23/25 11:06 05/23/25 11:30 05/23/25 12:30 Temperature Temperature Source Pulse Rate 91 H 105 H Pulse Rate [Right] Respiratory Rate Blood Pressure 146/84 H 132/74 Blood Pressure [Right Arm] Blood Pressure Mean 109 101 Blood Pressure Mean [Right Arm] Blood Pressure Source Blood Pressure Source [Right Arm] Blood Pressure Position Blood Pressure Position [Right Arm] 02 Sat by Pulse Oximetry 97 98 96 Oxygen Delivery Method Room Air 05/23/25 13:00 05/23/25 13:30 Temperature Temperature Source Pulse Rate 97 H 91 H Pulse Rate [Right] Respiratory Rate Blood Pressure 132/78 128/77 Blood Pressure [Right Arm] Blood Pressure Mean 109 94 Blood Pressure Mean [Right Arm] Blood Pressure Source Blood Pressure Source [Right Arm] Blood Pressure Position Blood Pressure Position [Right Arm] 02 Sat by Pulse Oximetry 98 96 Oxygen Delivery Method Lab Data Lab Results 05/23/25 11:23: WBC 4.6 L, RBC 3.85 L, Hgb 12.0 L, Hct 35.7 L, MCV 92.7, MCH 31.2, MCHC 33.6, RDW 13.7, Plt Count 228, MPV 10.2, Neut % (Auto) 77.2, Lymph % (Auto) 10.5, [place] % (Auto) 11.9 H, Eos % (Auto) 0.2, Baso % (Auto) 0.0 L, Neut # (Auto) 3.5, Lymph # (Auto) 0.5 L, [place] # (Auto) 0.5, Eos # (Auto) 0.0, Baso # (Auto) 0.0, Total Counted 100, Neutrophils % (Manual) 83 H, Lymphocytes % (Manual) 14, Monocytes % (Manual) 3, Platelet Estimate Normal, Giant Platelets 1+, Polychromasia 1+, Ovalocytes 1+, PT 11.4, INR 1.03, Sodium 134 L, Potassium 3.9, Chloride 106, Carbon Dioxide 22, Anion Gap 9.9, BUN 9, Creatinine 0.70, Estimated Creat Clear 47, Estimated GFR 81, Est GFR ( Amer) 98, Glucose 75, Calcium 9.6, Magnesium 2.2, Total Bilirubin 0.5, AST 81 H, ALT 48, Alkaline Phosphatase 297 H, Troponin I < 0.01, NT-Pro-B Natriuret Pep 216, Total Protein 6.6, Albumin 3.2 L, Globulin 3.4 H, Albumin/Globulin Ratio 0.9 L, Plasma/Serum Alcohol < 10, HCV Ab MAYUR w/Rflx PCR Qn Negative, HIV Ag/Ab Combo Qual Negative Orders (Tests/Meds): ED MEDICATIONS Discontinued Medications Generic Name Dose Route Start Last Admin Trade Name Freq PRN Reason Stop Dose Admin Iopamidol 160 ml 05/23/25 12:09 05/23/25 12:11 Iopamidol-370 (76%);100ml Bottle IV 05/23/25 12:10 160 ml ONCE ONE Administration Sodium Chloride 10 ml 05/23/25 12:09 05/23/25 12:10 Sodium Chloride 0.9% 10ml Syr (Rad Only) IV 05/23/25 12:10 10 ml ONCE ONE Administration Sodium Chloride 50 ml 05/23/25 12:09 05/23/25 12:10 0.9 % Sodium Chloride 50 Ml Vial IV 05/23/25 12:10 50 ml ONCE ONE Administration ORDERS Category Date Time Status CT abdomen pelvis w con Stat Cat Scan 05/23/25 11:[address] angio head Stat Cat Scan 05/23/25 11:[address] angio neck Stat Cat Scan 05/23/25 11:[address] chest w con Stat Cat Scan 05/23/25 11:[address] head/brain wo con Stat Cat Scan 05/23/25 11:03 Completed Ammonia Stat Lab 05/23/25 11:01 Ordered Complete Blood Count Auto Diff Stat Lab 05/23/25 11:23 Completed Comprehensive Metabolic Panel Stat Lab 05/23/25 11:23 Completed Drug Screen,Urine Stat Lab 05/23/25 11:04 Ordered Ethanol [Ethyl Alcohol] Stat Lab 05/23/25 11:23 Completed HIV Combo Stat Lab 05/23/25 11:23 Completed Hepatitis C Ab Qual. W/ RFX Stat Lab 05/23/25 11:23 Completed Lactic Acid Stat Lab 05/23/25 11:01 Ordered Magnesium Stat Lab 05/23/25 11:23 Completed NT Pro Brain Natriuretic Pep. Stat Lab 05/23/25 11:23 Completed PT INR [Prothrombin Time INR] Stat Lab 05/23/25 11:23 Completed Troponin I Q3H Lab 05/23/25 14:15 Ordered Troponin I Q3H Lab 05/23/25 17:15 Ordered Troponin I Stat Lab 05/23/25 11:23 Completed Urinalysis and Microscopic Stat Lab 05/23/25 11:01 Ordered ECG Data Tracing #1: I reviewed this ECG and interpreted as documented below: Normal sinus rhythm. No ST elevation or depression. Inverted T waves in aVL and upright T waves in aVR consistent with limb lead reversal. Otherwise no T wave inversions. QTc normal at 404 Medical Decision Narrative: 80-year-old female presents the emergency department with altered mental status, dysarthria and weakness, differential diagnose include but not limited to, intracranial metastasis, electrolyte abnormality, cardiac arrhythmia, hypoglycemia, TIA/CVA, panic encephalopathy, uremic cephalopathy, metabolic cephalopathy, encephalopathy among others. Of note the bedside, patient POC glucose upon bedside monitor was undetectably low, thus will start glucose gel/p.o. glucose at the bedside. Discussed this patient's case with the attending physician Dr. Calixto Will obtain basic laboratory studies, ammonia level, UDS, urinalysis, lactic acid, ethyl alcohol level, magnesium level, proBNP, PT/INR, troponin, EKG, POC glucose, will obtain CT of the head without contrast, CT angiogram studies of the head and neck, with and without contrast, CT chest with contrast and CT abdomen pelvis with contrast for further evaluation/characterization. Of note repeat POC glucose after oral glucose gel, was 63, will give additional p.o. glucose/p.o. intake. Leukopenia at 4.6, hemoglobin and hematocrit appear to be within baseline, otherwise unremarkable CBC. Ethyl alcohol level within normal limits CMP is notable for mild hyponatremia 134, glucose on CMP is 75, AST is mildly evaded at 81, ALP is elevated 297, otherwise unremarkable Coags within normal limits Initial troponin is within normal limits at less than 0.01, proBNP within normal range. Notified by nursing staff that patient's most recent POC glucose was 143 after p.o. intake with glucose gel, orange juice and p.o. solids. I reviewed the patient's CT head without contrast along the corresponding radiologic reports, atrophy and chronic changes without acute process, I reviewed the patient's CTA head and neck along with the corresponding radiologic reports, there is no acute process, no significant arterial abnormality I reviewed the patient's CT chest with contrast, CT abdomen pelvis with contrast along with corresponding radiologic reports, and the chest there is a soft tissue density present in the lateral right breast and appears to be slightly larger than seen on prior CT on February 2025, no new acute cardiopulmonary abnormalities are identified. In the abdomen, there appears to be a slight increase in intrahepatic biliary ductal dilatation with. Prior exam in February 2025, this may be secondary to either invasion or compression of the bile duct, otherwise no significant change since prior CT the abdomen pelvis. Reexamination of the patient at approximately 1:55 PM, patient is resting comfortably in bed, answers all questions appropriately, GCS of 15, NIH of 0, minimal dysarthria that was present previously is completely resolved, patient states she feels much better , family member (daughter) at the bedside agrees that the patient is back to her neurological baseline. I did offer further testing for possible TIA/CVA, patient denied at this time, patient that she has follow-up with her hematology oncologist provider tomorrow for chemotherapy, I advised her to keep this appointment. Shared decision making was utilized. I do believe this was more of an episode of hypoglycemia, as patient had hypoglycemia upon arrival to the emergency department, at the hide of her symptomatology, patient was given oral glucose, and glucose gel, with complete resolution of her symptomatology. POC glucose was 143-144, patient also is pending ammonia and lactic acid level, however I do not think this will knife changer, patient does have follow-up with her hematology oncology tomorrow, would like to follow-up on these laboratory studies and not stay for full values. Shared decision-making was utilized once again. I do think it is appropriate as patient is at her neurological baseline, no other acute symptomatology. Patient was given strict ED return precautions. Patient and family voiced understanding and agreement with current treatment plan/discharge plan. She will follow-up with PCP and other providers as directed. I discussed all results with the patient and with the bedside. I was consulted by the SANGEETA, and we discussed the complexity of the problems being addressed. I approve the treatment and management plan for this patient's care in the emergency department, thus performing a substantive portion of the medical decision making. Jair Calixto MD Critical Care <DANTE Diallo - Last Filed: 05/23/25 14:03> Critical Care Time Critical Care Time: No
[2025-05-23 11:31] LABS: Hematocrit 35.7 % (37.0-47.0); Hemoglobin 12.0 g/dL (12.2-16.2); Immature Granulocytes % 0.2 %; Mean Corpuscular HGB Conc 33.6 g/dL (31.8-35.4); Mean Corpuscular Hemoglobin 31.2 pg (27.0-31.2); Mean Corpuscular Volume 92.7 fl (81-99); Nucleated Red Blood Cells % 0 %; Platelet Count 228 K/mm3 (142-424); Red Blood Count 3.85 M/mm3 (4.20-5.40); Red Cell Distribution Width-SD 46.6 fL; White Blood Count 4.6 K/mm3 (4.8-10.8)
--- NOTE | 2025-05-23 11:37 | ECG_ITS ---
APPROVED REPORT Exam: Resting ECG HR:90 bpm ECG Measurements Heart Rate 90 AXES IN 175 P 160 QRSd 81 QRS 218 QT 356 T 160 QTc 404 Conclusion SINUS RHYTHM ARM LEADS REVERSED [INVERTED P AND QRS IN I] NORMAL ECG UNCONFIRMED REPORT Normal sinus rhythm. No ST elevation or depression. QTc normal at 404 Electronically signed by : KERMIT BUTT, 05/23/2025 14:26:24
[2025-05-23 11:47] LABS: Albumin Level 3.2 g/dl (3.5-5.0); Chloride 106 mmol/L (98-107); Sodium 134 mmol/L (136-145)
[2025-05-23 11:48] LABS: Potassium 3.9 mmoL/L (3.5-5.1)
[2025-05-23 11:50] LABS: Alanine Aminotransferase 48 U/L (12-78); Albumin/Globulin Ratio 0.9 (1.1-1.8); Alkaline Phosphatase 297 U/L (38-126); Anion Gap 9.9 mEq/L (5-15); Aspartate Amino Transferase 81 U/L (14-36); Bilirubin,Total 0.5 mg/dl (0.2-1.3); Blood Urea Nitrogen 9 mg/dl (7-17); Carbon Dioxide 22 mmol/L (22.0-30.0); Creatinine Clearance Estimated 47 mL/min (50-200); Creatinine,Serum 0.70 mg/dl (0.52-1.04); Estimated Glomerular Filt Rate 81 ml/min (>60); GFR (African American) 98 ML/MIN (>60); Globulin 3.4 g/dL (1.3-3.2); Total Protein,Serum 6.6 g/dl (6.3-8.2)
[2025-05-23 11:51] LABS: Calcium 9.6 mg/dl (8.4-10.2); Glucose 75 mg/dl (74-100); Magnesium 2.2 mg/dl (1.6-2.3)
[2025-05-23 11:52] LABS: INR 1.03 (0.9-1.1); Prothrombin Time 11.4 seconds (10.1-12.5)
[2025-05-23] MEDS: 0.9 % SODIUM CHLORIDE 50 ML VIAL IV (12:10)
[2025-05-23] MEDS: SODIUM CHLORIDE 0.9% 10ML SYR (RAD ONLY) 10 ML IV (12:10)
[2025-05-23] MEDS: IOPAMIDOL-370 (76%);100ML BOTTLE 160 ML IV (12:11)
[2025-05-23 12:12] LABS: NT Pro Brain Natriuretic Pep. 216 pg/mL (0-450)
[2025-05-23 12:21] LABS: Troponin I < 0.01 ng/ml (0.00-0.034)
[2025-05-23 12:28] LABS: Total Cells Counted 100
[2025-05-23 12:29] LABS: Giant Platelets 1+; Ovalocytes 1+; Polychromasia 1+
[2025-05-23 12:51] LABS: Hepatitis C Ab Qual. W/ RFX NEGATIVE (Negative)
--- NOTE | 2025-05-23 12:56 | PC.NURSE ---
updated pt and family on POC
== END 2025-05-23 14:14 | disposition home or self-care (01) ==
PROVIDERS: Physician Assistant; Emergency Provider Student in an Organized Health Care Education/Training Program; PCP Family Medicine
DX: E11.649 Type 2 diabetes mellitus with hypoglycemia without coma (principal); C78.7 Secondary malignant neoplasm of liver and intrahepatic bile duct; C50.919 Malignant neoplasm of unspecified site of unspecified female breast
CPT/HCPCS: 70450; 70496; 70498; 71260; 74177; 80053; 80320; 83735; 83880; 84484; 85007; 85025; 85027; 85610; 86803; 87389; 93005; 96374; 99285; J1642; Q9967

== ENCOUNTER 2025-05-24 13:02 | Outpatient (CLI) | payer MEDICARE, SELFPAY ==
--- OUTSIDE RECORDS SUMMARY | 2025-05-24 13:11 | XMS_ITS | Clinical Summary ---
Author Organization Healthcare Address [address] [place] [address] Care Team Providers Care Banking Officer Name Role Phone Unavailable Primary Care Provider [...]
--- OUTSIDE RECORDS SUMMARY | 2025-05-24 13:11 | XMS_ITS | Encounter Summary ---
Author Organization Healthcare Address [address] [place] [address] Care Team Providers Care Varnishing Unit Tool Setter Name Role Phone Unavailable Primary Care Provider Unavailabl e Encounter Details Date Type Department Care Team (Late st Contact Info) Description 07/04/2014 [facility] [id number] [place] [address] Krysta Marrufo, RN [facility] Social [...]
[2025-05-24 13:28] LABS: Hematocrit 34.8 % (37.0-47.0); Hemoglobin 11.3 g/dL (12.2-16.2); Immature Granulocytes % 0.2 %; Mean Corpuscular HGB Conc 32.5 g/dL (31.8-35.4); Mean Corpuscular Hemoglobin 30.1 pg (27.0-31.2); Mean Corpuscular Volume 92.8 fl (81-99); Nucleated Red Blood Cells % 0 %; Platelet Count 233 K/mm3 (142-424); Red Blood Count 3.75 M/mm3 (4.20-5.40); Red Cell Distribution Width-SD 47.4 fL; White Blood Count 4.5 K/mm3 (4.8-10.8)
[2025-05-24 13:46] LABS: Albumin Level 3.1 g/dl (3.5-5.0); Chloride 104 mmol/L (98-107); Potassium 4.3 mmoL/L (3.5-5.1); Sodium 133 mmol/L (136-145)
[2025-05-24 13:49] LABS: Alanine Aminotransferase 53 U/L (12-78); Albumin/Globulin Ratio 0.9 (1.1-1.8); Alkaline Phosphatase 316 U/L (38-126); Anion Gap 8.3 mEq/L (5-15); Aspartate Amino Transferase 87 U/L (14-36); Bilirubin,Total 0.4 mg/dl (0.2-1.3); Blood Urea Nitrogen 10 mg/dl (7-17); Calcium 9.8 mg/dl (8.4-10.2); Carbon Dioxide 25 mmol/L (22.0-30.0); Creatinine,Serum 1.00 mg/dl (0.52-1.04); Estimated Glomerular Filt Rate 53 ml/min (>60); GFR (African American) 65 ML/MIN (>60); Globulin 3.3 g/dL (1.3-3.2); Glucose 149 mg/dl (74-100); Total Protein,Serum 6.4 g/dl (6.3-8.2)
[2025-05-24] MEDS: SODIUM CHLORIDE 0.9% 10ML FLUSH SYRINGE 10 ML IV (15:03)
== END 2025-05-24 14:58 | disposition home or self-care (01) ==
LOC: INF 13:03
PROVIDERS: PCP Family Medicine; Visit Provider Internal Medicine Medical Oncology
DX: C50.919 Malignant neoplasm of unspecified site of unspecified female breast (principal)
CPT/HCPCS: 36591; 80053; 85025; J1642

== ENCOUNTER 2025-05-31 13:01 | Outpatient (CLI) | payer MEDICARE, SELFPAY ==
--- OUTSIDE RECORDS SUMMARY | 2025-05-31 13:04 | XMS_ITS | Clinical Summary ---
Author Organization Healthcare Address [address] [place] [address] Care Team Providers Care Ukrainian Folk Arts Instructor Name Role Phone Unavailable Primary Care Provider [...]
--- OUTSIDE RECORDS SUMMARY | 2025-05-31 13:04 | XMS_ITS | Encounter Summary ---
Author Organization Healthcare Address [address] [place] [address] Care Team Providers Care Research Program Coordinator Name Role Phone Unavailable Primary Care Provider Unavailabl e Encounter Details Date Type Department Care Team (Late st Contact Info) Description 07/04/2014 [facility] [id number] [place] [address] Krysta Marrufo, RN [facility] Social [...]
[2025-05-31 13:22] LABS: Hematocrit 34.7 % (37.0-47.0); Hemoglobin 11.4 g/dL (12.2-16.2); Immature Granulocytes % 0.2 %; Mean Corpuscular HGB Conc 32.9 g/dL (31.8-35.4); Mean Corpuscular Hemoglobin 30.1 pg (27.0-31.2); Mean Corpuscular Volume 91.6 fl (81-99); Nucleated Red Blood Cells % 0 %; Platelet Count 199 K/mm3 (142-424); Red Blood Count 3.79 M/mm3 (4.20-5.40); Red Cell Distribution Width-SD 46.7 fL; White Blood Count 4.9 K/mm3 (4.8-10.8)
[2025-05-31 13:26] VITALS: BP 130/77; PULSE 83; RESP 20; TEMP 36.6; O2SAT 99
[2025-05-31] MEDS: DENOSUMAB 120MG/1.7ML VIAL 120 MG SUBCUT (13:26)
[2025-05-31] MEDS: VITAMIN B-12 1,000 MCG 1ML VIAL 1000 MCG IM (13:26)
[2025-05-31 13:29] LABS: Albumin Level 3.6 g/dl (3.5-5.0); Chloride 106 mmol/L (98-107)
[2025-05-31 13:30] LABS: Potassium 4.0 mmoL/L (3.5-5.1); Sodium 139 mmol/L (136-145)
[2025-05-31 13:32] LABS: Blood Urea Nitrogen 9 mg/dl (7-17); Creatinine,Serum 0.90 mg/dl (0.52-1.04); Estimated Glomerular Filt Rate 60 ml/min (>60); GFR (African American) 73 ML/MIN (>60)
[2025-05-31 13:33] LABS: Alanine Aminotransferase 38 U/L (12-78); Albumin/Globulin Ratio 1.3 (1.1-1.8); Alkaline Phosphatase 261 U/L (38-126); Anion Gap 11.0 mEq/L (5-15); Aspartate Amino Transferase 60 U/L (14-36); Bilirubin,Total 0.6 mg/dl (0.2-1.3); Calcium 9.6 mg/dl (8.4-10.2); Carbon Dioxide 26 mmol/L (22.0-30.0); Globulin 2.7 g/dL (1.3-3.2); Glucose 106 mg/dl (74-100); Total Protein,Serum 6.3 g/dl (6.3-8.2)
[2025-05-31 14:05] VITALS: BP 126/69; PULSE 80; RESP 20; O2SAT 99
[2025-05-31] MEDS: PROCHLORPERAZINE 10MG TABLET 10 MG PO (14:05)
[2025-05-31] MEDS: 0.9 % SODIUM CHLORIDE 50 ML IV (14:06)
[2025-05-31 14:20] VITALS: BP 121/71; PULSE 76; RESP 20; O2SAT 99
[2025-05-31] MEDS: SODIUM CHLORIDE 0.9% IV (14:20)
[2025-05-31] MEDS: VINORELBINE TARTRATE IV (14:20)
[2025-05-31 14:40] VITALS: BP 119/69; PULSE 74; RESP 20; O2SAT 98
[2025-05-31] MEDS: SODIUM CHLORIDE 0.9% 10ML FLUSH SYRINGE 10 ML IV (14:54)
== END 2025-05-31 14:40 | disposition home or self-care (01) ==
LOC: INF 13:02
PROVIDERS: PCP Family Medicine; Visit Provider Internal Medicine Medical Oncology
DX: C50.919 Malignant neoplasm of unspecified site of unspecified female breast (principal); Z51.11 Encounter for antineoplastic chemotherapy
CPT/HCPCS: 80053; 85025; 96372; 96409; J0897; J1642; J3420; J9390; Q0164

== ENCOUNTER 2025-06-14 12:51 | Outpatient (CLI) | payer MEDICARE, SELFPAY ==
--- OUTSIDE RECORDS SUMMARY | 2025-06-14 13:01 | XMS_ITS | Clinical Summary ---
Author Organization Healthcare Address [address] [place] [address] Care Team Providers Care Television Production Clerk Name Role Phone Unavailable Primary Care Provider [...]
--- OUTSIDE RECORDS SUMMARY | 2025-06-14 13:01 | XMS_ITS | Encounter Summary ---
Author Organization Healthcare Address [address] [place] [address] Care Team Providers Care Site Worker Name Role Phone Unavailable Primary Care Provider Unavailabl e Encounter Details Date Type Department Care Team (Late st Contact Info) Description 07/04/2014 [facility] [id number] [place] [address] Krysta Marrufo, RN [facility] Social [...]
[2025-06-14 13:11] LABS: Hematocrit 35.1 % (37.0-47.0); Hemoglobin 11.5 g/dL (12.2-16.2); Immature Granulocytes % 0.3 %; Mean Corpuscular HGB Conc 32.8 g/dL (31.8-35.4); Mean Corpuscular Hemoglobin 30.2 pg (27.0-31.2); Mean Corpuscular Volume 92.1 fl (81-99); Nucleated Red Blood Cells % 0 %; Platelet Count 218 K/mm3 (142-424); Red Blood Count 3.81 M/mm3 (4.20-5.40); Red Cell Distribution Width-SD 50.7 fL; White Blood Count 3.0 K/mm3 (4.8-10.8)
[2025-06-14 13:18] LABS: Albumin Level 3.6 g/dl (3.5-5.0); Chloride 109 mmol/L (98-107); Potassium 4.0 mmoL/L (3.5-5.1); Sodium 140 mmol/L (136-145)
[2025-06-14 13:21] LABS: Alanine Aminotransferase 40 U/L (12-78); Albumin/Globulin Ratio 1.4 (1.1-1.8); Alkaline Phosphatase 195 U/L (38-126); Anion Gap 13.0 mEq/L (5-15); Aspartate Amino Transferase 71 U/L (14-36); Bilirubin,Total 0.6 mg/dl (0.2-1.3); Blood Urea Nitrogen 11 mg/dl (7-17); Calcium 9.5 mg/dl (8.4-10.2); Carbon Dioxide 22 mmol/L (22.0-30.0); Creatinine,Serum 0.90 mg/dl (0.52-1.04); Estimated Glomerular Filt Rate 60 ml/min (>60); GFR (African American) 73 ML/MIN (>60); Globulin 2.6 g/dL (1.3-3.2); Glucose 166 mg/dl (74-100); Total Protein,Serum 6.2 g/dl (6.3-8.2)
[2025-06-14] MEDS: 0.9 % SODIUM CHLORIDE 50 ML IV (13:36)
[2025-06-14 13:37] VITALS: BP 136/88; PULSE 98; RESP 20; TEMP 36.6; O2SAT 98
[2025-06-14] MEDS: PROCHLORPERAZINE 10MG TABLET 10 MG PO (13:37)
[2025-06-14 13:55] VITALS: BP 145/84; PULSE 94; RESP 20; O2SAT 99
[2025-06-14] MEDS: VINORELBINE TARTRATE IV (13:55)
[2025-06-14] MEDS: SODIUM CHLORIDE 0.9% IV (13:55)
[2025-06-14 14:15] VITALS: BP 141/78; PULSE 92; RESP 20; O2SAT 98
[2025-06-14] MEDS: SODIUM CHLORIDE 0.9% 10ML FLUSH SYRINGE 10 ML IV (15:09)
== END 2025-06-14 14:15 | disposition home or self-care (01) ==
LOC: INF 12:53
PROVIDERS: PCP Family Medicine; Visit Provider Internal Medicine Medical Oncology
DX: C50.919 Malignant neoplasm of unspecified site of unspecified female breast (principal); Z51.11 Encounter for antineoplastic chemotherapy
CPT/HCPCS: 80053; 85025; 96409; J1642; J9390; Q0164

== ENCOUNTER 2025-06-28 13:39 | Outpatient (CLI) | payer MEDICARE, SELFPAY ==
--- OUTSIDE RECORDS SUMMARY | 2025-06-28 13:43 | XMS_ITS | Encounter Summary ---
Author Organization Healthcare Address [address] [place] [address] Care Team Providers Care Real Estate Attorney Name Role Phone Unavailable Primary Care Provider Unavailabl e Encounter Details Date Type Department Care Team (Late st Contact Info) Description 07/04/2014 [facility] [id number] [place] [address] Krysta Marrufo, RN [facility] Social [...]
--- OUTSIDE RECORDS SUMMARY | 2025-06-28 13:43 | XMS_ITS | Clinical Summary ---
Author Organization Healthcare Address [address] [place] [address] Care Team Providers Care Director Of Finance Name Role Phone Unavailable Primary Care Provider [...]
[2025-06-28 14:07] LABS: Alanine Aminotransferase 55 U/L (12-78); Albumin Level 3.8 g/dl (3.5-5.0); Albumin/Globulin Ratio 1.4 (1.1-1.8); Alkaline Phosphatase 203 U/L (38-126); Anion Gap 10.0 mEq/L (5-15); Aspartate Amino Transferase 80 U/L (14-36); Bilirubin,Total 0.7 mg/dl (0.2-1.3); Blood Urea Nitrogen 10 mg/dl (7-17); Calcium 10.2 mg/dl (8.4-10.2); Carbon Dioxide 24 mmol/L (22.0-30.0); Chloride 108 mmol/L (98-107); Creatinine,Serum 0.90 mg/dl (0.52-1.04); Estimated Glomerular Filt Rate 60 ml/min (>60); GFR (African American) 73 ML/MIN (>60); Globulin 2.7 g/dL (1.3-3.2); Glucose 161 mg/dl (74-100); Potassium 4.0 mmoL/L (3.5-5.1); Sodium 138 mmol/L (136-145); Total Protein,Serum 6.5 g/dl (6.3-8.2)
[2025-06-28 14:17] LABS: Hematocrit 34.8 % (37.0-47.0); Hemoglobin 11.4 g/dL (12.2-16.2); Immature Granulocytes % 0.4 %; Mean Corpuscular HGB Conc 32.8 g/dL (31.8-35.4); Mean Corpuscular Hemoglobin 30.1 pg (27.0-31.2); Mean Corpuscular Volume 91.8 fl (81-99); Nucleated Red Blood Cells % 0 %; Platelet Count 243 K/mm3 (142-424); Red Blood Count 3.79 M/mm3 (4.20-5.40); Red Cell Distribution Width-SD 54.1 fL; White Blood Count 2.8 K/mm3 (4.8-10.8)
[2025-06-28] MEDS: VITAMIN B-12 1,000 MCG 1ML VIAL 1000 MCG (14:58)
[2025-06-28] MEDS: PROCHLORPERAZINE 10MG TABLET 10 MG PO (14:58)
[2025-06-28 15:40] VITALS: BP 134/74; PULSE 94; RESP 18; O2SAT 97
[2025-06-28] MEDS: 0.9 % SODIUM CHLORIDE 50 ML 100 ML IV (15:40)
[2025-06-28] MEDS: VINORELBINE TARTRATE IV (15:40)
[2025-06-28] MEDS: SODIUM CHLORIDE 0.9% IV (15:40)
[2025-06-28] MEDS: SODIUM CHLORIDE 0.9% 10ML FLUSH SYRINGE 10 ML IV (15:56)
[2025-06-28 16:01] VITALS: BP 137/72; PULSE 81; RESP 18; O2SAT 97
== END 2025-06-28 16:01 | disposition home or self-care (01) ==
LOC: INF 13:40
PROVIDERS: PCP Family Medicine; Visit Provider Internal Medicine Medical Oncology
DX: C50.919 Malignant neoplasm of unspecified site of unspecified female breast (principal); Z51.11 Encounter for antineoplastic chemotherapy
CPT/HCPCS: 80053; 85025; 96372; 96409; J1642; J3420; J9390; Q0164

== ENCOUNTER 2025-07-12 12:32 | Outpatient (CLI) | payer MEDICARE, SELFPAY ==
--- OUTSIDE RECORDS SUMMARY | 2025-07-12 12:36 | XMS_ITS | Encounter Summary ---
Author Organization Healthcare Address [address] [place] [address] Care Team Providers Care Video Surveillance Technician Name Role Phone Unavailable Primary Care Provider Unavailabl e Encounter Details Date Type Department Care Team (Late st Contact Info) Description 07/04/2014 [facility] [id number] [place] [address] Krysta Marrufo, RN [facility] Social [...]
--- OUTSIDE RECORDS SUMMARY | 2025-07-12 12:36 | XMS_ITS | Clinical Summary ---
Author Organization Healthcare Address [address] [place] [address] Care Team Providers Care Mortgage Manager Name Role Phone Unavailable Primary Care [...]
[2025-07-12 12:55] LABS: Hematocrit 34.3 % (37.0-47.0); Hemoglobin 11.4 g/dL (12.2-16.2); Immature Granulocytes % 0.3 %; Mean Corpuscular HGB Conc 33.2 g/dL (31.8-35.4); Mean Corpuscular Hemoglobin 30.6 pg (27.0-31.2); Mean Corpuscular Volume 92.2 fl (81-99); Nucleated Red Blood Cells % 0 %; Platelet Count 250 K/mm3 (142-424); Red Blood Count 3.72 M/mm3 (4.20-5.40); Red Cell Distribution Width-SD 56.6 fL; White Blood Count 3.1 K/mm3 (4.8-10.8)
[2025-07-12 13:06] LABS: Chloride 106 mmol/L (98-107)
[2025-07-12 13:07] LABS: Albumin Level 3.7 g/dl (3.5-5.0); Potassium 3.9 mmoL/L (3.5-5.1); Sodium 138 mmol/L (136-145)
[2025-07-12 13:09] LABS: Alanine Aminotransferase 43 U/L (12-78); Anion Gap 13.9 mEq/L (5-15); Aspartate Amino Transferase 80 U/L (14-36); Blood Urea Nitrogen 8 mg/dl (7-17); Carbon Dioxide 22 mmol/L (22.0-30.0); Creatinine,Serum 0.90 mg/dl (0.52-1.04); Estimated Glomerular Filt Rate 60 ml/min (>60); GFR (African American) 73 ML/MIN (>60)
[2025-07-12 13:10] LABS: Albumin/Globulin Ratio 1.5 (1.1-1.8); Alkaline Phosphatase 180 U/L (38-126); Bilirubin,Total 0.9 mg/dl (0.2-1.3); Calcium 9.4 mg/dl (8.4-10.2); Globulin 2.4 g/dL (1.3-3.2); Glucose 129 mg/dl (74-100); Total Protein,Serum 6.1 g/dl (6.3-8.2)
[2025-07-12] MEDS: PROCHLORPERAZINE 10MG TABLET 10 MG PO (13:35)
[2025-07-12 14:00] VITALS: BP 142/76; PULSE 74; RESP 18; TEMP 36.7; O2SAT 99
[2025-07-12] MEDS: SODIUM CHLORIDE 0.9% IV (14:00)
[2025-07-12] MEDS: VINORELBINE TARTRATE IV (14:00)
[2025-07-12 14:15] VITALS: BP 149/73; PULSE 75
[2025-07-12] MEDS: SODIUM CHLORIDE 0.9% 10ML FLUSH SYRINGE 10 ML IV (14:36)
== END 2025-07-12 14:30 | disposition home or self-care (01) ==
LOC: INF 12:35
PROVIDERS: PCP Family Medicine; Visit Provider Internal Medicine Medical Oncology
DX: C50.919 Malignant neoplasm of unspecified site of unspecified female breast (principal); Z51.11 Encounter for antineoplastic chemotherapy
CPT/HCPCS: 80053; 85025; 96409; J1642; J9390; Q0164

== ENCOUNTER 2025-07-26 13:46 | Outpatient (CLI) | payer MEDICARE, SELFPAY ==
--- OUTSIDE RECORDS SUMMARY | 2025-07-26 13:49 | XMS_ITS | Clinical Summary ---
Author Organization Healthcare Address [address] [place] [address] Care Team Providers Care Supervisor Of Operations Name Role Phone Unavailable Primary Care Provider [...]
--- OUTSIDE RECORDS SUMMARY | 2025-07-26 13:49 | XMS_ITS | Encounter Summary ---
Author Organization Healthcare Address [address] [place] [address] Care Team Providers Care Surveillance Supervisor Name Role Phone Unavailable Primary Care Provider Unavailabl e Encounter Details Date Type Department Care Team (Late st Contact Info) Description 07/04/2014 [facility] [id number] [place] [address] Krysta Marrufo, RN [facility] Social [...]
[2025-07-26 13:55] VITALS: BMI 24.4
[2025-07-26 14:20] LABS: Alanine Aminotransferase 39 U/L (12-78); Albumin Level 3.7 g/dl (3.5-5.0); Albumin/Globulin Ratio 1.5 (1.1-1.8); Alkaline Phosphatase 249 U/L (38-126); Anion Gap 14.1 mEq/L (5-15); Aspartate Amino Transferase 73 U/L (14-36); Bilirubin,Total 0.8 mg/dl (0.2-1.3); Blood Urea Nitrogen 10 mg/dl (7-17); Calcium 9.3 mg/dl (8.4-10.2); Carbon Dioxide 22 mmol/L (22.0-30.0); Chloride 107 mmol/L (98-107); Creatinine Clearance Estimated 48 mL/min (50-200); Creatinine,Serum 1.00 mg/dl (0.52-1.04); Estimated Glomerular Filt Rate 53 ml/min (>60); GFR (African American) 65 ML/MIN (>60); Globulin 2.4 g/dL (1.3-3.2); Glucose 104 mg/dl (74-100); Potassium 4.1 mmoL/L (3.5-5.1); Sodium 139 mmol/L (136-145); Total Protein,Serum 6.1 g/dl (6.3-8.2)
[2025-07-26 14:21] LABS: Hematocrit 36.8 % (37.0-47.0); Hemoglobin 12.0 g/dL (12.2-16.2); Immature Granulocytes % 0.3 %; Mean Corpuscular HGB Conc 32.6 g/dL (31.8-35.4); Mean Corpuscular Hemoglobin 29.9 pg (27.0-31.2); Mean Corpuscular Volume 91.5 fl (81-99); Nucleated Red Blood Cells % 0 %; Platelet Count 273 K/mm3 (142-424); Red Blood Count 4.02 M/mm3 (4.20-5.40); Red Cell Distribution Width-SD 55.9 fL; White Blood Count 3.3 K/mm3 (4.8-10.8)
[2025-07-26 14:35] VITALS: BP 124/72; PULSE 104; RESP 20; TEMP 36.9; O2SAT 100
[2025-07-26] MEDS: PROCHLORPERAZINE 10MG TABLET 10 MG PO (14:35)
[2025-07-26] MEDS: SODIUM CHLORIDE 0.9% 10ML FLUSH SYRINGE 10 ML IV (14:47)
[2025-07-26] MEDS: VITAMIN B-12 1,000 MCG 1ML VIAL 1000 MCG IM (14:48)
[2025-07-26 15:01] VITALS: BP 140/69; PULSE 99; RESP 20; O2SAT 99
[2025-07-26] MEDS: SODIUM CHLORIDE 0.9% IV (15:01)
[2025-07-26] MEDS: VINORELBINE TARTRATE IV (15:01)
[2025-07-26 15:31] VITALS: BP 144/74; PULSE 83; RESP 18; O2SAT 99
== END 2025-07-26 23:59 | disposition home or self-care (01) ==
LOC: INF 13:47
PROVIDERS: PCP Family Medicine; Visit Provider Internal Medicine Medical Oncology
DX: C50.919 Malignant neoplasm of unspecified site of unspecified female breast (principal)
CPT/HCPCS: 80053; 85025; 96372; 96374; J1642; J3420; J9390; Q0164

== ENCOUNTER 2025-08-08 14:58 | Outpatient (CLI) | payer MEDICARE, SELFPAY ==
--- NOTE | 2025-08-08 15:30 | MM_ITS ---
PROCEDURE INFORMATION: Exam: MG Bilateral Screening 3D Mammography Exam date and time: 08/08/2025 3:13 PM Age: 80 years old Clinical indication: Screening examination TECHNIQUE: Imaging protocol: Bilateral Screening tomosynthesis and 2D mammography including computer-aided detection (CAD) when performed. COMPARISON: 1. MG MM DIG SCREENING MAMM BI W/CAD 04/12/2024 9:38 AM 2. MG MM DIG SCREENING MAMM BI W/CAD 04/10/2023 9:37 AM FINDINGS: MAMMOGRAPHY: Breast composition: There are scattered areas of fibroglandular density. Mass: None. Architectural distortion: Normal postlumpectomy changes are seen on the right including post surgical distortion, benign-type calcifications, parenchymal density, and skin thickening. Calcifications: No suspicious calcifications. Asymmetric density: None. Skin thickening: None. Axillary adenopathy: None. IMPRESSION: No mammographic evidence of malignancy. Annual screening is recommended unless otherwise clinically indicated. ASSESSMENT: BI-RADS Category 2: Benign.
== END 2025-08-08 23:59 | disposition home or self-care (01) ==
LOC: RAD 14:59
PROVIDERS: PCP Family Medicine; Visit Provider Surgery
DX: Z12.31 Encounter for screening mammogram for malignant neoplasm of breast (principal); Z85.3 Personal history of malignant neoplasm of breast
CPT/HCPCS: 77063; 77067

== ENCOUNTER 2025-08-09 12:43 | Outpatient (CLI) | payer MEDICARE, SELFPAY ==
[2025-08-09 12:48] VITALS: BMI 28.7
--- OUTSIDE RECORDS SUMMARY | 2025-08-09 12:48 | XMS_ITS | Clinical Summary ---
Author Organization Healthcare Address [address] [place] [address] Care Team Providers Care Site Medical Director Name Role Phone Unavailable Primary Care Provider [...]
--- OUTSIDE RECORDS SUMMARY | 2025-08-09 12:48 | XMS_ITS | Encounter Summary ---
Author Organization Healthcare Address [address] [place] [address] Care Team Providers Care Charter [place] Name Role Phone Unavailable Primary Care Provider Unavailabl e Encounter Details Date Type Department Care Team (Late st Contact Info) Description 07/04/2014 [facility] [id number] [place] [address] Krysta Marrufo, RN [facility] Social [...]
[2025-08-09 13:09] LABS: Hematocrit 34.0 % (37.0-47.0); Hemoglobin 11.3 g/dL (12.2-16.2); Immature Granulocytes % 0 %; Mean Corpuscular HGB Conc 33.2 g/dL (31.8-35.4); Mean Corpuscular Hemoglobin 30.3 pg (27.0-31.2); Mean Corpuscular Volume 91.2 fl (81-99); Nucleated Red Blood Cells % 0 %; Platelet Count 187 K/mm3 (142-424); Red Blood Count 3.73 M/mm3 (4.20-5.40); Red Cell Distribution Width-SD 56.3 fL; White Blood Count 2.5 K/mm3 (4.8-10.8)
[2025-08-09 13:26] LABS: Chloride 104 mmol/L (98-107)
[2025-08-09 13:27] LABS: Albumin Level 3.4 g/dl (3.5-5.0); Potassium 4.0 mmoL/L (3.5-5.1); Sodium 137 mmol/L (136-145)
[2025-08-09 13:29] LABS: Blood Urea Nitrogen 9 mg/dl (7-17); Creatinine Clearance Estimated 48 mL/min (50-200); Creatinine,Serum 1.00 mg/dl (0.52-1.04); Estimated Glomerular Filt Rate 53 ml/min (>60); GFR (African American) 65 ML/MIN (>60)
[2025-08-09 13:30] LABS: Alanine Aminotransferase 33 U/L (12-78); Albumin/Globulin Ratio 1.4 (1.1-1.8); Alkaline Phosphatase 174 U/L (38-126); Anion Gap 11.0 mEq/L (5-15); Aspartate Amino Transferase 66 U/L (14-36); Bilirubin,Total 0.6 mg/dl (0.2-1.3); Calcium 9.0 mg/dl (8.4-10.2); Carbon Dioxide 26 mmol/L (22.0-30.0); Globulin 2.5 g/dL (1.3-3.2); Glucose 168 mg/dl (74-100); Total Protein,Serum 5.9 g/dl (6.3-8.2)
[2025-08-09] MEDS: PROCHLORPERAZINE 10MG TABLET 10 MG PO (13:54)
[2025-08-09 14:25] VITALS: BP 138/75; PULSE 78; RESP 18; TEMP 36.4; O2SAT 98
[2025-08-09] MEDS: SODIUM CHLORIDE 0.9% IV (14:25)
[2025-08-09] MEDS: VINORELBINE TARTRATE IV (14:25)
[2025-08-09 14:38] VITALS: BP 147/68; PULSE 75; RESP 18; O2SAT 98
[2025-08-09] MEDS: SODIUM CHLORIDE 0.9% 10ML FLUSH SYRINGE 10 ML IV (15:01)
== END 2025-08-09 23:59 | disposition home or self-care (01) ==
LOC: INF 12:46
PROVIDERS: PCP Family Medicine; Visit Provider Internal Medicine Medical Oncology
DX: C50.919 Malignant neoplasm of unspecified site of unspecified female breast (principal); Z51.11 Encounter for antineoplastic chemotherapy
CPT/HCPCS: 80053; 85025; 96409; J1642; J9390; Q0164

== ENCOUNTER 2025-08-23 12:54 | Outpatient (CLI) | payer MEDICARE, SELFPAY ==
--- OUTSIDE RECORDS SUMMARY | 2025-08-23 13:02 | XMS_ITS | Clinical Summary ---
Author Organization Healthcare Address [address] [place] [address] Care Team Providers Care Pressure Testing Technician Name Role Phone Unavailable Primary Care [...]
--- OUTSIDE RECORDS SUMMARY | 2025-08-23 13:02 | XMS_ITS | Encounter Summary ---
Author Organization Healthcare Address [address] [place] [address] Care Team Providers Care Product Blending Supervisor Name Role Phone Unavailable Primary Care Provider Unavailabl e Encounter Details Date Type Department Care Team (Late st Contact Info) Description 07/04/2014 [facility] [id number] [place] [address] Krysta Marrufo, RN [facility] Social [...]
[2025-08-23 13:05] VITALS: BMI 28.7
[2025-08-23 13:19] LABS: Hematocrit 36.2 % (37.0-47.0); Hemoglobin 11.9 g/dL (12.2-16.2); Immature Granulocytes % 0.2 %; Mean Corpuscular HGB Conc 32.9 g/dL (31.8-35.4); Mean Corpuscular Hemoglobin 30.0 pg (27.0-31.2); Mean Corpuscular Volume 91.2 fl (81-99); Nucleated Red Blood Cells % 0 %; Platelet Count 241 K/mm3 (142-424); Red Blood Count 3.97 M/mm3 (4.20-5.40); Red Cell Distribution Width-SD 55.8 fL; White Blood Count 4.3 K/mm3 (4.8-10.8)
[2025-08-23 13:36] LABS: Alanine Aminotransferase 39 U/L (12-78); Albumin Level 3.8 g/dl (3.5-5.0); Albumin/Globulin Ratio 1.3 (1.1-1.8); Alkaline Phosphatase 181 U/L (38-126); Anion Gap 10.6 mEq/L (5-15); Aspartate Amino Transferase 63 U/L (14-36); Bilirubin,Total 0.6 mg/dl (0.2-1.3); Blood Urea Nitrogen 10 mg/dl (7-17); Calcium 9.5 mg/dl (8.4-10.2); Carbon Dioxide 23 mmol/L (22.0-30.0); Chloride 106 mmol/L (98-107); Creatinine Clearance Estimated 48 mL/min (50-200); Creatinine,Serum 1.00 mg/dl (0.52-1.04); Estimated Glomerular Filt Rate 53 ml/min (>60); GFR (African American) 65 ML/MIN (>60); Globulin 3.0 g/dL (1.3-3.2); Glucose 181 mg/dl (74-100); Potassium 3.6 mmoL/L (3.5-5.1); Sodium 136 mmol/L (136-145); Total Protein,Serum 6.8 g/dl (6.3-8.2)
[2025-08-23] MEDS: PROCHLORPERAZINE 10MG TABLET 10 MG PO (14:27)
[2025-08-23] MEDS: VITAMIN B-12 1,000 MCG 1ML VIAL 1000 MCG IM (14:30)
[2025-08-23] MEDS: SODIUM CHLORIDE 0.9% 10ML FLUSH SYRINGE 10 ML IV (14:36)
[2025-08-23] MEDS: DENOSUMAB 120MG/1.7ML VIAL 120 MG SUBCUT (14:40)
[2025-08-23 14:55] VITALS: BP 134/76; PULSE 93; RESP 18; TEMP 36.6; O2SAT 97
[2025-08-23] MEDS: VINORELBINE TARTRATE IV (14:55)
[2025-08-23] MEDS: SODIUM CHLORIDE 0.9% IV (14:55)
[2025-08-23 15:15] VITALS: BP 143/71; PULSE 81; RESP 20; O2SAT 97
== END 2025-08-23 23:59 | disposition home or self-care (01) ==
LOC: INF 12:54
PROVIDERS: PCP Family Medicine; Visit Provider Internal Medicine Medical Oncology
DX: C50.919 Malignant neoplasm of unspecified site of unspecified female breast (principal); Z51.11 Encounter for antineoplastic chemotherapy
CPT/HCPCS: 80053; 85025; 96372; 96409; J0897; J1642; J3420; J9390; Q0164

== ENCOUNTER 2025-09-05 13:02 | Outpatient (CLI) | payer MEDICARE, SELFPAY ==
[2025-09-05 13:38] LABS: Alanine Aminotransferase 37 U/L (12-78); Albumin Level 3.8 g/dl (3.5-5.0); Albumin/Globulin Ratio 1.5 (1.1-1.8); Alkaline Phosphatase 166 U/L (38-126); Aspartate Amino Transferase 71 U/L (14-36); Bilirubin,Total 0.7 mg/dl (0.2-1.3); Blood Urea Nitrogen 8 mg/dl (7-17); Calcium 9.8 mg/dl (8.4-10.2); Carbon Dioxide 24 mmol/L (22.0-30.0); Chloride 105 mmol/L (98-107); Creatinine,Serum 0.90 mg/dl (0.52-1.04); Estimated Glomerular Filt Rate 60 ml/min (>60); GFR (African American) 73 ML/MIN (>60); Globulin 2.5 g/dL (1.3-3.2); Glucose 90 mg/dl (74-100); Sodium 136 mmol/L (136-145); Total Protein,Serum 6.3 g/dl (6.3-8.2)
[2025-09-05] MEDS: SODIUM CHLORIDE 0.9% 10ML FLUSH SYRINGE 10 ML IV (13:39)
--- NOTE | 2025-09-05 13:45 | CT_ITS ---
FINAL REPORT CLINICAL HISTORY: Breast Cancer COMPARISON: 05/23/2025 FINDINGS: There are a multitude of hepatic lesions, particularly in the right hepatic lobe which are confluent occupying a region measuring 13.0 x 10.0 cm in AP and transverse dimension. No specific lesion is seen within the lateral segment of the left hepatic lobe. The spleen is unremarkable. Gallbladder is absent. There is bilateral adrenal hyperplasia. The pancreas is unremarkable. The kidneys enhance appropriately. Precontrast images demonstrate no nephrolithiasis. Uterus lies midline. Urinary bladder is decompressed. There is moderate sigmoid diverticulosis. IMPRESSION: Significant worsening hepatic lesions consistent with progressive hepatic metastatic disease. Reviewed, Interpreted and Dictated by Gene Zhang MD Transcribed by Nayana Cesar Authenticated and [facility]
--- NOTE | 2025-09-05 13:45 | CT_ITS ---
FINAL REPORT TECHNIQUE: Pre and postcontrast imaging of the chest was obtained. This study was performed with techniques to keep radiation doses as low as reasonably achievable (ALARA). Individualized dose reduction techniques using automated exposure control or adjustment of mA and/or kV according to the patient's size were employed. CLINICAL HISTORY: Breast Cancer COMPARISON: 05/23/2025 FINDINGS: Mass in the lateral right breast measuring 3.1 x 1.3 cm with adjacent surgical clips has decreased in size. There are right axillary surgical clips present. There are multiple small lymph nodes in the left axilla measuring up to 12 mm, similar to prior exam. There is no significant mediastinal adenopathy. There is a left upper anterior chest wall port in place with the tip in the SVC. Abnormal sclerosis is seen within the scapula and bony glenoid. 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 Multi bony fragments is seen anterior to the bony glenoid measuring up to 2.0 cm. IMPRESSION: Decrease in size of mass in the lateral right breast. Stable left axillary lymph nodes. Reviewed, Interpreted and Dictated by Gene Zhang MD Transcribed by Nayana Cesar Authenticated and [facility]
[2025-09-05 13:48] LABS: Hematocrit 36.0 % (37.0-47.0); Hemoglobin 11.8 g/dL (12.2-16.2); Immature Granulocytes % 0.6 %; Mean Corpuscular HGB Conc 32.8 g/dL (31.8-35.4); Mean Corpuscular Hemoglobin 30.1 pg (27.0-31.2); Mean Corpuscular Volume 91.8 fl (81-99); Nucleated Red Blood Cells % 0 %; Platelet Count 253 K/mm3 (142-424); Red Blood Count 3.92 M/mm3 (4.20-5.40); Red Cell Distribution Width-SD 55.7 fL; White Blood Count 3.2 K/mm3 (4.8-10.8)
[2025-09-05] MEDS: SODIUM CHLORIDE 0.9% 10ML SYR (RAD ONLY) 10 ML IV (14:11)
[2025-09-05] MEDS: IOPAMIDOL-370 (76%);100ML BOTTLE 75 ML IV (14:12)
[2025-09-05 15:04] LABS: Anion Gap 10.9 mEq/L (5-15); Potassium 3.9 mmoL/L (3.5-5.1)
== END 2025-09-05 23:59 | disposition home or self-care (01) ==
PROVIDERS: PCP Family Medicine; Visit Provider Internal Medicine Medical Oncology
DX: C50.919 Malignant neoplasm of unspecified site of unspecified female breast (principal); C79.51 Secondary malignant neoplasm of bone
CPT/HCPCS: 36591; 71270; 74178; 80053; 85025; J1642; Q9967

== ENCOUNTER 2025-09-06 13:59 | Outpatient (CLI) | payer MEDICARE, SELFPAY ==
[2025-09-06] MEDS: SODIUM CHLORIDE 0.9% 10ML FLUSH SYRINGE 10 ML IV (14:05)
== END 2025-09-06 23:59 | disposition home or self-care (01) ==
LOC: INF 14:00
PROVIDERS: PCP Family Medicine; Visit Provider Internal Medicine Medical Oncology
DX: C50.919 Malignant neoplasm of unspecified site of unspecified female breast (principal)
CPT/HCPCS: 96523; J1642

== ENCOUNTER 2025-09-22 11:09 | Outpatient (CLI) | payer MEDICARE, SELFPAY ==
[2025-09-22 11:29] LABS: Hematocrit 35.8 % (37.0-47.0); Hemoglobin 11.8 g/dL (12.2-16.2); Immature Granulocytes % 0.2 %; Mean Corpuscular HGB Conc 33.0 g/dL (31.8-35.4); Mean Corpuscular Hemoglobin 30.6 pg (27.0-31.2); Mean Corpuscular Volume 92.7 fl (81-99); Nucleated Red Blood Cells % 0 %; Platelet Count 188 K/mm3 (142-424); Red Blood Count 3.86 M/mm3 (4.20-5.40); Red Cell Distribution Width-SD 57.8 fL; White Blood Count 5.1 K/mm3 (4.8-10.8)
[2025-09-22 11:39] VITALS: BMI 27.9
[2025-09-22 11:40] LABS: Albumin Level 3.7 g/dl (3.5-5.0); Chloride 106 mmol/L (98-107); Potassium 3.9 mmoL/L (3.5-5.1); Sodium 143 mmol/L (136-145)
--- OUTSIDE RECORDS SUMMARY | 2025-09-22 11:41 | XMS_ITS | Encounter Summary ---
Author Organization Healthcare Address [address] [place] [address] Care Team Providers Care Product Grader Name Role Phone Unavailable Primary Care Provider Unavailabl e Encounter Details Date Type Department Care Team (Late st Contact Info) Description 07/04/2014 [facility] [id number] [place] [address] Krysta Marrufo, RN [facility] None Social History Tobacco Use Types Packs/Day Years [...]
--- OUTSIDE RECORDS SUMMARY | 2025-09-22 11:41 | XMS_ITS | Clinical Summary ---
Author Organization Healthcare Address [address] [place] [address] Care Team Providers Care Circuit Breaker Supervisor Name Role Phone Unavailable Primary Care [...]
[2025-09-22 11:43] LABS: Alanine Aminotransferase 36 U/L (12-78); Albumin/Globulin Ratio 1.4 (1.1-1.8); Alkaline Phosphatase 161 U/L (38-126); Anion Gap 16.9 mEq/L (5-15); Aspartate Amino Transferase 74 U/L (14-36); Bilirubin,Total 0.5 mg/dl (0.2-1.3); Blood Urea Nitrogen 10 mg/dl (7-17); Calcium 9.4 mg/dl (8.4-10.2); Carbon Dioxide 24 mmol/L (22.0-30.0); Creatinine Clearance Estimated 47 mL/min (50-200); Creatinine,Serum 1.00 mg/dl (0.52-1.04); Estimated Glomerular Filt Rate 53 ml/min (>60); GFR (African American) 65 ML/MIN (>60); Globulin 2.7 g/dL (1.3-3.2); Glucose 123 mg/dl (74-100); Total Protein,Serum 6.4 g/dl (6.3-8.2)
[2025-09-22] MEDS: LORATADINE 10MG TABLET 10 MG PO (12:21)
[2025-09-22] MEDS: FAMOTIDINE 20MG TABLET 20 MG (12:21)
[2025-09-22] MEDS: DEXAMETHASONE 4MG TABLET 12 MG (12:21)
[2025-09-22 13:05] VITALS: BP 147/76; PULSE 81; RESP 20; O2SAT 98
[2025-09-22 13:30] VITALS: BP 138/75; PULSE 76
== END 2025-09-22 23:59 | disposition home or self-care (01) ==
LOC: INF 11:10
PROVIDERS: PCP Family Medicine; Visit Provider Internal Medicine Medical Oncology
DX: C50.919 Malignant neoplasm of unspecified site of unspecified female breast (principal); Z51.11 Encounter for antineoplastic chemotherapy
CPT/HCPCS: 80053; 85025; 96413; J1642; J8540; J9267

== ENCOUNTER 2025-09-29 12:55 | Outpatient (CLI) | payer MEDICARE, SELFPAY ==
[2025-09-29 13:08] VITALS: BP 140/75; PULSE 104; RESP 18; TEMP 36.7; O2SAT 99
[2025-09-29 13:26] LABS: Hematocrit 35.0 % (37.0-47.0); Hemoglobin 11.4 g/dL (12.2-16.2); Immature Granulocytes % 0.6 %; Mean Corpuscular HGB Conc 32.6 g/dL (31.8-35.4); Mean Corpuscular Hemoglobin 30.4 pg (27.0-31.2); Mean Corpuscular Volume 93.3 fl (81-99); Nucleated Red Blood Cells % 0 %; Platelet Count 174 K/mm3 (142-424); Red Blood Count 3.75 M/mm3 (4.20-5.40); Red Cell Distribution Width-SD 58.2 fL; White Blood Count 4.7 K/mm3 (4.8-10.8)
[2025-09-29 13:32] LABS: Albumin Level 3.7 g/dl (3.5-5.0); Chloride 107 mmol/L (98-107); Potassium 4.1 mmoL/L (3.5-5.1); Sodium 140 mmol/L (136-145)
[2025-09-29 13:34] LABS: Blood Urea Nitrogen 11 mg/dl (7-17); Creatinine,Serum 0.90 mg/dl (0.52-1.04); Estimated Glomerular Filt Rate 60 ml/min (>60); GFR (African American) 73 ML/MIN (>60)
[2025-09-29 13:35] LABS: Alanine Aminotransferase 33 U/L (12-78); Albumin/Globulin Ratio 1.4 (1.1-1.8); Alkaline Phosphatase 149 U/L (38-126); Anion Gap 16.1 mEq/L (5-15); Aspartate Amino Transferase 53 U/L (14-36); Bilirubin,Total 0.5 mg/dl (0.2-1.3); Calcium 9.4 mg/dl (8.4-10.2); Carbon Dioxide 21 mmol/L (22.0-30.0); Globulin 2.7 g/dL (1.3-3.2); Glucose 96 mg/dl (74-100); Total Protein,Serum 6.4 g/dl (6.3-8.2)
[2025-09-29] MEDS: DEXAMETHASONE 4MG TABLET 12 MG PO (13:40)
[2025-09-29] MEDS: FAMOTIDINE 20MG TABLET 20 MG PO (13:40)
[2025-09-29] MEDS: LORATADINE 10MG TABLET 10 MG PO (13:40)
[2025-09-29 14:15] VITALS: BP 147/66; PULSE 76; RESP 20; TEMP 36.6; O2SAT 98
[2025-09-29 14:45] VITALS: BP 159/76; PULSE 83
[2025-09-29] MEDS: SODIUM CHLORIDE 0.9% 10ML FLUSH SYRINGE 10 ML IV (15:30)
== END 2025-09-29 23:59 | disposition home or self-care (01) ==
LOC: INF 12:56
PROVIDERS: PCP Family Medicine; Visit Provider Internal Medicine Medical Oncology
DX: C50.919 Malignant neoplasm of unspecified site of unspecified female breast (principal); C79.51 Secondary malignant neoplasm of bone; Z51.11 Encounter for antineoplastic chemotherapy
CPT/HCPCS: 80053; 85025; 96413; J1642; J8540; J9267

== ENCOUNTER 2025-10-06 12:46 | Outpatient (CLI) | payer MEDICARE, SELFPAY ==
[2025-10-06 12:49] VITALS: BMI 27.8
--- OUTSIDE RECORDS SUMMARY | 2025-10-06 12:55 | XMS_ITS | Encounter Summary ---
Author Organization Healthcare Address [address] [place] [address] Care Team Providers Care Correctional Supply Supervisor Name Role Phone Unavailable Primary Care Provider Unavailabl e Encounter Details Date Type Department Care Team (Late st Contact Info) Description 07/04/2014 [facility] [id number] [place] [address] Krysta Marrufo, RN [facility] None [...]
--- OUTSIDE RECORDS SUMMARY | 2025-10-06 12:55 | XMS_ITS | Clinical Summary ---
Author Organization Healthcare Address [address] [place] [address] Care Team Providers Care Friction Paint Machine Tender Name Role Phone Unavailable Primary Care Provider [...]
[2025-10-06 13:10] LABS: Hematocrit 32.8 % (37.0-47.0); Hemoglobin 10.8 g/dL (12.2-16.2); Immature Granulocytes % 0.7 %; Mean Corpuscular HGB Conc 32.9 g/dL (31.8-35.4); Mean Corpuscular Hemoglobin 30.4 pg (27.0-31.2); Mean Corpuscular Volume 92.4 fl (81-99); Nucleated Red Blood Cells % 0 %; Platelet Count 169 K/mm3 (142-424); Red Blood Count 3.55 M/mm3 (4.20-5.40); Red Cell Distribution Width-SD 55.7 fL; White Blood Count 3.0 K/mm3 (4.8-10.8)
[2025-10-06 13:19] LABS: Alanine Aminotransferase 28 U/L (12-78); Albumin Level 3.7 g/dl (3.5-5.0); Albumin/Globulin Ratio 1.5 (1.1-1.8); Alkaline Phosphatase 101 U/L (38-126); Anion Gap 11.0 mEq/L (5-15); Aspartate Amino Transferase 42 U/L (14-36); Bilirubin,Total 0.4 mg/dl (0.2-1.3); Blood Urea Nitrogen 12 mg/dl (7-17); Calcium 9.4 mg/dl (8.4-10.2); Carbon Dioxide 21 mmol/L (22.0-30.0); Chloride 110 mmol/L (98-107); Creatinine Clearance Estimated 47 mL/min (50-200); Creatinine,Serum 0.90 mg/dl (0.52-1.04); Estimated Glomerular Filt Rate 60 ml/min (>60); GFR (African American) 73 ML/MIN (>60); Globulin 2.4 g/dL (1.3-3.2); Glucose 134 mg/dl (74-100); Potassium 4.0 mmoL/L (3.5-5.1); Sodium 138 mmol/L (136-145); Total Protein,Serum 6.1 g/dl (6.3-8.2)
[2025-10-06] MEDS: 0.9 % SODIUM CHLORIDE 50 ML 100 ML IV (13:33)
[2025-10-06] MEDS: DEXAMETHASONE 4MG TABLET 12 MG (13:34)
[2025-10-06] MEDS: FAMOTIDINE 20MG TABLET 20 MG (13:34)
[2025-10-06] MEDS: LORATADINE 10MG TABLET 10 MG PO (13:34)
[2025-10-06 14:15] VITALS: BP 142/66; PULSE 81; RESP 17; O2SAT 100
[2025-10-06 14:30] VITALS: BP 124/69; PULSE 72; RESP 17
[2025-10-06 14:45] VITALS: BP 126/69; PULSE 73; RESP 16
[2025-10-06 15:00] VITALS: BP 127/64; PULSE 77; RESP 16
[2025-10-06 15:15] VITALS: BP 135/70; PULSE 80; RESP 17
== END 2025-10-06 23:59 | disposition home or self-care (01) ==
LOC: INF 12:47
PROVIDERS: PCP Family Medicine; Visit Provider Internal Medicine Medical Oncology
DX: C50.919 Malignant neoplasm of unspecified site of unspecified female breast (principal); C79.51 Secondary malignant neoplasm of bone; Z51.11 Encounter for antineoplastic chemotherapy
CPT/HCPCS: 80053; 85025; 96413; J1642; J8540; J9267

== ENCOUNTER 2025-10-18 11:08 | Outpatient (CLI) | payer MEDICARE, SELFPAY ==
[2025-10-18 11:10] VITALS: BMI 24.3
[2025-10-18 11:21] LABS: Hematocrit 33.9 % (37.0-47.0); Hemoglobin 11.2 g/dL (12.2-16.2); Immature Granulocytes % 0.3 %; Mean Corpuscular HGB Conc 33.0 g/dL (31.8-35.4); Mean Corpuscular Hemoglobin 30.6 pg (27.0-31.2); Mean Corpuscular Volume 92.6 fl (81-99); Nucleated Red Blood Cells % 0 %; Platelet Count 157 K/mm3 (142-424); Red Blood Count 3.66 M/mm3 (4.20-5.40); Red Cell Distribution Width-SD 57.3 fL; White Blood Count 3.7 K/mm3 (4.8-10.8)
--- OUTSIDE RECORDS SUMMARY | 2025-10-18 11:23 | XMS_ITS | Clinical Summary ---
Author Organization Healthcare Address [address] [place] [address] Care Team Providers Care It Field Technician Name Role Phone Unavailable Primary Care [...]
--- OUTSIDE RECORDS SUMMARY | 2025-10-18 11:23 | XMS_ITS | Encounter Summary ---
Author Organization Healthcare Address [address] [place] [address] Care Team Providers Care Wrapper Layer And Examiner Soft Work Name Role Phone Unavailable Primary Care Provider Unavailabl e Encounter Details Date Type Department Care Team (Late st Contact Info) Description 07/04/2014 [facility] [id number] [place] [address] Krysta Marrufo, RN [facility] None [...]
--- OUTSIDE RECORDS SUMMARY | 2025-10-18 11:23 | XMS_ITS ---
Laboratory report Created on: September 20, 2025 MADISON HERRERA : 1945 Sex: Female Author Organization Unknown PROBLEMS Problems List Code Description RESULTS Laboratory Orders Date Order Code Test 2024-12-07 [id number] HGB SOLUBILITY Laboratory Results Date LOINC Test Value Unit Reference Range Interpre tation 2024-12-07 6864-3 HEMOGLOBIN (HGB) SOLUBILITY N NEGATIVE
[2025-10-18 11:30] LABS: Albumin Level 3.6 g/dl (3.5-5.0); Chloride 109 mmol/L (98-107); Potassium 4.0 mmoL/L (3.5-5.1); Sodium 137 mmol/L (136-145)
[2025-10-18 11:33] LABS: Alanine Aminotransferase 23 U/L (12-78); Albumin/Globulin Ratio 1.9 (1.1-1.8); Alkaline Phosphatase 66 U/L (38-126); Anion Gap 8.0 mEq/L (5-15); Aspartate Amino Transferase 37 U/L (14-36); Bilirubin,Total 0.3 mg/dl (0.2-1.3); Blood Urea Nitrogen 10 mg/dl (7-17); Calcium 9.8 mg/dl (8.4-10.2); Carbon Dioxide 24 mmol/L (22.0-30.0); Creatinine Clearance Estimated 46 mL/min (50-200); Creatinine,Serum 1.00 mg/dl (0.52-1.04); Estimated Glomerular Filt Rate 53 ml/min (>60); GFR (African American) 65 ML/MIN (>60); Globulin 1.9 g/dL (1.3-3.2); Glucose 128 mg/dl (74-100); Total Protein,Serum 5.5 g/dl (6.3-8.2)
[2025-10-18 12:33] VITALS: BP 139/71; PULSE 72; RESP 18; TEMP 36.7; O2SAT 100
[2025-10-18] MEDS: DEXAMETHASONE 4MG TABLET 12 MG PO (12:33)
[2025-10-18] MEDS: FAMOTIDINE 20MG TABLET 20 MG PO (12:33)
[2025-10-18] MEDS: LORATADINE 10MG TABLET 10 MG PO (12:34)
[2025-10-18] MEDS: SODIUM CHLORIDE 0.9% 10ML FLUSH SYRINGE 10 ML IV (12:34)
[2025-10-18 12:57] VITALS: BP 144/77; PULSE 79; RESP 18; O2SAT 99
[2025-10-18 13:30] VITALS: BP 138/67; PULSE 76; RESP 18; O2SAT 100
[2025-10-18 14:10] VITALS: BP 133/76; PULSE 74; RESP 18; O2SAT 100
== END 2025-10-18 23:59 | disposition home or self-care (01) ==
LOC: INF 11:09
PROVIDERS: PCP Family Medicine; Visit Provider Internal Medicine Medical Oncology
DX: C50.912 Malignant neoplasm of unspecified site of left female breast (principal); Z51.11 Encounter for antineoplastic chemotherapy
CPT/HCPCS: 80053; 85025; 96413; J1642; J8540; J9267